=== PATIENT | female | born 1950 | race Caucasian/White ===

== ENCOUNTER → 2018-11-25 12:57 | Outpatient (CLI) | payer MEDICARE, SELFPAY ==
--- NOTE | 2018-11-25 13:00 | DI.MRI.S_ITS ---
PROCEDURE: MR LUMBAR SPINE WO CON INDICATIONS: RADICULOPATHY LUMBAR REGION TECHNIQUE: Noncontrast sagittal T1 spin echo and T2 fast echo, sagittal STIR, axial T1 and T2 fast spin echo through the lumbar spine. In cases with scoliosis, additional coronal T2 fast spin echo may be performed. COMPARISON: [facility], , L-SPINE WITHOUT CONTRAST, 09/01/2017, 16:17. FINDINGS: Image quality: Diagnostic, with note made of motion artifact. Alignment and Curvature: S-shaped scoliotic curvature is seen. Minimal retrolisthesis is seen at T12-L1, L1-L2, L2-L3, and L4-L5. Bone Marrow: Marrow is of normal overall signal. No acute vertebral body compression fractures. Spinal Cord: Conus medullaris terminates at the L1 level. Visualized cord demonstrates normal signal and size. Paraspinous Soft Tissues: No paravertebral masses. The superior pole of the right kidney, there is a simple appearing 12 mm cyst seen. This patient has transitional lumbar anatomy. For the purposes of this examination, the level with the last well-developed disc space is considered to be L5-S1. By this numbering scheme, the L5 level is transitional and relatively highly sacralized. This is best seen on coronal images. This numbering scheme is chosen to remain consistent with prior MRI report. T11-T12: Moderate to severe loss of disc height and disc signal are seen. Mild to moderate disc bulge is seen. There is mild right-sided and no significant left-sided neural foraminal narrowing seen. Minimal central canal narrowing is seen. T12-L1: Moderate to severe loss of disc height and disc signal are seen. There is a degree of vertebral body fusion seen at this level. Moderate disc bulge is seen, which is eccentric to the right. There is mild to moderate bilateral neural foraminal narrowing seen. Moderate central canal narrowing is seen. When comparison is made with the prior examination, these findings are similar. L1-L2: Moderate to severe loss of disc height and disc signal are seen. Endplate irregularity is seen, with small Schmorl's nodes. Moderate disc bulge is seen, which is eccentric to the right side. Moderate bilateral neural foraminal narrowing is seen. Moderate central canal narrowing is seen. When comparison is made with the prior examination, these findings are similar. L2-L3: Moderate to severe loss of disc height and disc signal are seen. Endplate irregularity can be seen, with small Schmorl's nodes noted. Moderate disc bulge is seen, which is eccentric to the left. Moderate bilateral neural foraminal narrowing is seen, left worse than right. Moderate facet joint hypertrophy is seen. Moderate central canal narrowing is seen. When comparison is made with the prior examination, these findings are similar. L3-L4: The disc height is well-preserved. Loss of disc signal is seen at this level. Moderate generalized disc bulge is seen. There is a superimposed central/right disc extrusion, with inferior migration of disc material. This can be seen on series 7 image 23 and on series 4 image 8. Moderate to prominent facet hypertrophy is seen. There is moderate right-sided and moderate to severe left-sided neural foraminal narrowing seen. There is a degree of compression seen upon the exiting left L3 nerve root. Moderate central canal narrowing is seen. The disc extrusion is worse compared to the prior MRI. L4-L5: Moderate to severe loss of disc height and disc signal can be seen. Schmorl's nodes are seen. Moderate disc bulge is seen, which is eccentric to the right. Mild to moderate facet hypertrophy is seen. There is mild to moderate right-sided and moderate left-sided neural foraminal narrowing seen. Minimal central canal narrowing is seen. When comparison is made with the prior examination, these findings are similar. L5-S1: Mild to moderate loss of disc height and disc signal can be seen. Minimal to mild disc bulge is seen. Agtr-ea-ibbijehp facet hypertrophy is seen. No significant neural foraminal or central canal narrowing can be seen. Stable from the prior study. IMPRESSION: Interval worsening of a disc extrusion at L3-L4. Otherwise, the degenerative changes are similar to 2018. S-shaped scoliosis. Transitional lumbar anatomy noted, with a relatively highly sacralized L5 level. Dictated by: Sushant Peña M.D. on 11/27/2018 at 7:38 Approved by: Sushant Peña M.D. on 11/27/2018 at 7:49
== END ==
PROVIDERS: Visit Provider Orthopaedic Surgery
DX: M51.16 Intervertebral disc disorders with radiculopathy, lumbar region (principal); M41.9 Scoliosis, unspecified
CPT/HCPCS: 72148

== ENCOUNTER → 2019-04-20 11:28 | Outpatient (CLI) | payer MEDICARE, SELFPAY ==
[2019-04-20 12:11] LABS: Add Manual Diff / Slide Review NO; Basophils Absolute Auto 0 /uL (0-100); Basophils Percent Auto 0.5 % (0-2); Eosinophils Absolute Auto 100 /uL (0-450); Hematocrit 42.8 % (36-46); Hemoglobin 14.6 g/dL (12.0-16.0); Lymphocytes Absolute Auto 1600 /uL (1100-4500); Lymphocytes Percent Auto 24.6 % (25-40); Mean Corpuscular HGB Conc 34.1 % (30-36); Mean Corpuscular Hemoglobin 30.3 PG (26-34); Mean Corpuscular Volume 88.7 fL (80-100); Monocytes Absolute Auto 400 /uL (0-900); Monocytes Percent Auto 5.5 % (3-14); Neutrophils Absolute Auto 4300 /uL (1500-7000); Neutrophils Percent Auto 67.4 % (50-75); Platelet Count 192 X10^3/uL (150-400); Red Blood Cell Count 4.83 X10^6/uL (4.0-5.2); White Blood Cell Count 6.4 X10^3/uL (4.5-11.0)
[2019-04-20 12:39] LABS: Blood Urea Nitrogen 18 mg/dL (7-17); Calcium 9.4 mg/dL (8.4-10.2); Carbon Dioxide 26 mmol/L (22-32); Chloride 103 mmol/L (98-107); Estimated Glomerular Filt Rate > 60.0 mL/min (>60); Glucose 114 mg/dL (80-110); HEMOLYSIS < 15 (0-50); Potassium 4.3 mmol/L (3.4-5.1); Sodium 140 mmol/L (137-145)
== END ==
PROVIDERS: PCP Internal Medicine; Visit Provider Physician Assistant Surgical
DX: Z01.818 Encounter for other preprocedural examination (principal); Z01.812 Encounter for preprocedural laboratory examination; M43.16 Spondylolisthesis, lumbar region; M47.27 Other spondylosis with radiculopathy, lumbosacral region; M48.061 Spinal stenosis, lumbar region without neurogenic claudication
CPT/HCPCS: 36415; 80048; 85025; 93005

== ENCOUNTER 2019-04-26 05:33 | Inpatient (IN) | payer MEDICARE, SELFPAY ==
[2019-04-18 09:53] VITALS: BMI 32.1
[2019-04-22 08:20] VITALS: BP 128/68; PULSE 92; RESP 16; TEMP 36.8; O2SAT 93
[2019-04-26] VITALS (20 sets, daily range): BP systolic 103–145; BP diastolic 46–86; PULSE 60–102; RESP 10–21; TEMP 35.8–38.2; O2SAT 90–99; BMI 32.5
--- NOTE | 2019-04-26 | DI.RAD.S_ITS ---
PROCEDURE: XR LUMBAR SPINE 2-3V INDICATIONS: L3-4, L4-5 TLIF W/ INSTRUMENTATION TECHNIQUE: 2 views of the lumbar spine were acquired. COMPARISON: [facility], , MR LUMBAR SPINE WO CON, 11/25/2018, 13:25. FINDINGS: 2 intraoperative fluoroscopy images demonstrate discectomy and posterior spinal fusion at L3-L4 and L4-L5. Pedicular screws and fusion rods are in anatomic position. IMPRESSION: Discectomy and posterior fusion at L3-L4 and L4-L5. Dictated by: Stanislaw Pina M.D. on 04/26/2019 at 10:53 Approved by: Stanislaw Pina M.D. on 04/26/2019 at 10:56
[2019-04-26] MEDS: LACTATED RINGERS 1,000 ML 42 ML IV ×3 (06:55→11:56)
--- NOTE | 2019-04-26 07:39 | PM.PREOP ---
Pre-operative Note Interval Note History & Physical reviewed/Exam performed by Physician: Yes Changes to H&P: No
[2019-04-26] MEDS: CEFAZOLIN 2 GM/100 ML FROZ.PIGGY IV ×3 (07:56→23:58)
--- NOTE | 2019-04-26 08:41 | SUR.OPER ---
Prone on spine table, head in foam head support, padded chest and pelvic supports, gel pad at knees, lower legs supported by pillows; nipples, genitalia and toes free of pressure, arms secured on foam padded arm boards at <90 degrees abduction. Tape over blanket at thigh secured to table.
[2019-04-26] MEDS: BUPIVACAINE 0.25% W/ EPI 30 ML VIAL INJ (08:47)
[2019-04-26] MEDS: BUPIVACAINE LIPOSOME 266 MG/20 ML VIAL INJ (08:47)
[2019-04-26] MEDS: ACETAMINOPHEN IV 1,000 MG/100 ML VIAL 400 MG IV (11:15)
--- NOTE | 2019-04-26 11:46 | PM.OP.1 ---
Operative Date/Time/Diagnoses Date of procedure: 04/26/19 Time of procedure: 07:46 Pre-op diagnosis: 1. L3-4, L4-5 spinal stenosis 2. L3-4, L4-5 spondylosis with radiculopathy Post-op diagnosis: same Procedure & Clinicians Procedure: 1 L3-4,L4-5 Postero-lateral and posterior interbody fusion 2. L3-4,L4-5 interbody cage placement. 3. L3-4,L4-5 decompressive laminectomy with bilateral facetecomies 4. L3-4,L4-5 Posterior segmental instrumentation 5. [place] of bone marrow from iliac crest 6. Utilization of microsurgical technique and operating microscope Same procedure as scheduled: Yes Indications: Patient has been having chronic back pain and worsening lumbar radiculopathy. Patient failed multiple conservative management with worsening pain weakness and numbness in her lower extremity. Patient has been having difficulty performing activity of daily living. After discussing risks benefits of treatment options, patient elected proceed with surgery. Surgeon: Alexsandra Sanders Bulkhead Carpenter: Hayde Mondragon Click Yes if Unassisted: No Anesthesia Type: General Operative Notes Closure Type: primary Specimen(s): none sent Prosthetic devices, grafts, tissues, transplants, or devices: Globus revolve screws, Rise cages Applied: catheter Estimated Blood Loss (mL): 100 Blood products transfused: none Procedure in detail: Patient was seen in the preoperative area. Risks and benefits of the surgery was discussed with the patient. Informed consent was obtained from the patient and placed in the chart. Surgical site was marked. Patient was taken to the operative room. General anesthesia was administered. Prophylactic antibiotic was given to the patient less than 30 min before the incision was made. Patient was placed into a prone position on the Felix table. Patient's back was then prepped and draped in the sterile fashion. Time-out was performed at this time. Using AP and lateral C-arm imaging the interval between L3-4, L4-5 was identified and marked on patient's back. A 2 inch incision 2 in from midline was made on the right side first. The fascia was incised in line with skin incision. Globus MARS retractors was placed inside the incision and docked onto the L3 and L4 lamina. Using microsurgical technique and operating microscope, a L3 and L4 laminectomy and L3-4, L4-5 facetectomy was performed using a Kerrison rongeur. Patient was found have severe central and neural foramen stenosis bilateral which was fully decompressed after the decompression was completed at both levels. The disc space at L3-4, L4-5 was identified. And a total diskectomy was performed at L3-4, L4-5 level. The endplates were decorticated using a rasp and shaver. The total diskectomy and decortication was performed at L3-4, L4-5 level in order to to accomplish a L3-4, L4-5 fusion. The local bone from the laminectomy and facetectomy was saved for local bone grafting. After the total diskectomy and decortication was completed, Bio4 bone graft material was combined with local bone that was harvested earlier. At this time, a separate skin is incision was made over the iliac crest. A Jamshidi needle was inserted into the iliac crest through a separate skin incision. 5 cc of bone marrow aspiration was obtained through the separate skin incision using a Jamshidi needle from the iliac crest. The bone marrow aspiration was combined with local bone and the Bio4 bone grafting material. The bone grafting material was placed into the L3-4, L4-5 interbody space along with two cages, one expandable cage at each level. The cages were expanded to their maximum height using the torque limiting screwdriver. At this time a mirror image incision was made on the left side. The fascia was incised in line with the skin incision. Globus MARS retractor was inserted and docked onto the L3-4, L4-5 posterolateral gutter. Using the power drill, posterior-lateral decortication was performed at L3-4, L4-5 level until bleeding cortical bone was identified. The remaining bone grafting material was placed into the L3-4, L4-5 posterior lateral gutter he order to accomplish posterolateral fusion at the L3-4, L4-5 levels. Using the double C-arm technique, pedicle screws were placed into the L3, L4, L5 pedicles bilaterally. This was done by placing the Jamshidi needle into the pedicles, then placing the guidewires over the Jamshidi needle, and finally placing the cannulated screws over the guidewires bilaterally. After the pedicle screws were placed, 2 titanium rods was locked into the heads of the pedicle screws using locking caps and torque limiting screwdriver. Total 6 pedicles screws were placed. After all the hardware was placed, and confirmed with AP and lateral C-arm imaging, the wound was then irrigated with sterile normal saline and packed with Ray-Angelica gauze for 3 min to accomplish hemostasis. After the gauze was removed the deep fascia was closed with #1 Vicryl suture. The subcutaneous layer was closed with 2-0 Vicryl. The skin was closed with skin anderson. Patient tolerated the procedure well. There were no complications. Complications: none Post-operative Condition: stable Disposition: PACU Plan for aftercare: Admit to inpatient hospital
[2019-04-26] MEDS: ONDANSETRON 4 MG/2 ML INJ IV ×2 (12:00→14:31)
[2019-04-26] MEDS: METOCLOPRAMIDE 10 MG/2 ML INJ IV ×2 (12:02→18:10)
--- NOTE | 2019-04-26 12:11 | SUR.PHASEI ---
Pt arrived, in pain Dr Esquivel here, she medicated pt with Dilaudid, then pt became diaphoretic and nauseated, medicated with zofran and reglan cool wash cloth and queaze ease to chest.
--- NOTE | 2019-04-26 12:13 | SUR.PHASEI ---
Report To Ismael Garcia
--- NOTE | 2019-04-26 12:15 | SUR.PHASEI ---
ASSUMED CARE OF PT, RECEIVED REPORT FROM TESS DONOVAN
[2019-04-26] MEDS: fentaNYL 100 MCG/2 ML INJ 50 MCG IV ×2 (12:20→12:30)
[2019-04-26] MEDS: hydrOXYzine 50 MG/ML INJ 25 MG IM (12:55)
--- NOTE | 2019-04-26 13:50 | PC.NURSE ---
Pt was brought to the floor at approx. 1340 in her bed from PACU. Pt was visable nauseous with transport. She was reported to have been administered zofran and reglan in the PACU recently. Pt was settled into her room which was darkened and made quiet for her comfort. Pt has been able to rest with reduced n/v. Foot SCD's in place, IV fluid running. Call light is within reach.
[2019-04-26] MEDS: SODIUM CHLORIDE 0.9% 1,000 ML 100 ML IV ×2 (14:30→23:59)
--- NOTE | 2019-04-26 14:37 | PC.NURSE ---
1340Pt arrived from PACU via bed. Pt is awake, nauseated, Had emesis. Pt is on O22L pnc, ,sats 98-100%. Pt wants to rest at this time. 1410 Pt had emesis of green, bile, fluid. Pt cleaned up, 1430 Med w/zofran. IVF NS at 100hr now infusing. Family at bedside. Dressing to back is cdi. SCDs on ble. Pt able to move about in the bed. Inst on log role. RT in to inst on IS use.
[2019-04-26] MEDS: HYDROMORPHONE 0.5 MG INJ IV (16:11)
[2019-04-26] MEDS: HYDROCODONE/ACET 5/325 TABLET 2 TAB PO (19:23)
[2019-04-26] MEDS: DOCUSATE 100 MG CAPSULE PO (21:21)
[2019-04-26] MEDS: SENNOSIDES 8.6 MG TABLET 17.2 MG PO (21:21)
[2019-04-27] VITALS (9 sets, daily range): BP systolic 124–143; BP diastolic 61–74; PULSE 85–92; RESP 16–18; TEMP 36.6–38.4; O2SAT 90–97
[2019-04-27] MEDS: HYDROCODONE/ACET 5/325 TABLET 2 TAB PO ×6 (00:02→21:15)
--- NOTE | 2019-04-27 00:08 | PC.NURSE ---
Shift note: Received pt from evening shift. Axox3, able to make needs known. Assessment notable for temp: 100.7, pt was covered in multiple blankets and was moist to hairline. Pt requested pain medication for 6/10 pain, medicated per OCT with 2tab [place] which had 650mg of tylenol which will address both pain and fever. Pt has what appears to be redness to left abdomen in skin fold that appears to have been scratched at, resumed using folded pillow case between fold and advised pt to avoid scratching. Pt has a dressing to back that is CDI and all other systems are stable, pt is on RA at 97%. Pt is a low fall risk at this time and will most likely not need to get out of bed on auto care center manager, bed alarm is on and functioning for safety d/t pt being post op day 0 with huan shcreiber.
[2019-04-27 06:49] LABS: Hematocrit 36.5 % (36-46); Hemoglobin 12.1 g/dL (12.0-16.0)
[2019-04-27] MEDS: DOCUSATE 100 MG CAPSULE PO ×2 (09:13→21:14)
[2019-04-27] MEDS: hydrOXYzine pamoate 25 MG CAPSULE PO (09:13)
--- NOTE | 2019-04-27 09:27 | PM.PNPO.1 ---
Subjective Subjective Date Patient Seen: 04/27/19 Time Patient Seen: 09:27 Interval history: Hospital day 2, postop day 1 following L3-4, L4-5 laminectomy, TLIF, cage, posterior screw fixation by Dr. Sanders. She has remained stable postoperatively. Did note some increased pain during the night. Taking [place] 5/325 mg 2 tablets q.4h. Her chart notes allergy to hydrocodone this is not correct will be changed. She states she has been able take Vicodin in the past without problem. She does have Hairston catheter. She has not been out of bed yet or had PT. Exam Vital Signs (past 8 hours): - 04/27/19 04:18 04/27/19 08:00 Temperature 97.9 F 98.0 F Pulse Rate 85 87 Respiratory Rate 18 16 Blood Pressure 124/74 135/68 Pulse Oximetry 97 95 Fraction of Inspired Oxygen 36 Oxygen Delivery Method Room Air Oxygen Flow Rate 2 Narrative Exam Narrative: Alert, oriented no acute distress lying in bed. Legs. No calf pain or swelling. Pulses symmetrical. Good sensation to touch to lower legs. Good strength on foot dorsiflexion plantar flexion. Objective Labs Result Diagrams: 04/27/19 06:38 Labs: Laboratory Results - last 24 hr 04/27/19 06:38 Hgb 12.1 Hct 36.5 Assessment & Plan Post-op Postoperative Procedures: Procedures Operation Date: 04/26/19 07:45 Actual Procedures Side Surgeon p L3-4, L4-5 TLIF with posterior instrumentaion Alexsandra Sanders MD Plan: Patient will work with PT today. DC Hairston catheter when she is more active. Anticipate another 1-2 day stay before discharge. Patient lives alone with her cat. She does not have stairs. She would prefer not to go to SNF. Quality VTE Deep Vein Thrombosis/Pulmonary Embolism Present on Admission: No
--- NOTE | 2019-04-27 09:30 | PT.IIE ---
Current Diagnoses Spondylolisthesis, lumbar region (04/26/19) Other spondylosis with radiculopathy, lumbosacral region (04/26/19) Spinal stenosis, lumbar region without neurogenic claudication (04/26/19) Surgery Performed Operation Date: 04/26/19 07:45 Actual Procedures p L3-4, L4-5 TLIF with posterior instrumentaion - Alexsandra Sanders MD Surgical History (Last Updated 04/18/19 @ 09:59 by Syeda Copeland RN) History of arthroplasty of left shoulder (Acute ~2016) History of arthroplasty of right knee (Acute) History of total left hip arthroplasty (Acute) Hx of bilateral cataract extraction (Acute) Hx of thyroidectomy (Acute) Hx of tonsillectomy (Acute) Medical History (Last Updated 04/18/19 @ 09:59 by Syeda Copeland RN) Arthritis (Acute) Depression (Acute) Former smoker (Acute) H/O: hysterectomy (Acute) HTN (hypertension) (Acute) IBS (irritable bowel syndrome) (Acute) Pelvic fracture (Acute) Spinal stenosis (Acute) Physical Therapy Inpatient Evaluation/Re-Eval M1 PT/OT-IP Prior Functional Status Start: 04/27/19 12:37 Freq: NEEDED Status: Active Protocol: Document 04/27/19 09:30 AB (Rec: 04/27/19 12:54 AB [email or web address]) Medical Review Prior Functional Status Medical History Reviewed Yes Communication able to make needs known Mobility and Gait pt stated that she is independent with all mobilities and ambulation without AD Social History Household Members none Living Arrangements Apartment/Condo Number of Floors (Floors) One Floor Number of Stairs To Enter/Railing? no step to enter Home Environment Standard Height Toilet,Tub/ Shower Home Equipment Four Wheel Walker,Grab Bars In Shower Employment Status Retired Additional Social History Comment pt stated that friend/family will be checking and can assist her but cannot stay with her to assist. M2 PT-IP Current Condition Start: 04/27/19 12:37 Freq: NEEDED Status: Active Protocol: Document 04/27/19 09:30 AB (Rec: 04/27/19 12:54 AB [email or web address]) Physical Therapy Current Condition Current Condition Evaluation Date 04/27/19 Treatment Diagnosis L3-4, L4-5 fusion/lami; difficulty in walking Onset Date 04/26/19 Precautions Lumbar Precautions Log Roll,No Twisting,Limit Bending,Lifting Restriction of 10 lbs,Gait Belt above Incisional Area M3 PT-IP Subjective Start: 04/27/19 12:37 Freq: NEEDED Status: Active Protocol: Document 04/27/19 09:30 AB (Rec: 04/27/19 12:54 AB [email or web address]) Subjective Physical Therapy Visit Type Type Initial Evaluation Visit Start Time 09:30 Visit Stop Time 10:02 Total Visit Minutes 32 Number of LEAD C DEVELOPER Visits 0 Physical Therapy Visit Comments Patient Comments pt agreeable to do PT Therapy Pain Assessment Pain When Pain Assessed At Rest Pain Present Pain Present Pain Reported Location back Intensity 5 Scale Used Numeric (1 - 10) Pain Management Techniques Apply Cold,Timing of Activity with Medications M4 PT-IP Mobility and Gait Start: 04/27/19 12:37 Freq: NEEDED Status: Active Protocol: Document 04/27/19 09:30 AB (Rec: 04/27/19 12:54 AB [email or web address]) PT-Bed Mobility Assessment Rolling Type of Rolling Log Rolling Level of Assist Minimal Assistance Supine to Sit Supine to Sit Minimal Assistance,1 Person Assistance PT-Transfer Assessment Sit to and From Stand Sit to and from Stand Moderate Assistance,1 Person Assistance,Use of Upper Extremities Equipment Transfer Assistive Device Gait Belt,Front Wheeled Walker Orthotic/Prosthetic Devices or Brace: No Transfers Transfer Destination Chair Transfer Technique pt ambulated using FWW Comments Mobility Comments pt completed supine to sit min A and cues. pt was able to sit on EOB CGA. completed sit to stand mod A and cues. pt ambulated towards the chair using FWW min to mod A ~ 12 ft . positioned pt on chair. call light and table placed within reach. pt c/o increase pain. Gait Assessment Gait Gait Assistance Required: Minimum Assistance,Moderate Assistance Distance (Feet) 12 Able to Maintain Weight Bearing Status Yes During Gait Assistive Devices Assistive Device Gait Belt,Front Wheeled Walker Orthotic/Prosthetic Devices or Brace: No Gait Deviations General Gait Pattern Antalgic,Decreased Stride Length,Decreased Feet Clearance Factors Limiting Gait Function Factors Limiting Gait Function Decreased Activity Tolerance, Decreased Strength,Limited Range of Motion,Pain,Poor Balance,Poor Safety Awareness Comments Gait Comments pt presents with antalgic step to gait and requires increase time to complete tasks. PT-Balance Assessment Sitting Balance and Reactions Static Sitting Balance Ability Good Dynamic Sitting Balance Ability Good Standing Balance and Reactions Static Standing Balance Ability Fair Dynamic Standing Balance Ability Fair Device Used FWW M5 PT-IP Objective Assessments Start: 04/27/19 12:37 Freq: NEEDED Status: Active Protocol: Document 04/27/19 09:30 AB (Rec: 04/27/19 12:54 AB [email or web address]) Orientation Orientation/Cognition Level of Alertness Alert Orientation Name,Age,Birthday,Month,Date, Year,Day of Week,Place, Situation Safety Awareness Decreased Safety Awareness Gross Range of Motion Lower Extremity ROM Assessment Within Functional Limits Strength Lower Extremity Strength Assessment Bilaterally Impaired Hip 4-/5 Knee 4-/5 Coordination Assessment Gross Coordination Gross Coordination WNL Sensation Assessment Sensation Gross Sensation WNL Muscle Tone Muscle Tone WNL Yes M6 PT-IP Treatment Start: 04/27/19 12:37 Freq: NEEDED Status: Active Protocol: Document 04/27/19 09:30 AB (Rec: 04/27/19 12:54 AB [email or web address]) Physical Therapy Treatment Education Education Provided Precautions,Weight Bearing Status,Post-Op Packet,Safety M7 PT-IP Assessment and Plan Start: 04/27/19 12:37 Freq: NEEDED Status: Active Protocol: Document 04/27/19 09:30 AB (Rec: 04/27/19 12:54 AB [email or web address]) PT Summary Assessment and Plan Potential Rehabilitation Potential Good Status of Condition at Evaluation Evolving Summary Impairments Pain,ROM,Strength,Balance, Coordination,Sensation,Tone, Cognition,Bed Mobility, Transfers,Gait,Activity Tolerance Assessment Summary pt requiring min to mod A with mobility and will not have a consistent person to assist her at home. pt has to be more functional than current mobility to go home. will continue to monitor progress. Goals Bed Mobility Goal Independent Transfer Goal Independent,Front Wheeled Walker Gait Goal Independent,Front Wheel Walker Gait Distance 150 Days to Meet Goals 5 Frequency of Treatment Frequency Of Treatment Twice a Day Treatment Plan Physical Therapy Treatment Plan Bed Mobility Training,Transfer Training,Gait Training, Therapeutic Exercise,Balance Retraining,Post Op Education, Discharge Planning,Hot or Cold Pack,Neuromuscular Re-ed, Coordination Retraining,Manual Therapy Other Recommendations and Next Treatment bed mobility, transfers, Focus ambulation Recommendations To Nursing Amount of Assist Needed 1 Person Assist Discharge Recommendations PT Discharge Recommendations Home with 24/7 Assist,Home Health,SNF Rehab Other Discharge Recommendations depending on progress: SNF vs home with 24/7/HHPT Equipment Needed for Home Before FWW Discharge
--- NOTE | 2019-04-27 10:45 | PC.NURSE ---
Addendum entered by Morena Wilkins R.N. 04/27/19 12:24: pt c/o chest tightness and thinks it is related to stress. She says this happens, I asked if there is anything she does to alleviate stress and she said she just needs to chill out. VVS and able to take a couple inhalations with IS without pain, just reporting tightness like when you get a cold. Original Note: AM Shift pt AO and receptive to care. Reporting 9/10 pain during assessment. Administered 2 tabs [place] and pain decreased to 3/10. Some pain still irritates pt to left flank and she is thinking it is more diverticulitis related (prior diagnosis). I handed her the menu and suggested ordering meals conducive to a diverticulitis diet. pt agrees. PT assisted pt to chair. Hairston draining to gravity. Saline locked fluids this AM as VS are stable. No edema noted. SCD's were on and pumping at the start of shift, but removed for activity. Tolerating fluids and meals, no nausea reported.
--- NOTE | 2019-04-27 12:33 | PC.NURSE ---
Removed medication from allergy list. KOURTNEY Tinsley asked to remove hydromorphone from allergy list due to medication currently being administered. No adverse reactions being reported by the patient at this time (or after previous administrations).
--- NOTE | 2019-04-27 14:25 | PT.IPTN ---
Current Diagnoses Spondylolisthesis, lumbar region (04/26/19) Other spondylosis with radiculopathy, lumbosacral region (04/26/19) Spinal stenosis, lumbar region without neurogenic claudication (04/26/19) Surgery Performed Operation Date: 04/26/19 07:45 Actual Procedures p L3-4, L4-5 TLIF with posterior instrumentaion - Alexsandra Sanders MD Physical Therapy Treatment Note M2 PT-IP Current Condition Start: 04/27/19 12:37 Freq: NEEDED Status: Active Protocol: Document 04/27/19 09:30 AB (Rec: 04/27/19 12:54 AB [id number]) Physical Therapy Current Condition Current Condition Evaluation Date 04/27/19 Treatment Diagnosis L3-4, L4-5 fusion/lami; difficulty in walking Onset Date 04/26/19 Precautions Lumbar Precautions Log Roll,No Twisting,Limit Bending,Lifting Restriction of 10 lbs,Gait Belt above Incisional Area M3 PT-IP Subjective Start: 04/27/19 12:37 Freq: NEEDED Status: Active Protocol: Document 04/27/19 14:25 AB (Rec: 04/27/19 16:32 AB [id number]) Subjective Physical Therapy Visit Type Type Treatment Note Visit Start Time 14:25 Visit Stop Time 14:45 Total Visit Minutes 20 Number of FRICTION WELDING MACHINE OPERATOR Visits 0 Physical Therapy Visit Comments Patient Comments pt agreeable to do PT Therapy Pain Assessment Pain When Pain Assessed At Rest Pain Present Pain Present Pain Reported Location back Intensity 11 Scale Used Numeric (1 - 10) Pain Management Techniques Re-positioning,Timing of Activity with Medications M4 PT-IP Mobility and Gait Start: 04/27/19 12:37 Freq: NEEDED Status: Active Protocol: Document 04/27/19 14:25 AB (Rec: 04/27/19 16:32 AB [id number]) PT-Bed Mobility Assessment Sit to Supine Sit to Supine Moderate Assistance PT-Transfer Assessment Sit to and From Stand Sit to and from Stand Moderate Assistance,1 Person Assistance,Use of Upper Extremities Equipment Transfer Assistive Device Gait Belt,Front Wheeled Walker Orthotic/Prosthetic Devices or Brace: No Transfers Transfer Destination Bed Transfer Technique pt ambulated using FWW Transfer Ability Level of Assist Moderate Assistance,1 Person Assistance,Use of Upper Extremities Comments Mobility Comments completed sit <>stand x3 reps and max cues requiring mod A and cues for techniques and safety. Gait Assessment Gait Gait Assistance Required: Moderate Assistance Distance (Feet) 12 Able to Maintain Weight Bearing Status Yes During Gait Assistive Devices Assistive Device Gait Belt,Front Wheeled Walker Orthotic/Prosthetic Devices or Brace: No Gait Deviations General Gait Pattern Antalgic,Decreased Stride Length,Decreased Feet Clearance Factors Limiting Gait Function Factors Limiting Gait Function Decreased Activity Tolerance, Decreased Strength,Limited Range of Motion,Pain,Poor Balance,Poor Safety Awareness Comments Gait Comments pt presents with unsteady antalgic gait with slow stewart. c/o increase pain M5 PT-IP Objective Assessments Start: 04/27/19 12:37 Freq: NEEDED Status: Active Protocol: Document 04/27/19 09:30 AB (Rec: 04/27/19 12:54 AB [id number]) Orientation Orientation/Cognition Level of Alertness Alert Orientation Name,Age,Birthday,Month,Date, Year,Day of Week,Place, Situation Safety Awareness Decreased Safety Awareness Gross Range of Motion Lower Extremity ROM Assessment Within Functional Limits Strength Lower Extremity Strength Assessment Bilaterally Impaired Hip 4-/5 Knee 4-/5 Coordination Assessment Gross Coordination Gross Coordination WNL Sensation Assessment Sensation Gross Sensation WNL Muscle Tone Muscle Tone WNL Yes M6 PT-IP Treatment Start: 04/27/19 12:37 Freq: NEEDED Status: Active Protocol: Document 04/27/19 14:25 AB (Rec: 04/27/19 16:32 AB [id number]) Physical Therapy Treatment Education Education Provided Precautions,Safety M7 PT-IP Assessment and Plan Start: 04/27/19 12:37 Freq: NEEDED Status: Active Protocol: Document 04/27/19 14:25 AB (Rec: 04/27/19 16:32 AB [id number]) PT Summary Assessment and Plan Potential Rehabilitation Potential Fair Summary Impairments Pain,ROM,Strength,Balance, Coordination,Sensation,Bed Mobility,Transfers,Gait, Activity Tolerance Progress Towards Goals Slow Progress due to Pain Assessment Summary pt requiring mod A with mobility and unable to tolerate much activity with c/ o 11/10 pain. pt will not have a consistent person to assist her and will just be relying on friends that might check on her. pt at this time will require SNF rehab to improve mobility prior to d/c home. Goals Bed Mobility Goal Independent Transfer Goal Independent,Front Wheeled Walker Gait Goal Independent,Front Wheel Walker Gait Distance 150 Days to Meet Goals 5 Frequency of Treatment Frequency Of Treatment Twice a Day Treatment Plan Physical Therapy Treatment Plan Bed Mobility Training,Transfer Training,Gait Training, Therapeutic Exercise,Balance Retraining,Post Op Education, Discharge Planning,Hot or Cold Pack,Neuromuscular Re-ed, Coordination Retraining,Manual Therapy Other Recommendations and Next Treatment bed mobility, transfers, Focus ambulation Recommendations To Nursing Amount of Assist Needed 1 Person Assist Discharge Recommendations PT Discharge Recommendations SNF Rehab Equipment Needed for Home Before FWW Discharge
--- NOTE | 2019-04-27 14:38 | OT.IP.EVAL ---
Current Diagnoses Spondylolisthesis, lumbar region (04/26/19) Other spondylosis with radiculopathy, lumbosacral region (04/26/19) Spinal stenosis, lumbar region without neurogenic claudication (04/26/19) Surgery Performed Operation Date: 04/26/19 07:45 Actual Procedures p L3-4, L4-5 TLIF with posterior instrumentaion - Alexsandra Sanders MD Past Medical History (Last Updated 04/18/19 @ 09:59 by Syeda Copeland RN) Arthritis (Acute) Depression (Acute) Former smoker (Acute) H/O: hysterectomy (Acute) HTN (hypertension) (Acute) IBS (irritable bowel syndrome) (Acute) Pelvic fracture (Acute) Spinal stenosis (Acute) Surgical History (Last Updated 04/18/19 @ 09:59 by Syeda Copeland RN) History of arthroplasty of left shoulder (Acute ~2016) History of arthroplasty of right knee (Acute) History of total left hip arthroplasty (Acute) Hx of bilateral cataract extraction (Acute) Hx of thyroidectomy (Acute) Hx of tonsillectomy (Acute) Occupational Therapy Inpatient Evaluation/Re-Eval M1 PT/OT-IP Prior Functional Status Start: 04/27/19 12:37 Freq: NEEDED Status: Active Protocol: Document 04/27/19 14:21 [facility] (Rec: 04/27/19 14:38 [facility] [id number]) Medical Review Prior Functional Status Medical History Reviewed Yes Communication able to make needs known Mobility and Gait pt stated that she is independent with all mobilities and ambulation without AD Activities of Daily Living and IADL's Pt states she was completely independent with all ADl and IADl needs. Social History Household Members none Living Arrangements Apartment/Condo Number of Floors (Floors) One Floor Number of Stairs To Enter/Railing? no step to enter Home Environment Standard Height Toilet,Tub/ Shower Home Equipment Four Wheel Walker,Grab Bars In Shower Employment Status Retired Additional Social History Comment pt stated that friend/family will be checking and can assist her but cannot stay with her to assist. M2 OT-IP Current Condition Start: 04/27/19 11:02 Freq: Status: Active Protocol: Document 04/27/19 14:21 [facility] (Rec: 04/27/19 14:38 [facility] [id number]) Occupational Therapy Current Condition Current Condition Evaluation Date 04/27/19 Treatment Diagnosis S/P L3-4, L4-5 laminectomy, TLIF cage posterior fixation Diagnosis Onset Date 04/26/19 Post Operative Precautions Lumbar Precautions Log Roll,No Twisting,Limit Bending,Lifting Restriction of 10 lbs,Gait Belt above Incisional Area Weight Bearing Status Weight Bearing Status Weight Bear as Tolerated M3 OT- IP Subjective and Pain Start: 04/27/19 11:02 Freq: Status: Active Protocol: Document 04/27/19 14:21 [facility] (Rec: 04/27/19 14:38 [facility] [id number]) OT- Subjective Occupational Therapy Visit Type Type Initial Evaluation Visit Start Time 09:35 Visit Stop Time 10:06 Total Visit Minutes 31 Occupational Therapy Visit Comments Patient Comments Pt agreeable to get up. Patient/Caregiver Goals Pt wanting to go home. OT Pain Assessment Pain When Pain Assessed During Mobility Pain Present Pain Present Pain Reported Location back Intensity 9 M4 OT- IP ADL's Start: 04/27/19 11:02 Freq: Status: Active Protocol: Document 04/27/19 14:21 [facility] (Rec: 04/27/19 14:38 [facility] [id number]) OT ADL-Grooming Comments OT Grooming Comments not completed OT ADL-Dressing General Eval Lower Body Dressing Ability Maximum Assistance Areas Needing Assistance Socks Comments OT Dressing Comments Pt educated for LB dressing equipment as currently needing MAX A . OT ADL-Toileting Comments OT Toileting Comments Pt will benefit from either BSC or RTS. OT ADL-Bathing Comments OT Bathing Comments Pt may need tub bench versus shower chair. M5 OT- IP IADL's Start: 04/27/19 11:02 Freq: Status: Active Protocol: Document 04/27/19 14:21 [facility] (Rec: 04/27/19 14:38 [facility] [id number]) OT-Instrumental Activities of Daily Living Home Safety Awareness Home Safety Comments Pt states manages her IADL needs without assist. M6 OT- IP Functional Cognition Start: 04/27/19 11:02 Freq: Status: Active Protocol: Document 04/27/19 14:21 [facility] (Rec: 04/27/19 14:38 [facility] [id number]) Cognitive Factors Limiting Selfcare Function Cognitive Ability Level of Alertness Alert Patient Orientation Name,Place,Situation Attention Span Ability Capable of Focused Attention, Capable of Sustained Attention Ability to Follow Commands Able to Follow One Step Commands Memory Description Short Term Impaired Safety Awareness Decreased Ability to Apply Precautions,Underestimates Need for Assistance Cognitive Comments Cognitive Assessment Comments Pt not remembering back precautions and will benefit from continued practice and education during ADl needs. OT- Vision and Hearing OT- Hearing Assessment OT- Hearing Assessment WFL OT- Vision Assessment Visual Acuity Glasses For Reading M7 OT- IP Mobility and Balance Start: 04/27/19 11:02 Freq: Status: Active Protocol: Document 04/27/19 14:21 [facility] (Rec: 04/27/19 14:38 [facility] [id number]) OT- Bed Mobility Assessment Supine to Sit Supine to Sit Assist Minimal Assistance OT-Transfer Assessment Sit to and From Stand Sit to and from Stand Moderate Assistance Transfers Transfer Ability Moderate Assistance Technique Transfer Destination Bed,Chair Devices Transfer Assistive Devices Gait Belt,Front Wheeled Walker Comments Mobility Comments Pt needing assist to help get up from sidelying and would benefit from bedrail at home. Pt needing MODA to stand due to weakness and difficulty to straighten legs out. OT- Balance Assessment Sitting Balance and Reactions Static Sitting Balance Ability Good Dynamic Sitting Balance Ability Fair Standing Balance and Reactions Static Standing Balance Ability Fair M8 OT- IP Objective Assessments Start: 04/27/19 11:02 Freq: Status: Active Protocol: Document 04/27/19 14:21 [facility] (Rec: 04/27/19 14:38 [facility] [id number]) OT Strength Upper Extremity Strength Assessment Within Functional Limits OT-Muscle Tone Assessment Muscle Tone WNL Yes M9 OT- IP Assessment and Plan Start: 04/27/19 11:02 Freq: Status: Active Protocol: Document 04/27/19 14:21 [facility] (Rec: 04/27/19 14:38 [facility] [id number]) OT Summary Assessment and Plan Potential Rehabilitation Potential Good Analytic Complexity at Evaluation Low Summary OT Impairments Pain,Balance,Functional Cognition,Functional Mobility, Grooming,Dressing,Toileting, Bathing,Toilet Transfers, Shower Transfers Progress Towards Goals Slow Progress due to Pain,Slow Progress due to Activity Tolerance Assessment Summary Pt low complexity and main barrier is now needing MODA for mobility needs and assistance for ADl's. Pt lives alone and only has friends to come by to assist. Pt would benefit from skilled rehab prior to discharge home otherwise go home if someone able to stay with her. Goals Grooming Goal Independent Dressing Goal Independent Toileting Goal Independent Bathing Goal Standby Assistance Toilet Transfer Goal Independent Shower Transfer Goal Standby Assistance Patient/Caregiver Education Goal Demonstrate Post-Op Precautions,Caregiver Independent Assisting Patient OT-Other Goals Grooming goal in standing. Days to Meet Goals 7 Frequency of Treatment Frequency Of Treatment Once a Day Treatment Plan OT Treatment Plan ADL Training,Functional Cognition Training,Functional Mobility,Patient/Family Education,Discharge Planning Other Treatment Recommendations and Next Toileting and dressing with Treatment Focus incorporation of back precautions. Discharge Recommendations OT Discharge Recommendations SNF Rehab Other Discharge Recommendations Pending medical progress and if someone can stay home with her initially, home with assist. Home Equipment Needs Tub bench, bed rail, BSC/RTS, turnaround engineer, long handled shoe horn ,FWW
--- NOTE | 2019-04-27 14:40 | OT.IP.EVAL ---
Current Diagnoses Spondylolisthesis, lumbar region (04/26/19) Other spondylosis with radiculopathy, lumbosacral region (04/26/19) Spinal stenosis, lumbar region without neurogenic claudication (04/26/19) Surgery Performed Operation Date: 04/26/19 07:45 Actual Procedures p L3-4, L4-5 TLIF with posterior instrumentaion - Alexsandra Sanders MD Past Medical History (Last Updated 04/18/19 @ 09:59 by Syeda Copeland RN) Arthritis (Acute) Depression (Acute) Former smoker (Acute) H/O: hysterectomy (Acute) HTN (hypertension) (Acute) IBS (irritable bowel syndrome) (Acute) Pelvic fracture (Acute) Spinal stenosis (Acute) Surgical History (Last Updated 04/18/19 @ 09:59 by Syeda Copeland RN) History of arthroplasty of left shoulder (Acute ~2016) History of arthroplasty of right knee (Acute) History of total left hip arthroplasty (Acute) Hx of bilateral cataract extraction (Acute) Hx of thyroidectomy (Acute) Hx of tonsillectomy (Acute) Occupational Therapy Inpatient Evaluation/Re-Eval M1 PT/OT-IP Prior Functional Status Start: 04/27/19 12:37 Freq: NEEDED Status: Active Protocol: Document 04/27/19 14:21 [facility] (Rec: 04/27/19 14:38 [facility] [id number]) Medical Review Prior Functional Status Medical History Reviewed Yes Communication able to make needs known Mobility and Gait pt stated that she is independent with all mobilities and ambulation without AD Activities of Daily Living and IADL's Pt states she was completely independent with all ADl and IADl needs. Social History Household Members none Living Arrangements Apartment/Condo Number of Floors (Floors) One Floor Number of Stairs To Enter/Railing? no step to enter Home Environment Standard Height Toilet,Tub/ Shower Home Equipment Four Wheel Walker,Grab Bars In Shower Employment Status Retired Additional Social History Comment pt stated that friend/family will be checking and can assist her but cannot stay with her to assist. M2 OT-IP Current Condition Start: 04/27/19 11:02 Freq: Status: Active Protocol: Document 04/27/19 14:21 [facility] (Rec: 04/27/19 14:38 [facility] [id number]) Occupational Therapy Current Condition Current Condition Evaluation Date 04/27/19 Treatment Diagnosis S/P L3-4, L4-5 laminectomy, TLIF cage posterior fixation Diagnosis Onset Date 04/26/19 Post Operative Precautions Lumbar Precautions Log Roll,No Twisting,Limit Bending,Lifting Restriction of 10 lbs,Gait Belt above Incisional Area Weight Bearing Status Weight Bearing Status Weight Bear as Tolerated M3 OT- IP Subjective and Pain Start: 04/27/19 11:02 Freq: Status: Active Protocol: Document 04/27/19 14:21 [facility] (Rec: 04/27/19 14:38 [facility] [id number]) OT- Subjective Occupational Therapy Visit Type Type Initial Evaluation Visit Start Time 09:35 Visit Stop Time 10:06 Total Visit Minutes 31 Occupational Therapy Visit Comments Patient Comments Pt agreeable to get up. Patient/Caregiver Goals Pt wanting to go home. OT Pain Assessment Pain When Pain Assessed During Mobility Pain Present Pain Present Pain Reported Location back Intensity 9 M4 OT- IP ADL's Start: 04/27/19 11:02 Freq: Status: Active Protocol: Document 04/27/19 14:21 [facility] (Rec: 04/27/19 14:38 [facility] [id number]) OT ADL-Grooming Comments OT Grooming Comments not completed OT ADL-Dressing General Eval Lower Body Dressing Ability Maximum Assistance Areas Needing Assistance Socks Comments OT Dressing Comments Pt educated for LB dressing equipment as currently needing MAX A . OT ADL-Toileting Comments OT Toileting Comments Pt will benefit from either BSC or RTS. OT ADL-Bathing Comments OT Bathing Comments Pt may need tub bench versus shower chair. M5 OT- IP IADL's Start: 04/27/19 11:02 Freq: Status: Active Protocol: Document 04/27/19 14:21 [facility] (Rec: 04/27/19 14:38 [facility] [id number]) OT-Instrumental Activities of Daily Living Home Safety Awareness Home Safety Comments Pt states manages her IADL needs without assist. M6 OT- IP Functional Cognition Start: 04/27/19 11:02 Freq: Status: Active Protocol: Document 04/27/19 14:21 [facility] (Rec: 04/27/19 14:38 [facility] [id number]) Cognitive Factors Limiting Selfcare Function Cognitive Ability Level of Alertness Alert Patient Orientation Name,Place,Situation Attention Span Ability Capable of Focused Attention, Capable of Sustained Attention Ability to Follow Commands Able to Follow One Step Commands Memory Description Short Term Impaired Safety Awareness Decreased Ability to Apply Precautions,Underestimates Need for Assistance Cognitive Comments Cognitive Assessment Comments Pt not remembering back precations and will benefit from continued practice and education during ADl needs. OT- Vision and Hearing OT- Hearing Assessment OT- Hearing Assessment WFL OT- Vision Assessment Visual Acuity Glasses For Reading M7 OT- IP Mobility and Balance Start: 04/27/19 11:02 Freq: Status: Active Protocol: Document 04/27/19 14:21 [facility] (Rec: 04/27/19 14:38 [facility] [id number]) OT- Bed Mobility Assessment Supine to Sit Supine to Sit Assist Minimal Assistance OT-Transfer Assessment Sit to and From Stand Sit to and from Stand Moderate Assistance Transfers Transfer Ability Moderate Assistance Technique Transfer Destination Bed,Chair Devices Transfer Assistive Devices Gait Belt,Front Wheeled Walker Comments Mobility Comments Pt needing assist to help get up from sidelying and would benefit from bedrail at home. Pt needing MODA to stand due to weakness and difficulty to straighten legs out. OT- Balance Assessment Sitting Balance and Reactions Static Sitting Balance Ability Good Dynamic Sitting Balance Ability Fair Standing Balance and Reactions Static Standing Balance Ability Fair M8 OT- IP Objective Assessments Start: 04/27/19 11:02 Freq: Status: Active Protocol: Document 04/27/19 14:21 [facility] (Rec: 04/27/19 14:38 [facility] [id number]) OT Strength Upper Extremity Strength Assessment Within Functional Limits OT-Muscle Tone Assessment Muscle Tone WNL Yes M9 OT- IP Assessment and Plan Start: 04/27/19 11:02 Freq: Status: Active Protocol: Document 04/27/19 14:21 [facility] (Rec: 04/27/19 14:38 [facility] [id number]) OT Summary Assessment and Plan Potential Rehabilitation Potential Good Analytic Complexity at Evaluation Low Summary OT Impairments Pain,Balance,Functional Cognition,Functional Mobility, Grooming,Dressing,Toileting, Bathing,Toilet Transfers, Shower Transfers Progress Towards Goals Slow Progress due to Pain,Slow Progress due to Activity Tolerance Assessment Summary Pt low complexity and main barrier is now needing MODA for mobility needs and assistance for ADl's. Pt lives alone and only has friends to come by to assist. Pt would benefit from skilled rehab prior to discharge home otherwise go home if someone able to stay with her. Goals Grooming Goal Independent Dressing Goal Independent Toileting Goal Independent Bathing Goal Standby Assistance Toilet Transfer Goal Independent Shower Transfer Goal Standby Assistance Patient/Caregiver Education Goal Demonstrate Post-Op Precautions,Caregiver Independent Assisting Patient OT-Other Goals Grooming goal in standing. Days to Meet Goals 7 Frequency of Treatment Frequency Of Treatment Once a Day Treatment Plan OT Treatment Plan ADL Training,Functional Cognition Training,Functional Mobility,Patient/Family Education,Discharge Planning Other Treatment Recommendations and Next Toileting and dressing with Treatment Focus incorporation of back precautions. Discharge Recommendations OT Discharge Recommendations SNF Rehab Other Discharge Recommendations Pending medicaly progress and if someone can stay home with her initially, home with assist 07/03. Home Equipment Needs Tub bench, bed rail, BSC/RTS, nut grinder, long handled shoe horn ,FWW
[2019-04-27] MEDS: SENNOSIDES 8.6 MG TABLET 17.2 MG PO (21:14)
[2019-04-27] MEDS: SODIUM CHLORIDE 0.9% FLUSH 10 ML IV (22:03)
[2019-04-28] VITALS (8 sets, daily range): BP systolic 124–154; BP diastolic 66–81; PULSE 93–107; RESP 16–18; TEMP 36.8–38.7; O2SAT 92–96
[2019-04-28] MEDS: hydrOXYzine pamoate 25 MG CAPSULE PO ×2 (00:41→08:06)
[2019-04-28] MEDS: HYDROMORPHONE 0.5 MG INJ IV ×2 (00:41→06:49)
[2019-04-28] MEDS: HYDROCODONE/ACET 5/325 TABLET 2 TAB PO (04:27)
--- NOTE | 2019-04-28 06:18 | PC.NURSE ---
Hairston catheter removed at 0615.
[2019-04-28] MEDS: DOCUSATE 100 MG CAPSULE PO ×2 (08:06→21:19)
[2019-04-28] MEDS: SODIUM CHLORIDE 0.9% FLUSH 10 ML IV ×2 (08:06→22:12)
--- NOTE | 2019-04-28 08:31 | PM.PNPO.1 ---
Subjective Subjective Date Patient Seen: 04/28/19 Time Patient Seen: 08:31 Interval history: POD #2 s/p L3-[address] Sanders. Her pain has not been well controlled. She has been very slow to mobilize with PT. Hairston was removed this morning. She was febrile yesterday, but has remained afebrile this morning. She is using her incentive sprirometer. She notes a lot of anxiety and requesting medication for this. Exam Vital Signs (past 8 hours): - 04/28/19 04:21 04/28/19 05:40 04/28/19 07:59 Temperature 101.7 F H 98.9 F 98.5 F Pulse Rate 107 H 93 H Respiratory Rate 18 16 Blood Pressure 154/77 H 140/75 Pulse Oximetry 93 94 Fraction of Inspired Oxygen 36 Oxygen Delivery Method Room Air Oxygen Flow Rate 0 Narrative Exam Narrative: Patient lying in bed in no acute distress. She is alert and oriented x3. Calves are soft, compressible, nontender bilaterally. Sensation intact to light touch throughout bilateral extremities. Pulses are symmetrical. She is able to actively dorsiflex plantar flex. Objective Labs Result Diagrams: 04/27/19 06:38 Assessment & Plan Post-op Assessment and plan (1) S/P lumbar fusion: Postoperative Procedures: Procedures Operation Date: 04/26/19 07:45 Actual Procedures Side Surgeon p L3-4, L4-5 TLIF with posterior instrumentaion Alexsandra Sanders MD patient will continue to mobilize with physical therapy. No excessive bending, lifting, or twisting. Patient will start Dilaudid for pain control. Will also do a 24 hour burst of Decadron. 10 mg now, and 4 mg every 6 hours for 24 hours. Ativan for anxiety. Once patient's pain is well under controlled, mobilizing more, and voiding without difficulty she may be able to discharge home likely in next 1-2 days. Quality VTE Deep Vein Thrombosis/Pulmonary Embolism Present on Admission: No
[2019-04-28] MEDS: HYDROMORPHONE 2 MG TABLET PO ×3 (08:58→21:19)
[2019-04-28] MEDS: DEXAMETHASONE 10 MG/ML VIAL IV (09:02)
--- NOTE | 2019-04-28 10:43 | PC.NURSE ---
Addendum entered by Christin Bolaños R.N. 04/28/19 13:06: MS/PAIN - after haydee lunch, PT in for mobilization, states back pain and headache, given 2mg po dilaudid and 325mg po tylenol. Original Note: AM NOTE - pt is awake, states this am that she has a tightness accross her chest I get it when I am anxious, denies sob or chest pain, given 25mg po vistaril this am and sensation resolved, discussed pain medication with pt and Jess OCONNELL, back discomfort 10/ when I move, after breakfast given 2mg po dilaudid and later up with OT with adl's in room, states is a little woozy after medication, barrier dsg cdi, voided after schreiber out, w/fww able to tsf to chair, discussed constipation and narcotics, declines MOM, did order dish prunes.
--- NOTE | 2019-04-28 11:18 | OT.IP.TRT ---
Current Diagnoses Spondylolisthesis, lumbar region (04/26/19) Other spondylosis with radiculopathy, lumbosacral region (04/26/19) Spinal stenosis, lumbar region without neurogenic claudication (04/26/19) Arthrodesis status (04/26/19) Surgery Performed Operation Date: 04/26/19 07:45 Actual Procedures p L3-4, L4-5 TLIF with posterior instrumentaion - Alexsandra Sanders MD Occupational Therapy Treatment Note M2 OT-IP Current Condition Start: 04/27/19 11:02 Freq: Status: Active Protocol: Document 04/27/19 14:21 [facility] (Rec: 04/27/19 14:38 [facility] [id number]) Occupational Therapy Current Condition Current Condition Evaluation Date 04/27/19 Treatment Diagnosis S/P L3-4, L4-5 laminectomy, TLIF cage posterior fixation Diagnosis Onset Date 04/26/19 Post Operative Precautions Lumbar Precautions Log Roll,No Twisting,Limit Bending,Lifting Restriction of 10 lbs,Gait Belt above Incisional Area Weight Bearing Status Weight Bearing Status Weight Bear as Tolerated M3 OT- IP Subjective and Pain Start: 04/27/19 11:02 Freq: Status: Active Protocol: Document 04/28/19 10:57 [facility] (Rec: 04/28/19 11:18 [facility] [id number]) OT- Subjective Occupational Therapy Visit Type Type Treatment Note Visit Start Time 10:05 Visit Stop Time 10:46 Total Visit Minutes 41 Occupational Therapy Visit Comments Patient Comments Pt wanting to try to shower. Patient/Caregiver Goals Pt now realizing would be best for her to go to skilled rehab prior to going home. OT Pain Assessment Pain When Pain Assessed At Rest Pain Present Pain Present Pain Reported Location back Intensity 7 Scale Used Numeric (1 - 10) M4 OT- IP ADL's Start: 04/27/19 11:02 Freq: Status: Active Protocol: Document 04/28/19 10:57 [facility] (Rec: 04/28/19 11:18 [facility] [id number]) OT ADL-Grooming General Evaluation Grooming Ability Standby Assistance Comments OT Grooming Comments Set-up while sitting up. OT ADL-Dressing General Eval Lower Body Dressing Ability Maximum Assistance Areas Needing Assistance Socks Comments OT Dressing Comments Pt MAX A for LB dressing of socks and able to educate pt on use of sock aid and still needing ZACHARY and will benefit from continued training and education incorporation of back preacautions for dressing needs. OT ADL-Toileting General Evaluation Toileting Ability Moderate Assistance Areas Needing Assistance Perform Perineal Hygiene Devices Toileting Assistive Devices Commode Comments OT Toileting Comments Pt needing MODA to stand with FWW and able to wipe the front , however unable to reach behind and needing assist from the nurse to wipe. Educated pt on toilet aid , however at this time would require assist as pt would be a fall risk if trying to stand by herself to wipe at this time. OT ADL-Bathing Bathing Type Bathing Type Sponge Bath General Evaluation Bathing Ability Moderate Assistance Areas Needing Assistance Wash/Dry Perineal Area,Wash/ Dry Lower Extremities Comments OT Bathing Comments Pt has a tub/ shower combo and per pt did remember to ask her brother to try to day care supervisor equipment suggested, however pt states, He did not get a chance to. At this time pt unsteady on her feet and therefore decided for pt to sponge bath while sitting on the BSC versus try to walk into the shower. M5 OT- IP IADL's Start: 04/27/19 11:02 Freq: Status: Active Protocol: Document 04/27/19 14:21 [facility] (Rec: 04/27/19 14:38 [facility] [id number]) OT-Instrumental Activities of Daily Living Home Safety Awareness Home Safety Comments Pt states manages her IADL needs without assist. M6 OT- IP Functional Cognition Start: 04/27/19 11:02 Freq: Status: Active Protocol: Document 04/28/19 10:57 [facility] (Rec: 04/28/19 11:18 [facility] [id number]) Cognitive Factors Limiting Selfcare Function Cognitive Ability Level of Alertness Alert Patient Orientation Name,Day of Week,Place, Situation Attention Span Ability Capable of Focused Attention, Capable of Sustained Attention Ability to Follow Commands Able to Follow One Step Commands Safety Awareness Decreased Recall of Precautions,Decreased Ability to Apply Precautions, Underestimates Need for Assistance Problem Solving Ability Unable to Identify Errors, Needs Assist to Identify Solutions Cognitive Comments Cognitive Assessment Comments Pt still having difficulty to recall back precautions. Pt needing step by step instructions for safety of bed mobility, how to come up to stand and from sitting down, and for overall safety awareness. M7 OT- IP Mobility and Balance Start: 04/27/19 11:02 Freq: Status: Active Protocol: Document 04/28/19 10:57 [facility] (Rec: 04/28/19 11:18 [facility] [email or web address]) OT- Bed Mobility Assessment Rolling Type of Rolling Roll to Right Level of Assistance Contact Guard Assistance, Moderate Assistance,Bedrails Supine to Sit Supine to Sit Assist Moderate Assistance,1 Person Assistance,Bedrails Scooting Scooting to Edge of Bed Contact Guard Assistance OT-Transfer Assessment Sit to and From Stand Sit to and from Stand Moderate Assistance Transfers Transfer Ability Moderate Assistance Technique Transfer Destination Bed,Bedside Commode,Chair Devices Transfer Assistive Devices Gait Belt,Front Wheeled Walker Comments Mobility Comments Pt not able to scoot herself over in the bed in order to position herself to be able to do log rolling. Even with use of the bed rail up she was not able to get her body to move to the left and needing MAX A from therapist to help move her shoulders and hips. After assist from the therapist to move to the left side of the bed, pt able to roll to the right with bedrail CGA. Pt having difficulty to straighten her legs while coming to a stand and needing MODA to get up. Pt would require MAX A from lower surfaces at this time. OT- Balance Assessment Sitting Balance and Reactions Static Sitting Balance Ability Normal Dynamic Sitting Balance Ability Good Standing Balance and Reactions Static Standing Balance Ability Fair M8 OT- IP Objective Assessments Start: 04/27/19 11:02 Freq: Status: Active Protocol: Document 04/27/19 14:21 [facility] (Rec: 04/27/19 14:38 [facility] [id number]) OT Strength Upper Extremity Strength Assessment Within Functional Limits OT-Muscle Tone Assessment Muscle Tone WNL Yes M9 OT- IP Assessment and Plan Start: 04/27/19 11:02 Freq: Status: Active Protocol: Document 04/28/19 10:57 [facility] (Rec: 04/28/19 11:18 [facility] [id number]) OT Summary Assessment and Plan Potential Rehabilitation Potential Good Analytic Complexity at Evaluation Low Summary OT Impairments Pain,Balance,Functional Cognition,Functional Mobility, Grooming,Dressing,Toileting, Bathing,Toilet Transfers, Shower Transfers Progress Towards Goals Slow Progress due to Pain,Slow Progress due to Activity Tolerance Goals Grooming Goal Independent Dressing Goal Independent Toileting Goal Independent Bathing Goal Standby Assistance Toilet Transfer Goal Independent Shower Transfer Goal Standby Assistance Patient/Caregiver Education Goal Demonstrate Post-Op Precautions,Caregiver Independent Assisting Patient OT-Other Goals Grooming goal in standing. Days to Meet Goals 6 Frequency of Treatment Frequency Of Treatment Once a Day Treatment Plan OT Treatment Plan ADL Training,Functional Cognition Training,Functional Mobility,Patient/Family Education,Discharge Planning Other Treatment Recommendations and Next shower Treatment Focus Discharge Recommendations OT Discharge Recommendations SNF Rehab Home Equipment Needs Tub bench, bed rail, BSC/RTS, apprentice electrician, long handled shoe horn ,FWW, toilet aid
[2019-04-28] MEDS: ACETAMINOPHEN 325 MG TABLET PO (12:59)
--- NOTE | 2019-04-28 13:14 | PT.IPTN ---
Current Diagnoses Spondylolisthesis, lumbar region (04/26/19) Other spondylosis with radiculopathy, lumbosacral region (04/26/19) Spinal stenosis, lumbar region without neurogenic claudication (04/26/19) Arthrodesis status (04/26/19) Surgery Performed Operation Date: 04/26/19 07:45 Actual Procedures p L3-4, L4-5 TLIF with posterior instrumentaion - Alexsandra Sanders MD Physical Therapy Treatment Note M2 PT-IP Current Condition Start: 04/27/19 12:37 Freq: NEEDED Status: Active Protocol: Document 04/27/19 09:30 AB (Rec: 04/27/19 12:54 AB [email or web address]) Physical Therapy Current Condition Current Condition Evaluation Date 04/27/19 Treatment Diagnosis L3-4, L4-5 fusion/lami; difficulty in walking Onset Date 04/26/19 Precautions Lumbar Precautions Log Roll,No Twisting,Limit Bending,Lifting Restriction of 10 lbs,Gait Belt above Incisional Area M3 PT-IP Subjective Start: 04/27/19 12:37 Freq: NEEDED Status: Active Protocol: Document 04/28/19 13:14 DLM (Rec: 04/28/19 13:26 DL [id number]) Subjective Physical Therapy Visit Type Type Treatment Note Visit Start Time 12:50 Visit Stop Time 13:14 Total Visit Minutes 24 Notes pt eating earlier and unavailable for PT Number of BAG TESTER Visits 0 Physical Therapy Visit Comments Patient Comments She just wants to get better Patient Goals Be able to go home Therapy Pain Assessment Pain When Pain Assessed After Treatment Pain Present Pain Present Pain Reported Location back Intensity 7 Scale Used Numeric (1 - 10) Description Aching,Cramping Pain Behaviors Holding Area,Wincing Pain Management Techniques Re-positioning,Timing of Activity with Medications M4 PT-IP Mobility and Gait Start: 04/27/19 12:37 Freq: NEEDED Status: Active Protocol: Document 04/28/19 13:14 DLM (Rec: 04/28/19 13:26 DL [id number]) PT-Bed Mobility Assessment Rolling Type of Rolling Log Rolling Level of Assist Minimal Assistance Sit to Supine Sit to Supine Standby Assistance,Bedrails Scooting Scooting to Edge of Bed Standby Assistance PT-Transfer Assessment Sit to and From Stand Sit to and from Stand Contact Guard Assistance, Minimal Assistance,Use of Upper Extremities Equipment Transfer Assistive Device Gait Belt,Front Wheeled Walker Transfers Transfer Destination Bed,Toilet Transfer Technique Stand Step Pivot Transfer Ability Level of Assist Contact Guard Assistance, Minimal Assistance,Use of Upper Extremities Comments Mobility Comments she needs verbal cues to go slowly, tries to hurry when in pain, pt has been sitting up in recliner this AM and went back to bed to rest Gait Assessment Gait Gait Assistance Required: Contact Guard Assist Distance (Feet) 15 Assistive Devices Assistive Device Gait Belt,Front Wheeled Walker Gait Deviations General Gait Pattern Antalgic,Flexed Trunk Factors Limiting Gait Function Factors Limiting Gait Function Decreased Activity Tolerance, Pain Comments Gait Comments 3 gait trials this visit, pt developed cramping in right buttock and hamstring area when up PT-Balance Assessment Sitting Balance and Reactions Static Sitting Balance Ability Good Dynamic Sitting Balance Ability Good Standing Balance and Reactions Static Standing Balance Ability Good Dynamic Standing Balance Ability Fair Device Used FWW M5 PT-IP Objective Assessments Start: 04/27/19 12:37 Freq: NEEDED Status: Active Protocol: Document 04/27/19 09:30 AB (Rec: 04/27/19 12:54 AB [email or web address]) Orientation Orientation/Cognition Level of Alertness Alert Orientation Name,Age,Birthday,Month,Date, Year,Day of Week,Place, Situation Safety Awareness Decreased Safety Awareness Gross Range of Motion Lower Extremity ROM Assessment Within Functional Limits Strength Lower Extremity Strength Assessment Bilaterally Impaired Hip 4-/5 Knee 4-/5 Coordination Assessment Gross Coordination Gross Coordination WNL Sensation Assessment Sensation Gross Sensation WNL Muscle Tone Muscle Tone WNL Yes M6 PT-IP Treatment Start: 04/27/19 12:37 Freq: NEEDED Status: Active Protocol: Document 04/28/19 13:14 DL (Rec: 04/28/19 13:26 [facility] [id number]) Physical Therapy Treatment Education Education Provided Precautions,Safety M7 PT-IP Assessment and Plan Start: 04/27/19 12:37 Freq: NEEDED Status: Active Protocol: Document 04/28/19 13:14 DLM (Rec: 04/28/19 13:26 [facility] [id number]) PT Summary Assessment and Plan Summary Impairments Pain,ROM,Strength,Balance, Coordination,Sensation,Bed Mobility,Transfers,Gait, Activity Tolerance Progress Towards Goals Progressing Toward Goals,Slow Progress due to Activity Tolerance Assessment Summary Veronica continues to c/o pain that limits her gait tolerance . She only tolerates short distances of gait with fWW and developes cramping in right LE posteriorly. Her need for assistance with bed mobility and transfers continues to slowly improve. She is not safe to discharge home alone at this time. Goals Bed Mobility Goal Independent Transfer Goal Independent,Front Wheeled Walker Gait Goal Independent,Front Wheel Walker Gait Distance 150 Days to Meet Goals 5 Frequency of Treatment Frequency Of Treatment Twice a Day Treatment Plan Physical Therapy Treatment Plan Bed Mobility Training,Transfer Training,Gait Training, Therapeutic Exercise,Balance Retraining,Post Op Education, Discharge Planning,Hot or Cold Pack,Neuromuscular Re-ed, Coordination Retraining,Manual Therapy Recommendations To Nursing Amount of Assist Needed 1 Person Assist Discharge Recommendations PT Discharge Recommendations SNF Rehab Equipment Needed for Home Before FWW Discharge
[2019-04-28] MEDS: dexAMETHasone 4 MG TABLET PO ×3 (14:24→23:19)
--- NOTE | 2019-04-28 15:14 | CM.IDA ---
Initial DCP Assessment Note: Pt is a 69 yo resident of [place]. Pt POD#2 from spinal surgery w/ Dr Sanders. PCP: Amparo Browne Payer: Medicare/[employer] Met w/pt, explained SW role. Pt is indp at baseline, [place] in an apt [place]. Pt was hopeful she could return home but is agreeable to [facility] before return home since the therapy team is recommending. Pt has family and friends that can check on her but are not able to stay with her. Placed call to Gary at [facility], had to LM w/referral detail. Pt likely ready for DC Tuesday. EVIE Ortiz
--- NOTE | 2019-04-28 15:56 | PT.IPTN ---
Current Diagnoses Spondylolisthesis, lumbar region (04/26/19) Other spondylosis with radiculopathy, lumbosacral region (04/26/19) Spinal stenosis, lumbar region without neurogenic claudication (04/26/19) Arthrodesis status (04/26/19) Surgery Performed Operation Date: 04/26/19 07:45 Actual Procedures p L3-4, L4-5 TLIF with posterior instrumentaion - Alexsandra Sanders MD Physical Therapy Treatment Note M2 PT-IP Current Condition Start: 04/27/19 12:37 Freq: NEEDED Status: Active Protocol: Document 04/27/19 09:30 AB (Rec: 04/27/19 12:54 AB [id number]) Physical Therapy Current Condition Current Condition Evaluation Date 04/27/19 Treatment Diagnosis L3-4, L4-5 fusion/lami; difficulty in walking Onset Date 04/26/19 Precautions Lumbar Precautions Log Roll,No Twisting,Limit Bending,Lifting Restriction of 10 lbs,Gait Belt above Incisional Area M3 PT-IP Subjective Start: 04/27/19 12:37 Freq: NEEDED Status: Active Protocol: Document 04/28/19 15:52 GGD (Rec: 04/28/19 15:56 [facility] [email or web address]) Subjective Physical Therapy Visit Type Type Treatment Note Visit Start Time 15:37 Visit Stop Time 15:50 Total Visit Minutes 13 Physical Therapy Visit Comments Patient Comments Pt would like to go back to bed. Therapy Pain Assessment Pain When Pain Assessed At Rest Pain Present Pain Present Pain Reported M4 PT-IP Mobility and Gait Start: 04/27/19 12:37 Freq: NEEDED Status: Active Protocol: Document 04/28/19 15:52 GGD (Rec: 04/28/19 15:56 [facility] [email or web address]) PT-Bed Mobility Assessment Sit to Supine Sit to Supine Standby Assistance,Bedrails Scooting Scooting to Edge of Bed Standby Assistance PT-Transfer Assessment Sit to and From Stand Sit to and from Stand Contact Guard Assistance, Minimal Assistance,Use of Upper Extremities Equipment Transfer Assistive Device Gait Belt,Front Wheeled Walker Transfers Transfer Destination Bed Transfer Ability Level of Assist Contact Guard Assistance, Minimal Assistance,Use of Upper Extremities Gait Assessment Gait Gait Assistance Required: Contact Guard Assist Distance (Feet) 80 Assistive Devices Assistive Device Gait Belt,Front Wheeled Walker Gait Deviations General Gait Pattern Antalgic,Flexed Trunk Factors Limiting Gait Function Factors Limiting Gait Function Decreased Activity Tolerance, Decreased Strength,Pain Comments Gait Comments Pt needed cues to stay within FWW. M5 PT-IP Objective Assessments Start: 04/27/19 12:37 Freq: NEEDED Status: Active Protocol: Document 04/27/19 09:30 AB (Rec: 04/27/19 12:54 [facility] [id number]) Orientation Orientation/Cognition Level of Alertness Alert Orientation Name,Age,Birthday,Month,Date, Year,Day of Week,Place, Situation Safety Awareness Decreased Safety Awareness Gross Range of Motion Lower Extremity ROM Assessment Within Functional Limits Strength Lower Extremity Strength Assessment Bilaterally Impaired Hip 4-/5 Knee 4-/5 Coordination Assessment Gross Coordination Gross Coordination WNL Sensation Assessment Sensation Gross Sensation WNL Muscle Tone Muscle Tone WNL Yes M6 PT-IP Treatment Start: 04/27/19 12:37 Freq: NEEDED Status: Active Protocol: Document 04/28/19 15:52 GGD (Rec: 04/28/19 15:56 [facility] [email or web address]) Physical Therapy Treatment Education Education Provided Precautions,Safety M7 PT-IP Assessment and Plan Start: 04/27/19 12:37 Freq: NEEDED Status: Active Protocol: Document 04/28/19 15:52 [facility] (Rec: 04/28/19 15:56 [facility] [email or web address]) PT Summary Assessment and Plan Summary Assessment Summary Pt was able to progress gait distance. She had mild unsteadiness, but no LOB. She needed cues for safety with FWW. Frequency of Treatment Frequency Of Treatment Twice a Day Treatment Plan Physical Therapy Treatment Plan Bed Mobility Training,Transfer Training,Gait Training, Therapeutic Exercise,Balance Retraining,Post Op Education, Discharge Planning,Hot or Cold Pack,Neuromuscular Re-ed, Coordination Retraining,Manual Therapy Recommendations To Nursing Amount of Assist Needed 1 Person Assist Discharge Recommendations PT Discharge Recommendations SNF Rehab
--- NOTE | 2019-04-28 17:19 | PC.NURSE ---
1500: Received report, care assumed. Pt. allowed to sleep. 1630: A&Ox3. C/o pain 2/10, at ease. Does not wish to get OOB or reposition until after dinner.
[2019-04-28] MEDS: BISACODYL 10 MG SUPP PR (17:52)
[2019-04-28] MEDS: SENNOSIDES 8.6 MG TABLET 17.2 MG PO (21:19)
[2019-04-29] MEDS: HYDROMORPHONE 2 MG TABLET PO ×4 (01:57→17:41)
[2019-04-29 05:01] VITALS: BP 149/64; PULSE 78; RESP 18; TEMP 36.5; O2SAT 97
[2019-04-29] MEDS: dexAMETHasone 4 MG TABLET PO (05:40)
[2019-04-29] MEDS: SODIUM CHLORIDE 0.9% FLUSH 10 ML IV (08:18)
[2019-04-29 08:20] VITALS: BP 128/68; PULSE 92; RESP 16; TEMP 36.8; O2SAT 93
[2019-04-29] MEDS: DOCUSATE 100 MG CAPSULE PO (08:21)
[2019-04-29] MEDS: ACETAMINOPHEN 325 MG TABLET PO (08:21)
--- NOTE | 2019-04-29 08:52 | PC.NURSE ---
Addendum entered by Christin Bolaños R.N. 04/29/19 14:11: [facility]TE[facility] - pt showered, has parallel stapled incisions, well approximated, no drainage, replaced with coversite. Addendum entered by Christin Bolaños R.N. 04/29/19 13:45: DC - up with phys therapy and ambul [facility] loop, per Patience in PT, family and friend have a plan for pt care when dc home and tonight the friend will stay overnight and lucien with pt, per Patience eval pt is safe for home, discussed timing, and her brother will return at 1730 to transport home, the script for dilaudid po was given to family to drop off at [facility] pharmacy, discussed vistaril and prefer pt contact office on Tuesday if needed, SL lock dc'd so pt may shower. Addendum entered by Christin Bolaños R.N. 04/29/19 13:28: MS/PAIN - Patience phys therapy in this afternoon when pt friend arrived to re-eval dc home and safety, given 2mg po dilaudid after lunch for pain 3-4 on scale 0/10. Original Note: AM NOTE - pt is up to chair before breakfast, states some headache discomfort, back discomfort, 4 on scale 0/10, reports she is moving much better over last day and this am, discussed medications and given dilaudid 2mg and 325mg tylenol po with breakfast for moblization later am.
--- NOTE | 2019-04-29 09:11 | PM.DS.1 ---
History of Present Illness History of Present Illness Date Patient Seen: 04/29/19 Time Patient Seen: 09:13 Chief complaint: [id number] TLIF Narrative: Patient presented for TLIFby Dr. Sanders. Now postop day 3 and ready for discharge. Discharge Providers Provider Date of admission: 04/26/19 05:33 Discharge Date: 04/29/19 Primary care physician: Amparo Browne MD Consults: 04/26/19 13:49 Consult to Occupational Therapy Evaluate & Treat Comment: Physician Instructions: Evaluate and treat Consult to Physical Therapy Evaluate & Treat Comment: Physician Instructions: Evaluate and Treat 04/26/19 14:11 Consult to Respiratory Therapy Evaluate & Treat Comment: Physician Instructions: Evaluate and treat Discharge provider: Francisco Welch MD Summary Hospital Course Discharge Diagnosis: Lumbar degenerative disc disease/stenosis Hospital Course: Patient underwent a TLIF by Dr. Sanders on the date of admission. She progressed as expected postoperatively. Status at Discharge Cognitive/behavioral status at discharge: oriented Functional status at discharge: independent ambulation Overall status at discharge: patient is progressing back to baseline Time Spent with Patient Time spent: Less than 30 minutes Exam Vital Signs (past 8 hours): - 04/29/19 05:01 Temperature 97.7 F Pulse Rate 78 Respiratory Rate 18 Blood Pressure 149/64 H Pulse Oximetry 97 Fraction of Inspired Oxygen 36 Oxygen Delivery Method Room Air Oxygen Flow Rate 0 Narrative Exam Narrative: Dressing is clean and dry. Normal strength and sensation throughout the lower extremity. Objective Labs Result Diagrams: 04/27/19 06:38 Discharge Plan Discharge Plan Patient Disposition: Home Discharge comment: Discharged to home. Will progress within activity limitations per spinal fusion. Clinic follow-up in approximately 2 weeks. Discharge Med Rec/Prescriptions Prescriptions: New hydromorphone [Dilaudid] 2 mg tablet 2 mg PO Q4-6H PRN (Reason: pain) Qty: 60 RF: 0 hydroxyzine pamoate [Vistaril] 25 mg capsule 25 mg PO TID PRN (Reason: pain) Qty: 30 RF: 1 Continued acetaminophen 650 mg Tablet Extended Release 650 mg PO BID RF: 0 Follow up/Referrals: Francisco Welch MD [Physician] - Amparo Browne MD [Primary Care Provider] - Provider Discharge Instructions Diet: Diet as Tolerated Activity: No bending or lifting. Skin/Wound/Dressing Care Report to your healthcare provider any signs of infection, such as:: chills, fever, increased pain, unusual drainage and unusual redness Dressing: May change dressing and leave off. Shower ok, no baths. Visit Report/Discharge Packet Instructions: DI for Transforaminal Lumbar Interbody Fusion Stand Alone Forms: Surgery Discharge Discharge Data Primary Care Provider: Amparo Browne VTE Deep Vein Thrombosis/Pulmonary Embolism Present on Admission: No
--- NOTE | 2019-04-29 10:25 | PT.IPTN ---
Current Diagnoses Spondylolisthesis, lumbar region (04/26/19) Other spondylosis with radiculopathy, lumbosacral region (04/26/19) Spinal stenosis, lumbar region without neurogenic claudication (04/26/19) Arthrodesis status (04/26/19) Surgery Performed Operation Date: 04/26/19 07:45 Actual Procedures p L3-4, L4-5 TLIF with posterior instrumentaion - Alexsandra Sanders MD Physical Therapy Treatment Note M2 PT-IP Current Condition Start: 04/27/19 12:37 Freq: NEEDED Status: Active Protocol: Document 04/27/19 09:30 AB (Rec: 04/27/19 12:54 AB [email or web address]) Physical Therapy Current Condition Current Condition Evaluation Date 04/27/19 Treatment Diagnosis L3-4, L4-5 fusion/lami; difficulty in walking Onset Date 04/26/19 Precautions Lumbar Precautions Log Roll,No Twisting,Limit Bending,Lifting Restriction of 10 lbs,Gait Belt above Incisional Area M3 PT-IP Subjective Start: 04/27/19 12:37 Freq: NEEDED Status: Active Protocol: Document 04/29/19 10:04 CLB (Rec: 04/29/19 11:34 CLB [id number]) Subjective Physical Therapy Visit Type Type Treatment Note Visit Start Time 10:04 Visit Stop Time 10:25 Total Visit Minutes 21 Number of ROOM WORKER Visits 2 Physical Therapy Visit Comments Patient Comments Pt willing to ambulate with therapy. Therapy Pain Assessment Pain When Pain Assessed During Mobility Pain Present Pain Present Pain Reported Location back Intensity 1 Scale Used Numeric (1 - 10) M4 PT-IP Mobility and Gait Start: 04/27/19 12:37 Freq: NEEDED Status: Active Protocol: Document 04/29/19 10:04 CLB (Rec: 04/29/19 11:34 CLB [id number]) PT-Bed Mobility Assessment Rolling Type of Rolling Log Rolling,Roll to Left Level of Assist Contact Guard Assistance Supine to Sit Supine to Sit Contact Guard Assistance, Bedrails Sit to Supine Sit to Supine Standby Assistance,Bedrails Scooting Scooting to Edge of Bed Standby Assistance PT-Transfer Assessment Sit to and From Stand Sit to and from Stand Contact Guard Assistance,1 Person Assistance,Use of Upper Extremities Equipment Transfer Assistive Device Gait Belt,Front Wheeled Walker Transfers Transfer Destination Bed Transfer Technique Stand Step Pivot Transfer Ability Level of Assist Contact Guard Assistance,1 Person Assistance,Use of Upper Extremities Comments Mobility Comments Pt requires cues for sequencing log roll in and out of bed and scooting. Pt requires cues for hand placement during sit<>stand for safety. Pt needs cues for pacing as pt hurries from one task to another. Gait Assessment Gait Gait Assistance Required: Contact Guard Assist Distance (Feet) 200 Assistive Devices Assistive Device Gait Belt,Front Wheeled Walker Gait Deviations General Gait Pattern Antalgic,Flexed Trunk Factors Limiting Gait Function Factors Limiting Gait Function Decreased Activity Tolerance, Decreased Strength,Pain Comments Gait Comments Pt requires CGA for ambulation as pt has mild unsteadiness but had no LOB. M5 PT-IP Objective Assessments Start: 04/27/19 12:37 Freq: NEEDED Status: Active Protocol: Document 04/27/19 09:30 AB (Rec: 04/27/19 12:54 AB [id number]) Orientation Orientation/Cognition Level of Alertness Alert Orientation Name,Age,Birthday,Month,Date, Year,Day of Week,Place, Situation Safety Awareness Decreased Safety Awareness Gross Range of Motion Lower Extremity ROM Assessment Within Functional Limits Strength Lower Extremity Strength Assessment Bilaterally Impaired Hip 4-/5 Knee 4-/5 Coordination Assessment Gross Coordination Gross Coordination WNL Sensation Assessment Sensation Gross Sensation WNL Muscle Tone Muscle Tone WNL Yes M6 PT-IP Treatment Start: 04/27/19 12:37 Freq: NEEDED Status: Active Protocol: Document 04/29/19 10:04 CLB (Rec: 04/29/19 11:34 CLB [id number]) Physical Therapy Treatment Exercises Exercises Ankle Pumps Education Education Provided Precautions,Safety Other Treatments Other Treatment Performed pt educated on the importance of AP during periods of inactivity. M7 PT-IP Assessment and Plan Start: 04/27/19 12:37 Freq: NEEDED Status: Active Protocol: Document 04/29/19 10:04 CLB (Rec: 04/29/19 11:34 CLB [id number]) PT Summary Assessment and Plan Summary Impairments Pain,ROM,Strength,Balance, Coordination,Sensation,Bed Mobility,Transfers,Gait, Activity Tolerance Assessment Summary Pt increased gait distance with mild unsteadiness but no LOB. Pt requires cues for pacing bed mobility as pt moves quickly to prevent pain but breaks back precautions of twisting w/o CGA during log roll. Pt would benefit from SNF rehab to increase functional mobility for safe d/ c. Goals Bed Mobility Goal Independent Transfer Goal Independent,Front Wheeled Walker Gait Goal Independent,Front Wheel Walker Gait Distance 150 Days to Meet Goals 5 Frequency of Treatment Frequency Of Treatment Twice a Day Treatment Plan Physical Therapy Treatment Plan Bed Mobility Training,Transfer Training,Gait Training, Therapeutic Exercise,Balance Retraining,Post Op Education, Discharge Planning,Hot or Cold Pack,Neuromuscular Re-ed, Coordination Retraining,Manual Therapy Recommendations To Nursing Amount of Assist Needed 1 Person Assist Discharge Recommendations PT Discharge Recommendations SNF Rehab Equipment Needed for Home Before FWW Discharge
[2019-04-29 11:35] VITALS: BP 134/73; PULSE 84; RESP 16; TEMP 36.6; O2SAT 96
--- NOTE | 2019-04-29 11:41 | CM.DPC ---
Addendum entered by Iman Aguilar, EVIE 04/29/19 14:20: Met w/pt today, reviewed DC home order by Dr Welch. Explained that [facility] had confirmed for this MARKETING COMMUNICATIONS LEADER that pt had a bed if she needed it and pt explained she will be going home w/[facility] as a last resort. Pt called her neighbor Sandy and this MARKETING COMMUNICATIONS LEADER asked if Sandy would stay w/pt overnight and if she would come for cg training w/PT? Sandy coming over to the hospital and agrees to staying w/pt upon DC. Pt will secure a walker Mag[facility] at [facility]. She can leave w/a waker today if there is an order submitted. MARKETING COMMUNICATIONS LEADER and SHAYLEE Morin will work on this. RN and DEPARTMENT EDITOR updated on updated home plan. PT continues to recommend SNF d/t pt's lack of support and DME resources. JW Original Note: Spoke to Dr. Ceballos about having a SNF bed available if that would be preferable but MD wants to keep with d/c home plan.
--- NOTE | 2019-04-29 13:38 | PT.IPTN ---
Current Diagnoses Spondylolisthesis, lumbar region (04/26/19) Other spondylosis with radiculopathy, lumbosacral region (04/26/19) Spinal stenosis, lumbar region without neurogenic claudication (04/26/19) Arthrodesis status (04/26/19) Surgery Performed Operation Date: 04/26/19 07:45 Actual Procedures p L3-4, L4-5 TLIF with posterior instrumentaion - Alexsandra Sanders MD Physical Therapy Treatment Note M2 PT-IP Current Condition Start: 04/27/19 12:37 Freq: NEEDED Status: Active Protocol: Document 04/27/19 09:30 AB (Rec: 04/27/19 12:54 AB [id number]) Physical Therapy Current Condition Current Condition Evaluation Date 04/27/19 Treatment Diagnosis L3-4, L4-5 fusion/lami; difficulty in walking Onset Date 04/26/19 Precautions Lumbar Precautions Log Roll,No Twisting,Limit Bending,Lifting Restriction of 10 lbs,Gait Belt above Incisional Area M3 PT-IP Subjective Start: 04/27/19 12:37 Freq: NEEDED Status: Active Protocol: Document 04/29/19 13:10 CLB (Rec: 04/29/19 14:13 CLB [id number]) Subjective Physical Therapy Visit Type Type Treatment Note Visit Start Time 13:10 Visit Stop Time 13:38 Total Visit Minutes 28 Notes Pt's neighbor Sandy will stay with pt until Tuesday when pt' s brother and clyszc-tv-fac will assist pt for the remainder of the week. Pt has follow up doctor appt scheduled. Pt's brother has purchased her a FWW, bed rail, shower bench and toilet riser . Number of METAL WEATHER STRIPPER Visits 3 Physical Therapy Visit Comments Patient Comments Pt willing to ambulate with therapy. Pt neighbor and family present for CG training . Patient Goals Go home. Therapy Pain Assessment Pain When Pain Assessed During Mobility Pain Present Pain Present Pain Reported Location back Intensity 1 Scale Used Numeric (1 - 10) M4 PT-IP Mobility and Gait Start: 04/27/19 12:37 Freq: NEEDED Status: Active Protocol: Document 04/29/19 13:10 CLB (Rec: 04/29/19 14:13 CLB [id number]) PT-Bed Mobility Assessment Rolling Type of Rolling Log Rolling,Roll to Left Level of Assist Standby Assistance Scooting Scooting to Edge of Bed Standby Assistance PT-Transfer Assessment Sit to and From Stand Sit to and from Stand Standby Assistance,1 Person Assistance,Use of Upper Extremities Equipment Transfer Assistive Device Gait Belt,Front Wheeled Walker Transfers Transfer Destination Chair,Toilet Transfer Technique Stand Step Pivot Transfer Ability Level of Assist Standby Assistance,1 Person Assistance,Use of Upper Extremities Comments Mobility Comments Pt progressing with bed mobility but continues to need cues to slow down while getting OOB. Gait Assessment Gait Gait Assistance Required: Standby Assistance,1 Person Assist Distance (Feet) 200 Assistive Devices Assistive Device Gait Belt,Front Wheeled Walker Gait Deviations General Gait Pattern Antalgic,Flexed Trunk Factors Limiting Gait Function Factors Limiting Gait Function Decreased Activity Tolerance, Decreased Strength,Pain Comments Gait Comments Pt able to ambulate ~200ft in earl SBA w/FWW. Pt with good safety awareness. M5 PT-IP Objective Assessments Start: 04/27/19 12:37 Freq: NEEDED Status: Active Protocol: Document 04/27/19 09:30 AB (Rec: 04/27/19 12:54 AB [id number]) Orientation Orientation/Cognition Level of Alertness Alert Orientation Name,Age,Birthday,Month,Date, Year,Day of Week,Place, Situation Safety Awareness Decreased Safety Awareness Gross Range of Motion Lower Extremity ROM Assessment Within Functional Limits Strength Lower Extremity Strength Assessment Bilaterally Impaired Hip 4-/5 Knee 4-/5 Coordination Assessment Gross Coordination Gross Coordination WNL Sensation Assessment Sensation Gross Sensation WNL Muscle Tone Muscle Tone WNL Yes M6 PT-IP Treatment Start: 04/27/19 12:37 Freq: NEEDED Status: Active Protocol: Document 04/29/19 13:10 CLB (Rec: 04/29/19 14:13 CLB [id number]) Physical Therapy Treatment Exercises Exercises Ankle Pumps Education Education Provided Precautions,Safety Other Treatments Other Treatment Performed pt educated on the importance of AP during periods of inactivity. M7 PT-IP Assessment and Plan Start: 04/27/19 12:37 Freq: NEEDED Status: Active Protocol: Document 04/29/19 13:10 CLB (Rec: 04/29/19 14:13 CLB [id number]) PT Summary Assessment and Plan Summary Impairments Pain,ROM,Strength,Balance, Coordination,Sensation,Bed Mobility,Transfers,Gait, Activity Tolerance Assessment Summary Pt insisting on going home with assist of neighbor and family. Pt's brother purchases DME pt will need at home. Pt progressed bed mobility and able to perform all pericare w /o breaking no BLT per back precautions. Pt is able to d/c home with 24/7 assist of neighbor Sandy and pts brother and sister -in -law. Goals Bed Mobility Goal Independent Transfer Goal Independent,Front Wheeled Walker Gait Goal Independent,Front Wheel Walker Gait Distance 150 Days to Meet Goals 5 Frequency of Treatment Frequency Of Treatment Twice a Day Treatment Plan Physical Therapy Treatment Plan Bed Mobility Training,Transfer Training,Gait Training, Therapeutic Exercise,Balance Retraining,Post Op Education, Discharge Planning,Hot or Cold Pack,Neuromuscular Re-ed, Coordination Retraining,Manual Therapy Recommendations To Nursing Amount of Assist Needed 1 Person Assist Discharge Recommendations PT Discharge Recommendations Home with 24/7 Assist,SNF Rehab
[2019-04-29 15:15] VITALS: BP 136/66; PULSE 81; RESP 16; TEMP 36.9; O2SAT 96
--- NOTE | 2019-04-29 18:05 | PC.NURSE ---
Report received 1500, care assumed. Pt finished dinner, pain meds administered, family at bedside for discharge. IV removed, discharge instructions given. Pt discharged via wheelchair at 1800, home with family via private vehicle.
== END 2019-04-29 18:00 | disposition home or self-care (01) | DRG 455 ==
PROVIDERS: Admitting Provider Orthopaedic Surgery Orthopaedic Surgery of the Spine; PCP Internal Medicine; Visit Provider Orthopaedic Surgery Orthopaedic Surgery of the Spine
PROC: 0SG10AJ Fusion of 2 or more Lumbar Vertebral Joints with Interbody Fusion Device, Posterior Approach, Anterior Column, Open Approach (ICD-10-PCS; principal; 2019-04-26 07:45)
DX: M48.062 Spinal stenosis, lumbar region with neurogenic claudication (principal); G57.01 Lesion of sciatic nerve, right lower limb; M47.26 Other spondylosis with radiculopathy, lumbar region; E07.9 Disorder of thyroid, unspecified; F32.9 Major depressive disorder, single episode, unspecified
CPT/HCPCS: 36415; 72100; 76000; 85014; 85018; 94760; 94762; 97116; 97162; 97165; 97530; 97535; C1776; C9290; J0131; J0330; J0690; J1100; J1170; J2250; J2405; J2704; J2765; J3010; J3410

== ENCOUNTER → 2020-09-08 13:14 | Outpatient (CLI) | payer MEDICARE, SELFPAY ==
[2019-04-26 16:00] VITALS: BMI 32.5
--- NOTE | 2020-09-08 | DI.CT.S_ITS ---
PROCEDURE: CT LUMBAR SPINE WO CON INDICATIONS: Spinal stenosis, lumbar region without neurogenic TECHNIQUE: Noncontrast 3 mm thick sections acquired from the T12 level to the sacrum. Sagittal and coronal reformats were constructed. For radiation dose reduction, the following was used: automated exposure control. COMPARISON: [facility], CR, XR LUMBAR SPINE 2 OR 3 VIEWS, 09/06/2019, 14:05. [facility], CR, XR LUMBAR SPINE 2 OR 3 VIEWS, 07/05/2019, 14:25. [facility], CR, XR LUMBAR SPINE 2 OR 3 VIEWS, 06/07/2019, 13:14. [facility], MR, L-SPINE WITHOUT CONTRAST, 09/01/2017, 16:17. FINDINGS: Image quality: Excellent. Bones: There is mild L2-L3 retrolisthesis. There is trace L1-L2 retrolisthesis. Postsurgical changes compatible with L3-L5 TLIF. Orthopedic hardware is intact. No lucency is identified at the bone hardware interface. No acute vertebral body compression fractures. No suspicious lytic or blastic bony lesions. No pars defects. Scattered atherosclerotic calcifications involving the visualized abdominal and pelvic vasculature. Partially visualized distal left ureteral stone (series 2, image 92). No hydronephrosis. T12-L1: Near complete loss of disc substance. There is partial T12 and L1 vertebral body osseous fusion. Mild bilateral facet hypertrophy. Mild narrowing of the central canal. Mild bilateral neural foraminal narrowing. No neural compression. L1-L2: Loss of disc height. Vacuum disc phenomenon. Moderate, diffuse disc bulge. Mild bilateral facet hypertrophy. Moderate narrowing of the central canal. Mild right and moderate left neural foraminal narrowing. No neural compression L2-L3: Loss of disc height. Vacuum disc phenomenon. Mild to moderate diffuse disc bulge. [id number]-[id number] bilateral facet hypertrophy. Moderate to severe narrowing of the central canal. Moderate right and severe left neural foraminal narrowing with compression of the exiting left L2 nerve root. L3-L4: Status post fusion. Moderate left facet hypertrophy. Mild narrowing of the central canal. Mild bilateral neural foraminal narrowing. No neural compression. L4-L5: Status post fusion. Mild left facet hypertrophy. No central stenosis. Mild left neural foraminal narrowing. No neural compression. L5-S1: Mild loss of disc height. Vacuum disc phenomenon. Mild bilateral facet hypertrophy. No central stenosis. Mild left neural foraminal narrowing. No neural compression. Soft tissues: No retroperitoneal masses or hematomas. Visualized aorta is normal in caliber. IMPRESSION: 1. Status post L3-L5 TLIF. 2. Multilevel degenerative disc disease. 3. Multilevel facet arthropathy. 4. Moderate to severe L2-L3 central canal narrowing. Please correlate with clinical data. 5. Severe left L2-L3 neural foraminal narrowing with compression of the exiting left L2 nerve root. Please correlate with clinical data. 6. Partially visualized distal left ureteral stone without associated hydronephrosis. Dictated by: Antonieta Price MD, PhD on 09/08/2020 at 16:06 Approved by: Antonieta Price MD, PhD on 09/08/2020 at 16:24
== END ==
PROVIDERS: PCP Internal Medicine; Referring Provider Orthopaedic Surgery Orthopaedic Surgery of the Spine; Visit Provider Orthopaedic Surgery Orthopaedic Surgery of the Spine
DX: M48.061 Spinal stenosis, lumbar region without neurogenic claudication (principal); M51.36 Other intervertebral disc degeneration, lumbar region; M47.816 Spondylosis without myelopathy or radiculopathy, lumbar region; N20.1 Calculus of ureter; Z98.1 Arthrodesis status
CPT/HCPCS: 72131

== ENCOUNTER → 2020-11-18 11:30 | Outpatient (CLI) | payer MEDICARE, SELFPAY ==
[2019-04-26 16:00] VITALS: BMI 32.5
[2020-11-18 12:44] LABS: Add Manual Diff / Slide Review NO; Basophils Absolute Auto 100 /uL (0-100); Basophils Percent Auto 0.5 % (0-2); Eosinophils Absolute Auto 100 /uL (0-450); Eosinophils Percent Auto 0.8 % (2-4); Hematocrit 45.6 % (36-46); Hemoglobin 15.3 g/dL (12.0-16.0); Lymphocytes Absolute Auto 1800 /uL (1100-4500); Lymphocytes Percent Auto 19.1 % (25-40); Mean Corpuscular HGB Conc 33.4 % (30-36); Mean Corpuscular Volume 89.9 fL (80-100); Monocytes Absolute Auto 600 /uL (0-900); Monocytes Percent Auto 6.7 % (3-14); Neutrophils Absolute Auto 7000 /uL (1500-7000); Neutrophils Percent Auto 72.9 % (50-75); Platelet Count 202 X10^3/uL (150-400); Red Blood Cell Count 5.08 X10^6/uL (4.0-5.2); Red Cell Distribution Width 13.5 % (11.6-14.8); White Blood Cell Count 9.6 X10^3/uL (4.5-11.0)
[2020-11-18 13:33] LABS: Blood Urea Nitrogen 15 mg/dL (7-17); Calcium 9.7 mg/dL (8.4-10.2); Carbon Dioxide 27 mmol/L (22-32); Chloride 104 mmol/L (98-107); Estimated Glomerular Filt Rate > 60.0 mL/min (>60); Glucose 106 mg/dL (80-110); HEMOLYSIS < 15 (0-50); Potassium 4.3 mmol/L (3.4-5.1); Sodium 138 mmol/L (137-145)
== END ==
PROVIDERS: PCP Internal Medicine; Referring Provider Orthopaedic Surgery Orthopaedic Surgery of the Spine; Visit Provider Orthopaedic Surgery Orthopaedic Surgery of the Spine
DX: Z01.818 Encounter for other preprocedural examination (principal); Z01.812 Encounter for preprocedural laboratory examination
CPT/HCPCS: 36415; 80048; 85025; 93005

== ENCOUNTER → 2020-12-15 09:59 | Outpatient (CLI) | payer MEDICARE, SELFPAY ==
[2019-04-26 16:00] VITALS: BMI 32.5
[2020-12-15 15:00] LABS: COVID19 -Nasal RAPID Negative (Negative)
== END ==
PROVIDERS: PCP Internal Medicine; Visit Provider Student in an Organized Health Care Education/Training Program
DX: Z01.812 Encounter for preprocedural laboratory examination (principal); Z20.822 Contact with and (suspected) exposure to COVID-19
CPT/HCPCS: 87635

== ENCOUNTER 2020-12-17 07:31 | Inpatient (IN) | payer MEDICARE, SELFPAY ==
[2019-04-26 16:00] VITALS: BMI 32.5
[2020-12-10 07:58] VITALS: BMI 32.3
[2020-12-17] VITALS (19 sets, daily range): BP systolic 102–157; BP diastolic 51–101; PULSE 75–97; RESP 7–16; TEMP 35.6–37.1; O2SAT 94–100; BMI 32.3
[2020-12-17] MEDS: LACTATED RINGERS 1,000 ML 42 ML IV ×3 (08:24→12:44)
--- NOTE | 2020-12-17 08:38 | PM.PREOP ---
Pre-operative Note COVID-19 COVID-19 status: Negative Result date/Date tested (Pos, Neg/Pending): 12/15/20 Interval Note History & Physical reviewed/Exam performed by Physician: Yes Changes to H&P: No
[2020-12-17] MEDS: CEFAZOLIN 2 GM/100 ML FROZ.PIGGY IV ×3 (09:00→21:22)
[2020-12-17] MEDS: BUPIVACAINE 0.5% W/ EPI (PF) 30 ML VIAL INJ (09:49)
[2020-12-17] MEDS: BUPIVACAINE LIPOSOME 266 MG/20 ML VIAL INJ (09:51)
[2020-12-17] MEDS: ACETAMINOPHEN IV 1,000 MG/100 ML VIAL 400 MG IV (10:50)
--- NOTE | 2020-12-17 14:03 | DI.RAD.S_ITS ---
PROCEDURE: XR LUMBAR SPINE 2-3V INDICATIONS: L1-2, L2-3 TLIF TECHNIQUE: 2 intraoperative fluoroscopic views of the lumbar spine were acquired. COMPARISON: [facility], , XR LUMBAR SPINE 2-3V, 04/26/2019, 8:28. FINDINGS: Intraoperative fluoroscopic images of lumbar spine shows posterior fusion hardware from L1 through L5 levels. Intervertebral spacers are noted at L1-2 through L4-5 levels. IMPRESSION: Fluoro guidance was provided intraoperatively for posterior fusion of lumbar spine. Dictated by: Mervin Tapia M.D. on 12/17/2020 at 14:57 Approved by: Mervin Tapia M.D. on 12/17/2020 at 15:02
--- NOTE | 2020-12-17 14:28 | PM.OP.1 ---
Operative Date/Time/Diagnoses Date of procedure: 12/17/20 Time of procedure: 09:09 Pre-op diagnosis: 1. Lumbar scoliosis 2. L1-2, L2-3 spinal stenosis with radiculopathy 3. Hx of L3-5 PSF with instrumentation Procedure & Clinicians Procedure: 1. L1-2, L2-3 posterolateral and posterior interbody fusion 2. L1-2, L2-3 posterior interbody cage placement 3. L3-4, L4-5 posterior segmental instrumentation removal 4. L3-4, L4-5 revision laminectomy with exploration of fusion 5. L3-4 posterolateral fusion 6. L1-2, L2-3, L3-4, L4-5 posterior segmental instrumentation with pedicle screw placement 7. [place] of bone marrow from iliac crest through a separate incision 8. Utilization of microsurgical technique and operating microscope Same procedure as scheduled: Yes Indications: Patient has been having chronic back pain and worsening lumbar radiculopathy. Patient has been doing well since previous surgery until about 6 months ago. Patient has been having worsening upper lumbar spine pain as well as right-sided radicular pain. Patient failed multiple conservative management with worsening pain weakness and numbness in her lower extremity. Patient has been having difficulty performing activity of daily living. After discussing risks benefits of treatment options, patient elected proceed with surgery. Surgeon: Alexsandra Sanders Submersible Pilot: Mauro Webster Click Yes if Unassisted: No Anesthesia Type: General Operative Notes Closure Type: primary Specimen(s): none sent Prosthetic devices, grafts, tissues, transplants, or devices: Globus revolve screws, Rise cages Applied: catheter Estimated Blood Loss (mL): 250 Blood products transfused: none Procedure in detail: Patient was seen in the preoperative area. Risks and benefits of the surgery was discussed with the patient. Informed consent was obtained from the patient and placed in the chart. Surgical site was marked. Patient was taken to the operative room. General anesthesia was administered. Prophylactic antibiotic was given to the patient less than 30 min before the incision was made. Patient was placed into a prone position on the Felix table. Patient's back was then prepped and draped in the sterile fashion. Time-out was performed at this time. Using patient's previous scar incision was made over the L1-L5 interval on the right side. Fascia was incised in line with skin incision. Patient's previously placed hardware over the L3-5 level was identified by dissecting down to the level the hardware using a Bovie and a Martins. The locking caps which was removed using globus screwdriver. The locking ken was then removed from the tulips of the pedicle screws using a Michelle. The pedicle screws were then removed using the screwdriver. The screws were found to have good purchase. The Globus and MARS retractors was then placed into the wound and docked onto the L1 and L2 lamina using C-arm guidance. Using microsurgical technique and operating microscope a laminectomy facetectomy was performed by removing the L1 and L2 lamina and the L1-2 and L2-3 facet. The disc space at L1-2 and L2-3 level was identified next. Patient was found have severe central and neural foramen stenosis at both levels. The stenosis was fully decompressed after the laminectomy and facetectomy was completed. And a total diskectomy was performed at L1-2 and L2-3 level. The endplates were decorticated using a rasp and shaver. The total diskectomy and decortication was performed at L1-2 and L2-3 level in order to to accomplish a L1-2 and L2-3 interbody fusion. The local bone from the laminectomy and facetectomy was saved for local bone grafting. After the total diskectomy and decortication was completed, Globus viacell bone graft material was combined with local bone that was harvested earlier. At this time, a separate skin is incision was made over the iliac crest. A Jamshidi needle was inserted into the iliac crest through a separate skin incision. 5 cc of bone marrow aspiration was obtained through the separate skin incision using a Jamshidi needle from the iliac crest. The bone marrow aspiration was combined with local bone and the via cell bone grafting material. The bone grafting material was placed into the L1-2 L2-3 interbody space along with a expandable cage. The cage was expanded to its maximum height using the torque limiting screwdriver. At this time a mirror image incision was made on the left side. The fascia was incised in line with the skin incision. Patient's previously placed hardware on the left side was then removed in the same fashion as it was on the right side. The hardware was also found to have good purchase. The fusion mass on the left side was exposed by performing a left-sided hemilaminectomy at L3-4 L4-5 level. The hemilaminectomy was performed using the Prosperon rongeur to undercut the lamina as well removing additional epidural scar tissue for purpose of decompressing the epidural space. The fusion mass was explored and was found have visible motion indicating pseudoarthrosis at L3-4 level. The fusion at L4-5 level was found to be solid. Globus MARS retractor was inserted and docked onto the L1-2 L2-3 L3-4 posterolateral gutter. Using the power drill, posterior-lateral decortication was performed at L1-2 L2-3 L3-4 level until bleeding cortical bone was identified. The remaining bone grafting material was placed into the L1-2 L2-3 L3-4 posterior lateral gutter he order to accomplish posterolateral fusion at the L1-2 L2-3 L3-4 level. Using the double C-arm technique, pedicle screws were placed into the L1,L2 L3, L4 and L5 pedicles bilaterally. This was done by placing the Jamshidi needle into the pedicles, then placing the guidewires over the Jamshidi needle, and finally placing the cannulated screws over the guidewires bilaterally. After the pedicle screws were placed, 2 titanium rods was locked into the heads of the pedicle screws using locking caps and torque limiting screwdriver. After all the hardware was placed, and confirmed with AP and lateral C-arm imaging, the wound was then irrigated with sterile normal saline and packed with Ray-Angelica gauze for 3 min to accomplish hemostasis. After the gauze was removed the deep fascia was closed with #1 Vicryl suture. The subcutaneous layer was closed with 2-0 Vicryl. The skin was closed with skin anderson. Patient tolerated the procedure well. There were no complications. Complications: none Post-operative Condition: stable Disposition: PACU Plan for aftercare: Admit to inpatient hospital
[2020-12-17] MEDS: HYDROMORPHONE 2 MG INJ IV ×2 (15:22→15:41)
[2020-12-17] MEDS: ONDANSETRON 4 MG/2 ML INJ IV ×2 (15:25→17:23)
[2020-12-17] MEDS: fentaNYL 100 MCG/2 ML INJ IV ×2 (15:27→15:33)
[2020-12-17] MEDS: SODIUM CHLORIDE 0.9% 1,000 ML 100 ML IV (17:25)
[2020-12-17] MEDS: HYDROMORPHONE 0.5 MG INJ IV (19:13)
[2020-12-17] MEDS: OXYCODONE IR 5 MG TABLET 10 MG PO ×2 (19:13→22:04)
[2020-12-17] MEDS: LORazepam 2 MG/ML INJ 0.5 MG IV (19:44)
--- NOTE | 2020-12-17 20:00 | PC.NURSE ---
Admit/Evening Shift Note- Patient arrived to room via bed from pacu at 1620. Patient drowsy, arouses easily. Patient complains of nausea and 10/10 pain. IV zofran provided. No pain medication given at this time, JUNIOR ACCOUNTING CLERK states patient was medicated prior to coming to the unit and was asleep again after zofran given. Admit questions done later in the shift to allow patient to sleep. Attempted to orented patient to bed and bed controls and call [place] when awake. Patient using call [place] without issue. Safety measures in place. Patient agrees to call for assistance. Bed alarm activated. Call [place] and phone within reach. will continue to [facility].
[2020-12-17] MEDS: SENNOSIDES 8.6 MG TABLET 17.2 MG PO (22:04)
[2020-12-17] MEDS: DOCUSATE 100 MG CAPSULE PO (22:04)
[2020-12-18] VITALS (8 sets, daily range): BP systolic 123–167; BP diastolic 57–95; PULSE 84–110; RESP 14–20; TEMP 36.6–37.7; O2SAT 94–97
[2020-12-18] MEDS: LORazepam 2 MG/ML INJ 0.5 MG IV (00:10)
[2020-12-18] MEDS: ACETAMINOPHEN 325 MG TABLET 650 MG PO ×2 (00:12→17:11)
[2020-12-18] MEDS: SODIUM CHLORIDE 0.9% 1,000 ML 100 ML IV (03:31)
[2020-12-18] MEDS: HYDROMORPHONE 0.5 MG INJ IV (03:45)
[2020-12-18 05:56] LABS: Hematocrit 35.8 % (36-46)
[2020-12-18] MEDS: CEFAZOLIN 2 GM/100 ML FROZ.PIGGY IV (06:00)
[2020-12-18] MEDS: OXYCODONE IR 5 MG TABLET 10 MG PO ×5 (06:06→21:14)
--- NOTE | 2020-12-18 07:56 | PM.PNPO.1 ---
Subjective Subjective Date Patient Seen: 12/18/20 Time Patient Seen: 07:57 Interval history: Patient states she is doing well overall. She reports good sensation throughout the bilateral lower extremities to light touch. At this time she denies fever, chills, shortness of breath, or chest pain. She does report periods of nausea that she states is ?on and off. She reports a moderate amount of pain and aches in her lower back. She states she is apprehensive to work with physical therapy but is looking forward to progressing from her current state. Exam Vital Signs (past 8 hours): - 12/18/20 00:05 12/18/20 00:12 12/18/20 03:45 Temperature 99.4 F 99.4 F 99.8 F H Pulse Rate 90 84 Respiratory Rate 14 16 Blood Pressure 150/93 H 167/77 H Pulse Oximetry 97 95 Oxygen Delivery Method Nasal Cannula Oxygen Flow Rate 0 Narrative Exam Narrative: 70-year-old female postop day 1 status post L2 1-2, L2-3 posterolateral and posterior interbody fusion. Patient is resting comfortably in bed, is in no acute distress, is alert and oriented x3. Skin is warm and dry, and the skin surrounding the incision sites is free of erythema, warmth, induration, or discharge. Good sensation appreciated throughout the bilateral lower extremities light touch. Hip flexion performed bilaterally without difficulty or discomfort. Ankle inversion, eversion, plantar flexion, dorsiflexion performed bilaterally without difficulty or discomfort. Palpable pulses appreciated, capillary refill less than 2 seconds. Calves are soft and nontender, negative Homans sign. No other signs of DVT appreciated. Resp Effort & Inspection: normal respiratory effort and able to speak in complete sentences Skin General: no rashes or lesions noted Objective Labs Result Diagrams: 12/18/20 05:12 Labs: Laboratory Results - last 24 hr 12/18/20 05:12 Hgb 12.0 Hct 35.8 L PFSH Medical History Arthritis Depression Former smoker HTN (hypertension) IBS (irritable bowel syndrome) Pelvic fracture Spinal stenosis Surgical History H/O: hysterectomy History of arthroplasty of left shoulder (~2015) History of arthroplasty of right knee History of lumbar fusion (04/26/19) History of total left hip arthroplasty Hx of bilateral cataract extraction Hx of thyroidectomy Hx of tonsillectomy Social History household members: none Smoking Status: Never smoker alcohol intake: current Assessment & Plan Post-op Postoperative Procedures: Procedures Operation Date: 12/17/20 08:45 Actual Procedures Side Surgeon p L1-2, L2-3 TLIF, L3-5 HWR, L1-5 PSF with instrumentation Alexsandra Sanders MD Postoperative day: 1 Postoperative status: doing well Postoperative plan: ambulate Postoperative plan narrative: Patient to continue working on ambulation and stair ascending with physical therapy. Patient needs to be free of episodes of nausea prior to discharge. Patient will continue current pain control regimen as it is adequately managing the patient's pain level. Time Spent With Patient Time with patient: 15-24 minutes Quality VTE Deep Vein Thrombosis/Pulmonary Embolism Present on Admission: No
[2020-12-18] MEDS: DOCUSATE 100 MG CAPSULE PO ×2 (09:22→21:14)
--- NOTE | 2020-12-18 10:18 | PT.IIE ---
Current Diagnoses Spondylolisthesis, lumbar region (12/17/20) Spinal stenosis, lumbar region without neurogenic claudication (12/17/20) Arthrodesis status (12/17/20) Surgery Performed Operation Date: 12/17/20 08:45 Actual Procedures p L1-2, L2-3 TLIF, L3-5 HWR, L1-5 PSF with instrumentation - Alexsandra Sanders MD Surgical History (Last Reviewed 12/18/20 @ 07:59 by Mauro Webster PA-C) H/O: hysterectomy History of arthroplasty of left shoulder (~2015) History of arthroplasty of right knee History of lumbar fusion (04/26/19) History of total left hip arthroplasty Hx of bilateral cataract extraction Hx of thyroidectomy Hx of tonsillectomy Medical History (Last Reviewed 12/18/20 @ 07:59 by Mauro Webster PA-C) Arthritis Depression Former smoker HTN (hypertension) IBS (irritable bowel syndrome) Pelvic fracture Spinal stenosis Physical Therapy Inpatient Evaluation/Re-Eval M1 PT/OT-IP Prior Functional Status Start: 12/18/20 08:41 Freq: NEEDED Status: Active Protocol: Document 12/18/20 10:18 AW (Rec: 12/18/20 11:28 AW [id number]) Medical Review Prior Functional Status Medical History Reviewed Yes: Pt had lumbar fusion/lami Apr 2019 Communication WNL. Pt is an effective verbal communicator. Mobility and Gait Pt is independent without mobility but has a limit of one block without needing a rest break and admits to slow pace. Activities of Daily Living and IADL's Independent. 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 Social History Household Members none Living Arrangements Apartment/Condo Number of Floors (Floors) One Floor Number of Stairs To Enter/Railing? 3 stairs in courtyard leading to pt's level entrance. If unable to do stairs, pt can go the long way around the building to access her unit. Home Environment Standard Height Toilet,Tub/ Shower Home Equipment Four Wheel Walker,Bed Rails, Grab Bars In Shower Additional Social History Comment Pt has a neighbor, Kori, who will be able to assist her at discharge. Her brother lives in [place] and will acquire a RTS for her and a shower chair if needed. M2 PT-IP Current Condition Start: 12/18/20 08:41 Freq: NEEDED Status: Active Protocol: Document 12/18/20 10:18 AW (Rec: 12/18/20 11:28 AW [id number]) Physical Therapy Current Condition Current Condition Evaluation Date 12/18/20 Treatment Diagnosis L1-3 TLIF; L1-5 PSF; impaired mobility and gait Onset Date 12/17/20 Precautions Lumbar Precautions Log Roll,No Twisting,Limit Bending,Lifting Restriction of 10 lbs,Gait Belt above Incisional Area Weight Bearing Status Weight Bearing Status Weight Bear as Tolerated M3 PT-IP Subjective Start: 12/18/20 08:41 Freq: NEEDED Status: Active Protocol: Document 12/18/20 10:18 AW (Rec: 12/18/20 11:28 AW [id number]) Subjective Physical Therapy Visit Type Type Initial Evaluation Visit Start Time 09:50 Visit Stop Time 10:18 Total Visit Minutes 28 Notes Coordinated with RN for pain meds ~30 min prior to PT arrival. Physical Therapy Visit Comments Patient Comments Pt is willing to participate with PT Therapy Pain Assessment Pain When Pain Assessed At Rest Pain Present Pain Present Pain Reported Location back Intensity 2 Scale Used 2/10; increased with mobility Pain Management Techniques Apply Cold,Timing of Activity with Medications M4 PT-IP Mobility and Gait Start: 12/18/20 08:41 Freq: NEEDED Status: Active Protocol: Document 12/18/20 10:18 AW (Rec: 12/18/20 11:28 AW [id number]) PT-Bed Mobility Assessment Rolling Type of Rolling Log Rolling,Roll to Right Level of Assist Minimal Assistance,1 Person Assistance Supine to Sit Supine to Sit Minimal Assistance,1 Person Assistance,Bedrails Scooting Scooting to Edge of Bed Standby Assistance PT-Transfer Assessment Sit to and From Stand Sit to and from Stand Contact Guard Assistance,1 Person Assistance,Use of Upper Extremities Equipment Transfer Assistive Device Gait Belt,Front Wheeled Walker Orthotic/Prosthetic Devices or Brace: No Transfers Transfer Destination Chair Transfer Technique Stand Step Pivot Transfer Ability Level of Assist 1 Person Assistance,Use of Upper Extremities Comments Mobility Comments Pt was lying in the bed as PT arrived. BP 132/58 HR 87 SpO2 95% on room air. With cues and min assist, pt log rolled to her right side and completed SL to sit. She complained of nausea in sitting and had small amount of emesis. Symptoms cleared within two minutes and VS were stable. Pt was able to stand from the bed CGA and used FWW to ambulate to the sink and back to the chair CGA. She transferred to the chair CGA and declined further mobility. Pt was left in reclined position, call light and all needs in reach. Pt agreed to use the call light for all mobility needs. Gait Assessment Gait Gait Assistance Required: Contact Guard Assist Distance (Feet) 10 Able to Maintain Weight Bearing Status Yes During Gait Assistive Devices Assistive Device Gait Belt,Front Wheeled Walker Orthotic/Prosthetic Devices or Brace: No Gait Deviations General Gait Pattern Antalgic,Decreased Stride Length,Decreased Feet Clearance,Flexed Trunk Factors Limiting Gait Function Factors Limiting Gait Function Decreased Activity Tolerance, Decreased Strength,Pain Comments Gait Comments See mobility comments for details. Stair Climbing Assessment Comments Stair Climbing Comments Not assessed. PT-Balance Assessment Sitting Balance and Reactions Static Sitting Balance Ability Good Dynamic Sitting Balance Ability Good Standing Balance and Reactions Static Standing Balance Ability Good Dynamic Standing Balance Ability Good Device Used FWW M5 PT-IP Objective Assessments Start: 12/18/20 08:41 Freq: NEEDED Status: Active Protocol: Document 12/18/20 10:18 AW (Rec: 12/18/20 11:36 AW [id number]) Orientation Orientation/Cognition Level of Alertness Alert Orientation Name,Day of Week,Place, Situation Language Function Ability No Deficits Noted Safety Awareness Understands Safety Issues Memory Description No Deficits Noted Gross Range of Motion Lower Extremity ROM Assessment Within Functional Limits Strength Lower Extremity Strength Assessment Within Functional Limits Hip 4+/5 Knee 4+/5 Sensation Assessment Sensation Gross Sensation WNL Muscle Tone Muscle Tone WNL Yes M6 PT-IP Treatment Start: 12/18/20 08:41 Freq: NEEDED Status: Active Protocol: Document 12/18/20 10:18 AW (Rec: 12/18/20 11:36 AW [id number]) Physical Therapy Treatment Education Education Provided Precautions,Weight Bearing Status,Post-Op Packet,Safety Other Treatments Other Treatment Performed Provided education about role of PT, plan of care, weightbearing status, post op precautions, and safe use of FWW. M7 PT-IP Assessment and Plan Start: 12/18/20 08:41 Freq: NEEDED Status: Active Protocol: Document 12/18/20 10:18 AW (Rec: 12/18/20 11:36 AW [id number]) PT Summary Assessment and Plan Potential Rehabilitation Potential Good Status of Condition at Evaluation Evolving Summary Impairments Pain,Strength,Balance,Bed Mobility,Transfers,Gait, Activity Tolerance Assessment Summary Jessica is a 70 yo woman seen for PT evaluation on POD1 following L1-3 TLIF L1-5 PSF. She is independent in all regards at baseline. She lives alone but will have a neighbor to assist her at discharge and her brother is able to acquire DME as needed. On evaluation, pt required CGA to min assist with all mobility but was unable to tolerate much activity. Pt will need to improve her mobility for safe discharge home. Goals Bed Mobility Goal Independent Transfer Goal Independent,Front Wheeled Walker Gait Goal Independent,Front Wheel Walker Gait Distance 100 Other Goals - up/down 3 stairs with R rail ascending SBA Days to Meet Goals 5 Frequency of Treatment Frequency Of Treatment Twice a Day Treatment Plan Physical Therapy Treatment Plan Bed Mobility Training,Transfer Training,Gait Training, Therapeutic Exercise,Balance Retraining,Post Op Education, Discharge Planning,Hot or Cold Pack,Neuromuscular Re-ed Other Recommendations and Next Treatment transfers; gait training with Focus FWW Precautions Lumbar Precautions Log Roll,No Twisting,Limit Bending,Lifting Restriction of 10 lbs,Gait Belt above Incisional Area Recommendations To Nursing Amount of Assist Needed 1 Person Assist Discharge Recommendations PT Discharge Recommendations Home with Assistance, Outpatient PT Equipment Needed for Home Before RTS, shower chair Discharge Transportation Needs at Discharge Private Vehicle
--- NOTE | 2020-12-18 10:26 | PC.NURSE ---
Patient A/O x 4, reports pain 5/10, PRN medication administered before pt works with PT this AM. Dsg intact, shadow drainage noted milton left lateral aspect, patient denies numbness or tingling in extremities, pulses equal bilaterally. Patient remains at 93% on room air, patient denies SOB or increased WOB, will continue to monitor, continuous pulse ox on. Voiding via schreiber, clear, dark urine. Patient reports last BM 5/, BT active x 4, passing gas. Patient drinking fluids. SCD's on bilat feet. Call light in reach. Patient up to chair at this time.
--- NOTE | 2020-12-18 11:05 | OT.IP.EVAL ---
Current Diagnoses Spondylolisthesis, lumbar region (12/17/20) Spinal stenosis, lumbar region without neurogenic claudication (12/17/20) Arthrodesis status (12/17/20) Surgery Performed Operation Date: 12/17/20 08:45 Actual Procedures p L1-2, L2-3 TLIF, L3-5 HWR, L1-5 PSF with instrumentation - Alexsandra Sanders MD Past Medical History (Last Reviewed 12/18/20 @ 07:59 by Mauro Webster PA-C) Arthritis Depression Former smoker HTN (hypertension) IBS (irritable bowel syndrome) Pelvic fracture Spinal stenosis Surgical History (Last Reviewed 12/18/20 @ 07:59 by Mauro Webster PA-C) H/O: hysterectomy History of arthroplasty of left shoulder (~2015) History of arthroplasty of right knee History of lumbar fusion (04/26/19) History of total left hip arthroplasty Hx of bilateral cataract extraction Hx of thyroidectomy Hx of tonsillectomy Occupational Therapy Inpatient Evaluation/Re-Eval M1 PT/OT-IP Prior Functional Status Start: 12/18/20 08:41 Freq: NEEDED Status: Active Protocol: Document 12/18/20 10:40 [facility] (Rec: 12/18/20 12:35 [facility] [id number]) Medical Review Prior Functional Status Medical History Reviewed Yes: Pt had lumbar fusion/lami Apr 2019 Communication WNL. Pt is an effective verbal communicator. Mobility and Gait Pt is independent without mobility but has a limit of one block without needing a rest break and admits to slow pace. Activities of Daily Living and IADL's Independent with all ADL and IADL needs. 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 Social History Household Members none Living Arrangements Apartment/Condo Number of Floors (Floors) One Floor Number of Stairs To Enter/Railing? 3 stairs in courtyard leading to pt's level entrance. If unable to do stairs, pt can go the long way around the building to access her unit. Otherwise pt has no steps to get into her apartment. Home Environment Standard Height Toilet,Tub/ Shower Home Equipment Four Wheel Walker,Bed Rails, Grab Bars In Shower Additional Social History Comment Pt has a neighbor, Kori, who will be able to stay and assist her at discharge, per pt. Her brother lives in [place] and will acquire a RTS/BSC for her and a shower chair if needed. M2 OT-IP Current Condition Start: 12/18/20 12:15 Freq: Status: Active Protocol: Document 12/18/20 10:40 [facility] (Rec: 12/18/20 12:35 [facility] [id number]) Occupational Therapy Current Condition Current Condition Evaluation Date 12/18/20 Treatment Diagnosis Lumbar Scoliosis s/p L1-2, L2- 3 TLIF, L3-5 HWR, L1-5 PSF Diagnosis Onset Date 12/17/20 M3 OT- IP Subjective and Pain Start: 12/18/20 12:15 Freq: Status: Active Protocol: Document 12/18/20 10:40 [facility] (Rec: 12/18/20 12:35 [facility] [id number]) OT- Subjective Occupational Therapy Visit Type Type Initial Evaluation Visit Start Time 10:40 Visit Stop Time 11:05 Total Visit Minutes 25 Occupational Therapy Visit Comments Patient Comments Pt in the recliner and agreed to work with OT eval. Patient/Caregiver Goals To go home. OT Pain Assessment Pain When Pain Assessed At Rest Pain Present Pain Present Pain Reported Location back Intensity 4 Scale Used Numeric (0 - 10) M4 OT- IP ADL's Start: 12/18/20 12:15 Freq: Status: Active Protocol: Document 12/18/20 10:40 [facility] (Rec: 12/18/20 12:35 [facility] [id number]) OT [id number] Comments OT Self-Feeding Comments NOt at meal time. OT ADL-Grooming Comments OT Grooming Comments Pt states did prior. OT ADL-Dressing General Eval Lower Body Dressing Ability Maximum Assistance OT ADL-Toileting Comments OT Toileting Comments Pt not having to toilet at this time. OT ADL-Bathing Comments OT Bathing Comments Pt not wanting to shower yet. M5 OT- IP IADL's Start: 12/18/20 12:15 Freq: Status: Active Protocol: Document 12/18/20 10:40 [facility] (Rec: 12/18/20 12:35 [facility] [id number]) OT-Instrumental Activities of Daily Living Home Safety Awareness Home Safety Comments Pt a little groggy as not recalling her back precaution and at this time would benefit from someone to be home to assist her with all of her needs. M6 OT- IP Functional Cognition Start: 12/18/20 12:15 Freq: Status: Active Protocol: Document 12/18/20 10:40 [facility] (Rec: 12/18/20 12:35 [facility] [id number]) Cognitive Factors Limiting Selfcare Function Cognitive Ability Level of Alertness Alert Patient Orientation Name,Place,Situation Attention Span Ability Capable of Focused Attention, Capable of Sustained Attention Ability to Follow Commands Able to Follow One Step Commands Safety Awareness Decreased Recall of Precautions,Decreased Ability to Apply Precautions, Underestimates Need for Assistance Cognitive Comments Cognitive Assessment Comments Pt a little nauseous and not feeling well. At this time having trouble to recall any of her back precautions. Continue to educate pt on back precautions for ADl and mobility needs. OT- Vision and Hearing OT- Vision Assessment Visual Acuity WFL M7 OT- IP Mobility and Balance Start: 12/18/20 12:15 Freq: Status: Active Protocol: Document 12/18/20 10:40 [facility] (Rec: 12/18/20 12:35 [facility] [id number]) OT-Transfer Assessment Sit to and From Stand Sit to and from Stand Contact Guard Assistance Comments Mobility Comments CGA to stand from high recliner and assist to help scoot back into the chair to reposition. Pt given ice pack for her back. OT- Balance Assessment Sitting Balance and Reactions Static Sitting Balance Ability Normal Standing Balance and Reactions Static Standing Balance Ability Fair M8 OT- IP Objective Assessments Start: 12/18/20 12:15 Freq: Status: Active Protocol: Document 12/18/20 10:40 [facility] (Rec: 12/18/20 12:35 [facility] [id number]) OT Gross Range of Motion Upper Extremity Range of Motion Assessment Within Functional Limits OT-Muscle Tone Assessment Muscle Tone WNL Yes M9 OT- IP Assessment and Plan Start: 12/18/20 12:15 Freq: Status: Active Protocol: Document 12/18/20 10:40 [facility] (Rec: 12/18/20 12:35 [facility] [id number]) OT Summary Assessment and Plan Potential Rehabilitation Potential Good Analytic Complexity at Evaluation Low Summary OT Impairments Balance,Functional Cognition, Functional Mobility,Grooming, Dressing,Toileting,Bathing, Toilet Transfers,Shower Transfers,Activity Tolerance Progress Towards Goals Slow Progress due to Pain,Slow Progress due to Medical Issues,Slow Progress due to Activity Tolerance Assessment Summary Pt low complexity and main barrier is decreased acitivy tolerance, feeling nauseous , not able to recall her back precautions , and needing assist for all ADl and mobility needs at this time. Pending progress and caregiver training, pt looking to go home when medically stable. Goals Grooming Goal Independent Dressing Goal Independent Toileting Goal Independent Bathing Goal Independent Toilet Transfer Goal Independent Shower Transfer Goal Independent Patient/Caregiver Education Goal Demonstrate Post-Op Precautions,Caregiver Independent Assisting Patient Days to Meet Goals 7 Frequency of Treatment Frequency Of Treatment Once a Day Treatment Plan OT Treatment Plan ADL Training,Functional Cognition Training,Functional Mobility,Patient/Family Education,Discharge Planning Other Treatment Recommendations and Next Stand at sink for ADl needs, Treatment Focus practice LB dressing needs Discharge Recommendations OT Discharge Recommendations Home with Assistance Home Equipment Needs BSC versus RTS, shower chair LB dressing equipment as needed Transportation Needs at Discharge Private Vehicle
--- NOTE | 2020-12-18 13:30 | PT.IPTN ---
Current Diagnoses Spondylolisthesis, lumbar region (12/17/20) Spinal stenosis, lumbar region without neurogenic claudication (12/17/20) Arthrodesis status (12/17/20) Surgery Performed Operation Date: 12/17/20 08:45 Actual Procedures p L1-2, L2-3 TLIF, L3-5 HWR, L1-5 PSF with instrumentation - Alexsandra Sanders MD Physical Therapy Treatment Note M2 PT-IP Current Condition Start: 12/18/20 08:41 Freq: NEEDED Status: Active Protocol: Document 12/18/20 10:18 AW (Rec: 12/18/20 11:28 AW [id number]) Physical Therapy Current Condition Current Condition Evaluation Date 12/18/20 Treatment Diagnosis L1-3 TLIF; L1-5 PSF; impaired mobility and gait Onset Date 12/17/20 Precautions Lumbar Precautions Log Roll,No Twisting,Limit Bending,Lifting Restriction of 10 lbs,Gait Belt above Incisional Area Weight Bearing Status Weight Bearing Status Weight Bear as Tolerated M3 PT-IP Subjective Start: 12/18/20 08:41 Freq: NEEDED Status: Active Protocol: Document 12/18/20 13:29 AW (Rec: 12/18/20 13:51 AW [id number]) Subjective Physical Therapy Visit Type Type Treatment Note Visit Start Time 13:00 Visit Stop Time 13:26 Total Visit Minutes 26 Notes Coordinated with RN for pain meds ~30 min prior to PT arrival. Physical Therapy Visit Comments Patient Comments Pt is willing to participate with PT Patient Goals Wants to return home. Therapy Pain Assessment Pain When Pain Assessed During Mobility Pain Present Pain Present Pain Reported Location back Intensity 4 Scale Used Numeric (0 - 10) Pain Management Techniques Apply Cold,Timing of Activity with Medications M4 PT-IP Mobility and Gait Start: 12/18/20 08:41 Freq: NEEDED Status: Active Protocol: Document 12/18/20 13:29 AW (Rec: 12/18/20 13:51 AW [id number]) PT-Bed Mobility Assessment Rolling Type of Rolling Log Rolling,Roll to Right Sit to Supine Sit to Supine Minimal Assistance,1 Person Assistance PT-Transfer Assessment Sit to and From Stand Sit to and from Stand Standby Assistance,1 Person Assistance,Use of Upper Extremities Equipment Transfer Assistive Device Gait Belt,Front Wheeled Walker Orthotic/Prosthetic Devices or Brace: No Transfers Transfer Destination Bed Transfer Technique Stand Step Pivot Transfer Ability Level of Assist Standby Assistance,Use of Upper Extremities Comments Mobility Comments Pt was sitting up in the chair as PT arrived. She stood SBA and used the FWW to ambulate around the bed. She complained of nausea and sat EOB. BP 129 /72 HR 97. Pt did not vomit and symptoms cleared within two minutes. She was able to stand SBA and used the FWW to ambulate 120 feet in the halls SBA. On return to the room, she required min A x 1 for return to supine log rolling. She was positioned with call light and all needs in reach, bed alarm on for safety. Gait Assessment Gait Gait Assistance Required: Standby Assistance Distance (Feet) 120 Able to Maintain Weight Bearing Status Yes During Gait Assistive Devices Assistive Device Gait Belt,Front Wheeled Walker Orthotic/Prosthetic Devices or Brace: No Gait Deviations General Gait Pattern Antalgic,Decreased Stride Length,Decreased Feet Clearance,Flexed Trunk Factors Limiting Gait Function Factors Limiting Gait Function Decreased Activity Tolerance, Decreased Strength,Pain Comments Gait Comments Pt ambulated with halting gait first 50 feet but was able to roll the walker more smoothly in response to cues and ended up walking with step through gait. Stair Climbing Assessment Comments Stair Climbing Comments Not assessed. Pt stated too tired, too much pain for stairs at this time. PT-Balance Assessment Sitting Balance and Reactions Static Sitting Balance Ability Normal Dynamic Sitting Balance Ability Good Standing Balance and Reactions Static Standing Balance Ability Fair Dynamic Standing Balance Ability Good Device Used FWW M5 PT-IP Objective Assessments Start: 12/18/20 08:41 Freq: NEEDED Status: Active Protocol: Document 12/18/20 10:18 AW (Rec: 12/18/20 11:36 AW [id number]) Orientation Orientation/Cognition Level of Alertness Alert Orientation Name,Day of Week,Place, Situation Language Function Ability No Deficits Noted Safety Awareness Understands Safety Issues Memory Description No Deficits Noted Gross Range of Motion Lower Extremity ROM Assessment Within Functional Limits Strength Lower Extremity Strength Assessment Within Functional Limits Hip 4+/5 Knee 4+/5 Sensation Assessment Sensation Gross Sensation WNL Muscle Tone Muscle Tone WNL Yes M6 PT-IP Treatment Start: 12/18/20 08:41 Freq: NEEDED Status: Active Protocol: Document 12/18/20 13:29 AW (Rec: 12/18/20 13:51 AW [id number]) Physical Therapy Treatment Education Education Provided Precautions,Safety Other Treatments Other Treatment Performed Pt required reminders about back precautions, was unable to recall. Current q3 hour pain meds may be contributing to nausea and forgetfulness. M7 PT-IP Assessment and Plan Start: 12/18/20 08:41 Freq: NEEDED Status: Active Protocol: Document 12/18/20 13:29 AW (Rec: 12/18/20 13:51 AW [id number]) PT Summary Assessment and Plan Potential Rehabilitation Potential Good Status of Condition at Evaluation Evolving Summary Impairments Pain,Strength,Balance,Bed Mobility,Transfers,Gait, Activity Tolerance Progress Towards Goals Progressing Toward Goals,Slow Progress due to Activity Tolerance Assessment Summary Jessica was able to progress her mobility this session, walking 120 feet with FWW SBA. She still requires min assist for bed mobility. Pain medication may be contributing to nausea. Pt requires reminders about precautions. For instance, she attempted to get in to bed twisting her back and needed cues for log roll. Pt needs to improve safe mobility and awareness of precautions. She also needs to complete stair training prior to discharge. Goals Bed Mobility Goal Independent Transfer Goal Independent,Front Wheeled Walker Gait Goal Independent,Front Wheel Walker Gait Distance 100 Other Goals - up/down 3 stairs with R rail ascending SBA Days to Meet Goals 5 Frequency of Treatment Frequency Of Treatment Twice a Day Treatment Plan Physical Therapy Treatment Plan Bed Mobility Training,Transfer Training,Gait Training, Therapeutic Exercise,Balance Retraining,Post Op Education, Discharge Planning,Hot or Cold Pack,Neuromuscular Re-ed Other Recommendations and Next Treatment gait training; stairs Focus Precautions Lumbar Precautions Log Roll,No Twisting,Limit Bending,Lifting Restriction of 10 lbs,Gait Belt above Incisional Area Recommendations To Nursing Amount of Assist Needed 1 Person Assist Discharge Recommendations PT Discharge Recommendations Home with Assistance, Outpatient PT Equipment Needed for Home Before RTS, shower chair Discharge Transportation Needs at Discharge Private Vehicle
--- NOTE | 2020-12-18 14:23 | CM.IDA ---
Addendum entered by EVEI Ortiz 12/19/20 15:09: Met w/patient and OT Stephany today, patient plans to return home w/friend Kori to assist her. Kori lives across the way from patient at housing/apts across the [place], [facility]. Patient somewhat foggy and forgetful today, she is not sure about need for home health. DC expected Tuesday, r/o need for HH upon DC Original Note: Initial DCP Assessment Note Pt is a 70 yo female, resident of [place], now POD#1 from spinal surgery w/ Dr Sanders PCP: Amparo Browne Payer: YUNIOR/GAYLE Reviewed chart, pt discussed in multidisciplinary rounds this morning. Patient is indp at baseline however activity tolerance is low d/t pain. Patient drives. Patient plans to have her dtr Kori assist her upon DC home Therapy has cleared pt for return home w/family to assist and pt has planned for home No needs expected from DC planning team although will remain available in case this changes before DC. EVIE Ortiz
[2020-12-18] MEDS: hydrOXYzine pamoate 25 MG CAPSULE PO (19:08)
[2020-12-18] MEDS: SENNOSIDES 8.6 MG TABLET 17.2 MG PO (21:14)
[2020-12-19] VITALS (10 sets, daily range): BP systolic 111–162; BP diastolic 50–86; PULSE 79–110; RESP 14–20; TEMP 36.8–38.2; O2SAT 90–100
[2020-12-19] MEDS: ACETAMINOPHEN 325 MG TABLET 650 MG PO ×2 (00:45→13:46)
[2020-12-19] MEDS: OXYCODONE IR 5 MG TABLET 10 MG PO ×5 (00:45→20:29)
--- NOTE | 2020-12-19 05:29 | PC.NURSE ---
Patient states she is a full code. Status was not addressed with admission.
--- NOTE | 2020-12-19 07:47 | P.PN_ITS ---
Subjective Subjective Date Patient Seen: 12/19/20 Time Patient Seen: 07:47 Interval history: Patient states she is doing well and feels her pain level is gradually improving. At this time the patient denies fever, chills, nausea, chest pain, shortness of breath, or urinary retention. Patient states that working with physical therapy is helping to improve her her pain level. She is looking for to continuing progressing with physical therapy. Exam Vital Signs (past 8 hours): - 12/19/20 00:40 12/19/20 00:45 12/19/20 04:00 Temperature 100.1 F H 100.7 F H 99.2 F Pulse Rate 110 H 106 H Respiratory Rate 16 14 Blood Pressure 147/64 H 133/72 Pulse Oximetry 92 93 Oxygen Delivery Method Room Air Oxygen Flow Rate 0 Narrative Exam Narrative: 70-year-old female postop day 2 status post L1-2, L2 -3 posterolateral and posterior interbody fusion, L3-4, L4-5 posterior segmental instrumentation removal, L3-4-L4-5 revision laminectomy. Patient is resting comfortably in bed, is in no acute distress, is alert and oriented x3. Skin is warm and dry, and the skin surrounding the incision site is free of erythema, warmth, induration, or discharge. Good sensation appreciated throughout the bilateral lower extremities to light touch. Hip flexion performed bilaterally without difficulty or discomfort. Calves are soft and nontender, negative Homans sign. Ankle inversion, eversion, plantar flexion, dorsiflexion performed bilaterally without difficulty or discharge. Palpable pulses appreciated along the bilateral lower extremities, capillary refill less than 2 seconds. No other signs of DVT appreciated. Const General: cooperative, healthy appearing and comfortable Resp Effort & Inspection: normal respiratory effort and able to speak in complete sentences Skin General: no rashes or lesions noted Objective Labs Result Diagrams: 12/18/20 05:12 [facility] Medical History Arthritis Depression Former smoker HTN (hypertension) IBS (irritable bowel syndrome) Pelvic fracture Spinal stenosis Surgical History H/O: hysterectomy History of arthroplasty of left shoulder (~2015) History of arthroplasty of right knee History of lumbar fusion (04/26/19) History of total left hip arthroplasty Hx of bilateral cataract extraction Hx of thyroidectomy Hx of tonsillectomy Social History household members: none Smoking Status: Never smoker alcohol intake: current Assessment & Plan Post-op Postoperative Procedures: Procedures Operation Date: 12/17/20 08:45 Actual Procedures Side Surgeon p L1-2, L2-3 TLIF, L3-5 HWR, L1-5 PSF with instrumentation Alexsandra Sanders MD Postoperative day: 2 Postoperative status: doing well Postoperative plan: ambulate Postoperative plan narrative: Patient is to continue working on ambulation and stair [place] with physical therapy. Patient is to continue current pain control regimen as it is adequately managing the patient's pain level at this time. Patient is to remain weight-bearing as tolerated with the assistance of a front wheeled walker. Discharge likely later today or tomorrow morning. Time Spent With Patient Time with patient: 15-24 minutes Quality VTE Deep Vein Thrombosis/Pulmonary Embolism Present on Admission: No
[2020-12-19] MEDS: DOCUSATE 100 MG CAPSULE PO ×2 (10:45→20:29)
[2020-12-19] MEDS: SODIUM CHLORIDE 0.9% FLUSH 10 ML IV ×2 (10:45→20:30)
--- NOTE | 2020-12-19 11:34 | OT.IP.TRT ---
Current Diagnoses Spondylolisthesis, lumbar region (12/17/20) Spinal stenosis, lumbar region without neurogenic claudication (12/17/20) Arthrodesis status (12/17/20) Surgery Performed Operation Date: 12/17/20 08:45 Actual Procedures p L1-2, L2-3 TLIF, L3-5 HWR, L1-5 PSF with instrumentation - Alexsandra Sanders MD Occupational Therapy Treatment Note M2 OT-IP Current Condition Start: 12/18/20 12:15 Freq: Status: Active Protocol: Document 12/18/20 10:40 [facility] (Rec: 12/18/20 12:35 [facility] [id number]) Occupational Therapy Current Condition Current Condition Evaluation Date 12/18/20 Treatment Diagnosis Lumbar Scoliosis s/p L1-2, L2- 3 TLIF, L3-5 HWR, L1-5 PSF Diagnosis Onset Date 12/17/20 M3 OT- IP Subjective and Pain Start: 12/18/20 12:15 Freq: Status: Active Protocol: Document 12/19/20 12:51 [facility] (Rec: 12/19/20 13:07 [facility] [id number]) OT- Subjective Occupational Therapy Visit Type Type Treatment Note Visit Start Time 10:45 Visit Stop Time 11:34 Total Visit Minutes 49 Occupational Therapy Visit Comments Patient Comments Pt wanting to shower. Patient/Caregiver Goals TO go home. OT Pain Assessment Pain When Pain Assessed At Rest Pain Present Pain Present Pain Reported Location back Intensity 6 Scale Used Numeric (0 - 10) M4 OT- IP ADL's Start: 12/18/20 12:15 Freq: Status: Active Protocol: Document 12/19/20 12:51 [facility] (Rec: 12/19/20 13:07 [facility] [id number]) OT [id number] Comments OT Self-Feeding Comments NOt at meal time. OT ADL-Grooming Comments OT Grooming Comments Not performed. OT ADL-Dressing General Eval Lower Body Dressing Ability Maximum Assistance Areas Needing Assistance Socks Comments OT Dressing Comments Dependent for socks. Pt states has patient account specialist at home and does not wear socks at home. OT ADL-Toileting Comments OT Toileting Comments Pt still has schreiber in place. Spoke to her regarding use of toilet paper aid or that her friend will have to assist with her hygiene needs. OT ADL-Bathing Bathing Type Bathing Type Shower General Evaluation Bathing Ability Moderate Assistance Areas Needing Assistance Wash/Dry Back,Wash/Dry Perineal Area,Wash/Dry Lower Extremities Devices Bathing Equipment Hand Held Shower Sprayer, Shower Chair with Arms Comments OT Bathing Comments Pt needing assist with her back , pericare needs, and legs. Pt states her friend will be able to assist her for showering needs. M5 OT- IP IADL's Start: 12/18/20 12:15 Freq: Status: Active Protocol: Document 12/18/20 10:40 [facility] (Rec: 12/18/20 12:35 [facility] [id number]) OT-Instrumental Activities of Daily Living Home Safety Awareness Home Safety Comments Pt a little groggy as not recalling her back precaution and at this time would benefit from someone to be home to assist her with all of her needs. M6 OT- IP Functional Cognition Start: 12/18/20 12:15 Freq: Status: Active Protocol: Document 12/19/20 12:51 [facility] (Rec: 12/19/20 13:07 [facility] [id number]) Cognitive Factors Limiting Selfcare Function Cognitive Ability Level of Alertness Alert,Confusional State Patient Orientation Name,Place,Situation Attention Span Ability Capable of Focused Attention, Capable of Sustained Attention Ability to Follow Commands Able to Follow One Step Commands Safety Awareness Underestimates Need for Assistance Cognitive Comments Cognitive Assessment Comments Pt not remember that she has a catheter in. Pt needing cues to push up from the bed or surface sitting or versus pt trying to grab the FWW or grab bar to stand. M7 OT- IP Mobility and Balance Start: 12/18/20 12:15 Freq: Status: Active Protocol: Document 12/19/20 12:51 [facility] (Rec: 12/19/20 13:07 [facility] [id number]) OT- Bed Mobility Assessment Rolling Level of Assistance Minimal Assistance,1 Person Assistance,Bedrails Supine to Sit Supine to Sit Assist Minimal Assistance,1 Person Assistance OT-Transfer Assessment Sit to and From Stand Sit to and from Stand Contact Guard Assistance Transfers Transfer Ability Contact Guard Assistance, Minimal Assistance,1 Person Assistance Technique Transfer Destination Bed,Chair,Shower Stall Transfer Technique Stand Step Pivot Devices Transfer Assistive Devices Gait Belt,Front Wheeled Walker Comments Mobility Comments ZACHARY from sidelying to upright , Pt states her brother to get her a bed rail for home use. CGA with FWW, ZACHARY to help step over the threshold of the shower. Pt will need more assist to help step over tub at home versus get a tub bench . OT- Balance Assessment Sitting Balance and Reactions Static Sitting Balance Ability Normal Dynamic Sitting Balance Ability Good Standing Balance and Reactions Static Standing Balance Ability Fair M8 OT- IP Objective Assessments Start: 12/18/20 12:15 Freq: Status: Active Protocol: Document 12/18/20 10:40 [facility] (Rec: 12/18/20 12:35 [facility] [id number]) OT Gross Range of Motion Upper Extremity Range of Motion Assessment Within Functional Limits OT-Muscle Tone Assessment Muscle Tone WNL Yes M9 OT- IP Assessment and Plan Start: 12/18/20 12:15 Freq: Status: Active Protocol: Document 12/19/20 12:51 [facility] (Rec: 12/19/20 13:07 [facility] [id number]) OT Summary Assessment and Plan Potential Rehabilitation Potential Good Analytic Complexity at Evaluation Low Summary OT Impairments Balance,Functional Cognition, Functional Mobility,Grooming, Dressing,Toileting,Bathing, Toilet Transfers,Shower Transfers,Activity Tolerance Progress Towards Goals Progressing Toward Goals Assessment Summary Pt a not feeling well and per nursing running a temperature and BP a it high. Pt has called her friend to come in fro caregiver training tomorrow at 10AM. Pt to go home when medically stable. Pt would also benefit from home health. Goals Grooming Goal Independent Dressing Goal Independent Toileting Goal Independent Bathing Goal Independent Toilet Transfer Goal Independent Shower Transfer Goal Independent Patient/Caregiver Education Goal Demonstrate Post-Op Precautions,Caregiver Independent Assisting Patient Days to Meet Goals 6 Frequency of Treatment Frequency Of Treatment Once a Day Treatment Plan OT Treatment Plan ADL Training,Functional Cognition Training,Functional Mobility,Patient/Family Education,Discharge Planning Other Treatment Recommendations and Next Caregiver training at 10AM 12/20 Treatment Focus Discharge Recommendations OT Discharge Recommendations Home with Assistance Home Equipment Needs BSC versus RTS, tub bench LB dressing equipment as needed, toilet paper aid Transportation Needs at Discharge Private Vehicle
--- NOTE | 2020-12-19 11:37 | PT-IP ANOTE ---
Pt has just finished working with OT had shower and is sitting in chair. Pt c/o headache, fever of 100.7 per INDUSTRIAL STAFF NURSE and BP 167/76. Will check back with pt in afternoon.
--- NOTE | 2020-12-19 12:01 | PC.NURSE ---
Addendum entered by Jackie Murphy R.N. 12/19/20 13:21: Patient has complained of chest pain. KOURTNEY Clapper up and gave orders for 1 view chest xray, continuous pulse ox, ekg, continuous pulse ox, and a UA. Dressing is also going to be changed and tylenol given to patient as she has been running a fever. Original Note: Patients back dressing to be changed as she just got out the shower, she has a schreiber catheter that is putting out yellow urine, this will be taken out after patient eats her lunch. Given oxycodone 10mg for complaints of headache and back pain 03/24. She has a fever of 100, will see about giving patient some tylenol. Up with physical therapy and is a one person assist.
--- NOTE | 2020-12-19 12:57 | DI.RAD.S_ITS ---
PROCEDURE: XR CHEST 1V INDICATIONS: chest pain TECHNIQUE: One view of the chest was acquired. COMPARISON: [facility], , CHEST 1 VIEW, 10/17/2008, 0:54. FINDINGS: Surgical changes and devices: Left shoulder arthroplasty Scattered subsegmental atelectasis and/or scarring. No focal consolidation. No pleural effusions or pneumothorax. Mediastinum: Mediastinal contours appear normal. Heart size is normal. Bones and chest wall: No suspicious bony lesions. Overlying soft tissues appear unremarkable. IMPRESSION: Scattered subsegmental scarring and/or atelectasis. No acute consolidation. No acute disease. Dictated by: Paramjit Winchester M.D. on 12/19/2020 at 13:33 Approved by: Paramjit Winchester M.D. on 12/19/2020 at 13:34
--- NOTE | 2020-12-19 13:09 | PT.IPTN ---
Current Diagnoses Spondylolisthesis, lumbar region (12/17/20) Spinal stenosis, lumbar region without neurogenic claudication (12/17/20) Arthrodesis status (12/17/20) Surgery Performed Operation Date: 12/17/20 08:45 Actual Procedures p L1-2, L2-3 TLIF, L3-5 HWR, L1-5 PSF with instrumentation - Alexsandra Sanders MD Physical Therapy Treatment Note M2 PT-IP Current Condition Start: 12/18/20 08:41 Freq: NEEDED Status: Active Protocol: Document 12/18/20 10:18 AW (Rec: 12/18/20 11:28 AW [id number]) Physical Therapy Current Condition Current Condition Evaluation Date 12/18/20 Treatment Diagnosis L1-3 TLIF; L1-5 PSF; impaired mobility and gait Onset Date 12/17/20 Precautions Lumbar Precautions Log Roll,No Twisting,Limit Bending,Lifting Restriction of 10 lbs,Gait Belt above Incisional Area Weight Bearing Status Weight Bearing Status Weight Bear as Tolerated M3 PT-IP Subjective Start: 12/18/20 08:41 Freq: NEEDED Status: Active Protocol: Document 12/19/20 12:48 CLB (Rec: 12/19/20 13:23 CLB [id number]) Subjective Physical Therapy Visit Type Type Treatment Note Visit Start Time 12:48 Visit Stop Time 13:09 Total Visit Minutes 21 Number of WELDER TACK Visits 1 Physical Therapy Visit Comments Patient Comments Pt willing to ambulate with PT Therapy Pain Assessment Pain When Pain Assessed During Mobility Pain Present Pain Present Pain Reported Location back Intensity 4 Pain Management Techniques Modification of Treatment, Timing of Activity with Medications M4 PT-IP Mobility and Gait Start: 12/18/20 08:41 Freq: NEEDED Status: Active Protocol: Document 12/19/20 12:48 CLB (Rec: 12/19/20 13:23 CLB [id number]) PT-Bed Mobility Assessment Sit to Supine Sit to Supine Minimal Assistance,1 Person Assistance PT-Transfer Assessment Sit to and From Stand Sit to and from Stand Standby Assistance,1 Person Assistance,Use of Upper Extremities Equipment Transfer Assistive Device Gait Belt,Front Wheeled Walker Transfers Transfer Destination Bed Transfer Ability Level of Assist Standby Assistance,Use of Upper Extremities Comments Mobility Comments Pt BP in sitting 147/74, HR 105. Pt c/o pain in chest that is constant and did not increase during mobility. Pt ambulated ~100ft w/FWW/CGA then returned to room requiring Min A of LE's onto bed during reverse LR. Pt left in bed with RT for EKG. Gait Assessment Gait Gait Assistance Required: Standby Assistance Distance (Feet) 100 Able to Maintain Weight Bearing Status Yes During Gait Assistive Devices Assistive Device Gait Belt,Front Wheeled Walker Orthotic/Prosthetic Devices or Brace: No Gait Deviations General Gait Pattern Antalgic,Decreased Stride Length,Decreased Feet Clearance,Flexed Trunk Factors Limiting Gait Function Factors Limiting Gait Function Decreased Activity Tolerance, Decreased Strength,Pain Comments Gait Comments Pt able to push walker smoothly with small step thru gait. Stair Climbing Assessment Comments Stair Climbing Comments not assessed PT-Balance Assessment Sitting Balance and Reactions Static Sitting Balance Ability Normal Dynamic Sitting Balance Ability Good Standing Balance and Reactions Static Standing Balance Ability Fair Dynamic Standing Balance Ability Good Device Used FWW M5 PT-IP Objective Assessments Start: 12/18/20 08:41 Freq: NEEDED Status: Active Protocol: Document 12/18/20 10:18 AW (Rec: 12/18/20 11:36 AW [id number]) Orientation Orientation/Cognition Level of Alertness Alert Orientation Name,Day of Week,Place, Situation Language Function Ability No Deficits Noted Safety Awareness Understands Safety Issues Memory Description No Deficits Noted Gross Range of Motion Lower Extremity ROM Assessment Within Functional Limits Strength Lower Extremity Strength Assessment Within Functional Limits Hip 4+/5 Knee 4+/5 Sensation Assessment Sensation Gross Sensation WNL Muscle Tone Muscle Tone WNL Yes M6 PT-IP Treatment Start: 12/18/20 08:41 Freq: NEEDED Status: Active Protocol: Document 12/18/20 13:29 AW (Rec: 12/18/20 13:51 AW [id number]) Physical Therapy Treatment Education Education Provided Precautions,Safety Other Treatments Other Treatment Performed Pt required reminders about back precautions, was unable to recall. Current q3 hour pain meds may be contributing to nausea and forgetfulness. M7 PT-IP Assessment and Plan Start: 12/18/20 08:41 Freq: NEEDED Status: Active Protocol: Document 12/19/20 12:48 CLB (Rec: 12/19/20 13:23 CLB [id number]) PT Summary Assessment and Plan Potential Rehabilitation Potential Good Status of Condition at Evaluation Evolving Summary Impairments Pain,Strength,Balance,Bed Mobility,Transfers,Gait, Activity Tolerance Progress Towards Goals Progressing Toward Goals,Slow Progress due to Activity Tolerance Assessment Summary Pt unable to recall back precautions. Pt able to stand SBA and ambulated ~100ft w/o increase in pain in chest. Pt requiring Min A for bed mobility. Pt CG training with her friend is scheduled tomorrow 12/20 @10:00, pt's friend will stay with her at d /c if needed. Goals Bed Mobility Goal Independent Transfer Goal Independent,Front Wheeled Walker Gait Goal Independent,Front Wheel Walker Gait Distance 100 Other Goals - up/down 3 stairs with R rail ascending SBA Days to Meet Goals 5 Frequency of Treatment Frequency Of Treatment Twice a Day Treatment Plan Physical Therapy Treatment Plan Bed Mobility Training,Transfer Training,Gait Training, Therapeutic Exercise,Balance Retraining,Post Op Education, Discharge Planning,Hot or Cold Pack,Neuromuscular Re-ed Other Recommendations and Next Treatment CG training, gait training; Focus stairs Precautions Lumbar Precautions Log Roll,No Twisting,Limit Bending,Lifting Restriction of 10 lbs,Gait Belt above Incisional Area Recommendations To Nursing Amount of Assist Needed 1 Person Assist Discharge Recommendations PT Discharge Recommendations Home with Assistance, Outpatient PT Equipment Needed for Home Before RTS, shower chair Discharge Transportation Needs at Discharge Private Vehicle
[2020-12-19] MEDS: SENNOSIDES 8.6 MG TABLET 17.2 MG PO (20:29)
[2020-12-19] MEDS: hydrOXYzine pamoate 25 MG CAPSULE PO (22:43)
[2020-12-20] MEDS: ACETAMINOPHEN 325 MG TABLET 650 MG PO ×2 (00:15→09:25)
[2020-12-20] MEDS: OXYCODONE IR 5 MG TABLET 10 MG PO ×3 (00:15→12:18)
[2020-12-20 00:25] VITALS: BP 136/61; PULSE 109; RESP 18; TEMP 38.8; O2SAT 97
[2020-12-20 03:53] VITALS: BP 124/65; PULSE 92; RESP 18; TEMP 37.6; O2SAT 95
[2020-12-20 07:40] VITALS: BP 120/60; PULSE 84; RESP 18; TEMP 37.1; O2SAT 94
[2020-12-20 08:37] VITALS: PULSE 90; RESP 16; O2SAT 95
--- NOTE | 2020-12-20 08:42 | PM.PNPO.1 ---
Subjective Subjective Date Patient Seen: 12/20/20 Time Patient Seen: 08:46 Interval history: Patient states she is doing well and feels that her condition is progressing. She notes that her pain has been improving significantly with each day. She notes that work with physical therapy has been going well and she is looking forward to continuing to progress with physical therapy. At this time the patient denies fever, chills, nausea, chest pain, shortness of breath, or urinary retention. Exam Vital Signs (past 8 hours): - 12/20/20 03:53 12/20/20 07:40 12/20/20 08:37 Temperature 99.6 F 98.7 F Pulse Rate 92 H 84 90 Respiratory Rate 18 18 16 Blood Pressure 124/65 120/60 Pulse Oximetry 95 94 95 Oxygen Delivery Method Room Air Oxygen Flow Rate 0 Narrative Exam Narrative: 70-year-old female postop day 3 status post L1-2, L2-3 posterolateral and posterior interbody fusion, L1-2, L2-3 posterior interbody cage placement, L3-4, L4-5 posterior segmental instrumentation removal, L3-4-L4-5 revision laminectomy with exploration of fusion, L1 through 5 posterior segmental instrumentation with pedicle screw placement. Patient is resting comfortably in bed, is in no acute distress, is alert and oriented x3. Skin is warm and dry, and the skin surrounding the incision site is free of erythema, warmth, induration, or discharge. Good sensation appreciated throughout the bilateral lower extremities to light touch. Hip flexion performed bilaterally without difficulty or discomfort. Ankle plantar flexion, dorsiflexion, eversion, inversion performed bilaterally without difficulty or discomfort. Palpable pulses appreciated, capillary refill less than 2 seconds. Calves are soft and tender, negative Homans sign. Bandage over the incision site is free of strike through and is clean and dry. Const General: cooperative, healthy appearing and comfortable Resp Effort & Inspection: normal respiratory effort and able to speak in complete sentences Skin General: no rashes or lesions noted Objective Labs Result Diagrams: 12/18/20 05:12 [facility] Medical History Arthritis Depression Former smoker HTN (hypertension) IBS (irritable bowel syndrome) Pelvic fracture Spinal stenosis Surgical History H/O: hysterectomy History of arthroplasty of left shoulder (~2015) History of arthroplasty of right knee History of lumbar fusion (04/26/19) History of total left hip arthroplasty Hx of bilateral cataract extraction Hx of thyroidectomy Hx of tonsillectomy Social History household members: none Smoking Status: Never smoker alcohol intake: current Assessment & Plan Post-op Postoperative Procedures: Procedures Operation Date: 12/17/20 08:45 Actual Procedures Side Surgeon p L1-2, L2-3 TLIF, L3-5 HWR, L1-5 PSF with instrumentation Alexsandra Sanders MD Postoperative day: 3 Postoperative status: doing well Postoperative plan: ambulate Postoperative plan narrative: Patient is to continue working on ambulation with physical therapy. X-ray ordered yesterday due to increased temperature and complaints of chest pain showed no acute consolidation. Urinalysis was obtained and cultures are pending. Patient's temperature is currently 98.6?F, and as long as her condition remains stable the patient is likely headed for discharge home today. Time Spent With Patient Time with patient: 15-24 minutes Quality VTE Deep Vein Thrombosis/Pulmonary Embolism Present on Admission: No
[2020-12-20] MEDS: DOCUSATE 100 MG CAPSULE PO (09:26)
[2020-12-20] MEDS: SODIUM CHLORIDE 0.9% FLUSH 10 ML IV (09:26)
--- NOTE | 2020-12-20 09:45 | PM.DS.1 ---
History of Present Illness History of Present Illness Date Patient Seen: 12/20/20 Chief complaint: Translaminar Interbody Fusion/Laminotomy Narrative: Refer to previous HPI. Discharge Providers Provider Date of admission: 12/17/20 07:31 Discharge Date: 12/20/20 Primary care physician: Amparo Browne MD Consults: 12/17/20 16:59 Consult to Occupational Therapy Evaluate & Treat Comment: Physician Instructions: Evaluate and treat Consult to Physical Therapy Evaluate & Treat Comment: Physician Instructions: Evaluate and Treat Discharge provider: Mauro Webster PA-C Summary Hospital Course Discharge Diagnosis: Lumbar scoliosis L1-3 spinal stenosis with radiculopathy Status post L1-3 posterolateral and posterior interbody fusion, L1-3 posterior interbody cage placement, L3-5 posterior segmental instrumentation removal, L3-5 revision laminectomy with exploration of fusion, L1-5 posterior segmental instrumentation with pedicle screw placement Hospital Course: Patient was admitted to the hospital following the above-listed procedure for the above-listed diagnosis. Following the procedure the patient has been convalescing appropriately in her pain has been controlled with her current pain management regimen. Patient has successfully worked on ambulation with physical therapy. Throughout the course of her stay in the hospital the patient has denied fever, chills, nausea, shortness of breath, or urinary retention. Patient had reported episodes of chest pain that appeared musculoskeletal in origin, likely due to positioning during surgery. Chest x-ray performed due to episodes of chest pain and fever showed no acute consolidation, urine culture is pending. At this time the patient is afebrile with a temperature recorded at 98.6. Patient is comfortable with discharge and is looking forward to continuing to progress outside of the hospital. Status at Discharge Cognitive/behavioral status at discharge: oriented Functional status at discharge: uses cane/walker Overall status at discharge: patient is progressing back to baseline Exam Vital Signs (past 8 hours): - 12/20/20 03:53 12/20/20 07:40 12/20/20 08:37 Temperature 99.6 F 98.7 F Pulse Rate 92 H 84 90 Respiratory Rate 18 18 16 Blood Pressure 124/65 120/60 Pulse Oximetry 95 94 95 Oxygen Delivery Method Nasal Cannula Oxygen Flow Rate 0 Narrative Exam Narrative: 70-year-old female postop day 3. Patient is resting comfortably in bed, is in no acute distress, is alert and oriented x3. Skin is warm and dry, and the skin surrounding the incision site is free of erythema, warmth, induration, or discharge. Bandage over the incision site is free of strike through, it is clean and dry. Good sensation appreciated throughout the bilateral lower extremities to light touch. Calves are soft and nontender, negative Homans sign. Ankle dorsiflexion, plantar flexion, eversion, inversion performed bilaterally without difficulty or discomfort. Palpable pulses appreciated, capillary refill less than 2 seconds. No other signs of DVT. Const General: cooperative, healthy appearing and comfortable Resp Effort & Inspection: normal respiratory effort and able to speak in complete sentences Skin General: no rashes or lesions noted Objective Labs Result Diagrams: 12/18/20 05:12 [facility] Medical History Arthritis Depression Former smoker HTN (hypertension) IBS (irritable bowel syndrome) Pelvic fracture Spinal stenosis Surgical History H/O: hysterectomy History of arthroplasty of left shoulder (~2015) History of arthroplasty of right knee History of lumbar fusion (04/26/19) History of total left hip arthroplasty Hx of bilateral cataract extraction Hx of thyroidectomy Hx of tonsillectomy Social History household members: none Smoking Status: Never smoker alcohol intake: current Discharge Assessment & Plan Assessment and Plan Assessment: Patient is doing well. Plan of Treatment: Patient is to continue working on ambulation with the assistance of a front wheeled walker. Current pain management regimen is to be continued as it is adequately controlling patient's pain level. Patient is to leave the dressing over the incision site intact, only to be changed as needed if it is to become damaged or dirty. Patient is scheduled for 1st postoperative visit 2 weeks following discharge from the hospital. The patient is to contact the clinic with any concerns or questions. Any signs of increased redness, swelling, tenderness, or discharge from the incision site is to be reported to the clinic. Discharge Plan Discharge Plan Patient Disposition: Home Provider Discharge Comment: Patient cleared for discharge pending PT approval and no further episodes of fever. Discharge orders & Medications Prescriptions: New acetaminophen 325 mg Tablet 650 mg PO Q6HR PRN (Reason: Pain, Mild (1-3)) Qty: 90 RF: 0 oxycodone 5 mg Tablet 10 mg PO Q3HR PRN (Reason: Pain, Severe (7-10)) Qty: 42 RF: 0 Continued acetaminophen 650 mg Tablet Extended Release 650 mg PO BID RF: 0 Follow up/Referrals: Amparo Browne MD [Primary Care Provider] - Diet/Activity/Treatments Diet: Diet as Tolerated Activity: Weight-bearing as tolerated with the assistance of a front wheeled walker. Avoid twisting, bending, or lifting in excess of 10 lb. Skin/Wound/Dressing Care Report to your healthcare provider any signs of infection, such as:: chills, fever, night sweats, increased pain, unusual drainage and unusual redness Dressing: Dressing over the incision site is to remain intact and to be changed as needed if it becomes damaged or dirty. Other wound treatment: Avoid soaking or placing topical ointments over the incision sites Visit Report/Discharge Packet Instructions: DI for Heart Failure, DI for Prescription Opioid Use, DI for Transforaminal Lumbar Interbody Fusion Stand Alone Forms: Surgery Discharge Discharge Data Primary Care Provider: Amparo Browne Quality VTE Deep Vein Thrombosis/Pulmonary Embolism Present on Admission: No
--- NOTE | 2020-12-20 10:22 | PT.IPTN ---
Current Diagnoses Spondylolisthesis, lumbar region (12/17/20) Spinal stenosis, lumbar region without neurogenic claudication (12/17/20) Arthrodesis status (12/17/20) Surgery Performed Operation Date: 12/17/20 08:45 Actual Procedures p L1-2, L2-3 TLIF, L3-5 HWR, L1-5 PSF with instrumentation - Alexsandra Sanders MD Physical Therapy Treatment Note M2 PT-IP Current Condition Start: 12/18/20 08:41 Freq: NEEDED Status: Active Protocol: Document 12/18/20 10:18 AW (Rec: 12/18/20 11:28 AW [id number]) Physical Therapy Current Condition Current Condition Evaluation Date 12/18/20 Treatment Diagnosis L1-3 TLIF; L1-5 PSF; impaired mobility and gait Onset Date 12/17/20 Precautions Lumbar Precautions Log Roll,No Twisting,Limit Bending,Lifting Restriction of 10 lbs,Gait Belt above Incisional Area Weight Bearing Status Weight Bearing Status Weight Bear as Tolerated M3 PT-IP Subjective Start: 12/18/20 08:41 Freq: NEEDED Status: Active Protocol: Document 12/20/20 10:57 CLB (Rec: 12/20/20 12:26 CLB [id number]) Subjective Physical Therapy Visit Type Type Treatment Note Visit Start Time 10:57 Visit Stop Time 10:22 Total Visit Minutes 25 Notes CG training with friend Agata. Number of WINDOWS MOBILE DEVELOPER Visits 2 Physical Therapy Visit Comments Patient Comments Pt and friend ready to participate with CG training. Patient Goals Wants to return home. Therapy Pain Assessment Pain When Pain Assessed During Mobility Pain Present Pain Present Pain Reported Location back Intensity 5 Pain Management Techniques Modification of Treatment, Timing of Activity with Medications M4 PT-IP Mobility and Gait Start: 12/18/20 08:41 Freq: NEEDED Status: Active Protocol: Document 12/20/20 10:57 CLB (Rec: 12/20/20 12:26 CLB [id number]) PT-Transfer Assessment Sit to and From Stand Sit to and from Stand Standby Assistance,1 Person Assistance,Use of Upper Extremities Equipment Transfer Assistive Device Gait Belt,Front Wheeled Walker Transfers Transfer Destination Chair Transfer Technique Stand Step Pivot Transfer Ability Level of Assist Standby Assistance,Use of Upper Extremities Comments Mobility Comments Pt with no pain while sitting in chair upon arrival. Demonstrated use of GB for CG Agata and CG able to eliud/doff GB. Pt stood SBA and ambulated in earl ~125ft w/FWW /SBA with cues to stay inside walker and for posture. Pt's friend Agata able to follow through with verbal cues during ambulation. Pt returned to room sitting in chair SBA. Pt refused bed mobility as she had just worked with OT. WINDOWS MOBILE DEVELOPER demonstrated proper LR giving pt and pt's CG education for LR in and out of bed. Gait Assessment Gait Gait Assistance Required: Standby Assistance Distance (Feet) 125 Able to Maintain Weight Bearing Status Yes During Gait Assistive Devices Assistive Device Gait Belt,Front Wheeled Walker Orthotic/Prosthetic Devices or Brace: No Gait Deviations General Gait Pattern Antalgic,Decreased Stride Length,Decreased Feet Clearance,Flexed Trunk Factors Limiting Gait Function Factors Limiting Gait Function Decreased Activity Tolerance, Decreased Strength,Pain Comments Gait Comments see mobility comments Stair Climbing Assessment Comments Stair Climbing Comments Pt states she can use ramp and won't need to climb stairs. PT-Balance Assessment Sitting Balance and Reactions Static Sitting Balance Ability Normal Dynamic Sitting Balance Ability Good Standing Balance and Reactions Static Standing Balance Ability Fair Dynamic Standing Balance Ability Good Device Used FWW Comments Other Balance Tests/Deviations/Treatment Reviewed back precautions and : went over back surgery pamphlet. M5 PT-IP Objective Assessments Start: 12/18/20 08:41 Freq: NEEDED Status: Active Protocol: Document 12/18/20 10:18 AW (Rec: 12/18/20 11:36 AW [id number]) Orientation Orientation/Cognition Level of Alertness Alert Orientation Name,Day of Week,Place, Situation Language Function Ability No Deficits Noted Safety Awareness Understands Safety Issues Memory Description No Deficits Noted Gross Range of Motion Lower Extremity ROM Assessment Within Functional Limits Strength Lower Extremity Strength Assessment Within Functional Limits Hip 4+/5 Knee 4+/5 Sensation Assessment Sensation Gross Sensation WNL Muscle Tone Muscle Tone WNL Yes M6 PT-IP Treatment Start: 12/18/20 08:41 Freq: NEEDED Status: Active Protocol: Document 12/18/20 13:29 AW (Rec: 12/18/20 13:51 AW [id number]) Physical Therapy Treatment Education Education Provided Precautions,Safety Other Treatments Other Treatment Performed Pt required reminders about back precautions, was unable to recall. Current q3 hour pain meds may be contributing to nausea and forgetfulness. M7 PT-IP Assessment and Plan Start: 12/18/20 08:41 Freq: NEEDED Status: Active Protocol: Document 12/20/20 10:57 CLB (Rec: 12/20/20 12:26 CLB [id number]) PT Summary Assessment and Plan Potential Rehabilitation Potential Good Status of Condition at Evaluation Evolving Summary Impairments Pain,Strength,Balance,Bed Mobility,Transfers,Gait, Activity Tolerance Progress Towards Goals Progressing Toward Goals Assessment Summary Reviewed back precautions and went over back surgery pamphlet. Pt is SBA from chair and is able to ambulate w/FWW /SBA ~125ft with cues to stay inside walker and posture. Pt' s friend seems able to give appropriate cues during mobility. Pt plans to d/c home with friends assistance. Goals Bed Mobility Goal Independent Transfer Goal Independent,Front Wheeled Walker Gait Goal Independent,Front Wheel Walker Gait Distance 100 Other Goals - up/down 3 stairs with R rail ascending SBA Days to Meet Goals 5 Frequency of Treatment Frequency Of Treatment Twice a Day Treatment Plan Physical Therapy Treatment Plan Bed Mobility Training,Transfer Training,Gait Training, Therapeutic Exercise,Balance Retraining,Post Op Education, Discharge Planning,Hot or Cold Pack,Neuromuscular Re-ed Precautions Lumbar Precautions Log Roll,No Twisting,Limit Bending,Lifting Restriction of 10 lbs,Gait Belt above Incisional Area Recommendations To Nursing Amount of Assist Needed 1 Person Assist Discharge Recommendations PT Discharge Recommendations Home with Assistance, Outpatient PT Equipment Needed for Home Before RTS, shower chair Discharge Transportation Needs at Discharge Private Vehicle
--- NOTE | 2020-12-20 10:23 | CM.DPC ---
DCP Discharge Home Per Ortho, pt medically stable to d/c home after PT/OT CG training today and no identified barriers to discharge. Per PT/OT, completing CG training bedside today around 1000 for OT and 1100 for PT to confirm no further recommendations for d/c needed with friend Kori who will be providing assist at d/c. Plan: SW to follow after CG training with pt's friend this morning to confirm pt safe for d/c home with friend assist today. EVIE Kiser
--- NOTE | 2020-12-20 10:24 | OT.IP.EVAL ---
Current Diagnoses Spondylolisthesis, lumbar region (12/17/20) Spinal stenosis, lumbar region without neurogenic claudication (12/17/20) Arthrodesis status (12/17/20) Surgery Performed Operation Date: 12/17/20 08:45 Actual Procedures p L1-2, L2-3 TLIF, L3-5 HWR, L1-5 PSF with instrumentation - Alexsandra Sanders MD Past Medical History (Last Reviewed 12/20/20 @ 09:53 by Mauro Webster PA-C) Arthritis Depression Former smoker HTN (hypertension) IBS (irritable bowel syndrome) Pelvic fracture Spinal stenosis Surgical History (Last Reviewed 12/20/20 @ 09:53 by Mauro Webster PA-C) H/O: hysterectomy History of arthroplasty of left shoulder (~2015) History of arthroplasty of right knee History of lumbar fusion (04/26/19) History of total left hip arthroplasty Hx of bilateral cataract extraction Hx of thyroidectomy Hx of tonsillectomy Occupational Therapy Inpatient Evaluation/Re-Eval M1 PT/OT-IP Prior Functional Status Start: 12/18/20 08:41 Freq: NEEDED Status: Active Protocol: Document 12/18/20 10:40 [facility] (Rec: 12/18/20 12:35 [facility] [id number]) Medical Review Prior Functional Status Medical History Reviewed Yes: Pt had lumbar fusion/lami Apr 2019 Communication WNL. Pt is an effective verbal communicator. Mobility and Gait Pt is independent without mobility but has a limit of one block without needing a rest break and admits to slow pace. Activities of Daily Living and IADL's Independent with all ADL and IADL needs. 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 Social History Household Members none Living Arrangements Apartment/Condo Number of Floors (Floors) One Floor Number of Stairs To Enter/Railing? 3 stairs in courtyard leading to pt's level entrance. If unable to do stairs, pt can go the long way around the building to access her unit. Otherwise pt has no steps to get into her apartment. Home Environment Standard Height Toilet,Tub/ Shower Home Equipment Four Wheel Walker,Bed Rails, Grab Bars In Shower Additional Social History Comment Pt has a neighbor, Kori, who will be able to stay and assist her at discharge, per pt. Her brother lives in [place] and will acquire a RTS for her and a shower chair if needed. M2 OT-IP Current Condition Start: 12/18/20 12:15 Freq: Status: Active Protocol: Document 12/18/20 10:40 [facility] (Rec: 12/18/20 12:35 [facility] [id number]) Occupational Therapy Current Condition Current Condition Evaluation Date 12/18/20 Treatment Diagnosis Lumbar Scoliosis s/p L1-2, L2- 3 TLIF, L3-5 HWR, L1-5 PSF Diagnosis Onset Date 12/17/20 M3 OT- IP Subjective and Pain Start: 12/18/20 12:15 Freq: Status: Active Protocol: Document 12/20/20 12:05 [facility] (Rec: 12/20/20 12:14 [facility] [id number]) OT- Subjective Occupational Therapy Visit Type Type Progress Note Visit Start Time 09:53 Visit Stop Time 10:24 Total Visit Minutes 33 Notes Caregiver training with Kori OT Pain Assessment Pain When Pain Assessed During Mobility Pain Present Pain Present Pain Reported Location back Scale Used did not rate but states worse with movement Management Techniques Distraction,Modification of Treatment,Re-positioning, Timing of Activity with Medications M4 OT- IP ADL's Start: 12/18/20 12:15 Freq: Status: Active Protocol: Document 12/20/20 12:05 [facility] (Rec: 12/20/20 12:14 [facility] [id number]) OT [id number] Comments OT Self-Feeding Comments Not meal time OT ADL-Grooming Comments OT Grooming Comments Pt declined OT ADL-Oral Care Comments Oral Care Comments pt declined OT ADL-Dressing Comments OT Dressing Comments Discussed need for use of forge helper, pt states understanding for following back precautions and declined practicing. OT ADL-Toileting General Evaluation Toileting Ability Independent Comments OT Toileting Comments seated on toielt OT ADL-Bathing Comments OT Bathing Comments not performed M5 OT- IP IADL's Start: 12/18/20 12:15 Freq: Status: Active Protocol: Document 12/18/20 10:40 [facility] (Rec: 12/18/20 12:35 [facility] [id number]) OT-Instrumental Activities of Daily Living Home Safety Awareness Home Safety Comments Pt a little groggy as not recalling her back precaution and at this time would benefit from someone to be home to assist her with all of her needs. M6 OT- IP Functional Cognition Start: 12/18/20 12:15 Freq: Status: Active Protocol: Document 12/19/20 12:51 [facility] (Rec: 12/19/20 13:07 [facility] [id number]) Cognitive Factors Limiting Selfcare Function Cognitive Ability Level of Alertness Alert,Confusional State Patient Orientation Name,Place,Situation Attention Span Ability Capable of Focused Attention, Capable of Sustained Attention Ability to Follow Commands Able to Follow One Step Commands Safety Awareness Underestimates Need for Assistance Cognitive Comments Cognitive Assessment Comments Pt not remember that she has a catheter in. Pt needing cues to push up from the bed or surface sitting or versus pt trying to grab the FWW or grab bar to stand. M7 OT- IP Mobility and Balance Start: 12/18/20 12:15 Freq: Status: Active Protocol: Document 12/20/20 12:05 [facility] (Rec: 12/20/20 12:14 [facility] [id number]) OT- Bed Mobility Assessment Rolling Type of Rolling Roll to Right Level of Assistance Standby Assistance Supine to Sit Supine to Sit Assist Standby Assistance Sit to Supine Sit to Supine Assist Standby Assistance Scooting Scooting to Edge of Bed Standby Assistance OT-Transfer Assessment Sit to and From Stand Sit to and from Stand Standby Assistance Transfers Transfer Ability Standby Assistance Technique Transfer Destination Bed,Chair,Toilet Transfer Technique Stand Step Pivot Devices Transfer Assistive Devices Gait Belt,Front Wheeled Walker Comments Mobility Comments mobility around the room and bathroom OT- Balance Assessment Sitting Balance and Reactions Static Sitting Balance Ability Good Dynamic Sitting Balance Ability Good M8 OT- IP Objective Assessments Start: 12/18/20 12:15 Freq: Status: Active Protocol: Document 12/18/20 10:40 [facility] (Rec: 12/18/20 12:35 [facility] [id number]) OT Gross Range of Motion Upper Extremity Range of Motion Assessment Within Functional Limits OT-Muscle Tone Assessment Muscle Tone WNL Yes M9 OT- IP Assessment and Plan Start: 12/18/20 12:15 Freq: Status: Active Protocol: Document 12/20/20 12:05 [facility] (Rec: 12/20/20 12:14 [facility] [id number]) OT Summary Assessment and Plan Potential Rehabilitation Potential Good Analytic Complexity at Evaluation Low Summary OT Impairments Balance,Functional Cognition, Functional Mobility,Grooming, Dressing,Toileting,Bathing, Toilet Transfers,Shower Transfers,Activity Tolerance Progress Towards Goals Progressing Toward Goals Assessment Summary Pt is doing well on this date. Effective caregiver training performed. Pt is ready for discharge home when cleared by MD. Goals Grooming Goal Independent Dressing Goal Independent Toileting Goal Independent Bathing Goal Independent Toilet Transfer Goal Independent Shower Transfer Goal Independent Patient/Caregiver Education Goal Demonstrate Post-Op Precautions,Caregiver Independent Assisting Patient Days to Meet Goals 6 Frequency of Treatment Frequency Of Treatment Once a Day Treatment Plan OT Treatment Plan ADL Training,Functional Cognition Training,Functional Mobility,Patient/Family Education,Discharge Planning Discharge Recommendations OT Discharge Recommendations Home with Assistance Home Equipment Needs BSC versus RTS, tub bench LB dressing equipment as needed Transportation Needs at Discharge Private Vehicle
[2020-12-20 12:38] VITALS: BP 113/60; PULSE 94; TEMP 37.7
[2020-12-20 12:39] VITALS: TEMP 37.7
--- NOTE | 2020-12-20 13:03 | PC.NURSE ---
Patient cleared by PT and OT for discharge and feels ready to go home. Lunchtime temp noted at 99.9 temporal and 100.0 oral. Patient continues to deny any symptoms or complaints. Denies trouble urinating, denies shortness of breath. Pain well controlled with use of pain medications prescribed for surgical post op pain. Dressing to back is clean dry and intact. Mauro Webster notified of patient's lunchtime temperature and agrees she is still OK to discharge home.
--- NOTE | 2020-12-20 13:40 | PC.NURSE ---
Discharge instructions reviewed with patient and her friend. IV removed intact by nursing professor. Dressing to back remains intact. Patient has follow up appointment scheduled. Patient encouraged to continue to monitor her temperature at home and report any fevers or other symptoms to the surgeon's office. Prescriptions given to patient to fill at pharmacy of choice. Patient states understanding and has no further questions or concerns. Escorted out via wheelchair by STITCH MARKER with all her belongings to discharge to home with a friend.
== END 2020-12-20 13:46 | disposition home or self-care (01) | DRG 454 ==
LOC: AC 08:46 → ICU 12:57 → AC 13:00
PROVIDERS: Admitting Provider Orthopaedic Surgery Orthopaedic Surgery of the Spine; PCP Internal Medicine; Referring Provider Orthopaedic Surgery Orthopaedic Surgery of the Spine; Visit Provider Orthopaedic Surgery Orthopaedic Surgery of the Spine
PROC: 0SG10AJ Fusion of 2 or more Lumbar Vertebral Joints with Interbody Fusion Device, Posterior Approach, Anterior Column, Open Approach (ICD-10-PCS; principal; 2020-12-17 08:45)
DX: M41.26 Other idiopathic scoliosis, lumbar region (principal); M96.0 Pseudarthrosis after fusion or arthrodesis; M48.062 Spinal stenosis, lumbar region with neurogenic claudication; M43.16 Spondylolisthesis, lumbar region; R07.9 Chest pain, unspecified; R50.9 Fever, unspecified; Z20.822 Contact with and (suspected) exposure to COVID-19; Z87.891 Personal history of nicotine dependence
CPT/HCPCS: 71045; 72100; 76000; 85014; 85018; 87086; 87635; 93005; 94762; 97116; 97162; 97165; 97530; 97535; C1776; C9803; C9290; J0131; J0690; J1100; J1170; J2060; J2250; J2405; J2704; J3010

== ENCOUNTER 2021-02-10 13:25 | Emergency (ER) | payer MEDICARE, SELFPAY ==
[2020-12-17 18:00] VITALS: BMI 32.3
[2021-02-10 13:27] VITALS: BP 158/89; PULSE 111; RESP 22; TEMP 37; O2SAT 96; BMI 31.9
--- NOTE | 2021-02-10 13:31 | DI.RAD.S_ITS ---
PROCEDURE: XR CHEST 1V INDICATIONS: chest pain TECHNIQUE: One view of the chest was acquired. COMPARISON: [facility], CR, XR CHEST 1V, 12/19/2020, 13:11. FINDINGS: Surgical changes and devices: Patient is status post left shoulder arthroplasty. Lungs and pleura: Lungs are clear. No pleural effusions or pneumothorax. Mediastinum: Mediastinal contours appear normal. Heart size is normal. Bones and chest wall: No suspicious bony lesions. Overlying soft tissues appear unremarkable. IMPRESSION: No acute cardiopulmonary pathology. Dictated by: Mervin Tapia M.D. on 02/10/2021 at 14:49 Approved by: Mervin Tapia M.D. on 02/10/2021 at 14:51
[2021-02-10] MEDS: ASPIRIN 81 MG CHEW TAB 324 MG PO (13:34)
[2021-02-10 13:40] LABS: Add Manual Diff / Slide Review NO; Basophils Absolute Auto 0 /uL (0-100); Basophils Percent Auto 0.4 % (0-2); Eosinophils Absolute Auto 0 /uL (0-450); Eosinophils Percent Auto 0.2 % (2-4); Hematocrit 42.4 % (36-46); Hemoglobin 13.8 g/dL (12.0-16.0); Lymphocytes Absolute Auto 2100 /uL (1100-4500); Mean Corpuscular HGB Conc 32.5 % (30-36); Mean Corpuscular Hemoglobin 28.6 PG (26-34); Mean Corpuscular Volume 88.1 fL (80-100); Monocytes Absolute Auto 700 /uL (0-900); Monocytes Percent Auto 6.1 % (3-14); Neutrophils Absolute Auto 8600 /uL (1500-7000); Neutrophils Percent Auto 75.3 % (50-75); Platelet Count 256 X10^3/uL (150-400); Red Blood Cell Count 4.81 X10^6/uL (4.0-5.2); Red Cell Distribution Width 14.1 % (11.6-14.8); White Blood Cell Count 11.4 X10^3/uL (4.5-11.0)
[2021-02-10 13:52] LABS: Alanine Aminotransferase 25 IU/L (<35); Albumin 4.6 g/dL (3.5-5.0); Albumin Globulin Ratio 1.5 (1.0-2.8); Alkaline Phosphatase 92 U/L (38-126); Aspartate Aminotransferase 25 IU/L (14-36); BUN Creatinine Ratio 25.8 (6-22); Bilirubin Total 0.5 mg/dL (0.2-1.3); Blood Urea Nitrogen 16 mg/dL (7-17); Calcium 9.9 mg/dL (8.4-10.2); Carbon Dioxide 22 mmol/L (22-32); Chloride 106 mmol/L (98-107); Creatine Kinase 70 U/L (30-135); Estimated Glomerular Filt Rate > 60.0 mL/min (>60); Globulin 3.1 g/dL (1.7-4.1); Glucose 124 mg/dL (80-110); HEMOLYSIS < 15 (0-50); Lipase 38 U/L (23-300); Magnesium 1.9 mg/dL (1.6-2.3); Potassium 3.5 mmol/L (3.4-5.1); Sodium 140 mmol/L (137-145); Total Protein 7.7 g/dL (6.3-8.2)
[2021-02-10 14:04] LABS: Troponin I < 0.012 ng/mL (0.01-0.034)
[2021-02-10 15:59] LABS: Troponin I < 0.012 ng/mL (0.01-0.034)
[2021-02-10 16:15] VITALS: BP 142/75; PULSE 81; RESP 15; TEMP 36.8; O2SAT 97
--- NOTE | 2021-02-10 17:00 | ED_ITS ---
HPI - Chest Pain General Chief Complaint: Chest Pain Stated Complaint: tightness in chest Time Seen by Provider: 02/10/21 16:55 Source: patient Mode of arrival: Ambulatory Limitations: no limitations History of Present Illness HPI narrative: Patient is a 70-year-old female with history of chest tightness that started yesterday. She has no radiation or shortness of breath. It is in the center of her chest and feels like burning. Does come and go. It happened again today at around 12:30 had had tightness. She attributes to taking a ginkgo. She says she has never taken it before and then she took this and s tarted having chest discomfort. It has now completely resolved. She has no known history of coronary artery disease. She has not had any shortness of breath or palpitations. Related Data Home Medications Medication Instructions Recorded Confirmed acetaminophen 650 mg 650 mg PO BID 04/18/19 12/17/20 tablet,extended release Previous Rx's Medication Instructions Recorded acetaminophen 325 mg tablet 650 mg PO Q6HR PRN #90 tab 12/20/20 oxycodone 5 mg tablet 10 mg PO Q3HR PRN #42 tab 12/20/20 Allergies Allergy/AdvReac Type Severity Reaction Status Date / Time hydrocodone AdvReac Mild Jittery, Verified 02/10/21 13:27 nervous, shakey Review of Systems Review of Systems Narrative: GENERAL: Denies chills, fatigue, malaise, fever, sweats, travel HEENT: Denies sinus pain, ear pain, sore throat, difficulty swallowing, neck pain RESPIRATORY: Denies dyspnea, cough, wheezing, hemoptysis, sputum. CARDIOVASCULAR: See HPI GASTROINTESTINAL: Denies nausea, vomiting, abdominal pain, diarrhea, constipation, melena. : Denies dysuria, frequency, incontinence, hematuria, urinary retention, flank pain. MUSCULOSKELETAL: Denies weakness, joint pain, or bony pain SKIN: No rash, no erythema, no pruritus NEUROLOGIC: Denies weakness, dizziness, headache, numbness, change in speech, confusion PSYCHIATRIC: No concerning psychosocial issues. 12 point review of systems is negative except for those stated above and HPI Patient History Medical History Arthritis Depression Former smoker HTN (hypertension) IBS (irritable bowel syndrome) Pelvic fracture Spinal stenosis Surgical History H/O: hysterectomy History of arthroplasty of left shoulder (~2016) History of arthroplasty of right knee History of lumbar fusion (04/26/19) History of total left hip arthroplasty Hx of bilateral cataract extraction Hx of thyroidectomy Hx of tonsillectomy Social History household members: none Smoking Status: Never smoker alcohol intake: current Smoking Status: Never smoker alcohol intake frequency: holidays/special occasions only Substance Use Type: does not use Exam Initial Vital Signs Initial Vital Signs: Vital Signs Temperature 98.6 F 02/10/21 13:27 Pulse Rate 111 H 02/10/21 13:27 Respiratory Rate 22 02/10/21 13:27 Blood Pressure 158/89 H 02/10/21 13:27 Pulse Oximetry 96 02/10/21 13:27 GENERAL: Alert well-appearing 70-year-old female and in no acute distress. HEENT: Head atraumatic,EOMI, pupils reactive, face symmetric, moist mucous membranes CARDIOVASCULAR: Regular rate and rhythm without murmurs, rubs or gallops. RESPIRATORY: Breath sounds equal bilaterally, no wheezes rales or rhonchi. ABDOMEN: Soft, nontender. Normoactive bowel sounds all 4 quadrants. No guarding or rebound. EXTREMITIES: Normal range of motion, no clubbing or edema. Neurovascularly intact NEUROLOGICAL: Alert and oriented x4.Normal gait and speech. Cranial nerves II through XII grossly intact. SKIN: Warm, dry, no laceration, no petechiae, no rashes or lesions. Scores HEART Score Heart Score history: Slightly Suspicious Heart Score EKG: Normal Heart Score Age: > or = 65 years old Heart Score risk factors: No known risk factors Heart Score troponin: < or = to normal limit Heart Score Total: 2 Course Orders Ordered: Discontinued Medications Aspirin (Aspirin 81 Mg Chew Tab) 324 mg PO NOW ONE Stop: 02/10/21 13:31 Last Admin: 02/10/21 13:34 Dose: 324 mg Documented by: TRISTIN Vital Signs Vital signs: Vital Signs - 8 hr 02/10/21 13:27 02/10/21 16:15 Temperature 98.6 F 98.2 F Pulse Rate 111 H 81 Respiratory Rate 22 15 Blood Pressure 158/89 H 142/75 H Pulse Oximetry 96 97 MDM - Chest Pain Lab Data Result diagrams: 02/10/21 13:30 02/10/21 13:30 Labs: Lab Results 02/10/21 02/10/21 02/10/21 Range/Units 13:30 13:30 15:31 WBC 11.4 H (4.5-11.0) X10^3/uL RBC 4.81 (4.0-5.2) X10^6/uL Hgb 13.8 (12.0-16.0) g/dL Hct 42.4 (36-46) % MCV 88.1 (80-100) fL MCH 28.6 (26-34) PG MCHC 32.5 (30-36) % RDW 14.1 (11.6-14.8) % Plt Count 256 (150-400) X10^3/uL Neut % (Auto) 75.3 H (50-75) % Lymph % (Auto) 18.0 L (25-40) % [place] % (Auto) 6.1 (3-14) % Eos % (Auto) 0.2 L (2-4) % Baso % (Auto) 0.4 (0-2) % Neut # (Auto) 8600 H (9135-3462) /uL Lymph # (Auto) 2100 (5357-5279) /uL [place] # (Auto) 700 (0-900) /uL Eos # (Auto) 0 (0-450) /uL Baso # (Auto) 0 (0-100) /uL Sodium 140 (137-145) mmol/L Potassium 3.5 (3.4-5.1) mmol/L Chloride 106 (98-107) mmol/L Carbon Dioxide 22 (22-32) mmol/L BUN 16 (7-17) mg/dL Creatinine 0.62 (0.52-1.04) mg/dL Estimated GFR > 60.0 (>60) mL/min BUN/Creatinine Ratio 25.8 H (6-22) Glucose 124 H (80-110) mg/dL Calcium 9.9 (8.4-10.2) mg/dL Magnesium 1.9 (1.6-2.3) mg/dL Total Bilirubin 0.5 (0.2-1.3) mg/dL AST 25 (14-36) IU/L ALT 25 (<35) IU/L Alkaline Phosphatase 92 (38-126) U/L Total Creatine Kinase 70 (30-135) U/L CK-MB (CK-2) TNP CK-MB (CK-2) Rel Index TNP Troponin I < 0.012 < 0.012 (0.01-0.034) ng/mL Total Protein 7.7 (6.3-8.2) g/dL Albumin 4.6 (3.5-5.0) g/dL Globulin 3.1 (1.7-4.1) g/dL Albumin/Globulin Ratio 1.5 (1.0-2.8) Lipase 38 (23-300) U/L Urine Dip Bedside Urine Glucose Negative Bedside Urine Bilirubin - Negative Bedside Urine Ketone - Negative Urine Specific [place] 1.020 Bedside Urine Occult Blood - Negative Bedside Urine pH 6.5 Bedside Urine Protein - Negative Bedside Urine Urobilinogen - Negative Bedside Urine Nitrite - Negative Bedside Urine Leukocytes - Negative Esterase Imaging Data Chest x-ray: Radiologist's Impression: PROCEDURE: XR CHEST 1V INDICATIONS: chest pain TECHNIQUE: One view of the chest was acquired. COMPARISON: [facility], , XR CHEST 1V, 12/19/2020, 13:11. FINDINGS: Surgical changes and devices: Patient is status post left shoulder arthroplasty. Lungs and pleura: Lungs are clear. No pleural effusions or pneumothorax. Mediastinum: Mediastinal contours appear normal. Heart size is normal. Bones and chest wall: No suspicious bony lesions. Overlying soft tissues appear unremarkable. IMPRESSION: No acute cardiopulmonary pathology. Dictated by: Mervin Tapia M.D. on 02/10/2021 at 14:49 Approved by: Mervin Tapia M.D. on 02/10/2021 at 14:51 ECG Data Interpretation: Normal sinus rhythm rate 103 p.r. interval 120 QRS [address] changes no T-wave inversions similar to previous EKG MDM Narrative Medical decision making narrative: Patient has had no chest pain in the emergency department. Discomfort started after taking this medication. She is low risk heart score. She has 2 negative troponins and overall feeling much better. I recommend she follow-up with her primary care provider Discharge Plan Departure Patient Disposition: Home Clinical Impression: Atypical chest pain Instructions: DI for Atypical Chest Pain Activity Restrictions/Additional Instructions: *You have been diagnosed with atypical chest chest *What to do: At this time please follow-up with your primary care provider you may require further cardiac testing however at this time no further testing is needed in the emergency department *Continue to take medications as directed *Follow up with your primary care provider in 2-3 days *Return to ER if you should have increasing chest pain, shortness of breaths or any new, worsening or concerning symptoms Prescriptions: No Action acetaminophen 650 mg Tablet Extended Release 650 mg PO BID RF: 0 acetaminophen 325 mg Tablet 650 mg PO Q6HR PRN (Reason: Pain, Mild (1-3)) Qty: 90 RF: 0 oxycodone 5 mg Tablet 10 mg PO Q3HR PRN (Reason: Pain, Severe (7-10)) Qty: 42 RF: 0 Referrals: Amparo Browne MD [Primary Care Provider] -
[2021-02-10 17:10] VITALS: BP 162/81; PULSE 92; RESP 18
== END 2021-02-10 17:26 | disposition home or self-care (01) ==
PROVIDERS: Emergency Provider Emergency Medicine; PCP Internal Medicine
DX: R07.89 Other chest pain (principal)
CPT/HCPCS: 36415; 71045; 80053; 81003; 82550; 83690; 83735; 84484; 85025; 93005; 99284

== ENCOUNTER → 2021-02-17 14:34 | Outpatient (ROUT) | payer MEDICARE, SELFPAY ==
[2020-12-17 18:00] VITALS: BMI 32.3
[2021-02-17 14:42] LABS: Add Manual Diff / Slide Review NO; Basophils Absolute Auto 0 /uL (0-100); Basophils Percent Auto 0.4 % (0-2); Eosinophils Absolute Auto 100 /uL (0-450); Eosinophils Percent Auto 0.6 % (2-4); Hematocrit 44.4 % (36-46); Hemoglobin 14.7 g/dL (12.0-16.0); Lymphocytes Absolute Auto 1500 /uL (1100-4500); Lymphocytes Percent Auto 17.1 % (25-40); Mean Corpuscular HGB Conc 33.2 % (30-36); Mean Corpuscular Volume 87.4 fL (80-100); Monocytes Absolute Auto 500 /uL (0-900); Monocytes Percent Auto 5.1 % (3-14); Neutrophils Absolute Auto 6900 /uL (1500-7000); Neutrophils Percent Auto 76.8 % (50-75); Platelet Count 205 X10^3/uL (150-400); Red Blood Cell Count 5.08 X10^6/uL (4.0-5.2); Red Cell Distribution Width 13.9 % (11.6-14.8)
[2021-02-17 14:54] LABS: Alanine Aminotransferase 16 IU/L (<35); Albumin 4.6 g/dL (3.5-5.0); Albumin Globulin Ratio 1.8 (1.0-2.8); Alkaline Phosphatase 94 U/L (38-126); Aspartate Aminotransferase 19 IU/L (14-36); Bilirubin Total 0.4 mg/dL (0.2-1.3); Blood Urea Nitrogen 22 mg/dL (7-17); Calcium 9.9 mg/dL (8.4-10.2); Carbon Dioxide 25 mmol/L (22-32); Chloride 104 mmol/L (98-107); Estimated Glomerular Filt Rate > 60.0 mL/min (>60); Globulin 2.6 g/dL (1.7-4.1); Glucose 141 mg/dL (80-110); HEMOLYSIS < 15 (0-50); Lipase 43 U/L (23-300); Potassium 4.4 mmol/L (3.4-5.1); Sodium 141 mmol/L (137-145); Total Protein 7.2 g/dL (6.3-8.2)
== END ==
PROVIDERS: PCP Internal Medicine; Visit Provider Internal Medicine
DX: R10.31 Right lower quadrant pain (principal)
CPT/HCPCS: 80053; 83690; 85025

== ENCOUNTER → 2021-02-17 14:50 | Outpatient (CLI) | payer MEDICARE, SELFPAY ==
[2020-12-17 18:00] VITALS: BMI 32.3
--- NOTE | 2021-02-17 14:52 | DI.CT.S_ITS ---
PROCEDURE: CT ABDOMEN PELVIS W CON INDICATIONS: Right lower quadrant pain TECHNIQUE: After the administration of oral and IV contrast, axial sections were acquired from the lung bases to the pubic symphysis. Coronal and sagittal reformats were performed. For radiation dose reduction, the following was used: automated exposure control, adjustment of mA and/or kV according to patient size. COMPARISON: [facility], CT, CT LUMBAR SPINE WO CON, 09/08/2020, 13:19. [facility], MR, MR LUMBAR SPINE WO CON, 11/25/2018, 13:25. FINDINGS: Image quality: Excellent. Lung bases: Unremarkable. Heart: No significant findings. ABDOMEN: Liver: Ill-defined hypodensity in the right lobe of the liver measuring 1.7 cm, (2/20). Gallbladder: Unremarkable. Biliary ducts: Unremarkable. Pancreas: Unremarkable. Spleen: Tiny hypodensities in the spleen. Likely hemangiomas. Adrenal Glands: Unremarkable. Kidneys and Ureters: Small simple renal cysts and cortical hypodensities which are too small to further characterize. No hydronephrosis. Stomach and Bowel: The appendix is dilated and fluid-filled. Appendix measures approximately 1.3 cm in diameter, (4/30). There is fecalization in the terminal ileum. Prominent stool in the colon. No small bowel obstruction. Peritoneum: No abnormal intraperitoneal fluid. No free air. Ventral Wall: Small fat containing periumbilical hernia Abdominal Nodes: No retroperitoneal or mesenteric adenopathy by size criteria. Vessels: Aorta and inferior vena cava are normal in size. PELVIS: Pelvic Organs: Unremarkable. Bladder: Unremarkable. Pelvic Nodes: No enlarged lymph nodes. Miscellaneous: No inguinal hernias are seen. Bones: L1-L5 pedicle screw fixation. Laminectomies. Left hip total arthroplasty. Bone island in the right iliac wing. Scoliosis. IMPRESSION: 1. Dilated appendix. Findings concerning for appendicitis. 2. No pneumoperitoneum. No fluid collection. 3. Small hypodensity in the right lobe of the liver which is indeterminate. This could be further characterized with multiphase liver CT or MRI with IV contrast on a nonemergent basis. Dictated by: Zelalem Hearn M.D. on 02/17/2021 at 16:51 Approved by: Zelalem Hearn M.D. on 02/17/2021 at 17:11
== END ==
PROVIDERS: PCP Internal Medicine; Referring Provider Internal Medicine; Visit Provider Internal Medicine
DX: R10.31 Right lower quadrant pain (principal)
CPT/HCPCS: 74177

== ENCOUNTER 2021-02-17 18:42 | Observation (INO) | payer MEDICARE, SELFPAY ==
[2020-12-17 18:00] VITALS: BMI 32.3
[2021-02-17] VITALS (8 sets, daily range): BP systolic 139–152; BP diastolic 66–83; PULSE 84–97; RESP 20; TEMP 36.6–37.2; O2SAT 96–98
--- NOTE | 2021-02-17 21:47 | ED.GENADULT ---
HPI - General Adult General Chief complaint: Abdominal Pain Stated complaint: possible appendecitis. Sent by DR Curry Seen by Provider: 02/17/21 21:24 Source: patient Mode of arrival: Ambulatory History of Present Illness HPI narrative: Patient is a 70-year-old female who yesterday started having right-sided abdominal discomfort. Today when she woke up the symptoms continued so she contacted her primary doctor who ordered labs and a CT scan as an outpatient. This was performed and she was contacted and was told that the appendix on the CT scan was enlarged was concern for appendicitis and she was instructed to come to the emergency department for evaluation her last meal was at 0600 hours in the evening. She stated that the abdominal discomfort did not change with urination or bowel movements. Has not had any vomiting. No fevers. Related Data Home Medications Medication Instructions Recorded Confirmed acetaminophen 650 mg 650 mg PO BID 04/18/19 12/17/20 tablet,extended release Previous Rx's Medication Instructions Recorded acetaminophen 325 mg tablet 650 mg PO Q6HR PRN #90 tab 12/20/20 oxycodone 5 mg tablet 10 mg PO Q3HR PRN #42 tab 12/20/20 Allergies Allergy/AdvReac Type Severity Reaction Status Date / Time hydrocodone AdvReac Mild Jittery, Verified 02/10/21 13:27 nervous, shakey Review of Systems Constitutional Constitutional: Denies fever(s) Cardiovascular Cardiovascular: Reports system reviewed and no additional complaints, except as documented Respiratory Respiratory: Reports system reviewed and no additional complaints, except as documented Gastrointestinal Gastrointestinal: Reports abdominal pain and Denies change in bowel habits Genitourinary Comments: No change in urinary habits Musculoskeletal Musculoskeletal: Denies back pain Integumentary/Breasts Skin/Breast: Denies rash Neurologic Neurologic: Reports system reviewed and no additional complaints, except as documented Psychiatric Psychiatric: Reports system reviewed and no additional complaints, except as documented Hematologic/Lymphatic On Anticoagulants: No Allergic/Immunologic Allergic/Immunologic: Reports system reviewed and no additional complaints, except as documented Patient History Medical History Arthritis Depression Former smoker HTN (hypertension) IBS (irritable bowel syndrome) Pelvic fracture Spinal stenosis Surgical History H/O: hysterectomy History of arthroplasty of left shoulder (~2015) History of arthroplasty of right knee History of lumbar fusion (04/26/19) History of total left hip arthroplasty Hx of bilateral cataract extraction Hx of thyroidectomy Hx of tonsillectomy Social History household members: none Smoking Status: Never smoker alcohol intake: current Smoking Status: Never smoker alcohol intake frequency: holidays/special occasions only Substance Use Type: does not use Exam Initial Vital Signs Initial Vital Signs: Vital Signs Temperature 99.0 F 02/17/21 19:07 Pulse Rate 93 H 02/17/21 19:07 Respiratory Rate 20 02/17/21 19:07 Blood Pressure 152/81 H 02/17/21 19:07 Pulse Oximetry 97 02/17/21 19:07 HENMT Head: normal to inspection and normocephalic Resp Auscultation: clear to auscultation bilaterally Cardio Rate: regular rate Rhythm: regular rhythm GI Palpation: soft, No guarding and tender (Right-sided abdomen) Back/Spine/Pelvis Back: No CVA tenderness Skin General: no rashes or lesions noted Neuro General: patient alert, patient awake and patient oriented x3 Extrem General: normal to inspection Psych Appearance: grossly normal Course Orders Ordered: ED Orders 02/17/21 20:13 EKG-12 Lead Stat 02/17/21 21:30 COVID19 - ADMIT (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) Stat 02/17/21 21:52 Consult to General Surgery Urgent Sodium Chloride (Normal Saline 0.9%) 1,000 mls @ 125 mls/hr IV CONT MANISHA Last Admin: 02/17/21 23:02 Dose: 125 mls/hr Documented by: JOHANN Morphine Sulfate (Morphine 2 Mg/Ml Inj) 2 mg IV Q4HR PRN PRN Reason: pain Last Admin: 02/18/21 01:49 Dose: 2 mg Documented by: [email or web address] Admin: 02/17/21 23:03 Dose: 2 mg Documented by: JOHANN Ondansetron HCl (Ondansetron 4 Mg/2 Ml Inj) 4 mg IV Q4HR PRN PRN Reason: Nausea And Vomiting Discontinued Medications Piperacillin Sod/Tazobactam (Sod 4.5 gm/ Sodium Chloride) 100 mls @ 200 mls/hr IV NOW ONE Stop: 02/17/21 21:51 Last Infusion: 02/18/21 01:28 Dose: 0 mls/hr Documented by: Admin: 02/17/21 23:19 Dose: 200 mls/hr Documented by: JOHANN Vital Signs Vital signs: Vital Signs - 8 hr 02/17/21 21:28 02/17/21 21:30 Pulse Rate 97 H 97 H Blood Pressure 150/79 H 148/83 H Pulse Oximetry 98 97 Medical Decision Making Lab Data Lab results reviewed: Yes I reviewed the patient's lab results. Labs: Lab Results 02/17/21 Range/Units 21:30 SARS-CoV-2 (PCR) Negative (Negative) MDM Narrative Medical decision making narrative: Patient is afebrile. Review of the labs from earlier today do show leukocytosis. Review of the CT scan does show a dilated appendix without signs of perforation or abscess. According to the port this is concerning for appendicitis and that does fit her clinical presentation today. I did discuss the case with Dr. Mckeon on-call for General surgery who will admit for further evaluation and treatment. Patient was given antibiotics here in the emergency department. I did discuss with her the findings of the CT scan and the need for admission and potential surgery. She expressed understanding of this. Due to our hospital being full the patient will be boarded in the emergency department and General surgery will see the patient in the morning. Discharge Plan Departure Patient Disposition: Admitted as Observation Clinical Impression: Acute appendicitis Admit Date/Time: 02/17/21 21:52 Admit Provider: Calin Mckeon
[2021-02-17 22:35] LABS: COVID19 - ADMIT (NP swab/PCR) Negative (Negative)
[2021-02-17] MEDS: SODIUM CHLORIDE 0.9% 1,000 ML 125 ML IV (23:02)
[2021-02-17] MEDS: MORPHINE 2 MG/ML INJ IV (23:03)
[2021-02-17] MEDS: PIPERACILLIN/TAZO 4.5 GM in SODIUM CHLORIDE 0.9% 100 ML 200 ML IV (23:19)
[2021-02-18] VITALS (43 sets, daily range): BP systolic 119–154; BP diastolic 7–81; PULSE 57–98; RESP 10–16; TEMP 35.9–36.6; O2SAT 91–99; BMI 30.4
--- NOTE | 2021-02-18 | PATH_ITS ---
[facility] Accession Number: [id number] . 01 Material submitted: . appendix - APPENDIX . 02 Diagnosis: Appendix, Appendectomy: Low-grade mucinous neoplasm. Please see Case Summary. . Case Summary: Low-grade appendiceal mucinous neoplasm. . Procedure: Appendectomy. . Tumor Tumor Site: Diffusely involving appendix. Histologic Type: Low-grade appendiceal mucinous neoplasm. Histologic Grade: Low-grade. Tumor Size: Greatest dimension in centimeters: Approximately 6.0 cm in length by 1.7 cm in diameter. Tumor Deposits: Not identified. Tumor Extent: No definite invasion of appendiceal wall identified. Minute focus of epithelium / mucin with associated multinucleated giant cells within the lamina propria (A3), suggestive of focal rupture. Lymphovascular Invasion: Not identified. Perineural Invasion: Not identified. . Margins Margins status for non-invasive tumor and mucin: Low-grade appendiceal mucinous neoplasm present at stapled margin (A5). . Regional Lymph Nodes: Not applicable (No regional lymph nodes submitted or found). . Distant Metastasis Distant sites involved: Cannot be determined. . Pathologic Stage Classification (pTNM, AJCC 8th Edition): pTis (LAMN) pN not assigned (no nodes submitted or found). . Additional Findings: Fibrous obliteration of the appendiceal tip. [facility] 02/23/2021 1509 Local . 02 Comment: As part of ongoing aircraft quality control inspector, this case is also reviewed by Dr. Castro, who concurs with the given interpretation. . Results discussed with [facility], on 02-20-21 at approximately 1:54 p.m. Voicemail left 02-23-21 at approximately 3:08 p.m. . 02 Electronically signed: . Mady Cortes MD, Pathologist NPI- [id number] . 01 Gross description: . Received in formalin and labeled with appendix consists of a 7.0 cm in length by 1.7 cm in greatest diameter intact appendix, stapled at one end. The serosa is white-kelly to purple-kelly and focally congested. The staple line is inked blue and shaved. Sectioning reveals white-kelly unremarkable mucosa, a lumen that dilates to 1.5 cm in greatest dimension, and soto that average 0.1 cm in thickness. The lumen is filled with dull yellow gelatinous contents. Dog Daycare Provider sections are submitted. . Summary of Sections: A1 = Dog Daycare Provider appendix, 2 pieces. A2 = Resection margin and bisected tip, 3 pieces. A3 = Additional admissions representative appendix, 3 pieces. ([id number]) . Per pathologist's request, additional sections are submitted to include any available tissue attached to the original staple line. The appendiceal lumen remains dilated at the original staple line to a maximum of 0.9 cm. Dissection reveals two pink-kelly to yellow-kelly, focally hemorrhagic tissue fragments attached to the original staple line. These fragments range from 2.1 to 2.3 cm in greatest dimension and are entirely inked green. The fragments are submitted entirely. . Summary of sections: A5-A6 = Additional tissue attached to original staple line, one piece. ([id number]) . Per pathologist's request, additional sections are submitted to include remaining appendiceal tissue and mesoappendix. . Summary of Sections: A7-A10 = Remaining appendix, serially sectioned, three pieces. A11-A14 = Mesoappendix, serially sectioned, one piece. A15-A16 = Mesoappendix, serially sectioned, two pieces. ([id number]) /MRV 02/20/2021 1656 Local . 02 Pathologist provided ICD-10: D37.3 . 02 CPT . [id number] Performed at: 01 [facility] [address] [place] [address], [place], [place] [id number] MD Francisco Avery MD Phone: [phone] Performed at: 02 [facility] [place] [address] [place], [place] [id number] MD Iman Figueroa MD Phone: [phone]
[2021-02-18] MEDS: MORPHINE 2 MG/ML INJ IV ×4 (01:49→11:02)
[2021-02-18] MEDS: ONDANSETRON 4 MG/2 ML INJ IV ×4 (08:47→15:20)
[2021-02-18] MEDS: PIPERACILLIN/TAZO 4.5 GM in SODIUM CHLORIDE 0.9% 100 ML 25 ML IV (08:49)
[2021-02-18] MEDS: SODIUM CHLORIDE 0.9% 1,000 ML 100 ML IV (11:07)
[2021-02-18 11:31] LABS: Bacteria Urine None Seen
--- NOTE | 2021-02-18 11:31 | PM.HP.1 ---
History of Present Illness History of Present Illness Date Patient Seen: 02/18/21 Time Patient Seen: 11:31 Date of Onset of Symptoms: 02/17/21 Chief complaint: possible appendecitis. Sent by DR Rivera: Right lower quadrant pain starting last night. No previous episodes. Pain sharp to dull and worse with palpation. Better now after IV antibiotics. No diarrhea, fever or constipation. Patient History Medical History Arthritis Depression Former smoker HTN (hypertension) IBS (irritable bowel syndrome) Pelvic fracture Spinal stenosis Surgical History H/O: hysterectomy History of arthroplasty of left shoulder (~2015) History of arthroplasty of right knee History of lumbar fusion (04/26/19) History of total left hip arthroplasty Hx of bilateral cataract extraction Hx of thyroidectomy Hx of tonsillectomy Family & Social History Social History: household members none Tobacco & Substance use: Smoking Status Never smoker alcohol intake current alcohol intake frequency holiday/special occasion Substance Use Type does not use Meds Home Medications and Allergies Home Medications Medication Instructions Recorded Confirmed Type acetaminophen 650 mg 650 mg PO BID 04/18/19 12/17/20 History tablet,extended release acetaminophen 325 mg tablet 650 mg PO Q6HR PRN #90 tab 12/20/20 Rx oxycodone 5 mg tablet 10 mg PO Q3HR PRN #42 tab 12/20/20 Rx Allergies Allergy/AdvReac Type Severity Reaction Status Date / Time hydrocodone AdvReac Mild Jittery, Verified 02/10/21 13:27 nervous, shakey Review of Systems Review of Systems ROS: Yes All systems reviewed with the patient and are negative except as otherwise documented Exam Vital Signs (past 8 hours): - 02/18/21 04:00 02/18/21 04:30 02/18/21 05:00 Pulse Rate 65 64 64 Blood Pressure 123/62 136/60 138/63 Pulse Oximetry 95 94 96 02/18/21 05:19 02/18/21 05:30 02/18/21 06:00 Pulse Rate 73 71 66 Blood Pressure 141/81 H 138/68 143/66 H Pulse Oximetry 97 96 97 02/18/21 06:30 02/18/21 07:00 02/18/21 07:30 Pulse Rate 70 71 66 Blood Pressure 121/60 123/63 137/66 Pulse Oximetry 94 94 95 02/18/21 08:00 02/18/21 08:30 02/18/21 08:53 Pulse Rate 68 70 84 Blood Pressure 140/65 136/64 137/81 Pulse Oximetry 95 98 97 02/18/21 09:00 02/18/21 10:31 02/18/21 10:32 Pulse Rate 70 Blood Pressure 131/75 Pulse Oximetry 97 92 Oxygen Delivery Method Room Air Narrative Exam Narrative: nausea related to pain meds Const General: cooperative and comfortable HENMT Head: normal to inspection and normocephalic Ears: hearing grossly normal bilaterally Nose: external nose normal Eyes General: appearance normal, both eyes and all related structures Neck Neck: trachea midline Chest Chest: normal inspection of the chest Resp Effort & Inspection: normal respiratory effort and able to speak in complete sentences Cardio Rate: regular rate Rhythm: regular rhythm GI Inspection: normal to inspection Palpation: soft and tender (no tenderness at this time) Skin General: no rashes or lesions noted Wounds: no wounds Neuro General: patient alert and patient oriented x3 Cognition: normal cognition Extrem General: normal to inspection Psych Appearance: grossly normal Judgment: judgment good Objective Labs Labs: Laboratory Results - last 24 hr 02/17/21 21:30 SARS-CoV-2 (PCR) Negative Assessment & Plan Assessment & Plan narrative: CT scan reviewed personally and I agree with acute appendicitis. Discussion had regarding non operative treatment vs surgery and patient prefers surgery Laparoscopic appendectomy with over night stay COVID-19 COVID-19 status: Negative Time Spent With Patient Time with patient: 25 - 35 minutes
[2021-02-18 13:02] LABS: Culture Indicated Urine Cult Not Indicated; RBC Urine 1-5/HPF (0-5/HPF); Squamous Epithelial Cell Urine 1-5 /HPF (0-5/HPF); Uric Acid Crystals Urine Many; WBC Urine 0-1/HPF (0-5/HPF)
[2021-02-18] MEDS: LACTATED RINGERS 1,000 ML 42 ML IV ×2 (13:33→15:19)
--- NOTE | 2021-02-18 14:17 | SUR.OPER ---
Supine on padded OR bed, head on pillow, right arm secured on padded arm boards at <90 degrees abduction, left arm is tucked, legs uncrossed, safety belt at thigh, tape over blanket over lower legs.
[2021-02-18] MEDS: BUPIVACAINE 0.5% (PF) VIAL 30 ML INJ (14:26)
[2021-02-18] MEDS: EPINEPHrine 1 MG/ML 0.15 MG INJ (14:27)
--- NOTE | 2021-02-18 14:55 | PM.OP.1 ---
Operative Date/Time/Diagnoses Date of procedure: 02/18/21 Time of procedure: 14:55 Pre-op diagnosis: acute appendicitis Post-op diagnosis: same Procedure & Clinicians Procedure: laparoscopic appendectomy with primary repair of umbilical hernia Same procedure as scheduled: Yes Indications: acute appendicitis, reducible umbilical hernia Surgeon: Freida Mustafa Click Yes if Unassisted: Yes Anesthesia Type: General Operative Notes Findings: stage 1 inflammatory appendicitis Closure Type: primary Specimen(s): other (appy) Estimated Blood Loss (mL): 15 Blood products transfused: none Procedure in detail: Preop diagnosis: Acute appendicitis and a reducible umbilical hernia Postop diagnosis: Same Operative procedure: Laparoscopic appendectomy with primary repair of umbilical hernia Surgeon: Tosha Mustafa MD Anesthesiologists: Kirby Lynn MD Findings: Reducible umbilical hernia small approximately 4 mm, stage I inflammatory appendicitis Procedure: Patient is placed in a supine position. Draped in sterile fashion after 3 minutes dry time of the prep. Infraumbilical port site was placed using open technique and a 12 mm port. Insufflation began in all other ports were placed under direct vision including a 5 mm port in the suprapubic area and a 5 mm port in the left lower abdomen. Of note at the infraumbilical port site I used the hernia defect as a portion of my port placement and closed it primarily at the end. Insufflation I was able to identify the appendix. There was adhesions to the lateral abdominal wall which were taken down with electrocautery and good hemostasis. Base the appendix was intact and healthy. I used a KAROLINA stapling device to amputate the appendix and then placed it into an Endo-Catch bag which was pulled through the umbilical port site intact. I then surveyed the abdomen for hemostasis having to cauterize 2 areas of the staple line on the cecum. Without obvious complication. I then removed all ports and began closure. Closure consisted of interrupted 0 Vicryl for fascial closure of the umbilical port site. This included repair of the umbilical hernia itself. All skin was closed with a running 4-0 Vicryl with the exceptions of the 5 mm port sites which were simply Steri-Stripped closed. Sterile dressings were placed patient was awakened, extubated, taken to recovery room in stable condition. Needle, instrument, sponge counts were correct. Blood loss: 15 mL Specimen: Appendix Complications: none Post-operative Condition: stable Disposition: PACU
--- NOTE | 2021-02-18 15:11 | SUR.PHASEI ---
Pt arrived to PACU, patent airway, became nauseated when awoke, medicated with ondansetron.
[2021-02-18] MEDS: METOCLOPRAMIDE 10 MG/2 ML INJ IV (15:17)
--- NOTE | 2021-02-18 15:24 | SUR.PHASEI ---
Belly soft. + bowel tones, pt nauseated vomited two times , clear yellow green in [id number] mls total. Medicated with ondansetron again and reglan. Now taking ice chips slowly.
--- NOTE | 2021-02-18 15:56 | SUR.PHASEI ---
Report called, pt about to go upstairs, started vomiting again, Dr. Walsh made aware, new orders received.
[2021-02-18] MEDS: ePHEDrine 50 MG/ML VIAL 25 MG IM (16:17)
--- NOTE | 2021-02-18 16:20 | SUR.PHASEI ---
Pharmacist Gigi Dominguez entered order for Dr. Walsh. Med given.
--- NOTE | 2021-02-18 16:55 | SUR.PHASEI ---
No further nausea, pt transported up to room 221 and left with TESS Felipe in stable condition.
--- NOTE | 2021-02-18 17:02 | SUR.PHASEI ---
Pt left in room with RN, and left in stable condition, bed down, locked SCD's on and call light in reach.
[2021-02-18] MEDS: SODIUM CHLORIDE 0.9% 1,000 ML 125 ML IV (17:13)
[2021-02-19 00:50] VITALS: BP 104/56; PULSE 95; RESP 16; TEMP 36.2; O2SAT 96
[2021-02-19] MEDS: SODIUM CHLORIDE 0.9% 1,000 ML 125 ML IV (01:25)
[2021-02-19 04:37] VITALS: BP 125/56; PULSE 80; RESP 18; TEMP 36.6; O2SAT 98
[2021-02-19] MEDS: MORPHINE 2 MG/ML INJ IV (06:36)
[2021-02-19 07:25] VITALS: BP 127/54; PULSE 75; RESP 14; TEMP 36.2; O2SAT 97
--- NOTE | 2021-02-19 12:43 | PC.NURSE ---
Pt A&OX3. VSS, afebrile. Good po intake. She reports good pain control. Pt with x3 lap sites to abdomen, C/D/I. Able to ambulate with steady gait. MD at bedside clearing pt for discharge today. Pt verbalizes understanding of making follow up appointment, medications, wound care,activity and worsening symptoms. She acknowledges prescriptions and having all of her belongings at discharge.CHIEF INVESTMENT OFFICER escorted patient via wheel chair to private vehicle accompanied by her friend for discharge.
--- NOTE | 2021-02-19 12:47 | CM.IDA ---
Initial DCP Assessment Note Pt is a 70 yo female, resident of [place], now POD#[address] appy [address] Mustafa PCP: Amparo Browne Payer: MCR/GAYLE Reviewed chart, pt discussed in multidisciplinary rounds this morning. Patient has been discharged by surgery team, close outpatient f/u recommended. 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
== END 2021-02-19 12:15 | disposition home or self-care (01) ==
LOC: ED 21:51 → AC 22:34
PROVIDERS: Admitting Provider Surgery; Emergency Provider Emergency Medicine; PCP Internal Medicine; Referring Provider Emergency Medicine; Visit Provider Surgery
PROC: 0DTJ4ZZ Resection of Appendix, Percutaneous Endoscopic Approach (ICD-10-PCS; CPT 44970; principal; 2021-02-18 14:30)
DX: K35.80 Unspecified acute appendicitis (principal); I10 Essential (primary) hypertension; Z20.822 Contact with and (suspected) exposure to COVID-19
CPT/HCPCS: 44970; 74177; 80053; 81003; 81015; 83690; 85025; 87635; 93005; 96361; 96365; 96366; 96372; 96375; 96376; 99218; 99283; 99284; C9803; G0378; J0171; J0330; J1100; J1885; J2250; J2270; J2405; J2543; J2704; J2765; J3010

== ENCOUNTER → 2021-04-02 10:24 | Outpatient (CLI) | payer MEDICARE, SELFPAY ==
[2021-02-18 16:59] VITALS: BMI 30.4
[2021-04-02 11:47] LABS: Cholesterol 172 mg/dL (140-199); HDL Cholesterol 50 mg/dL (40-60); LDL Cholesterol Calculated 93 mg/dL (<100); Triglycerides 143 mg/dL (35-150)
== END ==
PROVIDERS: PCP Internal Medicine; Referring Provider Internal Medicine; Visit Provider Internal Medicine
DX: Z13.220 Encounter for screening for lipoid disorders (principal); Z11.59 Encounter for screening for other viral diseases
CPT/HCPCS: 36415; 80061; 87522

== ENCOUNTER 2021-05-03 16:01 | Emergency (ER) | payer MEDICARE, SELFPAY ==
[2021-02-18 16:59] VITALS: BMI 30.4
[2021-05-03 16:02] VITALS: BP 157/88; PULSE 90; RESP 16; TEMP 36.6; O2SAT 96
[2021-05-03 16:16] VITALS: PULSE 86; O2SAT 95
--- NOTE | 2021-05-03 16:25 | DI.CT.S_ITS ---
PROCEDURE: CT ABDOMEN PELVIS W CON INDICATIONS: RLQ ABD pain recent appendectomy TECHNIQUE: After the administration of IV contrast, axial sections were acquired from the lung bases to the pubic symphysis. Coronal and sagittal reformats were performed. For radiation dose reduction, the following was used: automated exposure control, adjustment of mA and/or kV according to patient size. COMPARISON: [facility], CT, CT ABDOMEN PELVIS W CON, 02/17/2021, 15:53. FINDINGS: Image quality: There is artifact associated with the metallic hardware. Lung bases: Unremarkable. Heart: No significant findings. ABDOMEN: Liver: An apparent liver hemangioma can be seen posteriorly, with apparent peripheral puddling of contrast, measuring 2 cm, as on series 2, image 11. Gallbladder: Unremarkable. Biliary ducts: Unremarkable. Pancreas: Unremarkable. Spleen: Unremarkable. Adrenal Glands: Unremarkable. Kidneys and Ureters: A simple cyst is seen at the superior pole of the right kidney, measuring water density and 17 mm. Presumed simple cysts are seen elsewhere. The kidneys demonstrate normal size and enhance symmetrically. There is no hydronephrosis. Stomach and Bowel: There is forming stool seen within the distal small bowel. A [id number] amount of stool is seen within the colon. No dilated loops of small bowel are seen. Appendectomy changes are seen. No regional abscess can be seen. Peritoneum: No abnormal intraperitoneal fluid. No free air. Ventral Wall: A mild periumbilical hernia is seen, containing fat. Abdominal Nodes: No retroperitoneal or mesenteric adenopathy by size criteria. Vessels: Aorta and inferior vena cava are normal in size. PELVIS: Pelvic Organs: Unremarkable. Bladder: Unremarkable. Pelvic Nodes: No enlarged lymph nodes. Miscellaneous: No inguinal hernias are seen. Bones: Lumbar fixation hardware is seen. S-shaped scoliotic curvature is seen. IMPRESSION: Post appendectomy changes, without abscess or other significant postoperative abnormality. Forming stool can be seen within the distal small bowel, which is attributed to stagnant small bowel contents. Please consider ileus. However, no dilated loops of small bowel are seen. Incidental note is made of: Apparent liver hemangioma Renal cysts Fat containing periumbilical hernia Lumbar fixation hardware Left hip arthroplasty hardware. Dictated by: Sushant Peña M.D. on 05/03/2021 at 16:19 Approved by: Sushant Peña M.D. on 05/03/2021 at 16:24
--- NOTE | 2021-05-03 16:25 | ED_ITS ---
HPI - General Adult General Chief complaint: Abdominal Pain Stated complaint: Pain on Right Side Time Seen by Provider: 05/03/21 16:04 Source: patient Mode of arrival: Ambulatory History of Present Illness HPI narrative: Patient is a 71-year-old female here for evaluation of 2-3 days of intermittent right lower quadrant abdominal discomfort. She states she is having some loose stools with this does not change any of her symptoms. She r ecently had her appendix removed. She denied any urinary symptoms. No fevers. No chest pain. She states that when she takes her Tylenol the symptoms improved as the Tylenol wears off her symptoms return. Related Data Home Medications Medication Instructions Recorded Confirmed acetaminophen 650 mg 650 mg PO BID 04/18/19 02/18/21 tablet,extended release Previous Rx's Medication Instructions Recorded docusate sodium 100 mg capsule 100 mg PO BID #30 cap 02/19/21 (Colace) ibuprofen 200 mg tablet 400 mg PO Q6H #60 tab 02/19/21 oxycodone 5 mg tablet 5 mg PO Q8H PRN #30 tab 02/19/21 Allergies Allergy/AdvReac Type Severity Reaction Status Date / Time hydrocodone AdvReac Mild Jittery, Verified 02/10/21 13:27 nervous, shakey Review of Systems Constitutional Constitutional: Denies fever(s) ENT Ears, Nose, Mouth, and Throat: Reports system reviewed and no additional complaints, except as documented Cardiovascular Cardiovascular: Reports as per HPI and Reports system reviewed and no additional complaints, except as documented Respiratory Respiratory: Reports as per HPI and Reports system reviewed and no additional complaints, except as documented Gastrointestinal Gastrointestinal: Reports as per HPI Genitourinary Genitourinary: Reports system reviewed and no additional complaints, except as documented Musculoskeletal Musculoskeletal: Reports system reviewed and no additional complaints, except as documented Integumentary/Breasts Skin/Breast: Reports system reviewed and no additional complaints, except as documented Neurologic Neurologic: Reports system reviewed and no additional complaints, except as documented Hematologic/Lymphatic On Anticoagulants: No Patient History Medical History Arthritis Depression Former smoker HTN (hypertension) IBS (irritable bowel syndrome) Pelvic fracture Spinal stenosis Surgical History H/O: hysterectomy History of arthroplasty of left shoulder (~2016) History of arthroplasty of right knee History of lumbar fusion (04/26/19) History of total left hip arthroplasty Hx of bilateral cataract extraction Hx of thyroidectomy Hx of tonsillectomy Social History household members: none Smoking Status: Never smoker alcohol intake: current Smoking Status: Never smoker alcohol intake frequency: other Substance Use Type: does not use Exam Initial Vital Signs Initial Vital Signs: Vital Signs Temperature 97.8 F 05/03/21 16:02 Pulse Rate 90 05/03/21 16:02 Respiratory Rate 16 05/03/21 16:02 Blood Pressure 157/88 H 05/03/21 16:02 Pulse Oximetry 96 05/03/21 16:02 Const General: cooperative, comfortable and well developed Limitations: mental status not altered HENMT Head: normal to inspection and normocephalic Eyes General: appearance normal, both eyes and all related structures Chest Chest: normal inspection of the chest Resp Effort & Inspection: normal respiratory effort Auscultation: clear to auscultation bilaterally Cardio Rate: regular rate Rhythm: regular rhythm GI Inspection: normal to inspection and non-distended Palpation: No firm and No tender Back/Spine/Pelvis Back: normal to inspection and No CVA tenderness Skin General: no rashes or lesions noted Lesions: no lesions Rashes: no rashes Neuro General: patient alert, patient awake, patient oriented x3 and moves all extremities Extrem General: capillary refill normal Psych Appearance: grossly normal and well kempt Course Orders Ordered: ED Orders 05/03/21 16:17 Complete Blood Count AUTO DIFF Stat Comprehensive Metabolic Panel Stat Lipase Stat 05/03/21 16:25 CT abdomen pelvis w con Stat 05/03/21 16:31 EKG-12 Lead Stat Vital Signs Vital signs: Vital Signs - 8 hr 05/03/21 16:02 05/03/21 16:16 05/03/21 16:30 Temperature 97.8 F Pulse Rate 90 86 75 Respiratory Rate 16 17 Blood Pressure 157/88 H 131/76 Pulse Oximetry 96 95 97 05/03/21 17:04 05/03/21 17:30 05/03/21 17:41 Temperature Pulse Rate 75 66 66 Respiratory Rate 18 17 18 Blood Pressure 131/76 130/71 130/71 Pulse Oximetry 97 97 98 Medical Decision Making Lab Data Lab results reviewed: Yes I reviewed the patient's lab results. Result diagrams: 05/03/21 16:17 05/03/21 16:17 Labs: Lab Results 05/03/21 05/03/21 Range/Units 16:17 16:17 WBC 7.4 (4.5-11.0) X10^3/uL RBC 5.37 H (4.0-5.2) X10^6/uL Hgb 15.1 (12.0-16.0) g/dL Hct 46.3 H (36-46) % MCV 86.3 (80-100) fL MCH 28.1 (26-34) PG MCHC 32.5 (30-36) % RDW 15.3 H (11.6-14.8) % Plt Count 220 (150-400) X10^3/uL Neut % (Auto) 62.5 (50-75) % Lymph % (Auto) 26.5 (25-40) % [place] % (Auto) 8.1 (3-14) % Eos % (Auto) 2.3 (2-4) % Baso % (Auto) 0.6 (0-2) % Neut # (Auto) 4600 (5196-2021) /uL Lymph # (Auto) 2000 (5090-9264) /uL [place] # (Auto) 600 (0-900) /uL Eos # (Auto) 200 (0-450) /uL Baso # (Auto) 0 (0-100) /uL Sodium 142 (137-145) mmol/L Potassium 4.4 (3.4-5.1) mmol/L Chloride 109 H (98-107) mmol/L Carbon Dioxide 27 (22-32) mmol/L BUN 17 (7-17) mg/dL Creatinine 0.58 (0.52-1.04) mg/dL Estimated GFR > 60.0 (>60) mL/min BUN/Creatinine Ratio 29.3 H (6-22) Glucose 94 (80-110) mg/dL Calcium 9.5 (8.4-10.2) mg/dL Total Bilirubin 0.3 (0.2-1.3) mg/dL AST 25 (14-36) IU/L ALT 31 (<35) IU/L Alkaline Phosphatase 82 (38-126) U/L Total Protein 7.4 (6.3-8.2) g/dL Albumin 4.5 (3.5-5.0) g/dL Globulin 2.9 (1.7-4.1) g/dL Albumin/Globulin Ratio 1.6 (1.0-2.8) Lipase 48 (23-300) U/L Imaging Data CT scan - abdomen/pelvis: Radiologist's Impression: [address] [address] [address] Scan Report Signed Patient: Veronica Calle MR#: [id number] : 1950 Acct:[id number] Age/Sex: 71 / F Date of Service: 05/03/21 Loc: ED Accession Number: [id number] ?? Procedure: CT abdomen pelvis w con Ordering Provider: Refugio Yost D.O. PROCEDURE:? CT ABDOMEN PELVIS W CON ? INDICATIONS:? RLQ ABD pain recent appendectomy ? TECHNIQUE:? After the administration of IV contrast, axial sections were acquired from the lung bases to the pubic symphysis.? Coronal and sagittal reformats were performed.? For radiation dose reduction, the following was used:? automated exposure control, adjustment of mA and/or kV according to patient size. ? COMPARISON:? [facility], CT, CT ABDOMEN PELVIS W CON, 02/17/2021, 15:53. ? FINDINGS:? Image quality:? There is artifact associated with the metallic hardware. ? ? Lung bases:? Unremarkable.? ? Heart:? No significant findings. ? ? ABDOMEN: Liver:? An apparent liver hemangioma can be seen posteriorly, with apparent peripheral puddling of contrast, measuring 2 cm, as on series 2, image 11. Gallbladder:? Unremarkable.? ? Biliary ducts:? Unremarkable.? ? Pancreas:? Unremarkable.? ? Spleen:? Unremarkable.? ? Adrenal Glands:? Unremarkable.? ? Kidneys and Ureters:? A simple cyst is seen at the superior pole of the right kidney, measuring water density and 17 mm.? Presumed simple cysts are seen elsewhere.? The kidneys demonstrate normal size and enhance symmetrically.? There is no hydronephrosis.? ? Stomach and Bowel:? There is forming stool seen within the distal small bowel.? A [id number] amount of stool is seen within the colon.? No dilated loops of small bowel are seen.? Appendectomy changes are seen.? No regional abscess can be seen. Peritoneum:? No abnormal intraperitoneal fluid.? No free air.? ? Ventral Wall: A mild periumbilical hernia is seen, containing fat. ? Abdominal Nodes:? No retroperitoneal or mesenteric adenopathy by size criteria.? Vessels:? Aorta and inferior vena cava are normal in size.? ? PELVIS: Pelvic Organs:? Unremarkable.? ? Bladder:? Unremarkable.? ? Pelvic Nodes: No enlarged lymph nodes.? Miscellaneous: No inguinal hernias are seen. ? ? ? Bones:? Lumbar fixation hardware is seen.? S-shaped scoliotic curvature is seen. ? ? IMPRESSION:? ? Post appendectomy changes, without abscess or other significant postoperative abnormality. ? Forming stool can be seen within the distal small bowel, which is attributed to stagnant small bowel contents.? Please consider ileus.? However, no dilated loops of small bowel are seen. ? Incidental note is made of: Apparent liver hemangioma Renal cysts Fat containing periumbilical hernia Lumbar fixation hardware Left hip arthroplasty hardware.? ? Dictated by: Sushant Peña M.D. on 05/03/2021 at 16:19 ? ? Approved by: Sushant Peña M.D. on 05/03/2021 at 16:24 ECG Data Attestation: I personally reviewed and interpreted this ECG as follows: Interpretation: Sinus rhythm Ventricular rate 84 Occasional PVC Normal axis Normal QRS Normal QTC No ST T wave changes MDM Narrative Medical decision making narrative: Labs are unremarkable, she does have a benign exam is actually asymptomatic the time of my exam. CT scan does not show any acute surgical issues. I did discuss the CT scan with her. No indication for surgical consultation. No indication for antibiotics. She was given return precautions and follow-up instructions. She expressed understanding and agreement. Discharge Plan Departure Patient Disposition: Home Clinical Impression: Abdominal pain Instructions: DI for Abdominal Pain-Adult Activity Restrictions/Additional Instructions: The CT scan of your abdomen today and also the labs are very reassuring. I recommend that you contact your primary doctor for a follow-up. Return to the emergency department for any new or worsening symptoms. Prescriptions: No Action acetaminophen 650 mg Tablet Extended Release 650 mg PO BID RF: 0 ibuprofen 200 mg tablet 400 mg PO Q6H Qty: 60 RF: 0 docusate sodium [Colace] 100 mg capsule 100 mg PO BID Qty: 30 RF: 0 oxycodone 5 mg tablet 5 mg PO Q8H PRN (Reason: pain) Qty: 30 RF: 0 Referrals: Amparo Browne MD [Primary Care Provider] -
[2021-05-03 16:30] VITALS: BP 131/76; PULSE 75; RESP 17; O2SAT 97
[2021-05-03 16:34] LABS: Add Manual Diff / Slide Review NO; Basophils Absolute Auto 0 /uL (0-100); Basophils Percent Auto 0.6 % (0-2); Eosinophils Absolute Auto 200 /uL (0-450); Eosinophils Percent Auto 2.3 % (2-4); Hematocrit 46.3 % (36-46); Hemoglobin 15.1 g/dL (12.0-16.0); Lymphocytes Absolute Auto 2000 /uL (1100-4500); Lymphocytes Percent Auto 26.5 % (25-40); Mean Corpuscular HGB Conc 32.5 % (30-36); Mean Corpuscular Hemoglobin 28.1 PG (26-34); Mean Corpuscular Volume 86.3 fL (80-100); Monocytes Absolute Auto 600 /uL (0-900); Monocytes Percent Auto 8.1 % (3-14); Neutrophils Absolute Auto 4600 /uL (1500-7000); Neutrophils Percent Auto 62.5 % (50-75); Platelet Count 220 X10^3/uL (150-400); Red Blood Cell Count 5.37 X10^6/uL (4.0-5.2); Red Cell Distribution Width 15.3 % (11.6-14.8); White Blood Cell Count 7.4 X10^3/uL (4.5-11.0)
[2021-05-03 16:41] LABS: Alanine Aminotransferase 31 IU/L (<35); Albumin 4.5 g/dL (3.5-5.0); Albumin Globulin Ratio 1.6 (1.0-2.8); Alkaline Phosphatase 82 U/L (38-126); Aspartate Aminotransferase 25 IU/L (14-36); BUN Creatinine Ratio 29.3 (6-22); Bilirubin Total 0.3 mg/dL (0.2-1.3); Blood Urea Nitrogen 17 mg/dL (7-17); Calcium 9.5 mg/dL (8.4-10.2); Carbon Dioxide 27 mmol/L (22-32); Chloride 109 mmol/L (98-107); Estimated Glomerular Filt Rate > 60.0 mL/min (>60); Globulin 2.9 g/dL (1.7-4.1); Glucose 94 mg/dL (80-110); HEMOLYSIS < 15 (0-50); Lipase 48 U/L (23-300); Potassium 4.4 mmol/L (3.4-5.1); Sodium 142 mmol/L (137-145); Total Protein 7.4 g/dL (6.3-8.2)
[2021-05-03 17:04] VITALS: BP 131/76; PULSE 75; RESP 18; O2SAT 97
[2021-05-03 17:30] VITALS: BP 130/71; PULSE 66; RESP 17; O2SAT 97
[2021-05-03 17:41] VITALS: BP 130/71; PULSE 66; RESP 18; O2SAT 98
== END 2021-05-03 18:02 | disposition home or self-care (01) ==
PROVIDERS: Emergency Provider Emergency Medicine; PCP Internal Medicine
DX: R10.31 Right lower quadrant pain (principal)
CPT/HCPCS: 36415; 74177; 80053; 83690; 85025; 93005; 93010; 99284; Q9967

== ENCOUNTER 2021-06-04 18:33 | Emergency (ER) | payer MEDICARE, SELFPAY ==
[2021-02-18 16:59] VITALS: BMI 30.4
[2021-06-04 18:43] VITALS: BP 175/82; PULSE 101; RESP 16; TEMP 36.7; O2SAT 98; BMI 29.7
[2021-06-04 19:08] LABS: COVID19 -Nasal RAPID Negative (Negative)
--- NOTE | 2021-06-04 19:29 | ED.GENADULT ---
HPI - General Adult General Chief complaint: Abdominal Pain Stated complaint: Rt Sided Abd Pain Time Seen by Provider: 06/04/21 19:29 Source: patient Mode of arrival: Ambulatory Limitations: no limitations History of Present Illness HPI narrative: 71-year-old woman with a history of appendectomy in February of this year was in her usual state of good health afterwards until this evening at 5:00 when she had severe right-sided lower abdominal pain again. She describes it as sharp and stabbing. It lasted about an hour and has not recurred. She describes no fever, cough, nausea, vomiting, diarrhea. She had a bowel movement just prior to discharge from the emergency room and notes that she continues to have no abdominal pain. Related Data Home Medications Medication Instructions Recorded Confirmed acetaminophen 650 mg 650 mg PO BID 04/18/19 02/18/21 tablet,extended release Previous Rx's Medication Instructions Recorded docusate sodium 100 mg capsule 100 mg PO BID #30 cap 02/19/21 (Colace) ibuprofen 200 mg tablet 400 mg PO Q6H #60 tab 02/19/21 oxycodone 5 mg tablet 5 mg PO Q8H PRN #30 tab 02/19/21 Allergies Allergy/AdvReac Type Severity Reaction Status Date / Time hydrocodone AdvReac Mild Jittery, Verified 02/10/21 13:27 nervousbro Review of Systems Review of Systems Narrative: Remainder of complete review of systems is otherwise unremarkable except for that included in the HPI. Patient History Medical History Arthritis Depression Former smoker HTN (hypertension) IBS (irritable bowel syndrome) Pelvic fracture Spinal stenosis Surgical History H/O: hysterectomy History of arthroplasty of left shoulder (~2015) History of arthroplasty of right knee History of lumbar fusion (04/26/19) History of total left hip arthroplasty Hx of bilateral cataract extraction Hx of thyroidectomy Hx of tonsillectomy Social History household members: none Smoking Status: Never smoker alcohol intake: current Smoking Status: Never smoker alcohol intake frequency: other Substance Use Type: does not use Exam Narrative Exam Narrative: General: Healthy appearing, in no acute distress. Able to give a complete and coherent history. Well-nourished well-developed HEENT: Moist mucous membranes, normal sclera with reactive pupils, Respiratory: Lungs are clear to auscultation, no wheezing no rales no rhonchi. Full and symmetrical air movement Cardiac: Regular rate and rhythm no murmurs no bruits Abdomen: Soft, nontender, good bowel tones, no flank pain Skin: Warm and dry, no rashes Neurologic: Grossly neurologically intact with no obvious asymmetries or abnormalities Extremities: No trauma, well perfused Psych: Cooperative, appropriate insight and affect Initial Vital Signs Initial Vital Signs: Vital Signs Temperature 98.1 F 06/04/21 18:43 Pulse Rate 101 H 06/04/21 18:43 Respiratory Rate 16 06/04/21 18:43 Blood Pressure 175/82 H 06/04/21 18:43 Pulse Oximetry 98 06/04/21 18:43 Course Orders Ordered: ED Orders 06/04/21 18:49 COVID19 -Nasal swab/Pre-Proc Stat 06/04/21 19:55 Complete Blood Count AUTO DIFF Stat Comprehensive Metabolic Panel Stat Vital Signs Vital signs: Vital Signs - 8 hr 06/04/21 18:43 06/04/21 21:10 Temperature 98.1 F 98.5 F Pulse Rate 101 H 70 Respiratory Rate 16 16 Blood Pressure 175/82 H 148/74 H Pulse Oximetry 98 99 Medical Decision Making Lab Data Result diagrams: 06/04/21 19:55 06/04/21 19:55 Labs: Lab Results 06/04/21 06/04/21 06/04/21 Range/Units 18:49 19:55 19:55 WBC 6.7 (4.5-11.0) X10^3/uL RBC 5.02 (4.0-5.2) X10^6/uL Hgb 14.5 (12.0-16.0) g/dL Hct 44.1 (36-46) % MCV 87.8 (80-100) fL MCH 29.0 (26-34) PG MCHC 33.0 (30-36) % RDW 16.0 H (11.6-14.8) % Plt Count 192 (150-400) X10^3/uL Neut % (Auto) 68.2 (50-75) % Lymph % (Auto) 22.8 L (25-40) % [place] % (Auto) 7.1 (3-14) % Eos % (Auto) 1.3 L (2-4) % Baso % (Auto) 0.6 (0-2) % Neut # (Auto) 4500 (1271-5219) /uL Lymph # (Auto) 1500 (8733-9462) /uL [place] # (Auto) 500 (0-900) /uL Eos # (Auto) 100 (0-450) /uL Baso # (Auto) 0 (0-100) /uL Sodium 142 (137-145) mmol/L Potassium 4.4 (3.4-5.1) mmol/L Chloride 104 (98-107) mmol/L Carbon Dioxide 28 (22-32) mmol/L BUN 19 H (7-17) mg/dL Creatinine 0.65 (0.52-1.04) mg/dL Estimated GFR > 60.0 (>60) mL/min BUN/Creatinine Ratio 29.2 H (6-22) Glucose 118 H (80-110) mg/dL Calcium 9.6 (8.4-10.2) mg/dL Total Bilirubin 0.5 (0.2-1.3) mg/dL AST 20 (14-36) IU/L ALT 21 (<35) IU/L Alkaline Phosphatase 67 (38-126) U/L Total Protein 7.3 (6.3-8.2) g/dL Albumin 4.4 (3.5-5.0) g/dL Globulin 2.9 (1.7-4.1) g/dL Albumin/Globulin Ratio 1.5 (1.0-2.8) SARS-CoV-2 (PCR) Negative (Negative) Urine Dip Bedside Urine Glucose Negative Bedside Urine Bilirubin - Negative Bedside Urine Ketone - Negative Urine Specific [place] 1.030 Bedside Urine Occult Blood - Negative Bedside Urine pH 6.0 Bedside Urine Protein - Negative Bedside Urine Urobilinogen - Negative Bedside Urine Nitrite - Negative Bedside Urine Leukocytes - Negative Esterase Point of care testing: Urine Dip Bedside Urine Glucose Negative Bedside Urine Bilirubin - Negative Bedside Urine Ketone - Negative Urine Specific [place] 1.030 Bedside Urine Occult Blood - Negative Bedside Urine pH 6.0 Bedside Urine Protein - Negative Bedside Urine Urobilinogen - Negative Bedside Urine Nitrite - Negative Bedside Urine Leukocytes - Negative Esterase MDM Narrative Medical decision making narrative: 71-year-old woman with an hour of severe right lower quadrant pain that has resolved. Workup is unremarkable. She was particularly anxious given that the last time this happened she ended up with acute appendicitis. At this point she does not have any evidence for an acute surgical abdomen diverticulitis, pyelonephritis or nephrolithiasis. Reassurance is given. Questions are answered she is safe for home discharge Discharge Plan Departure Patient Disposition: Home Clinical Impression: Abdominal pain Qualifiers: Abdominal location: lower abdomen, unspecified Qualified Code(s): R10.30 - Lower abdominal pain, unspecified Instructions: DI for Abdominal Pain-Adult Activity Restrictions/Additional Instructions: Thank you for coming in today It is a little concerning when you have abdominal pain after your issues this summer. Fortunately the pain has completely resolved and your blood work was very reassuring. There is no evidence of infection, diverticulitis, kidney infection or bladder infection and your electrolytes and kidney function all look reassuring as well. If you have worsening issues, new symptoms or other concerns please feel free to return to the ER. Prescriptions: No Action acetaminophen 650 mg Tablet Extended Release 650 mg PO BID RF: 0 ibuprofen 200 mg tablet 400 mg PO Q6H Qty: 60 RF: 0 docusate sodium [Colace] 100 mg capsule 100 mg PO BID Qty: 30 RF: 0 oxycodone 5 mg tablet 5 mg PO Q8H PRN (Reason: pain) Qty: 30 RF: 0 Referrals: Amparo Browne MD [Primary Care Provider] -
[2021-06-04 20:02] LABS: Add Manual Diff / Slide Review NO; Basophils Absolute Auto 0 /uL (0-100); Basophils Percent Auto 0.6 % (0-2); Eosinophils Absolute Auto 100 /uL (0-450); Eosinophils Percent Auto 1.3 % (2-4); Hematocrit 44.1 % (36-46); Hemoglobin 14.5 g/dL (12.0-16.0); Lymphocytes Absolute Auto 1500 /uL (1100-4500); Lymphocytes Percent Auto 22.8 % (25-40); Mean Corpuscular Volume 87.8 fL (80-100); Monocytes Absolute Auto 500 /uL (0-900); Monocytes Percent Auto 7.1 % (3-14); Neutrophils Absolute Auto 4500 /uL (1500-7000); Neutrophils Percent Auto 68.2 % (50-75); Platelet Count 192 X10^3/uL (150-400); Red Blood Cell Count 5.02 X10^6/uL (4.0-5.2); White Blood Cell Count 6.7 X10^3/uL (4.5-11.0)
[2021-06-04 20:27] LABS: Alanine Aminotransferase 21 IU/L (<35); Albumin 4.4 g/dL (3.5-5.0); Albumin Globulin Ratio 1.5 (1.0-2.8); Alkaline Phosphatase 67 U/L (38-126); Aspartate Aminotransferase 20 IU/L (14-36); BUN Creatinine Ratio 29.2 (6-22); Bilirubin Total 0.5 mg/dL (0.2-1.3); Blood Urea Nitrogen 19 mg/dL (7-17); Calcium 9.6 mg/dL (8.4-10.2); Carbon Dioxide 28 mmol/L (22-32); Chloride 104 mmol/L (98-107); Estimated Glomerular Filt Rate > 60.0 mL/min (>60); Globulin 2.9 g/dL (1.7-4.1); Glucose 118 mg/dL (80-110); HEMOLYSIS < 15 (0-50); Potassium 4.4 mmol/L (3.4-5.1); Sodium 142 mmol/L (137-145); Total Protein 7.3 g/dL (6.3-8.2)
[2021-06-04 21:10] VITALS: BP 148/74; PULSE 70; RESP 16; TEMP 36.9; O2SAT 99
== END 2021-06-04 21:16 | disposition home or self-care (01) ==
PROVIDERS: Emergency Provider Emergency Medicine; PCP Internal Medicine
DX: R10.31 Right lower quadrant pain (principal); Z20.822 Contact with and (suspected) exposure to COVID-19
CPT/HCPCS: 36415; 80053; 81003; 85025; 87635; 99283; C9803

== ENCOUNTER 2021-09-21 09:51 | Emergency (ER) | payer MEDICARE, SELFPAY ==
[2021-02-18 16:59] VITALS: BMI 30.4
[2021-09-21 10:02] VITALS: BP 168/90; PULSE 105; RESP 20; TEMP 36.2; O2SAT 97; BMI 29.3
--- NOTE | 2021-09-21 10:41 | ED_ITS ---
HPI - Abdominal Pain General Chief Complaint: Abdominal Pain Stated Complaint: Lower right abd pain Time Seen by Provider: 09/21/21 10:39 Source: patient Mode of arrival: Ambulatory Limitations: no limitations History of Present Illness HPI narrative: This is a 71-year-old female comes in with complaint of right lower quadrant pain for the past 4 days. Patient states it started on Tuesday and has been constant since it started and increasing in severity. States it is right lower quadrant it does not radiate to her back or elsewhere. She has not had any fevers or chills but states she takes Tylenol daily for pain. Patient has not had any nausea or vomiting. She had a green stool today but states it was f ormed. No black or bloody stools. No diarrhea. She denies any dysuria urgency frequency or difficulty with urination. No vaginal bleeding or discharge. Patient states that she has had a prior total hysterectomy, appendectomy, thyroidectomy as well as orthopedic surgeries for knees her shoulders and back surgery x2. She states hydrocodone makes her anti. Her only daily medication is Tylenol every 8 hours for pain management. No tobacco, alcohol or illicit. Her primary care is Amparo Browne. Related Data Home Medications Medication Instructions Recorded Confirmed acetaminophen 650 mg 650 mg PO BID 04/18/19 09/21/21 tablet,extended release Previous Rx's Medication Instructions Recorded amoxicillin 875 mg-potassium 1 tab PO BID #20 tab 09/21/21 clavulanate 125 mg tablet (Augmentin) tramadol 50 mg tablet (Ultram) 50 mg PO Q6H PRN #7 tab 09/21/21 Allergies Allergy/AdvReac Type Severity Reaction Status Date / Time hydrocodone AdvReac Mild Jittery, Verified 09/21/21 10:07 bro neal Review of Systems Review of Systems ROS Unobtainable: All systems reviewed & are unremarkable except as noted in HPI and below Patient History Medical History Arthritis Depression Former smoker HTN (hypertension) IBS (irritable bowel syndrome) Pelvic fracture Spinal stenosis Surgical History H/O: hysterectomy History of arthroplasty of left shoulder (~2015) History of arthroplasty of right knee History of lumbar fusion (04/26/19) History of total left hip arthroplasty Hx of bilateral cataract extraction Hx of thyroidectomy Hx of tonsillectomy Social History household members: none Smoking Status: Never smoker alcohol intake: current Smoking Status: Never smoker alcohol intake frequency: other Substance Use Type: does not use Exam Narrative Exam Narrative: GENERAL: Alert and oriented x three, elderly female in mild distress. HEENT: Head normocephalic, atraumatic, EOMI, pupils reactive, face symmetric, moist mucous membranes NECK: Supple, full range of motion CARDIOVASCULAR: Regular rate and rhythm without murmurs, rubs or gallops. RESPIRATORY: Breath sounds equal bilaterally, no wheezes rales or rhonchi. ABDOMEN: Soft, positive for right lower quadrant tenderness. No distention. Bowel sounds all 4 quadrants. No guarding or rebound, rigidity, no mass : No CVA tenderness EXTREMITIES: Normal range of motion, no clubbing or edema. Neurovascularly intact NEUROLOGICAL: Cranial nerves II through XII grossly intact. Moving all extremities SKIN: Warm, dry, no petechiae, no rashes or lesions. Initial Vital Signs Initial Vital Signs: Vital Signs Temperature 97.1 F L 09/21/21 10:02 Pulse Rate 105 H 09/21/21 10:02 Respiratory Rate 20 09/21/21 10:02 Blood Pressure 168/90 H 09/21/21 10:02 Pulse Oximetry 97 09/21/21 10:02 Course Orders Ordered: ED Orders 09/21/21 10:34 EKG-12 Lead Stat 09/21/21 10:55 Complete Blood Count AUTO DIFF Stat Comprehensive Metabolic Panel Stat Lipase Stat 09/21/21 11:25 Urine Microscopic Stat 09/21/21 11:38 CT abdomen pelvis w con Stat Discontinued Medications Sodium Chloride (Normal Saline 0.9%) 1,000 mls @ 150 mls/hr IV CONT MANISHA Last Infusion: 09/21/21 13:03 Dose: 0 mls/hr Documented by: Admin: 09/21/21 11:04 Dose: 150 mls/hr Documented by: TRISTIN Ketorolac Tromethamine (Ketorolac 30 Mg/Ml Vial) 15 mg IV NOW ONE Stop: 09/21/21 10:55 Last Admin: 09/21/21 11:04 Dose: 15 mg Documented by: TRISTIN Reevaluation(s) Reevaluation #1: Patient feels much better after pain medications. Reviewed her findings today she does have changes consistent with colitis and a possible hemangioma on her liver. Reviewed all of these she does have a little elevation in her white count so we discussed starting oral antibiotics, short course of pain medication and return precautions. We also discussed that patient would benefit from colonoscopy after her symptoms have resolved. Vital Signs Vital signs: Vital Signs - 8 hr 09/21/21 12:16 09/21/21 12:30 Temperature 98.2 F Pulse Rate 74 73 Blood Pressure 143/70 H 146/73 H Pulse Oximetry 97 98 MDM - Abdominal Pain Lab Data Result diagrams: 09/21/21 10:55 09/21/21 10:55 Labs: Lab Results 09/21/21 09/21/21 09/21/21 Range/Units 10:55 10:55 11:25 WBC 9.1 (4.5-11.0) X10^3/uL RBC 5.03 (4.0-5.2) X10^6/uL Hgb 15.3 (12.0-16.0) g/dL Hct 45.2 (36-46) % MCV 89.9 (80-100) fL MCH 30.5 (26-34) PG MCHC 33.9 (30-36) % RDW 13.5 (11.6-14.8) % Plt Count 215 (150-400) X10^3/uL Neut % (Auto) 77.6 H (50-75) % Lymph % (Auto) 15.7 L (25-40) % [place] % (Auto) 5.8 (3-14) % Eos % (Auto) 0.5 L (2-4) % Baso % (Auto) 0.4 (0-2) % Neut # (Auto) 7000 (0687-4493) /uL Lymph # (Auto) 1400 (5519-4337) /uL [place] # (Auto) 500 (0-900) /uL Eos # (Auto) 0 (0-450) /uL Baso # (Auto) 0 (0-100) /uL Sodium 141 (137-145) mmol/L Potassium 3.8 (3.4-5.1) mmol/L Chloride 105 (98-107) mmol/L Carbon Dioxide 27 (22-32) mmol/L BUN 11 (7-17) mg/dL Creatinine 0.68 (0.52-1.04) mg/dL Estimated GFR > 60.0 (>60) mL/min BUN/Creatinine Ratio 16.2 (6-22) Glucose 135 H (80-110) mg/dL Calcium 9.8 (8.4-10.2) mg/dL Total Bilirubin 0.6 (0.2-1.3) mg/dL AST 25 (14-36) IU/L ALT 18 (<35) IU/L Alkaline Phosphatase 70 (38-126) U/L Total Protein 7.6 (6.3-8.2) g/dL Albumin 4.6 (3.5-5.0) g/dL Globulin 3.0 (1.7-4.1) g/dL Albumin/Globulin Ratio 1.5 (1.0-2.8) Lipase 27 (23-300) U/L Urine RBC 0-1/hpf (0-5/HPF) Urine WBC 0-1/hpf (0-5/HPF) Ur Squamous Epith Cells 0-1 /hpf (0-5/HPF) Urine Bacteria None seen (None) Ur Culture Indicated? Cult not indicated Point of care testing: Urine Dip Bedside Urine Glucose Negative Bedside Urine Bilirubin - Negative Bedside Urine Ketone - Negative Urine Specific [place] 1.020 Bedside Urine Occult Blood - Negative Bedside Urine pH 6.0 Bedside Urine Protein +/- 15 Bedside Urine Urobilinogen - Negative Bedside Urine Nitrite - Negative Bedside Urine Leukocytes - Negative Esterase Imaging Data Extremity x-ray #1: Radiologist's Impression: Launch?[place] [address] CT Scan Report Signed Patient: Veronica Calle MR#: [id number] : 1950 Acct:[id number] Age/Sex: 71 / F Date of Service: 09/21/21 Loc: ED Accession Number: [id number] ?? Procedure: CT abdomen pelvis w con Ordering Provider: Beckie Ernandez D.O. PROCEDURE:? CT ABDOMEN PELVIS W CON ? INDICATIONS:? RLQ pain x 5 days, reported prior appy ? TECHNIQUE:? After the administration of oral and IV contrast, axial sections were acquired from the lung bases to the pubic symphysis.? Coronal and sagittal reformats were performed.? For radiation dose reduction, the following was used:? automated exposure control, adjustment of mA and/or kV according to patient size. ? COMPARISON:? [facility], CT, CT ABDOMEN PELVIS W CON, 02/17/2021, 15:53.? [facility], CR, XR CHEST 1V, 02/10/2021, 13:45.? [facility], CT, CT ABDOMEN PELVIS W CON, 05/03/2021, 16:56. ? FINDINGS:? Image quality:? Excellent.? ? Lung bases:? Unremarkable.? ? Heart:? No significant findings. ? ? ABDOMEN: Liver:? Normal in size.? A 1.0 x 1.9 cm low-density nodule in segment 7 demonstrates subtle peripheral enhancement, most likely a hepatic hemangioma.? It is unchanged in size when compared to the last exam.? ? Gallbladder:? Unremarkable.? ? Biliary ducts:? Unremarkable.? ? Pancreas:? Unremarkable.? ? Spleen:? Unremarkable.? ? Adrenal Glands:? Unremarkable.? ? Kidneys and Ureters:? There is a 1.5 cm exophytic low-density nodule in the superior pole of the right kidney, most likely a cyst.? A 1 cm exophytic low-density nodule in the inferior pole of the left kidney is also likely a cyst.? No renal stone or hydronephrosis.? ? ? Stomach and Bowel:? Appendix is surgically removed.? No inflammatory changes in the right lower quadrant.? Mild focal thickening of the transverse colon is seen.? Stomach, small bowel loops, and colon are normal in caliber.? There is a moderate amount of stool in colon. Peritoneum:? No abnormal intraperitoneal fluid.? No free air.? ? Ventral Wall: ? Small fat containing umbilical hernia.? Abdominal Nodes:? No retroperitoneal or mesenteric adenopathy by size criteria.? Vessels:? Aorta and inferior vena cava are normal in size.? ? PELVIS: Pelvic Organs:? Unremarkable.? ? Bladder:? Unremarkable.? ? Pelvic Nodes: No enlarged lymph nodes.? Miscellaneous: No inguinal hernias are seen. ? ? ? Bones:? Scoliosis.? ? Degenerative and postsurgical changes in lumbar spine.? There is a left hip arthroplasty. ? ? IMPRESSION:? ? 1. Appendectomy.? No inflammatory changes in the right lower quadrant. 2. Mild thickening of transverse colon.? Differential diagnoses include mild colitis versus artifact from nondistention. 3.? A 1.0 x 1.8 cm low-density nodule in the posterior right hepatic lobe demonstrating subtle peripheral enhancement, most likely a hepatic hemangioma. 4. Bilateral cortical cyst in kidneys. 5. A small fat containing umbilical hernia. 6. Scoliosis with degenerative and postsurgical changes in lumbar spine.? ? ? Dictated by: Stanislaw Pina M.D. on 09/21/2021 at 11:58 ? ? Approved by: Stanislaw Pina M.D. on 09/21/2021 at 12:12?? ECG Data Attestation: I personally reviewed and interpreted this ECG as follows: Prior ECG tracings: available for review Interpretation: Sinus rhythm rate of 98 OH 128 QRS 82 and QTC of 469. No acute ST elevation depression appreciated. Prior from 05/03/21 appears similar. MDM Narrative Medical decision making narrative: Pleasant 71-year-old female with 4 days of right lower quadrant pain that has been persistent. Patient has reported prior appendectomy with total hysterectomy. She has had a green stool but otherwise normal bowel movements. No nausea or vomiting. CT abdomen pelvis appears appropriate to rule out colitis versus other intra-abdominal causes. Labs and point of care urine for evaluation for infectious and other causes. Patient colitis on CT also appears to have a hemangioma likely in her liver. Patient's labs have a little bit of leftward shift suggesting infectious cause. Urine does not show any changes. After discussion plan to start Augmentin. Short course of pain medication and re-evaluate. We discussed patient would benefit from colonoscopy in the future after her symptoms have improved. Discharge Plan Departure Patient Disposition: Home Clinical Impression: Colitis, Liver nodule Instructions: DI for Colitis Activity Restrictions/Additional Instructions: Your imaging today shows colitis or inflammation of your colon. There is also a small nodule likely hemangioma in your liver. Let your physician no but likely this does not require any additional follow-up. Talk with her physician about scheduling a colonoscopy after your symptoms have resolved. Take antibiotics until completely gone. You may take pain medication 1 tablet every 6 hours as needed. This medication can make you sleepy do not drive, perform hazardous activities or make any major decisions while taking it. This medication will make you constipated please take a stool softener once to twice daily until stools are soft and regular. Prescription sent to [facility] in [place]. Please return for fevers, new or worsening abdominal, back or flank pain, persistent vomiting, black or bloody stools or other new or concerning symptoms. Prescriptions: New amoxicillin-pot clavulanate [Augmentin] 875-125 mg tablet 1 tab PO BID Qty: 20 0RF tramadol [Ultram] 50 mg tablet 50 mg PO Q6H PRN (Reason: pain) Qty: 7 0RF No Action acetaminophen 650 mg Tablet Extended Release 650 mg PO BID 0RF Referrals: Amparo Browne MD [Primary Care Provider] -
[2021-09-21] MEDS: KETOROLAC 30 MG/ML VIAL 15 MG IV (11:04)
[2021-09-21] MEDS: SODIUM CHLORIDE 0.9% 1,000 ML 150 ML IV (11:04)
[2021-09-21 11:07] LABS: Add Manual Diff / Slide Review NO; Basophils Absolute Auto 0 /uL (0-100); Basophils Percent Auto 0.4 % (0-2); Eosinophils Absolute Auto 0 /uL (0-450); Eosinophils Percent Auto 0.5 % (2-4); Hematocrit 45.2 % (36-46); Hemoglobin 15.3 g/dL (12.0-16.0); Lymphocytes Absolute Auto 1400 /uL (1100-4500); Lymphocytes Percent Auto 15.7 % (25-40); Mean Corpuscular HGB Conc 33.9 % (30-36); Mean Corpuscular Hemoglobin 30.5 PG (26-34); Mean Corpuscular Volume 89.9 fL (80-100); Monocytes Absolute Auto 500 /uL (0-900); Monocytes Percent Auto 5.8 % (3-14); Neutrophils Absolute Auto 7000 /uL (1500-7000); Neutrophils Percent Auto 77.6 % (50-75); Platelet Count 215 X10^3/uL (150-400); Red Blood Cell Count 5.03 X10^6/uL (4.0-5.2); Red Cell Distribution Width 13.5 % (11.6-14.8); White Blood Cell Count 9.1 X10^3/uL (4.5-11.0)
[2021-09-21 11:19] LABS: Alanine Aminotransferase 18 IU/L (<35); Albumin 4.6 g/dL (3.5-5.0); Alkaline Phosphatase 70 U/L (38-126); Aspartate Aminotransferase 25 IU/L (14-36); BUN Creatinine Ratio 16.2 (6-22); Bilirubin Total 0.6 mg/dL (0.2-1.3); Blood Urea Nitrogen 11 mg/dL (7-17); Calcium 9.8 mg/dL (8.4-10.2); Carbon Dioxide 27 mmol/L (22-32); Chloride 105 mmol/L (98-107); Estimated Glomerular Filt Rate > 60.0 mL/min (>60); Glucose 135 mg/dL (80-110); Sodium 141 mmol/L (137-145); Total Protein 7.6 g/dL (6.3-8.2)
[2021-09-21 11:20] LABS: Albumin Globulin Ratio 1.5 (1.0-2.8); HEMOLYSIS 44 (0-50); Lipase 27 U/L (23-300)
[2021-09-21 11:22] LABS: Potassium 3.8 mmol/L (3.4-5.1)
--- NOTE | 2021-09-21 11:38 | DI.CT.S_ITS ---
PROCEDURE: CT ABDOMEN PELVIS W CON INDICATIONS: RLQ pain x 5 days, reported prior appy TECHNIQUE: After the administration of oral and IV contrast, axial sections were acquired from the lung bases to the pubic symphysis. Coronal and sagittal reformats were performed. For radiation dose reduction, the following was used: automated exposure control, adjustment of mA and/or kV according to patient size. COMPARISON: [facility], CT, CT ABDOMEN PELVIS W CON, 02/17/2021, 15:53. [facility], CR, XR CHEST 1V, 02/10/2021, 13:45. [facility], CT, CT ABDOMEN PELVIS W CON, 05/03/2021, 16:56. FINDINGS: Image quality: Excellent. Lung bases: Unremarkable. Heart: No significant findings. ABDOMEN: Liver: Normal in size. A 1.0 x 1.9 cm low-density nodule in segment 7 demonstrates subtle peripheral enhancement, most likely a hepatic hemangioma. It is unchanged in size when compared to the last exam. Gallbladder: Unremarkable. Biliary ducts: Unremarkable. Pancreas: Unremarkable. Spleen: Unremarkable. Adrenal Glands: Unremarkable. Kidneys and Ureters: There is a 1.5 cm exophytic low-density nodule in the superior pole of the right kidney, most likely a cyst. A 1 cm exophytic low-density nodule in the inferior pole of the left kidney is also likely a cyst. No renal stone or hydronephrosis. Stomach and Bowel: Appendix is surgically removed. No inflammatory changes in the right lower quadrant. Mild focal thickening of the transverse colon is seen. Stomach, small bowel loops, and colon are normal in caliber. There is a moderate amount of stool in colon. Peritoneum: No abnormal intraperitoneal fluid. No free air. Ventral Wall: Small fat containing umbilical hernia. Abdominal Nodes: No retroperitoneal or mesenteric adenopathy by size criteria. Vessels: Aorta and inferior vena cava are normal in size. PELVIS: Pelvic Organs: Unremarkable. Bladder: Unremarkable. Pelvic Nodes: No enlarged lymph nodes. Miscellaneous: No inguinal hernias are seen. Bones: Scoliosis. Degenerative and postsurgical changes in lumbar spine. There is a left hip arthroplasty. IMPRESSION: 1. Appendectomy. No inflammatory changes in the right lower quadrant. 2. Mild thickening of transverse colon. Differential diagnoses include mild colitis versus artifact from nondistention. 3. A 1.0 x 1.8 cm low-density nodule in the posterior right hepatic lobe demonstrating subtle peripheral enhancement, most likely a hepatic hemangioma. 4. Bilateral cortical cyst in kidneys. 5. A small fat containing umbilical hernia. 6. Scoliosis with degenerative and postsurgical changes in lumbar spine. Dictated by: Stanislaw Pina M.D. on 09/21/2021 at 11:58 Approved by: Stanislaw Pina M.D. on 09/21/2021 at 12:12
[2021-09-21 12:16] VITALS: BP 143/70; PULSE 74; O2SAT 97
[2021-09-21 12:18] LABS: Bacteria Urine None Seen; Culture Indicated Urine Cult Not Indicated; RBC Urine 0-1/HPF (0-5/HPF); Squamous Epithelial Cell Urine 0-1 /HPF (0-5/HPF); WBC Urine 0-1/HPF (0-5/HPF)
[2021-09-21 12:30] VITALS: BP 146/73; PULSE 73; TEMP 36.8; O2SAT 98
== END 2021-09-21 13:17 | disposition home or self-care (01) ==
PROVIDERS: Emergency Provider Emergency Medicine; PCP Internal Medicine
DX: K52.9 Noninfective gastroenteritis and colitis, unspecified (principal); K76.9 Liver disease, unspecified; I10 Essential (primary) hypertension
CPT/HCPCS: 36415; 74177; 80053; 81003; 81015; 83690; 85025; 93005; 93010; 96361; 96374; 99284; J1885

== ENCOUNTER 2021-09-28 09:09 | Emergency (ER) | payer MEDICARE, SELFPAY ==
[2021-02-18 16:59] VITALS: BMI 30.4
[2021-09-28 10:00] VITALS: BP 160/77; PULSE 98; RESP 14; TEMP 36.4; O2SAT 99
[2021-09-28 10:18] LABS: Add Manual Diff / Slide Review NO; Basophils Absolute Auto 0 /uL (0-100); Basophils Percent Auto 0.4 % (0-2); Eosinophils Absolute Auto 0 /uL (0-450); Eosinophils Percent Auto 0.2 % (2-4); Hematocrit 45.5 % (36-46); Hemoglobin 15.7 g/dL (12.0-16.0); Lymphocytes Absolute Auto 1300 /uL (1100-4500); Lymphocytes Percent Auto 12.3 % (25-40); Mean Corpuscular HGB Conc 34.5 % (30-36); Mean Corpuscular Hemoglobin 30.6 PG (26-34); Mean Corpuscular Volume 88.9 fL (80-100); Monocytes Absolute Auto 900 /uL (0-900); Monocytes Percent Auto 8.2 % (3-14); Neutrophils Absolute Auto 8600 /uL (1500-7000); Neutrophils Percent Auto 78.9 % (50-75); Platelet Count 188 X10^3/uL (150-400); Red Blood Cell Count 5.12 X10^6/uL (4.0-5.2); Red Cell Distribution Width 13.3 % (11.6-14.8); White Blood Cell Count 10.8 X10^3/uL (4.5-11.0)
[2021-09-28 10:29] LABS: Alanine Aminotransferase 40 IU/L (<35); Albumin 4.6 g/dL (3.5-5.0); Albumin Globulin Ratio 1.4 (1.0-2.8); Alkaline Phosphatase 78 U/L (38-126); Aspartate Aminotransferase 39 IU/L (14-36); BUN Creatinine Ratio 22.4 (6-22); Bilirubin Total 0.8 mg/dL (0.2-1.3); Blood Urea Nitrogen 13 mg/dL (7-17); Calcium 9.8 mg/dL (8.4-10.2); Carbon Dioxide 28 mmol/L (22-32); Chloride 104 mmol/L (98-107); Estimated Glomerular Filt Rate > 60.0 mL/min (>60); Globulin 3.3 g/dL (1.7-4.1); Glucose 124 mg/dL (80-110); HEMOLYSIS 19 (0-50); Lipase 21 U/L (23-300); Potassium 3.7 mmol/L (3.4-5.1); Sodium 139 mmol/L (137-145); Total Protein 7.9 g/dL (6.3-8.2)
[2021-09-28 13:34] VITALS: BP 136/93; PULSE 105; O2SAT 95
[2021-09-28 14:00] VITALS: PULSE 91; O2SAT 95
[2021-09-28 14:01] VITALS: BP 160/75; PULSE 91; O2SAT 96
--- NOTE | 2021-09-28 14:31 | ED.ABDPAIN ---
HPI - Abdominal Pain General Chief Complaint: Abdominal Pain Stated Complaint: Collitis Time Seen by Provider: 09/28/21 13:47 History of Present Illness HPI narrative: Patient is a 71-year-old female history of IBS presenting with ongoing abdominal pain. She was seen and evaluated here September 21 diagnosed with colitis by CT and blood work she was started on Augmentin. He says he only needed a few days on the Augmentin for she has had a started having diarrhea at which point she stopped the Augmentin. She has not had any fever chill or chills. Her diarrhea has slowed. She has no nausea or vomiting. She does have continued IBS pain. No significant right lower quadrant pain. She has an appointment with GI on October 06, she is looking for direction on what to do now. She continues to be uncomfortable. Related Data Home Medications Medication Instructions Recorded Confirmed acetaminophen 650 mg 650 mg PO BID 04/18/19 09/21/21 tablet,extended release Previous Rx's Medication Instructions Recorded amoxicillin 875 mg-potassium 1 tab PO BID #20 tab 09/21/21 clavulanate 125 mg tablet (Augmentin) tramadol 50 mg tablet (Ultram) 50 mg PO Q6H PRN #7 tab 09/21/21 ciprofloxacin HCl 500 mg tablet 500 mg PO BID #14 tab 09/28/21 (Cipro) metronidazole 500 mg tablet 500 mg PO Q8H 7 Days #21 tab 09/28/21 Allergies Allergy/AdvReac Type Severity Reaction Status Date / Time hydrocodone AdvReac Mild Jittery, Verified 09/28/21 10:04 nervous, jose jkey Review of Systems Review of Systems Narrative: GENERAL: Denies chills, fatigue, malaise, fever, sweats, travel HEENT: Denies sinus pain, ear pain, sore throat, difficulty swallowing, neck pain RESPIRATORY: Denies dyspnea, cough, wheezing, hemoptysis, sputum. CARDIOVASCULAR: Denies chest pain, palpitations, orthopnea, edema GASTROINTESTINAL: See HPI : Denies dysuria, frequency, incontinence, hematuria, urinary retention, flank pain. MUSCULOSKELETAL: Denies weakness, joint pain, or bony pain SKIN: No rash, no erythema, no pruritus NEUROLOGIC: Denies weakness, dizziness, headache, numbness, change in speech, confusion PSYCHIATRIC: No concerning psychosocial issues. 12 point review of systems is negative except for those stated above and HPI Patient History Medical History Arthritis Depression Former smoker HTN (hypertension) IBS (irritable bowel syndrome) Pelvic fracture Spinal stenosis Surgical History H/O: hysterectomy History of arthroplasty of left shoulder (~2015) History of arthroplasty of right knee History of lumbar fusion (04/26/19) History of total left hip arthroplasty Hx of bilateral cataract extraction Hx of thyroidectomy Hx of tonsillectomy Social History household members: none Smoking Status: Never smoker alcohol intake: current Smoking Status: Never smoker alcohol intake frequency: other Substance Use Type: does not use Exam Initial Vital Signs Initial Vital Signs: Vital Signs Temperature 97.5 F L 09/28/21 10:00 Pulse Rate 98 H 09/28/21 10:00 Respiratory Rate 14 09/28/21 10:00 Blood Pressure 160/77 H 09/28/21 10:00 Pulse Oximetry 99 09/28/21 10:00 GENERAL: Alert 71-year-old female, overall appears well and in no acute distress. HEENT: Head atraumatic,EOMI, pupils reactive, face symmetric, moist] mucous membranes CARDIOVASCULAR: Regular rate and rhythm without murmurs, rubs or gallops. RESPIRATORY: Breath sounds equal bilaterally, no wheezes rales or rhonchi. ABDOMEN: Soft, minimal lower quadrant tenderness negative sign no distention : No CVA tenderness EXTREMITIES: Normal range of motion, no clubbing or edema. Neurovascularly intact NEUROLOGICAL: Alert and oriented x4.Normal gait and speech. SKIN: Warm, dry, no laceration, no petechiae, no rashes or lesions. Course Orders Ordered: ED Orders 09/28/21 14:30 Urine Microscopic Stat Vital Signs Vital signs: Vital Signs - 8 hr 09/28/21 13:34 09/28/21 14:00 09/28/21 14:01 Pulse Rate 105 H 91 H 91 H Blood Pressure 136/93 H 160/75 H Pulse Oximetry 95 95 96 MDM - Abdominal Pain Lab Data Result diagrams: 09/28/21 10:11 09/28/21 10:11 Labs: Lab Results 09/28/21 09/28/21 09/28/21 Range/Units 10:11 10:11 14:30 WBC 10.8 (4.5-11.0) X10^3/uL RBC 5.12 (4.0-5.2) X10^6/uL Hgb 15.7 (12.0-16.0) g/dL Hct 45.5 (36-46) % MCV 88.9 (80-100) fL MCH 30.6 (26-34) PG MCHC 34.5 (30-36) % RDW 13.3 (11.6-14.8) % Plt Count 188 (150-400) X10^3/uL Neut % (Auto) 78.9 H (50-75) % Lymph % (Auto) 12.3 L (25-40) % [place] % (Auto) 8.2 (3-14) % Eos % (Auto) 0.2 L (2-4) % Baso % (Auto) 0.4 (0-2) % Neut # (Auto) 8600 H (2675-2347) /uL Lymph # (Auto) 1300 (3022-9575) /uL [place] # (Auto) 900 (0-900) /uL Eos # (Auto) 0 (0-450) /uL Baso # (Auto) 0 (0-100) /uL Sodium 139 (137-145) mmol/L Potassium 3.7 (3.4-5.1) mmol/L Chloride 104 (98-107) mmol/L Carbon Dioxide 28 (22-32) mmol/L BUN 13 (7-17) mg/dL Creatinine 0.58 (0.52-1.04) mg/dL Estimated GFR > 60.0 (>60) mL/min BUN/Creatinine Ratio 22.4 H (6-22) Glucose 124 H (80-110) mg/dL Calcium 9.8 (8.4-10.2) mg/dL Total Bilirubin 0.8 (0.2-1.3) mg/dL AST 39 H (14-36) IU/L ALT 40 H (<35) IU/L Alkaline Phosphatase 78 (38-126) U/L Total Protein 7.9 (6.3-8.2) g/dL Albumin 4.6 (3.5-5.0) g/dL Globulin 3.3 (1.7-4.1) g/dL Albumin/Globulin Ratio 1.4 (1.0-2.8) Lipase 21 L (23-300) U/L Urine RBC 0-1/hpf (0-5/HPF) Urine WBC 0-1/hpf (0-5/HPF) Ur Squamous Epith Cells 0-1 /hpf (0-5/HPF) Urine Bacteria Few (2-10) H (None) Ur Culture Indicated? Cult not indicated Point of care testing: Urine Dip Bedside Urine Glucose Negative Bedside Urine Bilirubin - Negative Bedside Urine Ketone - Negative Urine Specific [place] 1.020 Bedside Urine Occult Blood +/- Bedside Urine pH 6.0 Bedside Urine Protein +/- 15 Bedside Urine Urobilinogen - Negative Bedside Urine Nitrite - Negative Bedside Urine Leukocytes - Negative Esterase ECG Data Interpretation: Sinus rhythm rate 84 MS interval 134 QRS [address] changes similar to prior MDM Narrative Medical decision making narrative: At this time patient overall appears well. She has minimal lower abdominal pain blood work overall appears the same except for mild elevation of liver enzymes. She has normal bilirubin she has prior cholecystectomy in no right upper quadrant pain. At this time unlikely to be related to gallbladder. She at this time she would rather switch up her antibiotics to see if it helps for abdominal discomfort. I do not see need to we image her at this time her abdominal exam is relatively benign with reassuring blood work. She has an appointment with GI to be next week. Discharge Plan Departure Patient Disposition: Home Clinical Impression: Irritable bowel syndrome, Colitis Instructions: DI for Colitis Activity Restrictions/Additional Instructions: *You have been diagnosed with colitis and IBS *What to do: At this time no change her antibiotics to see if it helps. Please take the full course. Follow-up with GI as scheduled *Continue to take medications as directed--> SENT TO [facility] Cipro 500 mg twice a day for 7 days Flagyl 500 mg 3 times a day for 7 days *Follow up with your primary care provider in 2-3 days or call [phone] Follow-up with Dr. Lozada *Return to ER if you should have increasing abdominal pain diarrhea bloody stools vomiting fever or any new, worsening or concerning symptoms Prescriptions: New metronidazole 500 mg tablet 500 mg PO Q8H 7 Days Qty: 21 0RF ciprofloxacin HCl [Cipro] 500 mg tablet 500 mg PO BID Qty: 14 0RF No Action acetaminophen 650 mg Tablet Extended Release 650 mg PO BID 0RF amoxicillin-pot clavulanate [Augmentin] 875-125 mg tablet 1 tab PO BID Qty: 20 0RF tramadol [Ultram] 50 mg tablet 50 mg PO Q6H PRN (Reason: pain) Qty: 7 0RF Referrals: Amparo Browne MD [Primary Care Provider] -
[2021-09-28 14:42] LABS: Bacteria Urine Few (2-10); Culture Indicated Urine Cult Not Indicated; RBC Urine 0-1/HPF (0-5/HPF); Squamous Epithelial Cell Urine 0-1 /HPF (0-5/HPF); WBC Urine 0-1/HPF (0-5/HPF)
== END 2021-09-28 15:06 | disposition home or self-care (01) ==
PROVIDERS: Emergency Provider Emergency Medicine; PCP Internal Medicine
DX: K52.9 Noninfective gastroenteritis and colitis, unspecified (principal); I10 Essential (primary) hypertension
CPT/HCPCS: 36415; 80053; 81003; 81015; 83690; 85025; 93005; 93010; 99283

== ENCOUNTER 2021-09-30 07:18 | Emergency (ER) | payer MEDICARE, SELFPAY ==
[2021-02-18 16:59] VITALS: BMI 30.4
[2021-09-30] VITALS (10 sets, daily range): BP systolic 122–184; BP diastolic 57–83; PULSE 76–110; RESP 18–20; TEMP 36.1; O2SAT 94–99
--- NOTE | 2021-09-30 07:38 | ED.HA ---
HPI - Headache General Chief Complaint: Headache Stated Complaint: head pain in back of head Time Seen by Provider: 09/30/21 07:24 Mode of arrival: Ambulatory History of Present Illness HPI Narrative: 71F nonsmoker with history of irritable bowel syndrome presents with a chief complaint of a gradually worsening occipital headache over the past few days. She denies any injury nor fever or chills. She denies neurologic symptoms such as numbness, tingling or weakness. She denies any dizziness or lightheadedness. She states her symptoms started after being initiated on antibiotics for colitis after being seen here a few days ago. She denies any obvious provocation or palliation. She states that she would routinely take Tylenol every morning for arthritic hip pain but has not taken that in the past few days for fear that it might interact with her antibiotics. She denies any blurred vision or trouble with speech. She states that it is a squeezing achy type pressure it is a 4 or 5/10, her pain is constant and has been gradually worsening. She denies any rapid or sudden onset Related Data Home Medications Medication Instructions Recorded Confirmed acetaminophen 650 mg 650 mg PO BID 04/18/19 09/21/21 tablet,extended release Previous Rx's Medication Instructions Recorded amoxicillin 875 mg-potassium 1 tab PO BID #20 tab 09/21/21 clavulanate 125 mg tablet (Augmentin) tramadol 50 mg tablet (Ultram) 50 mg PO Q6H PRN #7 tab 09/21/21 ciprofloxacin HCl 500 mg tablet 500 mg PO BID #14 tab 09/28/21 (Cipro) metronidazole 500 mg tablet 500 mg PO Q8H 7 Days #21 tab 09/28/21 cyclobenzaprine 10 mg tablet 10 mg PO TID PRN #14 tab 09/30/21 ketorolac 10 mg tablet 10 mg PO Q6H PRN #14 tab 09/30/21 lidocaine 5 % topical patch 1 patch TOP DAILY #15 each 09/30/21 (Lidoderm) Allergies Allergy/AdvReac Type Severity Reaction Status Date / Time hydrocodone AdvReac Mild Jittery, Verified 09/28/21 10:04 nervousbro Review of Systems Review of Systems Narrative: GENERAL: Denies chills, fatigue, malaise, fever, sweats. HEENT: Denies sinus pain, ear pain, sore throat, difficulty swallowing, dizziness. RESPIRATORY: Denies dyspnea, cough, wheezing, hemoptysis, sputum. CARDIOVASCULAR: Denies chest pain, palpitations, orthopnea, edema, GASTROINTESTINAL: Denies nausea, vomiting, abdominal pain, diarrhea, constipation, melena. : Denies dysuria, frequency, incontinence, hematuria, urinary retention. MUSCULOSKELETAL: denies weakness, joint pain, or bony pain SKIN: Denies rash, skin lesions, or other NEUROLOGIC: See HPI PSYCHIATRIC: No concerning psychosocial issues. 12 point review of systems is negative except for those stated above Patient History Medical History Arthritis Depression Former smoker HTN (hypertension) IBS (irritable bowel syndrome) Pelvic fracture Spinal stenosis Surgical History H/O: hysterectomy History of arthroplasty of left shoulder (~2015) History of arthroplasty of right knee History of lumbar fusion (04/26/19) History of total left hip arthroplasty Hx of bilateral cataract extraction Hx of thyroidectomy Hx of tonsillectomy Social History household members: none Smoking Status: Never smoker alcohol intake: current Smoking Status: Never smoker alcohol intake frequency: other Substance Use Type: does not use Exam Narrative Exam Narrative: GENERAL: [71 year old patient appears stated age. Well-developed patient, in mild distress. Obviously uncomfortable HEAD: Atraumatic. Normocephalic. No swelling, erythema or warmth EYES: Pupils equal round and reactive. Extraocular motions intact. No scleral icterus. No injection or drainage. ENT: Nose without bleeding, purulent drainage. Throat without erythema, tonsillar hypertrophy or exudate. Airway patent. NECK: Trachea midline. Minimal lateral paraspinal tenderness, no change with axial load CARDIOVASCULAR: Regular rate and rhythm without murmurs, gallops, or rubs. RESPIRATORY: Clear to auscultation. Breath sounds equal bilaterally. No wheezes, rales, or rhonchi. GASTROINTESTINAL: Abdomen soft, non-tender, nondistended. EXTREMITIES: No edema or joint tenderness. BACK: Nontender without deformity or crepitance. No flank tenderness. NEURO: AOx3. SKIN: No rash or erythema of visible areas Initial Vital Signs Initial Vital Signs: Vital Signs Temperature 97.0 F L 02/16/22 07:32 Pulse Rate 110 H 09/30/21 07:32 Respiratory Rate 18 09/30/21 07:32 Blood Pressure 184/83 H 09/30/21 07:32 Pulse Oximetry 95 09/30/21 07:32 Procedures Lumbar Puncture Time Out Performed: Yes Patient Position: upright Skin Prep: 0.5% Chlorhexidine/Alcohol Local Anesthetic: lidocaine 1% Amount of anesthesia used (mL): 6 Spinal Needle Gauge: 22G Interspace Used: L4-L5 Fluid Initially Obtained: clear Complications: none Course Course Course Narrative: Well into the visit her brother reminds her that she slept awkwardly on a recliner last night. Though there were certainly elements to her history and physical to suggest that this was musculoskeletal her lack of expected improvement with Toradol prompted a conversation about the possibility of meningitis. After extensive discussion she consented for a lumbar puncture which had very reassuring findings. Headache considerations include, but not limited to: Subarachnoid hemorrhage, but unlikely as patient denies sudden onset of pain, not worst of life, or neck pain Meningitis considered, but thought unlikely given lack of Brudzinski's, Kernig's sign, altered mental status or fever Giant cell arteritis considered, but thought unlikely given lack of unilateral findings, pain in latter-day, vision change HTN Emergency considered, but thought unlikely given normal vitals Other serious diagnoses considered unlikely given lack of red flag findings such as sudden onset, increasing frequency, immunocompromise, systemic signs (fever, chills, stiff neck, or rash), focal neurologic findings, trauma, blood thinners, etc. Orders Ordered: ED Orders 09/30/21 12:37 CSF culture Stat Cell Count w Diff CSF Stat Glucose CSF Stat Meningitis Panel (Film Array) Stat Total Protein CSF Stat Discontinued Medications Acetaminophen (Acetaminophen 325 Mg Tablet) 975 mg PO NOW ONE Stop: 09/30/21 07:37 Last Admin: 09/30/21 07:41 Dose: 975 mg Documented by: BTONER Diphenhydramine HCl (Diphenhydramine 50 Mg/Ml Vial) 25 mg IV NOW ONE Stop: 09/30/21 08:35 Last Admin: 09/30/21 09:40 Dose: 25 mg Documented by: BTONER Sodium Chloride (Normal Saline 0.9%) 1,000 mls @ 1,000 mls/hr IV BOLUS ONE Stop: 09/30/21 09:33 Last Infusion: 09/30/21 15:28 Dose: 0 mls/hr Documented by: Admin: 09/30/21 08:00 Dose: 1,000 mls/hr Documented by: ANDRE Ketorolac Tromethamine (Ketorolac 30 Mg/Ml Vial) 15 mg IV NOW ONE Stop: 09/30/21 08:35 Last Admin: 09/30/21 09:40 Dose: 15 mg Documented by: BASSAM Lidocaine (Lidocaine Patch 1 Each Adh..Patch) 1 each TOP NOW ONE Stop: 09/30/21 12:42 Metoclopramide HCl (Metoclopramide 10 Mg/2 Ml Inj) 10 mg IV NOW ONE Stop: 09/30/21 08:35 Last Admin: 09/30/21 09:40 Dose: 10 mg Documented by: BASSAM Reevaluation(s) Reevaluation #1: Minimal change if any after Tylenol Vital Signs Vital signs: Vital Signs - 8 hr 09/30/21 11:30 09/30/21 12:00 09/30/21 15:29 Pulse Rate 85 76 85 Blood Pressure Pulse Oximetry 95 97 09/30/21 15:30 Pulse Rate 83 Blood Pressure 128/67 Pulse Oximetry 99 MDM - Headache Lab Data Result diagrams: 09/30/21 09:10 09/30/21 09:10 Labs: Lab Results 09/30/21 09/30/21 09/30/21 Range/Units 09:10 09:10 12:37 WBC 11.1 H (4.5-11.0) X10^3/uL RBC 5.07 (4.0-5.2) X10^6/uL Hgb 15.3 (12.0-16.0) g/dL Hct 44.7 (36-46) % MCV 88.2 (80-100) fL MCH 30.1 (26-34) PG MCHC 34.1 (30-36) % RDW 13.2 (11.6-14.8) % Plt Count 196 (150-400) X10^3/uL Neut % (Auto) 78.3 H (50-75) % Lymph % (Auto) 11.1 L (25-40) % [place] % (Auto) 10.2 (3-14) % Eos % (Auto) 0.1 L (2-4) % Baso % (Auto) 0.3 (0-2) % Neut # (Auto) 8700 H (3811-5695) /uL Lymph # (Auto) 1200 (7923-5409) /uL [place] # (Auto) 1100 H (0-900) /uL Eos # (Auto) 0 (0-450) /uL Baso # (Auto) 0 (0-100) /uL Sodium 139 (137-145) mmol/L Potassium 3.9 (3.4-5.1) mmol/L Chloride 102 (98-107) mmol/L Carbon Dioxide 29 (22-32) mmol/L BUN 12 (7-17) mg/dL Creatinine 0.64 (0.52-1.04) mg/dL Estimated GFR > 60.0 (>60) mL/min BUN/Creatinine Ratio 18.8 (6-22) Glucose 121 H (80-110) mg/dL Calcium 9.8 (8.4-10.2) mg/dL Total Bilirubin 0.9 (0.2-1.3) mg/dL AST 23 (14-36) IU/L ALT 35 H (<35) IU/L Alkaline Phosphatase 81 (38-126) U/L Total Protein 7.8 (6.3-8.2) g/dL Albumin 4.5 (3.5-5.0) g/dL Globulin 3.3 (1.7-4.1) g/dL Albumin/Globulin Ratio 1.4 (1.0-2.8) CSF Tube Number 1 CSF Volume 2.0 ml CSF Appearance Clear (Clear) CSF Color Colorless (Colorless) CSF WBC 2.5 (0-5) MONO/uL CSF RBC 0 RBC /uL CSF Mononuclear WBCs TNP CSF Polynuclear WBCs TNP CSF Glucose 68 (40-70) mg/dL CSF Total Protein 57 (12-60) mg/dL CSF C.neoform/gat PCR (Not Detect) CSF CMV DNA (PCR) (Not Detect) CSF Enterovirus (PCR) (Not Detect) CSF E. coli (PCR) (Not Detect) CSF H. influenzae (PCR) (Not Detect) CSF HSV I (PCR) (Not Detect) CSF HSV II (PCR) (Not Detect) CSF HHV 6 (PCR) (Not Detect) CSF L.monocytogenes PCR (Not Detect) CSF N. meningitidis PCR (Not Detect) CSF Parechovirus (PCR) (Not Detect) CSF S. agalactiae (PCR) (Not Detect) CSF S. pneumoniae (PCR) (Not Detect) CSF VZV (PCR) (Not Detecte) 09/30/21 Range/Units 12:37 WBC (4.5-11.0) X10^3/uL RBC (4.0-5.2) X10^6/uL Hgb (12.0-16.0) g/dL Hct (36-46) % MCV (80-100) fL MCH (26-34) PG MCHC (30-36) % RDW (11.6-14.8) % Plt Count (150-400) X10^3/uL Neut % (Auto) (50-75) % Lymph % (Auto) (25-40) % [place] % (Auto) (3-14) % Eos % (Auto) (2-4) % Baso % (Auto) (0-2) % Neut # (Auto) (8979-1637) /uL Lymph # (Auto) (7781-1071) /uL [place] # (Auto) (0-900) /uL Eos # (Auto) (0-450) /uL Baso # (Auto) (0-100) /uL Sodium (137-145) mmol/L Potassium (3.4-5.1) mmol/L Chloride (98-107) mmol/L Carbon Dioxide (22-32) mmol/L BUN (7-17) mg/dL Creatinine (0.52-1.04) mg/dL Estimated GFR (>60) mL/min BUN/Creatinine Ratio (6-22) Glucose (80-110) mg/dL Calcium (8.4-10.2) mg/dL Total Bilirubin (0.2-1.3) mg/dL AST (14-36) IU/L ALT (<35) IU/L Alkaline Phosphatase (38-126) U/L Total Protein (6.3-8.2) g/dL Albumin (3.5-5.0) g/dL Globulin (1.7-4.1) g/dL Albumin/Globulin Ratio (1.0-2.8) CSF Tube Number CSF Volume CSF Appearance (Clear) CSF Color (Colorless) CSF WBC (0-5) MONO/uL CSF RBC RBC /uL CSF Mononuclear WBCs CSF Polynuclear WBCs CSF Glucose (40-70) mg/dL CSF Total Protein (12-60) mg/dL CSF C.neoform/gat PCR Not detected (Not Detect) CSF CMV DNA (PCR) Not detected (Not Detect) CSF Enterovirus (PCR) Not detected (Not Detect) CSF E. coli (PCR) Not detected (Not Detect) CSF H. influenzae (PCR) Not detected (Not Detect) CSF HSV I (PCR) Not detected (Not Detect) CSF HSV II (PCR) Not detected (Not Detect) CSF HHV 6 (PCR) Not detected (Not Detect) CSF L.monocytogenes PCR Not detected (Not Detect) CSF N. meningitidis PCR Not detected (Not Detect) CSF Parechovirus (PCR) Not detected (Not Detect) CSF S. agalactiae (PCR) Not detected (Not Detect) CSF S. pneumoniae (PCR) Not detected (Not Detect) CSF VZV (PCR) Not detected (Not Detecte) Discharge Plan Departure Patient Disposition: Home Clinical Impression: Headache, Tension headache, Cervical paraspinal muscle spasm Activity Restrictions/Additional Instructions: *You have been diagnosed with [atypical headache and paracervical muscle spasm *What to do: *Please continue to take your regular medications as directed. [x ] New medication prescriptions sent to your pharmacy: [[facility]] [ ] New medication written as a paper prescription [ ] No new medications given *Please follow up with your primary care provider in 2-3 days, call for an appointment. Let them know you were seen in the Emergency Department and that we ask that you be seen in follow up. We will electronically transmit a record of today's note if your PCP is in our system *If you do not have a primary care provider please contact the [facility] Resource line at [phone]. They will ask some questions about your medical history and help get you set up with a doctor in the community. *Return to Emergency Department if you should have any new, worsening or concerning symptoms, such as [fever greater than 101 F, shaking chills, worsening pain, persistent vomiting or other bothersome symptoms] Prescriptions: New cyclobenzaprine 10 mg tablet 10 mg PO TID PRN (Reason: muscle spasm) Qty: 14 0RF ketorolac 10 mg tablet 10 mg PO Q6H PRN (Reason: pain) Qty: 14 0RF lidocaine [Lidoderm] 5 % adhesive patch,medicated 1 patch TOP DAILY Qty: 15 0RF Rx Instructions: leave on most painful area for 12 hrs No Action acetaminophen 650 mg Tablet Extended Release 650 mg PO BID 0RF metronidazole 500 mg tablet 500 mg PO Q8H 7 Days Qty: 21 0RF ciprofloxacin HCl [Cipro] 500 mg tablet 500 mg PO BID Qty: 14 0RF amoxicillin-pot clavulanate [Augmentin] 875-125 mg tablet 1 tab PO BID Qty: 20 0RF tramadol [Ultram] 50 mg tablet 50 mg PO Q6H PRN (Reason: pain) Qty: 7 0RF Referrals: Amparo Browne MD [Primary Care Provider] -
[2021-09-30] MEDS: ACETAMINOPHEN 325 MG TABLET 975 MG PO (07:41)
--- NOTE | 2021-09-30 07:44 | PC.NURSE ---
pt states she takes tylenol extra strength everyday but didn't take it yesterday or today concern about mixing the new prescriptions.
[2021-09-30] MEDS: SODIUM CHLORIDE 0.9% 1,000 ML 1000 ML IV (08:00)
[2021-09-30 09:19] LABS: Add Manual Diff / Slide Review NO; Basophils Absolute Auto 0 /uL (0-100); Basophils Percent Auto 0.3 % (0-2); Eosinophils Absolute Auto 0 /uL (0-450); Eosinophils Percent Auto 0.1 % (2-4); Hematocrit 44.7 % (36-46); Hemoglobin 15.3 g/dL (12.0-16.0); Lymphocytes Absolute Auto 1200 /uL (1100-4500); Lymphocytes Percent Auto 11.1 % (25-40); Mean Corpuscular HGB Conc 34.1 % (30-36); Mean Corpuscular Hemoglobin 30.1 PG (26-34); Mean Corpuscular Volume 88.2 fL (80-100); Monocytes Absolute Auto 1100 /uL (0-900); Monocytes Percent Auto 10.2 % (3-14); Neutrophils Absolute Auto 8700 /uL (1500-7000); Neutrophils Percent Auto 78.3 % (50-75); Platelet Count 196 X10^3/uL (150-400); Red Blood Cell Count 5.07 X10^6/uL (4.0-5.2); Red Cell Distribution Width 13.2 % (11.6-14.8); White Blood Cell Count 11.1 X10^3/uL (4.5-11.0)
[2021-09-30 09:30] LABS: Alanine Aminotransferase 35 IU/L (<35); Albumin 4.5 g/dL (3.5-5.0); Albumin Globulin Ratio 1.4 (1.0-2.8); Alkaline Phosphatase 81 U/L (38-126); Aspartate Aminotransferase 23 IU/L (14-36); BUN Creatinine Ratio 18.8 (6-22); Bilirubin Total 0.9 mg/dL (0.2-1.3); Blood Urea Nitrogen 12 mg/dL (7-17); Calcium 9.8 mg/dL (8.4-10.2); Carbon Dioxide 29 mmol/L (22-32); Chloride 102 mmol/L (98-107); Estimated Glomerular Filt Rate > 60.0 mL/min (>60); Globulin 3.3 g/dL (1.7-4.1); Glucose 121 mg/dL (80-110); HEMOLYSIS < 15 (0-50); Potassium 3.9 mmol/L (3.4-5.1); Sodium 139 mmol/L (137-145); Total Protein 7.8 g/dL (6.3-8.2)
[2021-09-30] MEDS: KETOROLAC 30 MG/ML VIAL 15 MG IV (09:40)
[2021-09-30] MEDS: METOCLOPRAMIDE 10 MG/2 ML INJ IV (09:40)
[2021-09-30] MEDS: diphenhydrAMINE 50 MG/ML VIAL 25 MG IV (09:40)
[2021-09-30 13:02] LABS: Appearance CSF Clear (Clear); CSF Tube Number 1; CSF Tube Volume 2.0 mL; Color CSF Colorless (Colorless); Red Blood Cell CSF 0 RBC /uL; White Blood Cell CSF 2.5 MONO/uL (0-5)
[2021-09-30 13:10] LABS: Glucose CSF 68 mg/dL (40-70); Total Protein CSF 57 mg/dL (12-60)
[2021-09-30 14:50] LABS: Cryptococcus neoformans/gattii Not Detected (Not Detect); Enterovirus Not Detected (Not Detect); Escherichia coli K1 Not Detected (Not Detect); Haemophilus influenzae Not Detected (Not Detect); Herpes simplex virus 1 Not Detected (Not Detect); Herpes simplex virus 2 Not Detected (Not Detect); Human herpesvirus 6 Not Detected (Not Detect); Human parechovirus Not Detected (Not Detect); Listeria monocytogenes Not Detected (Not Detect); Neisseria meningitidis Not Detected (Not Detect); Streptococcus agalactiae Not Detected (Not Detect); Streptococcus pneumoniae Not Detected (Not Detect); Varicella Zoster Virus Not Detected (Not Detecte)
== END 2021-09-30 15:36 | disposition home or self-care (01) ==
PROVIDERS: Emergency Provider Emergency Medicine; PCP Internal Medicine
DX: G44.219 Episodic tension-type headache, not intractable (principal); M62.838 Other muscle spasm
CPT/HCPCS: 36415; 80053; 82945; 84157; 85025; 87070; 87205; 87798; 89051; 96361; 96374; 96375; 99284; J1200; J1885; J2765

== ENCOUNTER 2022-01-12 08:04 | Day surgery (SDC) | payer MEDICARE, SELFPAY ==
[2021-12-14 13:07] VITALS: BMI 30.4
[2022-01-05 08:06] VITALS: BMI 32.2
[2022-01-12] VITALS (18 sets, daily range): BP systolic 116–157; BP diastolic 53–89; PULSE 64–92; RESP 12–18; TEMP 36.1–37; O2SAT 90–98; BMI 32.2
--- NOTE | 2022-01-12 | PATH_ITS ---
[facility] Accession Number: [id number] . 01 Material submitted: . gallbladder - GALLBLADDER AND CONTENTS . 01 Diagnosis: Gallbladder, Cholecystectomy: Chronic cholecystitis with cholelithiasis and cholesterolosis. Negative for dysplasia and malignancy. MRV 01/15/2022 0951 Local . 01 Electronically signed: . Iman Figueroa MD, Pathologist NPI- [id number] . 01 Gross description: . Received in formalin and labeled with the patient's name and gallbladder an contents and consists of an intact gallbladder measuring 7.6 x 3.5 x 3.5 cm. The serosa is green, smooth and glistening while the hepatic surface is shaggy and unremarkable. The cystic duct is received closed with a clamp and is inked blue. No pericystic lymph node is identified. Opening the specimen reveals the lumen to be filled with dark green viscous bile and numerous yellow bosselated calculi measuring up to 0.6 cm in greatest dimension. The mucosa is dark green and velvety with numerous yellow areas consistent with cholesterol deposits. No polyps or lesions are identified. The soto average 0.1 cm thick. Director [employer] sections to include the cystic duct margin and full thickness sections are submitted in cassette A1. ([id number]) /[facility] 01/14/2022 1850 Local . 01 Pathologist provided ICD-10: K80.60 . 01 CPT . 376909 Specimen Comment: A courtesy copy of this report has been sent to [phone] Performed at: 01 [facility] [address] [place] [address] [address] [facility], [place], [place] [id number] MD Francisco Avery MD Phone: [phone]
[2022-01-12 08:52] LABS: COVID19 -Nasal RAPID Negative (Negative)
[2022-01-12] MEDS: LACTATED RINGERS 1,000 ML 42 ML IV ×2 (09:25→16:03)
--- NOTE | 2022-01-12 10:14 | PM.PREOP ---
Pre-operative Note COVID-19 COVID-19 status: Negative Interval Note History & Physical reviewed/Exam performed by Physician: Yes Changes to H&P: No ASA Class (for procedural sedation): II
--- NOTE | 2022-01-12 10:50 | SUR.PREOP ---
Notified patient of pending delay for surgery until about 12:30 due to the fact that patient had Ensure at 0800 this morning. Reminded patient that only 8 oz of water allowed with medications. V/U. Notified family member of delay. V/U.
[2022-01-12] MEDS: CEFAZOLIN 2 GM/20 ML SYRINGE IV (12:50)
--- NOTE | 2022-01-12 14:11 | SUR.OPER ---
Supine on padded OR bed, head on pillow, safety belt at thigh, left arm padded and tucked at side. Right arm secured on padded arm board <90 degrees abduction. Legs uncrossed. Padded footboard in place. Tape over blanket to secure lower legs. Directed and approved by surgeon
[2022-01-12] MEDS: LIDOCAINE 1% W/EPI 20 ML INJ (14:15)
[2022-01-12] MEDS: BUPIVACAINE 0.5% (PF) VIAL 30 ML INJ (14:15)
--- NOTE | 2022-01-12 14:28 | PM.OP.1 ---
Operative Date/Time/Diagnoses Date of procedure: 01/12/22 Time of procedure: 14:28 Pre-op diagnosis: Gallstones Procedure & Clinicians Procedure: Laparoscopic cholecystectomy Same procedure as scheduled: Yes Surgeon: Yang Mckeon Operative Notes Procedure in detail: The patient was given preoperative antibiotic. The patient was brought to the operating room, placed on the table in the supine position. General endotracheal anesthesia was induced. The abdomen was prepped and draped. A time-out was performed. We made a 1 cm infraumbilical incision. We dissected down to the base of the umbilical stalk using cautery. We grasped the umbilical stalk with a Michelle clamp to elevate the abdominal wall. There was a small umbilical hernia containing fat which was about a cm in diameter. Finger was inserted and pushed through the peritoneum tension the abdominal cavity. The Amaris port was placed and the abdomen was insufflated to 15 mmHg. A 5 mm 30 degree laparoscopic was inserted. There was no evidence of any injury from the entry. Next, we placed 5 mm ports in the subxiphoid position and right upper quadrant at the midclavicular line and anterior axillary line. Patient was then positioned in reverse Trendelenburg and the table was tilted to the left. The gallbladder was grasped at the dome and retracted cephalad. We then dissected the cystic structures with a combination of hook cautery and blunt dissection. We obtained a critical view. We placed hemoclips on the cystic duct and artery and divided the cystic duct and artery sharply between the clips. The gallbladder was then dissected off the liver and placed in a specimen retrieval bag. We irrigated the right upper quadrant and all the aspirate returned clear. We then removed the 5 mm ports under direct vision we removed the Amaris port. We then injected some local into the fascia and closed the fascia with 3 interrupted 0 Vicryl sutures. The skin incisions were closed with 4 Monocryl and Steri-Strips were applied. Band-Aids were applied over the Steri-Strips. EBL: 30 mL Specimen: Gallbladder Post-operative Condition: stable Disposition: PACU
[2022-01-12] MEDS: ONDANSETRON 4 MG/2 ML INJ IV (14:47)
[2022-01-12] MEDS: HYDROMORPHONE 2 MG INJ IV ×2 (14:47→15:00)
[2022-01-12] MEDS: ACETAMINOPHEN 325 MG TABLET 650 MG PO (14:58)
[2022-01-12] MEDS: OXYCODONE IR 5 MG TABLET PO (14:59)
[2022-01-12] MEDS: hydrOXYzine 50 MG/ML INJ 25 MG IM (15:21)
[2022-01-12] MEDS: METOCLOPRAMIDE 10 MG/2 ML INJ IV (15:23)
--- NOTE | 2022-01-12 17:04 | SUR.PHASEII ---
Pt changed in bathroom with minimal assistance after ambulating on own with slow but steady gait. +[facility] Pt denies pain, denies nausea, states she feel better. VSS.
== END 2022-01-12 17:19 | disposition home or self-care (01) ==
PROVIDERS: PCP Internal Medicine; Referring Provider Surgery; Visit Provider Surgery
PROC: 0FT44ZZ Resection of Gallbladder, Percutaneous Endoscopic Approach (ICD-10-PCS; CPT 47562; principal; 2022-01-12 10:15)
DX: K80.10 Calculus of gallbladder with chronic cholecystitis without obstruction (principal); I10 Essential (primary) hypertension; K58.9 Irritable bowel syndrome, unspecified; Z20.822 Contact with and (suspected) exposure to COVID-19
CPT/HCPCS: 47562; 87635; C9803; J0690; J1100; J1170; J2405; J2704; J2765; J3010; J3410

== ENCOUNTER 2022-04-16 08:50 | Emergency (ER) | payer MEDICARE, SELFPAY ==
[2021-12-14 13:07] VITALS: BMI 30.4
[2022-04-16 09:05] VITALS: BP 143/74; PULSE 85; RESP 16; TEMP 36.8; O2SAT 96; BMI 31.8
[2022-04-16 09:30] LABS: Add Manual Diff / Slide Review NO; Basophils Absolute Auto 0 /uL (0-100); Basophils Percent Auto 0.5 % (0-2); Eosinophils Absolute Auto 200 /uL (0-450); Eosinophils Percent Auto 1.7 % (2-4); Hematocrit 43.4 % (36-46); Hemoglobin 14.9 g/dL (12.0-16.0); Lymphocytes Absolute Auto 1500 /uL (1100-4500); Lymphocytes Percent Auto 16.6 % (25-40); Mean Corpuscular HGB Conc 34.3 % (30-36); Mean Corpuscular Hemoglobin 30.2 PG (26-34); Mean Corpuscular Volume 88.1 fL (80-100); Monocytes Absolute Auto 600 /uL (0-900); Monocytes Percent Auto 6.9 % (3-14); Neutrophils Absolute Auto 6700 /uL (1500-7000); Neutrophils Percent Auto 74.3 % (50-75); Platelet Count 184 X10^3/uL (150-400); Red Blood Cell Count 4.93 X10^6/uL (4.0-5.2); Red Cell Distribution Width 14.1 % (11.6-14.8)
[2022-04-16 09:31] LABS: INR 1.1 (0.9-1.3); Prothrombin Time 12.2 SECONDS (10.1-12.7)
[2022-04-16 09:33] LABS: PTT Partial Thromboplastin Tim 42 SECONDS (26-36)
--- NOTE | 2022-04-16 09:33 | DI.CT.S_ITS ---
PROCEDURE: CT ABDOMEN PELVIS W CON INDICATIONS: Right-sided abdominal pain, history of appy and cholecystect TECHNIQUE: After the administration of intravenous contrast, axial sections acquired from the lung bases to the pubic symphysis. Coronal and sagittal reformats were performed. For radiation dose reduction, the following was used: automated exposure control, adjustment of mA and/or kV according to patient size. COMPARISON: [facility], CT, CT ABDOMEN PELVIS W CON, 02/17/2021, 15:53. [facility], CT, CT ABDOMEN PELVIS W CON, 09/21/2021, 11:27. FINDINGS: Image quality: Excellent. Lung bases: Unremarkable. Heart: No significant findings. ABDOMEN: Liver: Overall homogeneous enhancement and normal size. A 1.5 x 2.2 cm hypodense lesion is present within the right hepatic lobe which is unchanged from the study dated February 17, 2021 and likely represents a small hepatic hemangioma, but is incompletely characterized. Gallbladder: Surgically absent. Biliary ducts: Unremarkable. Pancreas: Unremarkable. Spleen: Unremarkable. Adrenal Glands: Unremarkable. Kidneys and Ureters: Unremarkable. Low-density exophytic cysts are present bilaterally within the renal cortices. Stomach and Bowel: Stomach, small bowel loops, and colon are unremarkable. The appendix is surgically absent. Peritoneum: No abnormal intraperitoneal fluid. No free air. Ventral Wall: No hernias. Abdominal Nodes: No retroperitoneal or mesenteric adenopathy by size criteria. Vessels: Aorta and inferior vena cava are normal in size. PELVIS: Pelvic Organs: Unremarkable. Bladder: Unremarkable. Pelvic Nodes: No enlarged lymph nodes. Miscellaneous: No hernias are seen. Bones: Left hip arthroplasty is grossly intact. Posterior fixation hardware is grossly intact. No acute fracture or dislocation. A small bone island is present within the right pubic root. IMPRESSION: 1. No acute intra-abdominal findings. 2. Probable hepatic hemangioma which is incompletely characterized. If further characterization is warranted, nonemergent hepatic ultrasound or hepatic protocol CT or MRI could be used to further characterize findings. Dictated by: Ines Leigh M.D. on 04/16/2022 at 10:09 Approved by: Ines Leigh M.D. on 04/16/2022 at 10:13
--- NOTE | 2022-04-16 09:34 | ED.GENADULT ---
HPI - General Adult General Chief complaint: Abdominal Pain Stated complaint: Abd pain x 2 days Time Seen by Provider: 04/16/22 09:29 Source: patient Mode of arrival: Ambulatory History of Present Illness HPI narrative: Patient is a 72-year-old female. Arrives by private vehicle for 2 days of right-sided abdominal pain and also diarrhea. No nausea vomiting. She has had an appy and a cholecystectomy in the past. She denies any chest pain and shortness of breath. Denies any urinary symptoms. No vaginal bleeding. States that the abdominal pain does not seem to be made worse or better by the diarrhea. She did take Tylenol prior to arrival which has helped her symptoms somewhat. The symptoms started after she ate some chili a couple days ago. Has never had discomfort like this in the past. Related Data Home Medications Medication Instructions Recorded Confirmed acetaminophen 650 mg 650 mg PO BID 04/18/19 01/12/22 tablet,extended release Previous Rx's Medication Instructions Recorded sodium sul 1.479 gram-potas ch See Rx Instructions PO PER PKG DIR 03/18/22 0.188 gram-magnes sul 0.225 gram #24 tabs tablet (Sutab) Allergies Allergy/AdvReac Type Severity Reaction Status Date / Time hydrocodone AdvReac Mild Jittery, Verified 04/16/22 09:10 nervous, shakey Review of Systems Review of Systems ROS Unobtainable: All systems reviewed & are unremarkable except as noted in HPI and below Patient History Medical History Arthritis Depression Former smoker HTN (hypertension) IBS (irritable bowel syndrome) Pelvic fracture Spinal stenosis Surgical History H/O: hysterectomy History of arthroplasty of left shoulder (~2015) History of arthroplasty of right knee History of laparoscopic appendectomy (02/17/21) History of lumbar fusion (04/26/19) History of lumbar fusion (12/17/20) History of total left hip arthroplasty Hx of bilateral cataract extraction Hx of thyroidectomy Hx of tonsillectomy Social History household members: none Smoking Status: Never smoker alcohol intake: never Smoking Status: Never smoker alcohol intake frequency: other Substance Use Type: does not use Exam Initial Vital Signs Initial Vital Signs: Vital Signs Temperature 98.3 F 04/16/22 09:05 Pulse Rate 85 04/16/22 09:05 Respiratory Rate 16 04/16/22 09:05 Blood Pressure 143/74 H 04/16/22 09:05 Pulse Oximetry 96 04/16/22 09:05 Oxygen Delivery Method 04/16/22 09:05 Const General: cooperative and healthy appearing [facility] Head: normal to inspection and normocephalic Resp Effort & Inspection: normal respiratory effort Auscultation: clear to auscultation bilaterally Cardio Rate: regular rate Rhythm: regular rhythm GI Palpation: soft, No firm, No guarding and No tender Skin General: no rashes or lesions noted Neuro General: patient alert, patient awake and moves all extremities Extrem General: normal to inspection and capillary refill normal Psych Appearance: grossly normal and well kempt Course Orders Ordered: ED Orders 04/16/22 09:17 Complete Blood Count AUTO DIFF Stat Comprehensive Metabolic Panel Stat Lipase Stat Partial Thromboplastin Time Stat Prothrombin Time INR Stat 04/16/22 09:25 EKG-12 Lead Stat 04/16/22 09:33 CT abdomen pelvis w con Stat Vital Signs Vital signs: Vital Signs - 8 hr 04/16/22 09:05 Temperature 98.3 F Pulse Rate 85 Respiratory Rate 16 Blood Pressure 143/74 H Pulse Oximetry 96 Oxygen Delivery Method Room Air Medical Decision Making Lab Data Result diagrams: 04/16/22 09:17 04/16/22 09:17 Labs: Lab Results 04/16/22 04/16/22 04/16/22 Range/Units 09:17 09:17 09:17 WBC 9.0 (4.5-11.0) X10^3/uL RBC 4.93 (4.0-5.2) X10^6/uL Hgb 14.9 (12.0-16.0) g/dL Hct 43.4 (36-46) % MCV 88.1 (80-100) fL MCH 30.2 (26-34) PG MCHC 34.3 (30-36) % RDW 14.1 (11.6-14.8) % Plt Count 184 (150-400) X10^3/uL Neut % (Auto) 74.3 (50-75) % Lymph % (Auto) 16.6 L (25-40) % Da[place]hin % (Auto) 6.9 (3-14) % Eos % (Auto) 1.7 L (2-4) % Baso % (Auto) 0.5 (0-2) % Neut # (Auto) 6700 (3239-4616) /uL Lymph # (Auto) 1500 (1910-1789) /uL Da[place]hin # (Auto) 600 (0-900) /uL Eos # (Auto) 200 (0-450) /uL Baso # (Auto) 0 (0-100) /uL PT 12.2 (10.1-12.7) SECONDS INR 1.1 (0.9-1.3) APTT 42 H (26-36) SECONDS Sodium 140 (137-145) mmol/L Potassium 3.9 (3.4-5.1) mmol/L Chloride 108 H (98-107) mmol/L Carbon Dioxide 25 (22-32) mmol/L BUN 24 H (7-17) mg/dL Creatinine 0.63 (0.52-1.04) mg/dL Estimated GFR > 60 (>60) mL/min BUN/Creatinine Ratio 38.1 H (6-22) Glucose 95 (80-110) mg/dL Calcium 9.0 (8.4-10.2) mg/dL Total Bilirubin 0.6 (0.2-1.3) mg/dL AST 20 (14-36) IU/L ALT 17 (<35) IU/L Alkaline Phosphatase 74 (38-126) U/L Total Protein 7.3 (6.3-8.2) g/dL Albumin 4.2 (3.5-5.0) g/dL Globulin 3.1 (1.7-4.1) g/dL Albumin/Globulin Ratio 1.4 (1.0-2.8) Lipase 39 (23-300) U/L Imaging Data CT scan - abdomen/pelvis: Radiologist's Impression: [address] [address] [address] Scan Report Signed Patient: Veronica Calle MR#: [id number] : 1950 Acct:[id number] Age/Sex: 72 / F Date of Service: 04/16/22 Loc: ED Accession Number: [id number] ?? Procedure: CT abdomen pelvis w con Ordering Provider: Refugio Yost D.O. PROCEDURE:? CT ABDOMEN PELVIS W CON ? INDICATIONS:? Right-sided abdominal pain, history of appy and cholecystect ? TECHNIQUE:? After the administration of intravenous contrast, axial sections acquired from the lung bases to the pubic symphysis.? Coronal and sagittal reformats were performed.? For radiation dose reduction, the following was used:? automated exposure control, adjustment of mA and/or kV according to patient size.? ? COMPARISON:? [facility], CT, CT ABDOMEN PELVIS W CON, 02/17/2021, 15:53.? [facility], CT, CT ABDOMEN PELVIS W CON, 09/21/2021, 11:27. ? FINDINGS:? Image quality:? Excellent.? ? Lung bases:? Unremarkable. Heart:? No significant findings. ? ABDOMEN: Liver:? Overall homogeneous enhancement and normal size.? A 1.5 x 2.2 cm hypodense lesion is present within the right hepatic lobe which is unchanged from the study dated February 17, 2021 and likely represents a small hepatic hemangioma, but is incompletely characterized. Gallbladder:? Surgically absent.? ? Biliary ducts:? Unremarkable.? ? Pancreas:? Unremarkable.? ? Spleen:? Unremarkable.? ? Adrenal Glands:? Unremarkable.? ? Kidneys and Ureters:? Unremarkable. ? Low-density exophytic cysts are present bilaterally within the renal cortices.? ? Stomach and Bowel:? Stomach, small bowel loops, and colon are unremarkable.? The appendix is surgically absent. Peritoneum:? No abnormal intraperitoneal fluid.? No free air.? ? Ventral Wall: ? No hernias.? Abdominal Nodes:? No retroperitoneal or mesenteric adenopathy by size criteria.? Vessels:? Aorta and inferior vena cava are normal in size.? ? PELVIS: Pelvic Organs:? Unremarkable.? ? Bladder:? Unremarkable.? ? Pelvic Nodes: No enlarged lymph nodes.? Miscellaneous: No hernias are seen. ? ? ? Bones:? Left hip arthroplasty is grossly intact.? Posterior fixation hardware is grossly intact.? No acute fracture or dislocation.? A small bone island is present within the right pubic root. ? ? IMPRESSION:? ? 1. No acute intra-abdominal findings. ? 2. Probable hepatic hemangioma which is incompletely characterized.? If further characterization is warranted, nonemergent hepatic ultrasound or hepatic protocol CT or MRI could be used to further characterize findings.? ? ? Dictated by: Ines Leigh M.D. on 04/16/2022 at 10:09 ? ? Approved by: Ines Leigh M.D. on 04/16/2022 at 10:13? ECG Data Attestation: I personally reviewed and interpreted this ECG as follows: Interpretation: Sinus rhythm Ventricular rate 80 Normal axis Normal QRS Normal QTC Nonspecific ST T wave changes MDM Narrative Medical decision making narrative: Patient's labs are unremarkable. CT scan is unremarkable. She is no urinary symptoms. I suspect that her right-sided abdominal discomfort is related to the food that she ate and also the diarrhea. No indication for antibiotics. No indication for admission to the hospital. She was instructed to contact her primary doctor for follow-up. She expressed understanding and agreement. Discharge Plan Departure Patient Disposition: Home Clinical Impression: Abdominal pain, Diarrhea Instructions: DI for Abdominal Pain-Adult Activity Restrictions/Additional Instructions: You can continue to take all of your medications as directed. You can take one 325 mg Tylenol pill every 4 hours as needed for discomfort. Contact your primary doctor for a follow-up. Return to the emergency department for any new or worsening symptoms. Prescriptions: No Action Sutab 1.479-0.188- 0.225 gram tablet See Rx Instructions PO PER PKG DIR Qty: 24 0RF Rx Instructions: Take as directed by Physician acetaminophen 650 mg Tablet Extended Release 650 mg PO BID
[2022-04-16 09:35] LABS: Alanine Aminotransferase 17 IU/L (<35); Albumin 4.2 g/dL (3.5-5.0); Albumin Globulin Ratio 1.4 (1.0-2.8); Alkaline Phosphatase 74 U/L (38-126); Aspartate Aminotransferase 20 IU/L (14-36); BUN Creatinine Ratio 38.1 (6-22); Bilirubin Total 0.6 mg/dL (0.2-1.3); Blood Urea Nitrogen 24 mg/dL (7-17); Carbon Dioxide 25 mmol/L (22-32); Chloride 108 mmol/L (98-107); Estimated Glomerular Filt Rate > 60 mL/min (>60); Globulin 3.1 g/dL (1.7-4.1); Glucose 95 mg/dL (80-110); HEMOLYSIS < 15 (0-50); Lipase 39 U/L (23-300); Potassium 3.9 mmol/L (3.4-5.1); Sodium 140 mmol/L (137-145); Total Protein 7.3 g/dL (6.3-8.2)
[2022-04-16 10:41] VITALS: BP 152/69; PULSE 70; RESP 18; O2SAT 95
== END 2022-04-16 10:42 | disposition home or self-care (01) ==
PROVIDERS: Emergency Provider Emergency Medicine
DX: R10.9 Unspecified abdominal pain (principal); R19.7 Diarrhea, unspecified
CPT/HCPCS: 36415; 74177; 80053; 83690; 85025; 85610; 85730; 93005; 99284; Q9967

== ENCOUNTER → 2022-04-21 13:23 | Outpatient (CLI) | payer MEDICARE, SELFPAY ==
[2021-12-14 13:07] VITALS: BMI 30.4
--- NOTE | 2022-04-21 | DI.CT.S_ITS ---
PROCEDURE: CT KIDNEY URETER BLADDER (KUB) INDICATIONS: Right lower quadrant pain TECHNIQUE: Axial sections were acquired from the lung bases to the pubic symphysis. Coronal and sagittal reformats were performed. For radiation dose reduction, the following was used: automated exposure control, adjustment of mA and/or kV according to patient size. COMPARISON: [facility], CT, CT ABDOMEN PELVIS W CON, 04/16/2022, 9:59. [facility], CT, CT ABDOMEN PELVIS W CON, 09/21/2021, 11:27. FINDINGS: Image quality: Excellent. Lung bases: Unremarkable. Heart: No significant findings. URINARY: Right Kidney: No stones or hydronephrosis. Right Ureter: No hydroureter. Left Kidney: No stones or hydronephrosis. Left Ureter: No hydroureter. Bladder: There is mild bladder wall thickening. No stones. ABDOMEN: Liver: Unremarkable. Gallbladder: Not visualized. No likely surgically resected Biliary ducts: Unremarkable. Pancreas: Unremarkable. Spleen: Unremarkable. Adrenal Glands: Unremarkable. Stomach and Bowel: Stomach, small bowel loops, and colon are unremarkable. Peritoneum: No abnormal intraperitoneal fluid. No free air. Ventral Wall: No hernia. Abdominal Nodes: No enlarged retroperitoneal or mesenteric lymph nodes. Vessels: Aorta and inferior vena cava are normal in size. PELVIS: Pelvic Organs: Unremarkable. Pelvic Nodes: Unremarkable. Miscellaneous: No inguinal hernias are seen. Bones: Left hip arthroplasty. Extensive degenerative changes in lumbar spine. There are multiple small foci of sclerotic lesions involving T10, right iliac bone, right pubis and left ischium, most likely a bone islands. IMPRESSION: 1. No renal stone or hydronephrosis. 2. Bladder wall thickening suggesting cystitis. Recommend clinical correlation. 3. Multiple small foci of osseous sclerosis are seen, most likely bone islands. If the patient has personal history of cancer, a whole body bone scan would be helpful. Dictated by: Stanislaw Pina M.D. on 04/21/2022 at 17:58 Approved by: Stanislaw Pina M.D. on 04/22/2022 at 9:19
== END ==
PROVIDERS: PCP Internal Medicine; Referring Provider Internal Medicine; Visit Provider Internal Medicine
DX: R10.31 Right lower quadrant pain (principal)
CPT/HCPCS: 74176

== ENCOUNTER → 2022-04-28 14:32 | Outpatient (CLI) | payer MEDICARE, SELFPAY ==
[2021-12-14 13:07] VITALS: BMI 30.4
[2022-04-28 16:57] LABS: COVID19 -Nasal RAPID Negative (Negative)
== END ==
PROVIDERS: PCP Internal Medicine; Visit Provider Surgery
DX: Z01.812 Encounter for preprocedural laboratory examination (principal); Z20.822 Contact with and (suspected) exposure to COVID-19
CPT/HCPCS: 87635; C9803

== ENCOUNTER 2022-04-29 10:11 | Day surgery (SDC) | payer MEDICARE, SELFPAY ==
[2021-12-14 13:07] VITALS: BMI 30.4
[2022-04-29 10:32] VITALS: BP 135/85; PULSE 86; RESP 18; TEMP 36.2; O2SAT 95; BMI 31.6
[2022-04-29] MEDS: LACTATED RINGERS 1,000 ML 42 ML IV (10:40)
--- NOTE | 2022-04-29 11:32 | PM.OP.COLON ---
Operative Date/Time/Diagnoses Date of procedure: 04/29/22 Time of procedure: 11:55 Pre-op diagnosis: Colon cancer screening Post-op diagnosis: same Procedure & Clinicians Study performed: Colonoscopy Same procedure as scheduled: Yes Surgeon: Yang Mckeon Procedure Notes Procedure in detail: Surgeon: Yang Mckeon MD Procedure: The patient was brought to the endoscopy suite, placed in left lateral decubitus position. The patient was connected to monitoring devices. A time-out was performed. Sedation was administered. Once the patient was adequately sedated, a digital rectal exam was performed and solid stool was palpated in the rectal vault. The scope was then inserted and advanced. There was solid stool throughout the colon however the colonoscope was able to be advanced around the solid stool and reached the cecum. The appendiceal orifice was identified and photographed. The scope was then withdrawn and the colon was inspected as much as possible however the inadequate prep precluded thorough examination colon. There were no obvious mass lesions. The scope was removed. The patient was awakened and brought to recovery. Versed: 4 mg Fentanyl: 100 mcg EBL: 0 Findings: Inadequate prep Plan: The patient will be offered an opportunity repeat her prep and the colonoscopy in the future Scope withdrawal time: Not applicable Sedation minutes: 12 Post-procedure Disposition: PACU
--- NOTE | 2022-04-29 11:32 | PM.HP.1 ---
History of Present Illness History of Present Illness Date Patient Seen: 04/29/22 Time Patient Seen: 11:32 Chief complaint: SCREENING COLONOSCOPY Narrative: Veronica is here for a colonoscopy. She is not had 1 in quite a few years. She reports that she is had left lower abdominal pain for the past 2 days and she thinks she may have diverticulitis. Patient History Medical History Arthritis Depression Former smoker HTN (hypertension) IBS (irritable bowel syndrome) Pelvic fracture Spinal stenosis Surgical History H/O: hysterectomy History of arthroplasty of left shoulder (~2015) History of arthroplasty of right knee History of laparoscopic appendectomy (02/17/21) History of lumbar fusion (04/26/19) History of lumbar fusion (12/17/20) History of total left hip arthroplasty Hx of bilateral cataract extraction Hx of thyroidectomy Hx of tonsillectomy Family & Social History Social History: household members none Tobacco & Substance use: Smoking Status Never smoker alcohol intake never alcohol intake frequency other Substance Use Type does not use Meds Home Medications and Allergies Home Medications Medication Instructions Recorded Confirmed Type acetaminophen 650 mg 650 mg PO BID prn 04/18/19 04/29/22 History tablet,extended release sodium sul 1.479 gram-potas ch See Rx Instructions PO PER PKG DIR 03/18/22 Rx 0.188 gram-magnes sul 0.225 gram #24 tabs tablet (Sutab) Allergies Allergy/AdvReac Type Severity Reaction Status Date / Time hydrocodone AdvReac Mild Jittery, Verified 04/29/22 10:28 nervous, shakey Exam Vital Signs (past 8 hours): - 04/29/22 10:32 Temperature 97.2 F L Pulse Rate 86 Respiratory Rate 18 Blood Pressure 135/85 Pulse Oximetry 95 Oxygen Delivery Method Room Air Oxygen Flow Rate 0 Oxygen Delivery Method Room Air Oxygen Flow Rate 0 Narrative Exam Narrative: Abdomen is soft with mild tenderness to deep palpation in the left lower quadrant without peritoneal findings Assessment & Plan Assessment and plan (1) Colon cancer screening: Status: Acute Plan I reviewed the risks and benefits of colonoscopy with Veronica. I informed Veronica that if her sigmoid colon looks very inflamed I would most likely abort the procedure because there is a risk causing perforation if she has active diverticulitis. We will proceed cautiously. Time Spent With Patient Critical Care time: I spent a total of [] minutes of critical care time on this patient's care today; this time is exclusive of procedural time.
[2022-04-29] MEDS: fentaNYL 100 MCG/2 ML INJ IV (11:39)
[2022-04-29] MEDS: MIDAZOLAM 5 MG/5 ML VIAL 4 MG IV (11:39)
[2022-04-29 12:02] VITALS: BP 113/55; PULSE 69; RESP 18; O2SAT 96
[2022-04-29 12:07] VITALS: BP 116/65; PULSE 75; RESP 19; O2SAT 96
[2022-04-29 12:14] VITALS: BP 119/67; PULSE 72; RESP 18; TEMP 36.7; O2SAT 97
[2022-04-29 12:18] VITALS: BP 121/72; PULSE 71; RESP 12; O2SAT 98
--- NOTE | 2022-04-29 14:12 | SUR.PHASEII ---
LATE ENTRY: Patient tells recovery nurse that she was never given any instructions about a colon prep and never performed a colon prep prior to surgery, although patient told Pre-op nurse that her output was clear. Advised patient that she would have to reschedule and perform a complete colon prep in the future.
== END 2022-04-29 12:18 | disposition home or self-care (01) ==
PROVIDERS: PCP Internal Medicine; Referring Provider Surgery; Visit Provider Surgery
PROC: 0DJD8ZZ Inspection of Lower Intestinal Tract, Via Natural or Artificial Opening Endoscopic (ICD-10-PCS; CPT 45378; principal; 2022-04-29 12:30)
DX: Z12.11 Encounter for screening for malignant neoplasm of colon (principal)
CPT/HCPCS: G0121; 99152; J2250; J3010

== ENCOUNTER → 2022-05-25 11:03 | Outpatient (CLI) | payer MEDICARE, SELFPAY ==
[2021-12-14 13:07] VITALS: BMI 30.4
[2022-05-25 12:40] LABS: COVID19 -Nasal RAPID Negative (Negative)
== END ==
PROVIDERS: PCP Internal Medicine; Visit Provider Surgery
DX: Z20.822 Contact with and (suspected) exposure to COVID-19 (principal); Z01.812 Encounter for preprocedural laboratory examination
CPT/HCPCS: 87635; C9803

== ENCOUNTER 2022-05-27 12:20 | Day surgery (SDC) | payer MEDICARE, SELFPAY ==
[2021-12-14 13:07] VITALS: BMI 30.4
[2022-05-27] VITALS (7 sets, daily range): BP systolic 119–143; BP diastolic 70–81; PULSE 65–82; RESP 15–22; TEMP 36.3–36.4; O2SAT 95–996; BMI 30.9
--- NOTE | 2022-05-27 | PATH_ITS ---
[facility] Accession Number: [id number] . 01 Material submitted: . sigmoid colon - SIGMOID POLYP . 01 Diagnosis: Sigmoid Colon, Polyp, Biopsy: Hyperplastic Polyp. [facility] 05/31/2022 1215 Local . 01 Electronically signed: . Iman Figueroa MD, Pathologist NPI- [id number] . 01 Gross description: . SIGMOID POLYP: Received in formalin are 2 fragment(s) of kelly, soft tissue measuring 0.3 x 0.2 x 0.2 cm to 0.6 x 0.4 x 0.3 cm submitted entirely in 1 cassette(s) /[facility] 05/29/2022 0027 Local . 01 Pathologist provided ICD-10: K63.5 . 01 CPT . 643276 Specimen Comment: A courtesy copy of this report has been sent to [phone] Performed at: 01 [facility] [address] [place] [address] Suite [facility][note 3], [place], [place] [id number] MD Francisco Avery MD Phone: [phone]
[2022-05-27] MEDS: LACTATED RINGERS 1,000 ML 84 ML IV (12:45)
--- NOTE | 2022-05-27 14:10 | PM.HP.1 ---
History of Present Illness History of Present Illness Date Patient Seen: 05/27/22 Time Patient Seen: 14:10 Chief complaint: SCREENING COLONOSCOPY W/POSS BX Narrative: Veronica is here for her colonoscopy. See prior office visits for details Patient History Medical History Arthritis Depression Former smoker HTN (hypertension) IBS (irritable bowel syndrome) Pelvic fracture Spinal stenosis Surgical History H/O: hysterectomy History of arthroplasty of left shoulder (~2015) History of arthroplasty of right knee History of laparoscopic appendectomy (02/17/21) History of lumbar fusion (04/26/19) History of lumbar fusion (12/17/20) History of total left hip arthroplasty Hx of bilateral cataract extraction Hx of thyroidectomy Hx of tonsillectomy Family & Social History Social History: household members none Tobacco & Substance use: Smoking Status Never smoker alcohol intake never alcohol intake frequency other Substance Use Type does not use Meds Home Medications and Allergies Home Medications Medication Instructions Recorded Confirmed Type acetaminophen 650 mg 650 mg PO BID prn 04/18/19 05/27/22 History tablet,extended release sodium sul 1.479 gram-potas ch See Rx Instructions PO PER PKG DIR 03/18/22 Rx 0.188 gram-magnes sul 0.225 gram #24 tabs tablet (Sutab) Allergies Allergy/AdvReac Type Severity Reaction Status Date / Time hydrocodone AdvReac Mild Jittery, Verified 05/27/22 12:41 nervous, shakey Exam Vital Signs (past 8 hours): - 05/27/22 12:27 Temperature 97.5 F L Pulse Rate 82 Respiratory Rate 15 Blood Pressure 136/81 Pulse Oximetry 996 H Oxygen Delivery Method Room Air Oxygen Delivery Method Room Air Const General: No acute distress Assessment & Plan Assessment and plan (1) Colon cancer screening: Status: Acute Plan We reviewed the risks and benefits of colonoscopy for colon cancer screening and she would like to proceed. Time Spent With Patient Critical Care time: I spent a total of [] minutes of critical care time on this patient's care today; this time is exclusive of procedural time.
[2022-05-27] MEDS: fentaNYL 100 MCG/2 ML INJ 125 MCG IV (14:33)
[2022-05-27] MEDS: MIDAZOLAM 5 MG/5 ML VIAL IV (14:34)
--- NOTE | 2022-05-27 14:44 | PM.OP.COLON ---
Operative Date/Time/Diagnoses Date of procedure: 05/27/22 Time of procedure: 14:45 Pre-op diagnosis: Colon cancer screening Post-op diagnosis: same Procedure & Clinicians Study performed: Colonoscopy Same procedure as scheduled: Yes Surgeon: Yang Mckeon Procedure Notes Procedure in detail: Surgeon: Yang Mckeon MD Procedure: The patient was brought to the endoscopy suite, placed in left lateral decubitus position. The patient was connected to monitoring devices. A time-out was performed. Sedation was administered. Once the patient was adequately sedated, a digital rectal exam was performed and was normal. The scope was then inserted and advanced to the cecum where the appendiceal orifice was identified and photographed. The scope was then slowly withdrawn over greater than 6 minutes. The mucosa was thoroughly inspected. There was a small polyp in the sigmoid colon about 5 mm. This was removed with a cold snare. The scope was retroflexed in the rectum. No abnormalities were noted. The scope was straightened and removed. The patient was awakened and brought to recovery. Versed: 5 mg Fentanyl: 125 mcg EBL: 5 mL Findings: 5 mm sigmoid colon polyp Scope withdrawal time: 11 Sedation minutes: 23 Post-procedure Recommendations: Will call with biopsy results Disposition: PACU
--- NOTE | 2022-05-27 15:14 | SUR.PHASEII ---
Received report. Patient expressed desire to discharge but upon standing at the bedside patient became nauseated. Patient returned to the bedside. IV fluid rate increased. Quease provided. Call light within reach.
[2022-05-27] MEDS: ONDANSETRON 4 MG ODT SL (15:31)
--- NOTE | 2022-05-27 15:31 | SUR.PHASEII ---
Patient sat, then stood at the bed side and reported feeling well enough to discharge but then became nauseated after the IV was removed. Dr. Mckeon notified. KANNAN Lucio ordered and provided.
--- NOTE | 2022-05-27 15:55 | SUR.PHASEII ---
Patient attempted to get dressed and vomited 200mls clear, green fluid.
--- NOTE | 2022-05-27 16:42 | SUR.PHASEII ---
Patient able to dress independently. Discharged without further incident.
== END 2022-05-27 16:00 | disposition home or self-care (01) ==
PROVIDERS: PCP Internal Medicine; Referring Provider Surgery; Visit Provider Surgery
PROC: 0DJD8ZZ Inspection of Lower Intestinal Tract, Via Natural or Artificial Opening Endoscopic (ICD-10-PCS; CPT 45378; principal; 2022-05-27 13:30)
DX: Z12.11 Encounter for screening for malignant neoplasm of colon (principal); K63.5 Polyp of colon
CPT/HCPCS: 45385; 99152; J2250; J3010

== ENCOUNTER 2022-07-16 14:30 | Emergency (ER) | payer MEDICARE, SELFPAY ==
[2021-12-14 13:07] VITALS: BMI 30.4
[2022-07-16] VITALS (10 sets, daily range): BP systolic 137–154; BP diastolic 68–91; PULSE 69–99; RESP 20; TEMP 35.8; O2SAT 95–99; BMI 30.7
[2022-07-16 15:16] LABS: Add Manual Diff / Slide Review NO; Basophils Absolute Auto 0 /uL (0-100); Basophils Percent Auto 0.3 % (0-2); Eosinophils Absolute Auto 0 /uL (0-450); Eosinophils Percent Auto 0.5 % (2-4); Hematocrit 44.6 % (36-46); Lymphocytes Absolute Auto 1400 /uL (1100-4500); Lymphocytes Percent Auto 15.4 % (25-40); Mean Corpuscular HGB Conc 33.8 % (30-36); Mean Corpuscular Hemoglobin 29.8 PG (26-34); Mean Corpuscular Volume 88.3 fL (80-100); Monocytes Absolute Auto 500 /uL (0-900); Monocytes Percent Auto 5.8 % (3-14); Neutrophils Absolute Auto 7200 /uL (1500-7000); Platelet Count 207 X10^3/uL (150-400); Red Blood Cell Count 5.05 X10^6/uL (4.0-5.2); Red Cell Distribution Width 13.6 % (11.6-14.8); White Blood Cell Count 9.3 X10^3/uL (4.5-11.0)
[2022-07-16 15:27] LABS: Alanine Aminotransferase 19 IU/L (<35); Albumin 4.4 g/dL (3.5-5.0); Albumin Globulin Ratio 1.5 (1.0-2.8); Alkaline Phosphatase 79 U/L (38-126); Aspartate Aminotransferase 19 IU/L (14-36); BUN Creatinine Ratio 29.1 (6-22); Bilirubin Total 0.5 mg/dL (0.2-1.3); Blood Urea Nitrogen 16 mg/dL (7-17); Calcium 9.4 mg/dL (8.4-10.2); Carbon Dioxide 25 mmol/L (22-32); Chloride 105 mmol/L (98-107); Estimated Glomerular Filt Rate > 60 mL/min (>60); Globulin 2.9 g/dL (1.7-4.1); Glucose 97 mg/dL (80-110); HEMOLYSIS < 15 (0-50); Lipase 27 U/L (23-300); Potassium 3.9 mmol/L (3.4-5.1); Sodium 141 mmol/L (137-145); Total Protein 7.3 g/dL (6.3-8.2)
--- NOTE | 2022-07-16 19:01 | ED_ITS ---
HPI - Abdominal Pain General Chief Complaint: Abdominal Pain Stated Complaint: pain in right abdomen Time Seen by Provider: 07/16/22 18:48 Source: patient Mode of arrival: Ambulatory History of Present Illness HPI narrative: Patient is a 72-year-old female without past medical history presenting today with right lower quadrant pain ongoing for last 2 days. It started suddenly it does not move or radiate. No flank pain. No fever chills no change in bowel habits no nausea vomiting. She has a history of cholecystectomy appendectomy h ysterectomy. He does have a remote history of diverticulitis. She did have colonoscopy 05/27/2022 where there was a 5 mm sigmoid colon polyp which was removed otherwise unremarkable. She says she took [id number] align medication this morning to help a little bit with the pain but now is having some discomfort. Related Data Home Medications Medication Instructions Recorded Confirmed acetaminophen 650 mg 650 mg PO BID prn 04/18/19 05/27/22 tablet,extended release Previous Rx's Medication Instructions Recorded cephalexin 500 mg capsule 500 mg PO BID 7 days #14 caps 07/16/22 Allergies Allergy/AdvReac Type Severity Reaction Status Date / Time hydrocodone AdvReac Mild Jittery, Verified 05/27/22 12:41 nervous, jose jkey Review of Systems Review of Systems Narrative: GENERAL: Denies chills, fatigue, malaise, fever, sweats, travel HEENT: Denies sinus pain, ear pain, sore throat, difficulty swallowing, neck pain RESPIRATORY: Denies dyspnea, cough, wheezing, hemoptysis, sputum. CARDIOVASCULAR: Denies chest pain, palpitations, orthopnea, edema GASTROINTESTINAL: See HPI : Denies dysuria, frequency, incontinence, hematuria, urinary retention, flank pain. MUSCULOSKELETAL: Denies weakness, joint pain, or bony pain SKIN: No rash, no erythema, no pruritus NEUROLOGIC: Denies weakness, dizziness, headache, numbness, change in speech, confusion PSYCHIATRIC: No concerning psychosocial issues. 12 point review of systems is negative except for those stated above and HPI Patient History Medical History Arthritis Depression Former smoker HTN (hypertension) IBS (irritable bowel syndrome) Pelvic fracture Spinal stenosis Surgical History H/O: hysterectomy History of arthroplasty of left shoulder (~2016) History of arthroplasty of right knee History of laparoscopic appendectomy (02/17/21) History of lumbar fusion (04/26/19) History of lumbar fusion (12/17/20) History of total left hip arthroplasty Hx of bilateral cataract extraction Hx of thyroidectomy Hx of tonsillectomy Social History household members: none Smoking Status: Never smoker alcohol intake: never Smoking Status: Never smoker alcohol intake frequency: other Substance Use Type: does not use Exam Initial Vital Signs Initial Vital Signs: Vital Signs Temperature 96.4 F L 07/16/22 14:39 Pulse Rate 99 H 07/16/22 14:39 Respiratory Rate 20 07/16/22 14:39 Blood Pressure 154/87 H 07/16/22 14:39 Pulse Oximetry 97 07/16/22 14:39 Oxygen Delivery Method 07/16/22 14:39 GENERAL: Alert pleasant 72-year-old female no acute distress and in no acute distress. HEENT: Head atraumatic,EOMI, pupils reactive, face symmetric, moist mucous membranes CARDIOVASCULAR: Regular rate and rhythm without murmurs, rubs or gallops. RESPIRATORY: Breath sounds equal bilaterally, no wheezes rales or rhonchi. ABDOMEN: Soft, mild right lower quadrant tenderness no guarding no rebound : No CVA tenderness EXTREMITIES: Normal range of motion, no clubbing or edema. Neurovascularly intact NEUROLOGICAL: Alert and oriented x4.Normal gait and speech. SKIN: Warm, dry, no laceration, no petechiae, no rashes or lesions. Course Orders Ordered: ED Orders 07/16/22 19:04 CT abdomen pelvis w con Stat 07/16/22 19:25 EKG-12 Lead Stat Discontinued Medications Cefazolin Sodium (Cephalexin 250 Mg Prepack) 1 bottle MISC SEEINSTR ONE Stop: 07/16/22 22:10 Last Admin: 07/16/22 22:21 Dose: 2 cap Documented By: KARLO Ketorolac Tromethamine (Ketorolac 30 Mg/Ml Vial) 15 mg IV NOW ONE Stop: 07/16/22 19:05 Last Admin: 07/16/22 19:14 Dose: 15 mg Documented By: KARLO Ondansetron HCl (Ondansetron 4 Mg Odt) 4 mg PO NOW PRN PRN Reason: Nausea And Vomiting Ondansetron HCl (Ondansetron 4 Mg/2 Ml Inj) 4 mg IV NOW PRN PRN Reason: Nausea And Vomiting Vital Signs Vital signs: Vital Signs - 8 hr 07/16/22 19:30 07/16/22 19:30 07/16/22 20:00 Pulse Rate 69 Blood Pressure 138/77 146/70 H Pulse Oximetry 99 Oxygen Delivery Method Room Air 07/16/22 20:00 07/16/22 20:30 07/16/22 20:30 Pulse Rate 75 70 Blood Pressure 137/68 Pulse Oximetry 97 96 Oxygen Delivery Method 07/16/22 21:00 07/16/22 21:30 07/16/22 22:00 Pulse Rate 74 73 70 Blood Pressure Pulse Oximetry 97 96 96 Oxygen Delivery Method MDM - Abdominal Pain Lab Data Result diagrams: 07/16/22 15:08 07/16/22 15:08 Labs: Lab Results 07/16/22 07/16/22 07/16/22 Range/Units 15:08 15:08 15:17 WBC 9.3 (4.5-11.0) X10^3/uL RBC 5.05 (4.0-5.2) X10^6/uL Hgb 15.0 (12.0-16.0) g/dL Hct 44.6 (36-46) % MCV 88.3 (80-100) fL MCH 29.8 (26-34) PG MCHC 33.8 (30-36) % RDW 13.6 (11.6-14.8) % Plt Count 207 (150-400) X10^3/uL Neut % (Auto) 78.0 H (50-75) % Lymph % (Auto) 15.4 L (25-40) % [place] % (Auto) 5.8 (3-14) % Eos % (Auto) 0.5 L (2-4) % Baso % (Auto) 0.3 (0-2) % Neut # (Auto) 7200 H (0770-2757) /uL Lymph # (Auto) 1400 (0585-6929) /uL [place] # (Auto) 500 (0-900) /uL Eos # (Auto) 0 (0-450) /uL Baso # (Auto) 0 (0-100) /uL Sodium 141 (137-145) mmol/L Potassium 3.9 (3.4-5.1) mmol/L Chloride 105 (98-107) mmol/L Carbon Dioxide 25 (22-32) mmol/L BUN 16 (7-17) mg/dL Creatinine 0.55 (0.52-1.04) mg/dL Estimated GFR > 60 (>60) mL/min BUN/Creatinine Ratio 29.1 H (6-22) Glucose 97 (80-110) mg/dL Calcium 9.4 (8.4-10.2) mg/dL Total Bilirubin 0.5 (0.2-1.3) mg/dL AST 19 (14-36) IU/L ALT 19 (<35) IU/L Alkaline Phosphatase 79 (38-126) U/L Total Protein 7.3 (6.3-8.2) g/dL Albumin 4.4 (3.5-5.0) g/dL Globulin 2.9 (1.7-4.1) g/dL Albumin/Globulin Ratio 1.5 (1.0-2.8) Lipase 27 (23-300) U/L Urine RBC 0-1/hpf (0-5/HPF) Urine WBC 5-10/hpf H (0-5/HPF) Ur Squamous Epith Cells 1-5 /hpf (0-5/HPF) Urine Bacteria Moderate (10-30) H (None) Ur Culture Indicated? Specimen cultured Point of care testing: Urine Dip Bedside Urine Glucose Negative Bedside Urine Bilirubin - Negative Bedside Urine Ketone - Negative Urine Specific [place] 1.030 Bedside Urine Occult Blood - Negative Bedside Urine pH 6.0 Bedside Urine Protein - Negative Bedside Urine Urobilinogen - Negative Bedside Urine Nitrite - Negative Bedside Urine Leukocytes + [address] scan - abdomen/pelvis: Radiologist's Impression: CT Scan Report Signed Patient: Veronica Calle MR#: [id number] : 1950 Acct:[id number] Age/Sex: 72 / F Date of Service: 07/16/22 Loc: ED Accession Number: [id number] ?? Procedure: CT abdomen pelvis w con Ordering Provider: Emily Park D.O. PROCEDURE:? CT ABDOMEN PELVIS W CON ? INDICATIONS:? rlq pain ? TECHNIQUE:? After the administration of oral and IV contrast, axial sections were acquired from the lung bases to the pubic symphysis.? Coronal and sagittal reformats were performed.? For radiation dose reduction, the following was used:? automated exposure control, adjustment of mA and/or kV according to patient size. ? COMPARISON:? [facility], CT, CT ABDOMEN PELVIS W CON, 02/17/2021, 15:53.? [facility], CT, CT ABDOMEN PELVIS W CON, 05/03/2021, 16:56.? [facility], CT, CT ABDOMEN PELVIS W CON, 04/16/2022, 9:59. ? FINDINGS:? Image quality:? There is metallic streak artifact from patient's left hip prosthesis and surgical hardware in the lumbar spine limiting evaluation. ? Lung bases:? There is mild scarring in the lung bases.? ? Heart:? Heart is normal in size. ? ? ABDOMEN: Liver:? There is an oval hypodense lesion with indistinct margins in the right hepatic lobe measuring up to 1.8 x 1.0 cm on series 2, image 19 which appears similar in size compared to the prior studies given differences in the phase of enhancement.? The findings are nonspecific but suggestive of a hemangioma.? Gallbladder:? Surgically absent. Biliary ducts:? No biliary ductal dilatation.? ? Pancreas:? Unremarkable.? ? Spleen:? Normal in size.? ? Adrenal Glands:? No adrenal nodules.? ? Kidneys and Ureters:? No hydronephrosis.? There is an exophytic cyst redemonstrated in the right kidney.? ? Stomach and Bowel:? Stomach, small bowel loops, and colon are normal in caliber and wall thickness.? The appendix is not discretely visualized but there are surgical sutures along the cecum likely related to prior appendectomy.? Peritoneum:? No abnormal intraperitoneal fluid.? No free air.? ? Ventral Wall: ? No hernia.? Abdominal Nodes:? No retroperitoneal or mesenteric adenopathy by size criteria.? Vessels:? Aorta and inferior vena cava are normal in size.? ? PELVIS: Pelvic Organs:? Unremarkable.? ? Bladder:? The urinary bladder is nondistended? ? Pelvic Nodes: No enlarged lymph nodes.? Miscellaneous: No inguinal hernias are seen. ? ? ? Bones:? Visualized osseous structures demonstrate no suspicious focal lesions. ? IMPRESSION:? ? 1.? No definite acute intra-abdominal abnormality to correlate with patient's right lower quadrant pain.? ? 2. Appendix is not discretely visualized and likely surgically absent. ? 3. No evidence of obstructive uropathy. ? ? Dictated by: Francisco Mancini M.D. on 07/16/2022 at 21:57 ? ? ECG Data Interpretation: Sinus rhythm rate 68 IL interval 136 QRS 82 QTC 446 T-wave inversion noted in lead 3 similar to previous EKG April [address] changes MDM Narrative Medical decision making narrative: Patient presenting today with right lower quadrant pain. It has been there for 2 days blood work is unremarkable CT does not show any abnormality. His head of bilateral oophorectomy along with hysterectomy at his appendectomy and cholecystectomy. At this time I have no cause of her right lower quadrant pain. Her urine does have leukocytes and bacteria she is possibly having some symptoms of a UTI will start her on Keflex. At this time she is not septic. No evidence of kidney stone. She was given Toradol here help. Discharge Plan Departure Patient Disposition: Home Clinical Impression: Acute UTI Instructions: DI for Urinary Tract Infection (UTI) Activity Restrictions/Additional Instructions: *You have been diagnosed with bladder infection *What to do: At this time workup today shows that you probably have a bladder infection. *Continue to take medications as directed Keflex 500 mg twice a day for 5 days --> SENT TO [facility] *Follow up with your primary care provider in 2-3 days or call [phone] *Return to ER if you should have increasing abdominal pain nausea vomiting fever or any new, worsening or concerning symptoms Prescriptions: New cephalexin 500 mg capsule 500 mg PO BID 7 Days Qty: 14 0RF No Action acetaminophen 650 mg Tablet Extended Release 650 mg PO BID Referrals: Amparo Browne MD [Primary Care Provider] - Visit Report Forms: Patient Portal/API
--- NOTE | 2022-07-16 19:04 | DI.CT.S_ITS ---
PROCEDURE: CT ABDOMEN PELVIS W CON INDICATIONS: rlq pain TECHNIQUE: After the administration of oral and IV contrast, axial sections were acquired from the lung bases to the pubic symphysis. Coronal and sagittal reformats were performed. For radiation dose reduction, the following was used: automated exposure control, adjustment of mA and/or kV according to patient size. COMPARISON: [facility], CT, CT ABDOMEN PELVIS W CON, 02/17/2021, 15:53. [facility], CT, CT ABDOMEN PELVIS W CON, 05/03/2021, 16:56. [facility], CT, CT ABDOMEN PELVIS W CON, 04/16/2022, 9:59. FINDINGS: Image quality: There is metallic streak artifact from patient's left hip prosthesis and surgical hardware in the lumbar spine limiting evaluation. Lung bases: There is mild scarring in the lung bases. Heart: Heart is normal in size. ABDOMEN: Liver: There is an oval hypodense lesion with indistinct margins in the right hepatic lobe measuring up to 1.8 x 1.0 cm on series 2, image 19 which appears similar in size compared to the prior studies given differences in the phase of enhancement. The findings are nonspecific but suggestive of a hemangioma. Gallbladder: Surgically absent. Biliary ducts: No biliary ductal dilatation. Pancreas: Unremarkable. Spleen: Normal in size. Adrenal Glands: No adrenal nodules. Kidneys and Ureters: No hydronephrosis. There is an exophytic cyst redemonstrated in the right kidney. Stomach and Bowel: Stomach, small bowel loops, and colon are normal in caliber and wall thickness. The appendix is not discretely visualized but there are surgical sutures along the cecum likely related to prior appendectomy. Peritoneum: No abnormal intraperitoneal fluid. No free air. Ventral Wall: No hernia. Abdominal Nodes: No retroperitoneal or mesenteric adenopathy by size criteria. Vessels: Aorta and inferior vena cava are normal in size. PELVIS: Pelvic Organs: Unremarkable. Bladder: The urinary bladder is nondistended Pelvic Nodes: No enlarged lymph nodes. Miscellaneous: No inguinal hernias are seen. Bones: Visualized osseous structures demonstrate no suspicious focal lesions. IMPRESSION: 1. No definite acute intra-abdominal abnormality to correlate with patient's right lower quadrant pain. 2. Appendix is not discretely visualized and likely surgically absent. 3. No evidence of obstructive uropathy. Dictated by: Francisco Mancini M.D. on 07/16/2022 at 21:57 Approved by: Francisco Mancini M.D. on 07/16/2022 at 22:04
[2022-07-16] MEDS: KETOROLAC 30 MG/ML VIAL 15 MG IV (19:14)
[2022-07-16 21:38] LABS: Bacteria Urine Moderate (10-30); Culture Indicated Urine Specimen Cultured; RBC Urine 0-1/HPF (0-5/HPF); Squamous Epithelial Cell Urine 1-5 /HPF (0-5/HPF); WBC Urine 5-10/HPF (0-5/HPF)
[2022-07-16] MEDS: cephALEXin 250 MG PREPACK 1 BOTTLE MISC (22:21)
== END 2022-07-16 22:27 | disposition home or self-care (01) ==
PROVIDERS: Emergency Medicine; Emergency Provider Emergency Medicine; PCP Internal Medicine
DX: N39.0 Urinary tract infection, site not specified (principal); R10.31 Right lower quadrant pain
CPT/HCPCS: 36415; 74177; 80053; 81003; 81015; 83690; 85025; 87086; 93005; 96374; 99284; J1885; Q9967

== ENCOUNTER 2022-08-09 11:57 | Emergency (ER) | payer MEDICARE, SELFPAY ==
[2021-12-14 13:07] VITALS: BMI 30.4
[2022-08-09 12:17] VITALS: BP 132/69; PULSE 85; RESP 14; TEMP 36.2; O2SAT 97; BMI 29.7
[2022-08-09 12:47] LABS: Add Manual Diff / Slide Review NO; Basophils Absolute Auto 0 /uL (0-100); Basophils Percent Auto 0.3 % (0-2); Eosinophils Absolute Auto 100 /uL (0-450); Eosinophils Percent Auto 0.8 % (2-4); Hematocrit 44.3 % (36-46); Hemoglobin 14.7 g/dL (12.0-16.0); Lymphocytes Absolute Auto 1500 /uL (1100-4500); Lymphocytes Percent Auto 20.5 % (25-40); Mean Corpuscular HGB Conc 33.3 % (30-36); Mean Corpuscular Hemoglobin 29.6 PG (26-34); Monocytes Absolute Auto 500 /uL (0-900); Monocytes Percent Auto 7.5 % (3-14); Neutrophils Absolute Auto 5100 /uL (1500-7000); Neutrophils Percent Auto 70.9 % (50-75); Platelet Count 161 X10^3/uL (150-400); Red Blood Cell Count 4.98 X10^6/uL (4.0-5.2); Red Cell Distribution Width 13.9 % (11.6-14.8); White Blood Cell Count 7.3 X10^3/uL (4.5-11.0)
[2022-08-09 12:57] LABS: Alanine Aminotransferase 36 IU/L (<35); Albumin 4.1 g/dL (3.5-5.0); Albumin Globulin Ratio 1.3 (1.0-2.8); Alkaline Phosphatase 66 U/L (38-126); Aspartate Aminotransferase 33 IU/L (14-36); BUN Creatinine Ratio 31.4 (6-22); Bilirubin Total 0.8 mg/dL (0.2-1.3); Blood Urea Nitrogen 16 mg/dL (7-17); Calcium 9.1 mg/dL (8.4-10.2); Carbon Dioxide 22 mmol/L (22-32); Chloride 103 mmol/L (98-107); Estimated Glomerular Filt Rate > 60 mL/min (>60); Globulin 3.1 g/dL (1.7-4.1); Glucose 95 mg/dL (80-110); HEMOLYSIS 32 (0-50); Lipase 30 U/L (23-300); Potassium 3.8 mmol/L (3.4-5.1); Sodium 138 mmol/L (137-145); Total Protein 7.2 g/dL (6.3-8.2)
[2022-08-09 13:18] LABS: Influenza A - CEPHEID Flu A NEGATIVE (NEGATIVE); Influenza B - CEPHEID Flu B NEGATIVE (NEGATIVE); Respiratory Syncytial Virus Negative (Negative)
[2022-08-09 13:19] LABS: COVID-19 CEPHEID 4-PLEX PCR Negative (Negative)
[2022-08-09 16:00] VITALS: BP 133/70; PULSE 70; RESP 18; O2SAT 98
--- NOTE | 2022-08-09 17:31 | ED.ABDPAIN ---
HPI - Abdominal Pain General Chief Complaint: Abdominal Pain Stated Complaint: abdominal pain x2 days Time Seen by Provider: 08/09/22 17:19 Source: patient Mode of arrival: Ambulatory History of Present Illness HPI narrative: Patient is a 72-year-old female without past medical history presenting today with abdominal pain and some right flank pain. She was actually seen evaluated here earlier this month by myself for something similar. She says her pain actually improved with antibiotics. But then is feeling it again. She feels like it might be radiating through to her stomach but difficult to tell. She also has had previous back surgery her tried along 1 of her scars. No nausea vomiting or fever. She denies any painful or frequent urination. She denies any hematuria. No upper abdominal pain no chest pain shortness breath or other symptoms. She previously had a CT earlier this month which was unremarkable. She is prior history of hysterectomy oophorectomy cholecystectomy, and appendectomy Related Data Home Medications Medication Instructions Recorded Confirmed acetaminophen 650 mg 650 mg PO BID prn 04/18/19 05/27/22 tablet,extended release Allergies Allergy/AdvReac Type Severity Reaction Status Date / Time hydrocodone AdvReac Mild Jittery, Verified 08/09/22 12:21 nervous, shakey Review of Systems Review of Systems ROS Unobtainable: All systems reviewed & are unremarkable except as noted in HPI and below Patient History Medical History Arthritis Depression Former smoker HTN (hypertension) IBS (irritable bowel syndrome) Pelvic fracture Spinal stenosis Surgical History H/O: hysterectomy History of arthroplasty of left shoulder (~2015) History of arthroplasty of right knee History of laparoscopic appendectomy (02/17/21) History of lumbar fusion (04/26/19) History of lumbar fusion (12/17/20) History of total left hip arthroplasty Hx of bilateral cataract extraction Hx of thyroidectomy Hx of tonsillectomy Social History household members: none Smoking Status: Never smoker alcohol intake: never Smoking Status: Never smoker alcohol intake frequency: other Substance Use Type: does not use Exam Initial Vital Signs Initial Vital Signs: Vital Signs Temperature 97.1 F L 08/09/22 12:17 Pulse Rate 85 08/09/22 12:17 Respiratory Rate 14 08/09/22 12:17 Blood Pressure 132/69 08/09/22 12:17 Pulse Oximetry 97 08/09/22 12:17 Oxygen Delivery Method 08/09/22 12:17 GENERAL: Alert pleasant 72-year-old female and in no acute distress. CARDIOVASCULAR: Regular rate and rhythm without murmurs, rubs or gallops. RESPIRATORY: Breath sounds equal bilaterally, no wheezes rales or rhonchi. ABDOMEN: Soft minimal lower abdominal pain slightly suprapubic slightly on the right guarding no rebound no upper abdominal pain : Minimal right CVA tenderness EXTREMITIES: Normal range of motion, no clubbing or edema. Neurovascularly intact NEUROLOGICAL: Alert and oriented x4.Normal gait and speech. SKIN: Warm, dry, no laceration, no petechiae, no rashes or lesions. Course Orders Ordered: ED Orders 08/09/22 12:21 EKG-12 Lead Stat 08/09/22 12:24 Covid-19 + FLU A/B + RSV - PCR Stat 08/09/22 12:32 Complete Blood Count AUTO DIFF Stat Comprehensive Metabolic Panel Stat Lipase Stat 08/09/22 17:38 CT kidney ureter bladder (KUB) Stat Ondansetron HCl (Ondansetron 4 Mg/2 Ml Inj) 4 mg IV NOW PRN PRN Reason: Nausea And Vomiting Discontinued Medications Acetaminophen (Acetaminophen 325 Mg Tablet) 650 mg PO NOW ONE Stop: 08/09/22 17:20 Last Admin: 08/09/22 17:33 Dose: 650 mg Vital Signs Vital signs: Vital Signs - 8 hr 08/09/22 12:17 Temperature 97.1 F L Pulse Rate 85 Respiratory Rate 14 Blood Pressure 132/69 Pulse Oximetry 97 Oxygen Delivery Method Room Air MDM - Abdominal Pain Lab Data Result diagrams: 08/09/22 12:32 08/09/22 12:32 Labs: Lab Results 08/09/22 08/09/22 08/09/22 Range/Units 12:24 12:32 12:32 WBC 7.3 (4.5-11.0) X10^3/uL RBC 4.98 (4.0-5.2) X10^6/uL Hgb 14.7 (12.0-16.0) g/dL Hct 44.3 (36-46) % MCV 89.0 (80-100) fL MCH 29.6 (26-34) PG MCHC 33.3 (30-36) % RDW 13.9 (11.6-14.8) % Plt Count 161 (150-400) X10^3/uL Neut % (Auto) 70.9 (50-75) % Lymph % (Auto) 20.5 L (25-40) % [place] % (Auto) 7.5 (3-14) % Eos % (Auto) 0.8 L (2-4) % Baso % (Auto) 0.3 (0-2) % Neut # (Auto) 5100 (1501-5484) /uL Lymph # (Auto) 1500 (2464-0349) /uL [place] # (Auto) 500 (0-900) /uL Eos # (Auto) 100 (0-450) /uL Baso # (Auto) 0 (0-100) /uL Sodium 138 (137-145) mmol/L Potassium 3.8 (3.4-5.1) mmol/L Chloride 103 (98-107) mmol/L Carbon Dioxide 22 (22-32) mmol/L BUN 16 (7-17) mg/dL Creatinine 0.51 L (0.52-1.04) mg/dL Estimated GFR > 60 (>60) mL/min BUN/Creatinine Ratio 31.4 H (6-22) Glucose 95 (80-110) mg/dL Calcium 9.1 (8.4-10.2) mg/dL Total Bilirubin 0.8 (0.2-1.3) mg/dL AST 33 (14-36) IU/L ALT 36 H (<35) IU/L Alkaline Phosphatase 66 (38-126) U/L Total Protein 7.2 (6.3-8.2) g/dL Albumin 4.1 (3.5-5.0) g/dL Globulin 3.1 (1.7-4.1) g/dL Albumin/Globulin Ratio 1.3 (1.0-2.8) Lipase 30 (23-300) U/L SARS-CoV-2 (PCR) Negative (Negative) Influenza A (RT-PCR) Flu a negative (NEGATIVE) Influenza B (RT-PCR) Flu b negative (NEGATIVE) RSV (PCR) Negative (Negative) Imaging Data CT scan - abdomen/pelvis: Radiologist's Impression: CT Scan Report Signed Patient: Veronica Calle MR#: [id number] : 1950 Acct:[id number] Age/Sex: 72 / F Date of Service: 08/09/22 Loc: ED Accession Number: [id number] ?? Procedure: CT kidney ureter bladder (KUB) Ordering Provider: Emily Park D.O. PROCEDURE:? CT KIDNEY URETER BLADDER (KUB) ? INDICATIONS:? right flank pain ? TECHNIQUE:? Axial sections were acquired from the lung bases to the pubic symphysis.? Coronal and sagittal reformats were performed.? For radiation dose reduction, the following was used: ?automated exposure control, adjustment of mA and/or kV according to patient size.? ? COMPARISON:? [facility], CT, CT ABDOMEN PELVIS W CON, 05/03/2021, 16:56.? [facility], CT, CT ABDOMEN PELVIS W CON, 09/21/2021, 11:27.? [facility], CT, CT ABDOMEN PELVIS W CON, 07/16/2022, 20:04.? [facility], CT, CT KIDNEY URETER BLADDER (KUB), 04/21/2022, 13:34. ? FINDINGS:? Image quality: There is artifact associated with the metallic hardware. ? Artifact from the metallic hardware is reduced by metal reconstruction algorithm.? ? Lung bases:? Unremarkable.? ? Heart:? No significant findings. ? URINARY: Right Kidney: ? No stones or hydronephrosis.? Right Ureter:? No hydroureter.? ? Left Kidney: ? No stones or hydronephrosis. Left Ureter:? No hydroureter.? ? Bladder:? Normal wall thickness. No stones. ? ? ? ABDOMEN: Liver:? Unremarkable.? ? Gallbladder:? Removed.? ? Biliary ducts:? Unremarkable.? ? Pancreas:? Unremarkable.? ? Spleen:? Unremarkable.? ? Adrenal Glands:? Unremarkable.? ? ? Stomach and Bowel:? Stomach, small bowel loops, and colon are unremarkable.? Appendectomy change can be seen. Peritoneum:? No abnormal intraperitoneal fluid.? No free air.? ? Ventral Wall: A mild periumbilical hernia is seen, containing fat. ? There is a curvilinear metallic foreign body seen involving the subcutaneous fat of the left anterior abdominal wall, as on series 2, image 50. Abdominal Nodes:? No enlarged retroperitoneal or mesenteric lymph nodes.? Vessels:? Aorta and inferior vena cava are normal in size.? ? PELVIS: Pelvic Organs: This patient is status post hysterectomy. No adnexal masses are seen.? Pelvic Nodes: Unremarkable. Miscellaneous: No inguinal hernias are seen. ? ? ? Bones:? Lumbar fixation hardware is seen.? Left hip arthroplasty hardware is present.? Likely bone islands are again seen.? S-shaped scoliotic curvature is seen. ? IMPRESSION:? ? Negative for kidney stones or obstructive uropathy. ? ? ? Additional findings: Cholecystectomy Periumbilical hernia Apparent bone islands 2.8 cm curvilinear foreign body involving the left anterior abdominal wall, stable. Appendectomy change S shaped scoliotic curvature Hysterectomy Lumbar fixation hardware Left hip arthroplasty hardware ? ? ? Dictated by: Sushant Peña M.D. on 08/09/2022 at 17:12 ? ? MDM Narrative Medical decision making narrative: Patient is a 72-year-old female presenting with ongoing abdominal discomfort. This is similar to when she presented previously. Blood work today is overall reassuring. No sign of UTI. She did have a colonoscopy in May of this year. At this time I have no explanation for her ongoing abdominal pain. No need for hospital admission she took Tylenol which did help some. No need for antibiotics. At this time recommend outpatient follow-up possible GI consultation. She is had multiple surgery no sign of obstruction. Initially thought might be a kidney stone with some right flank pain and abdominal pain but no kidney stone is found and she has no hematuria. Discharge Plan Departure Patient Disposition: Home Clinical Impression: Abdominal pain Instructions: DI for Abdominal Pain-Adult Activity Restrictions/Additional Instructions: *You have been diagnosed with abdominal pain *What to do: At this time blood work and CT scan do not show cause of your abdominal pain. This seems to be something that is ongoing for you. I recommend following up with GI doctor and or your primary care provider. No need for antibiotics at this time. *Continue to take medications as directed *Follow up with your primary care provider in 2-3 days or call [phone] *Return to ER if you should have fevers chills persistent vomiting intense pain or any new, worsening or concerning symptoms Prescriptions: No Action acetaminophen 650 mg Tablet Extended Release 650 mg PO BID Referrals: Amparo Browne MD [Primary Care Provider] -
[2022-08-09] MEDS: ACETAMINOPHEN 325 MG TABLET 650 MG PO (17:33)
--- NOTE | 2022-08-09 17:38 | DI.CT.S_ITS ---
PROCEDURE: CT KIDNEY URETER BLADDER (KUB) INDICATIONS: right flank pain TECHNIQUE: Axial sections were acquired from the lung bases to the pubic symphysis. Coronal and sagittal reformats were performed. For radiation dose reduction, the following was used: automated exposure control, adjustment of mA and/or kV according to patient size. COMPARISON: [facility], CT, CT ABDOMEN PELVIS W CON, 05/03/2021, 16:56. [facility], CT, CT ABDOMEN PELVIS W CON, 09/21/2021, 11:27. [facility], CT, CT ABDOMEN PELVIS W CON, 07/16/2022, 20:04. [facility], CT, CT KIDNEY URETER BLADDER (KUB), 04/21/2022, 13:34. FINDINGS: Image quality: There is artifact associated with the metallic hardware. Artifact from the metallic hardware is reduced by metal reconstruction algorithm. Lung bases: Unremarkable. Heart: No significant findings. URINARY: Right Kidney: No stones or hydronephrosis. Right Ureter: No hydroureter. Left Kidney: No stones or hydronephrosis. Left Ureter: No hydroureter. Bladder: Normal wall thickness. No stones. ABDOMEN: Liver: Unremarkable. Gallbladder: Removed. Biliary ducts: Unremarkable. Pancreas: Unremarkable. Spleen: Unremarkable. Adrenal Glands: Unremarkable. Stomach and Bowel: Stomach, small bowel loops, and colon are unremarkable. Appendectomy change can be seen. Peritoneum: No abnormal intraperitoneal fluid. No free air. Ventral Wall: A mild periumbilical hernia is seen, containing fat. There is a curvilinear metallic foreign body seen involving the subcutaneous fat of the left anterior abdominal wall, as on series 2, image 50. Abdominal Nodes: No enlarged retroperitoneal or mesenteric lymph nodes. Vessels: Aorta and inferior vena cava are normal in size. PELVIS: Pelvic Organs: This patient is status post hysterectomy. No adnexal masses are seen. Pelvic Nodes: Unremarkable. Miscellaneous: No inguinal hernias are seen. Bones: Lumbar fixation hardware is seen. Left hip arthroplasty hardware is present. Likely bone islands are again seen. S-shaped scoliotic curvature is seen. IMPRESSION: Negative for kidney stones or obstructive uropathy. Additional findings: Cholecystectomy Periumbilical hernia Apparent bone islands 2.8 cm curvilinear foreign body involving the left anterior abdominal wall, stable. Appendectomy change S shaped scoliotic curvature Hysterectomy Lumbar fixation hardware Left hip arthroplasty hardware Dictated by: Sushant Peña M.D. on 08/09/2022 at 17:12 Approved by: Sushant Peña M.D. on 08/09/2022 at 17:17
[2022-08-09 19:00] VITALS: BP 145/69; PULSE 70; RESP 18; O2SAT 96
== END 2022-08-09 19:09 | disposition home or self-care (01) ==
PROVIDERS: Emergency Provider Emergency Medicine; PCP Internal Medicine
DX: R10.9 Unspecified abdominal pain (principal); Z20.822 Contact with and (suspected) exposure to COVID-19
CPT/HCPCS: 0241U; 36415; 74176; 80053; 81003; 83690; 85025; 99284

== ENCOUNTER 2022-09-21 20:58 | Emergency (ER) | payer MEDICARE, SELFPAY ==
[2021-12-14 13:07] VITALS: BMI 30.4
--- NOTE | 2022-09-21 21:03 | ED_ITS ---
HPI - Abdominal Pain General Chief Complaint: Abdominal Pain Stated Complaint: abd pain Time Seen by Provider: 09/21/22 21:00 History of Present Illness HPI narrative: 72-year-old female nonsmoker without chronic medical history presents for evaluation severe right lower quadrant pain worsening over the course of the day. She states it is sharp and stabbing and severe in nature. She denies any radiation of the pain. She states that it is worse with motion seems to improve with rest. She is nauseated but denies any vomiting. She denies fever or chills. She denies any dizziness, weakness or lightheadedness. She is had no chest pain or shortness of breath. She denies any change in bowels or urinary abnormalities. She is had no vaginal bleeding or discharge. Prior abdominal surgeries include appendectomy, cholecystectomy and she states she is had a hysterectomy and bilateral oophorectomy. She denies change in medications or diet. She has had no trauma or injury. Related Data Home Medications Medication Instructions Recorded Confirmed acetaminophen 650 mg 650 mg PO BID prn 04/18/19 05/27/22 tablet,extended release Allergies Allergy/AdvReac Type Severity Reaction Status Date / Time hydrocodone AdvReac Mild Jittery, Verified 08/09/22 12:21 nervous, jose jkey Review of Systems Review of Systems Narrative: GENERAL: Denies chills, fatigue, malaise, fever, sweats. HEENT: Denies sinus pain, ear pain, sore throat, difficulty swallowing, dizziness. RESPIRATORY: Denies dyspnea, cough, wheezing, hemoptysis, sputum. CARDIOVASCULAR: Denies chest pain, palpitations, orthopnea, edema, GASTROINTESTINAL: See HPI : Denies dysuria, frequency, incontinence, hematuria, urinary retention. MUSCULOSKELETAL: denies weakness, joint pain, or bony pain SKIN: Denies rash, skin lesions, or other NEUROLOGIC: Denies weakness, headache, numbness, change in speech, confusion, seizures, incoordination. PSYCHIATRIC: No concerning psychosocial issues. 12 point review of systems is negative except for those stated above Patient History Medical History Arthritis Depression Former smoker HTN (hypertension) IBS (irritable bowel syndrome) Pelvic fracture Spinal stenosis Surgical History H/O: hysterectomy History of arthroplasty of left shoulder (~2016) History of arthroplasty of right knee History of laparoscopic appendectomy (02/17/21) History of lumbar fusion (04/26/19) History of lumbar fusion (12/17/20) History of total left hip arthroplasty Hx of bilateral cataract extraction Hx of thyroidectomy Hx of tonsillectomy Social History household members: none Smoking Status: Never smoker alcohol intake: never Smoking Status: Never smoker alcohol intake frequency: other Substance Use Type: does not use Exam Narrative Exam Narrative: GENERAL: [72] year old patient appears stated age. Well-developed patient, in mild distress. Appears uncomfortable HEAD: Atraumatic. Normocephalic. EYES: Pupils equal round and reactive. Extraocular motions intact. No scleral icterus. No injection or drainage. ENT: Nose without bleeding, purulent drainage. Throat without erythema, tonsillar hypertrophy or exudate. Airway patent. NECK: Trachea midline. Non tender CARDIOVASCULAR: Regular rate and rhythm without murmurs, gallops, or rubs. RESPIRATORY: Clear to auscultation. Breath sounds equal bilaterally. No wheezes, rales, or rhonchi. GASTROINTESTINAL: Abdomen soft, tender in the right lower quadrant, nondistended. Bowel sounds present in all 4 quadrants EXTREMITIES: No edema or joint tenderness. BACK: Nontender without deformity or crepitance. No flank tenderness. NEURO: AOx3. SKIN: No rash or erythema of visible areas Initial Vital Signs Initial Vital Signs: Vital Signs Temperature 97.8 F 09/21/22 21:05 Pulse Rate 70 09/21/22 21:05 Respiratory Rate 16 09/21/22 21:05 Blood Pressure 168/79 H 09/21/22 21:05 Pulse Oximetry 98 09/21/22 21:05 Oxygen Delivery Method 09/21/22 21:05 Course Orders Ordered: ED Orders 09/21/22 20:12 Complete Blood Count AUTO DIFF Stat Comprehensive Metabolic Panel Stat Lactate (Lactic Acid) Stat Lipase Stat Magnesium Stat 09/21/22 21:08 CT abdomen pelvis w con Stat Discontinued Medications Sodium Chloride (Normal Saline 0.9%) 1,000 mls @ 1,000 mls/hr IV BOLUS ONE Stop: 09/21/22 22:07 Last Infusion: 02/07/23 22:18 Dose: 0 mls/hr Documented By: Admin: 09/21/22 21:13 Dose: 1,000 mls/hr Documented By: KAR Vital Signs Vital signs: Vital Signs - 8 hr 09/21/22 21:05 09/21/22 21:07 09/21/22 21:15 Temperature 97.8 F Pulse Rate 70 69 66 Respiratory Rate 16 Blood Pressure 168/79 H Pulse Oximetry 98 99 96 Oxygen Delivery Method Room Air 09/21/22 21:22 09/21/22 21:22 09/21/22 21:30 Temperature Pulse Rate 65 Respiratory Rate Blood Pressure 151/67 H 148/70 H Pulse Oximetry 98 Oxygen Delivery Method 09/21/22 21:30 09/21/22 22:57 Temperature Pulse Rate 64 68 Respiratory Rate 18 Blood Pressure 141/69 H Pulse Oximetry 97 98 Oxygen Delivery Method Room Air MDM - Abdominal Pain Lab Data 09/21/22 20:12 09/21/22 20:12 Labs: Lab Results 09/21/22 09/21/22 09/21/22 Range/Units 20:12 20:12 20:12 WBC 6.3 (4.5-11.0) X10^3/uL RBC 5.05 (4.0-5.2) X10^6/uL Hgb 15.1 (12.0-16.0) g/dL Hct 45.4 (36-46) % MCV 89.9 (80-100) fL MCH 29.9 (26-34) PG MCHC 33.3 (30-36) % RDW 14.2 (11.6-14.8) % Plt Count 179 (150-400) X10^3/uL Neut % (Auto) 60.8 (50-75) % Lymph % (Auto) 31.4 (25-40) % [place] % (Auto) 6.0 (3-14) % Eos % (Auto) 1.2 L (2-4) % Baso % (Auto) 0.6 (0-2) % Neut # (Auto) 3800 (8969-1248) /uL Lymph # (Auto) 2000 (6744-4453) /uL [place] # (Auto) 400 (0-900) /uL Eos # (Auto) 100 (0-450) /uL Baso # (Auto) 0 (0-100) /uL Sodium 143 (137-145) mmol/L Potassium 3.6 (3.4-5.1) mmol/L Chloride 105 (98-107) mmol/L Carbon Dioxide 29 (22-32) mmol/L BUN 13 (7-17) mg/dL Creatinine 0.55 (0.52-1.04) mg/dL Estimated GFR > 60 (>60) mL/min BUN/Creatinine Ratio 23.6 H (6-22) Glucose 88 (80-110) mg/dL Lactate 0.7 (0.7-2.1) mmol/L Calcium 9.4 (8.4-10.2) mg/dL Magnesium 2.0 (1.6-2.3) mg/dL Total Bilirubin 0.8 (0.2-1.3) mg/dL AST 23 (14-36) IU/L ALT 23 (<35) IU/L Alkaline Phosphatase 74 (38-126) U/L Total Protein 7.2 (6.3-8.2) g/dL Albumin 4.2 (3.5-5.0) g/dL Globulin 3.0 (1.7-4.1) g/dL Albumin/Globulin Ratio 1.4 (1.0-2.8) Lipase 34 (23-300) U/L Point of care testing: Urine Dip Bedside Urine Glucose Negative Bedside Urine Bilirubin - Negative Bedside Urine Ketone - Negative Urine Specific [place] 1.03 Bedside Urine Occult Blood - Negative Bedside Urine pH 6.0 Bedside Urine Protein - Negative Bedside Urine Urobilinogen - Negative Bedside Urine Nitrite - Negative Bedside Urine Leukocytes - Negative Esterase Imaging Data CT scan - abdomen/pelvis: Radiologist's Impression: [address] [id number] Scan ReportSigned Patient: Carrillo Rai AMR#: [id number]: 08/21/1962cct:[id number]/Sex: 60 / MDate of Service: 09/21/22Loc: EDAccession Number: [id number] Procedure: CT abdomen pelvis w con Ordering Provider: Austyn Schaefer D.O. PROCEDURE: CT ABDOMEN PELVIS W CON INDICATIONS: severe abdominal pain, distension, vomiting TECHNIQUE: After the administration of IV contrast, axial sections were acquired from the lung bases to the pubic symphysis. Coronal and sagittal reformats were performed. For radiation dose reduction, the following was used: automated exposure control, adjustment of mA and/or kV according to patient size. COMPARISON: [facility], CT, CT ABDOMEN PELVIS W CON, 11/19/2021, 18:06. FINDINGS: Image quality: There is extensive metallic streak artifact secondary to patient's spinal fixation hardware. Lung bases: There is mild dependent atelectasis bilaterally. Heart: Heart is normal in size. ABDOMEN: Liver: No mass lesion. Gallbladder: Within normal limits without calcified gallstones. Biliary ducts: No biliary ductal dilatation. Pancreas: There is moderate fatty atrophy of the pancreas. No pancreatic duct dilatation or definite pancreatic mass identified. Spleen: Normal in size. Adrenal Glands: No adrenal nodules. Kidneys and Ureters: No hydronephrosis. There is a left renal cortical cyst within the inferior pole. Stomach and Bowel: Stomach, small bowel loops, and colon are normal in caliber and wall thickness. The appendix is normal in appearance. There is colonic diverticulosis without acute diverticulitis. Peritoneum: No abnormal intraperitoneal fluid. No free air. Ventral Wall: No hernia. Abdominal Nodes: No retroperitoneal or mesenteric adenopathy by size criteria. Vessels: Aorta and inferior vena cava are normal in size. PELVIS: Pelvic Organs: There is enlargement of the seminal vesicles bilaterally with an oval slightly hypoattenuating nodule on the left measuring up to 0.7 cm. Bladder: The urinary bladder is lobulated in contour with irregular margins and perivesicular fat stranding suggestive of a cystitis. Pelvic Nodes: No enlarged lymph nodes. Miscellaneous: No inguinal hernias are seen. Bones: There are extensive postsurgical changes redemonstrated within the thoracic and lumbar spine status post multilevel posterior fixation with intervertebral spacers at L4-5 and L5-S1 as well as anterior fixation at L5-S1. Bilateral fixation screws are also demonstrated traversing the sacroiliac joints. Visualized osseous structures demonstrate no suspicious focal lesions. IMPRESSION: 1. No evidence of bowel obstruction. 2. Lobulated contour of the urinary bladder with irregularity of the bladder wall and mild associated fat stranding. The findings are nonspecific but suggestive of a cystitis. Recommend correlation with urinalysis. 3. No evidence of appendicitis. Dictated by: Francisco Mancini M.D. on 09/21/2022 at 21:43 Approved by: Francisco Mancini M.D. on 09/21/2022 at 21:50 MDM Narrative Medical decision making narrative: CC: 72-year-old female with right lower quadrant pain over the course of the day, no fever or vomiting but is nauseated Complicating co-morbidities: Age Data collected from: Patient Medical records reviewed: Multiple prior ER visits Differential considered, but not limited to: Kidney stone, bowel obstruction, bowel infection versus other Exam documented above, pertinent findings include: Right lower quadrant pain without rebound or peritoneal signs, abdomen soft with bowel sounds present Lab Test results independently reviewed as above. Pertinent findings: No leukocytosis or left shift, no signs of anemia, electrolytes within normal limits as is renal function Imaging studies independently reviewed: No significant findings on CT, likely hemangioma in the liver is unchanged from prior studies and not consistent with symptoms which brought patient in today Treatments: saline Re-evaluations: Patient feeling significantly better after fluids alone, requesting discharge before results of CT head returned but willing to stay Discussion: Patient with right lower quadrant pain and multiple diagnoses considered, however history and physical exam as well as labs, urine and imaging are very reassuring and there is no specific finding that would require a specific or immediate intervention, patient would prefer to not receive any prescriptions for symptoms and will follow-up with her primary care provider Disposition: see below, along with detailed discharge instructions that have been reviewed with patient as well as indications for ED re-evaluation and additional outpatient follow up Discharge Plan Departure Patient Disposition: Home Clinical Impression: Abdominal right lower quadrant rigidity Instructions: DI for Abdominal Pain-Adult Activity Restrictions/Additional Instructions: *You have been diagnosed with [abdominal pain] * As we discussed your history and physical exam as well as labs and imaging are very reassuring. There is no evidence of any severe diagnoses that would require a specific or immediate intervention. *What to do: *Please continue to take your regular medications as directed. *Please follow up with your primary care provider in 2-3 days, call for an appointment. Let them know you were seen in the Emergency Department and that we ask that you be seen in follow up. We will electronically transmit a record of t justin's note if your PCP is in our system *Please consider a clear liquid diet for the next 24-48 hours and then slowly advance to regular as tolerated. Also, try to avoid alcohol, nicotine, caffeine, spicy, acidic or fatty foods as this may worsen your symptoms *If you do not have a primary care provider please contact the [facility] Resource line at [phone]. They will ask some questions about your medical history and help get you set up with a doctor in the community. *Return to Emergency Department if you should have any new, worsening or concerning symptoms, such as [fever greater than 101 F, shaking chills, worsening pain, persistent vomiting or other bothersome symptoms] Prescriptions: No Action acetaminophen 650 mg Tablet Extended Release 650 mg PO BID Referrals: Amparo Browne MD [Primary Care Provider] - Stand Alone Forms: Patient Portal/API
[2022-09-21 21:05] VITALS: BP 168/79; PULSE 70; RESP 16; TEMP 36.6; O2SAT 98; BMI 29.2
[2022-09-21 21:07] VITALS: PULSE 69; O2SAT 99
--- NOTE | 2022-09-21 21:08 | DI.CT.S_ITS ---
PROCEDURE: CT ABDOMEN PELVIS W CON INDICATIONS: severe RLQ pain, no appetite, nausea TECHNIQUE: After the administration of IV contrast, axial sections were acquired from the lung bases to the pubic symphysis. Coronal and sagittal reformats were performed. For radiation dose reduction, the following was used: automated exposure control, adjustment of mA and/or kV according to patient size. COMPARISON: [facility], CT, CT ABDOMEN PELVIS W CON, 02/17/2021, 15:53. [facility], CT, CT ABDOMEN PELVIS W CON, 07/16/2022, 20:04. FINDINGS: Image quality: There is metallic streak artifact secondary to patient's left hip prosthesis and spinal fixation hardware limiting evaluation. Lung bases: There is mild linear atelectasis and scarring bilaterally. Heart: Heart is normal in size. There is a small hiatal hernia. ABDOMEN: Liver: An oval hypodense lesion is redemonstrated within segment 7 of the right hepatic lobe measuring up to 2.2 by 1.1 cm. The findings are similar in size to the prior studies given differences in technique. Gallbladder: Surgically absent. Biliary ducts: There is mild biliary ductal dilatation likely secondary to prior cholecystectomy. Pancreas: Unremarkable. Spleen: Normal in size. Adrenal Glands: No adrenal nodules. Kidneys and Ureters: No hydronephrosis. There are bilateral renal cysts as well as additional small low-density foci in the kidneys which are too small to characterize but likely represent cysts. Stomach and Bowel: Stomach, small bowel loops, and colon are normal in caliber and wall thickness. The appendix is surgically absent as per history. There are few colonic diverticula without acute diverticulitis. Peritoneum: No abnormal intraperitoneal fluid. No free air. Ventral Wall: No hernia. Abdominal Nodes: No retroperitoneal or mesenteric adenopathy by size criteria. Vessels: Aorta and inferior vena cava are normal in size. PELVIS: Pelvic Organs: Unremarkable. Bladder: Unremarkable. Pelvic Nodes: No enlarged lymph nodes. Miscellaneous: No inguinal hernias are seen. Bones: There are old healed fractures of the right superior and inferior pubic rami. A left hip prosthesis is present. There is extensive posterior fixation within the lumbar spine at L1 through L5. There is partial fusion at T12-L1. Visualized osseous structures demonstrate no suspicious focal lesions. IMPRESSION: 1. No definite acute intra-abdominal abnormality to correlate with patient's pain symptoms. 2. Hypoattenuating lesion in the right hepatic lobe appears stable in size compared to prior studies. Findings are nonspecific and may represent a hemangioma. Dictated by: Francisco Mancini M.D. on 09/21/2022 at 22:12 Approved by: Francisco Mancini M.D. on 09/21/2022 at 22:18
[2022-09-21] MEDS: SODIUM CHLORIDE 0.9% 1,000 ML 1000 ML IV (21:13)
[2022-09-21 21:15] VITALS: PULSE 66; O2SAT 96
[2022-09-21 21:22] VITALS: BP 151/67; PULSE 65; O2SAT 98
[2022-09-21 21:29] LABS: Add Manual Diff / Slide Review NO; Basophils Absolute Auto 0 /uL (0-100); Basophils Percent Auto 0.6 % (0-2); Eosinophils Absolute Auto 100 /uL (0-450); Eosinophils Percent Auto 1.2 % (2-4); Hematocrit 45.4 % (36-46); Hemoglobin 15.1 g/dL (12.0-16.0); Lymphocytes Absolute Auto 2000 /uL (1100-4500); Lymphocytes Percent Auto 31.4 % (25-40); Mean Corpuscular HGB Conc 33.3 % (30-36); Mean Corpuscular Hemoglobin 29.9 PG (26-34); Mean Corpuscular Volume 89.9 fL (80-100); Monocytes Absolute Auto 400 /uL (0-900); Neutrophils Absolute Auto 3800 /uL (1500-7000); Neutrophils Percent Auto 60.8 % (50-75); Platelet Count 179 X10^3/uL (150-400); Red Blood Cell Count 5.05 X10^6/uL (4.0-5.2); Red Cell Distribution Width 14.2 % (11.6-14.8); White Blood Cell Count 6.3 X10^3/uL (4.5-11.0)
[2022-09-21 21:30] VITALS: BP 148/70; PULSE 64; O2SAT 97
[2022-09-21 21:36] LABS: Alanine Aminotransferase 23 IU/L (<35); Albumin 4.2 g/dL (3.5-5.0); Albumin Globulin Ratio 1.4 (1.0-2.8); Alkaline Phosphatase 74 U/L (38-126); Aspartate Aminotransferase 23 IU/L (14-36); BUN Creatinine Ratio 23.6 (6-22); Bilirubin Total 0.8 mg/dL (0.2-1.3); Blood Urea Nitrogen 13 mg/dL (7-17); Calcium 9.4 mg/dL (8.4-10.2); Carbon Dioxide 29 mmol/L (22-32); Chloride 105 mmol/L (98-107); Estimated Glomerular Filt Rate > 60 mL/min (>60); Glucose 88 mg/dL (80-110); HEMOLYSIS < 15 (0-50); Lactate (Lactic Acid) 0.7 mmol/L (0.7-2.1); Lipase 34 U/L (23-300); Potassium 3.6 mmol/L (3.4-5.1); Sodium 143 mmol/L (137-145); Total Protein 7.2 g/dL (6.3-8.2)
[2022-09-21 22:57] VITALS: BP 141/69; PULSE 68; RESP 18; O2SAT 98
== END 2022-09-21 23:04 | disposition home or self-care (01) ==
PROVIDERS: Emergency Provider Emergency Medicine; PCP Internal Medicine
DX: R10.31 Right lower quadrant pain (principal)
CPT/HCPCS: 36415; 74177; 80053; 81003; 83605; 83690; 83735; 85025; 99284; Q9967

== ENCOUNTER 2022-11-22 07:15 | Emergency (ER) | payer MEDICARE, SELFPAY ==
[2021-12-14 13:07] VITALS: BMI 30.4
[2022-11-22] VITALS (7 sets, daily range): BP systolic 137–161; BP diastolic 64–70; PULSE 66–82; RESP 13–38; TEMP 36.8; O2SAT 94–99; BMI 28.3
--- NOTE | 2022-11-22 07:38 | ED.DIZZY ---
HPI - Dizziness General Chief Complaint: Dizziness Stated Complaint: dizzy Time Seen by Provider: 11/22/22 07:19 Source: patient Mode of arrival: Wheelchair History of Present Illness HPI Narrative: 72-year-old female nonsmoker without chronic medical history presents for evaluationv of dizziness upon waking today. She states she went to bed in her normal state of health and thought nothing of it however upon waking today she feels profound dizziness as if the room is spinning. She states that it is rather persistent but is certainly worse with her eyes open and worse if she moves her head. It is unclear if it is worse turning her head 1 way or the other but she feels best with her eyes closed and remaining still. She admittedly feels quite anxious. She denies any blurred vision or trouble with speech. She states she could ambulate without too much difficulty. She denies any extremity numbness, tingling or weakness. She denies chest pain, palpitations or shortness of breath. She is had no fever or chills. She denies runny nose, sore throat or cough. She denies any ringing in her ears, ear pain or drainage. She is had no recent trauma or head injury. She denies recent travel. Related Data Home Medications Medication Instructions Recorded Confirmed acetaminophen 650 mg 650 mg PO BID prn 04/18/19 11/02/22 tablet,extended release Previous Rx's Medication Instructions Recorded diazepam 2 mg tablet (Valium) 2 mg PO BID-TID PRN muscle spasm 11/22/22 #10 tabs meclizine 25 mg tablet 25 mg PO BID-TID PRN dizziness #14 11/22/22 tabs ondansetron 4 mg disintegrating 4 mg PO TID-QID PRN nausea and 11/22/22 tablet vomiting #10 tabs Allergies Allergy/AdvReac Type Severity Reaction Status Date / Time hydrocodone AdvReac Mild Jittery, Verified 11/22/22 07:54 nervousbro Review of Systems Review of Systems Narrative: GENERAL: Denies chills, fatigue, malaise, fever, sweats. HEENT: See HPI RESPIRATORY: Denies dyspnea, cough, wheezing, hemoptysis, sputum. CARDIOVASCULAR: See HPI GASTROINTESTINAL: Denies nausea, vomiting, abdominal pain, diarrhea, constipation, melena. : Denies dysuria, frequency, incontinence, hematuria, urinary retention. MUSCULOSKELETAL: denies weakness, joint pain, or bony pain SKIN: Denies rash, skin lesions, or other NEUROLOGIC: Denies weakness, headache, numbness, change in speech, confusion, seizures, incoordination. PSYCHIATRIC: No concerning psychosocial issues. 12 point review of systems is negative except for those stated above Patient History Medical History Arthritis Depression Former smoker HTN (hypertension) IBS (irritable bowel syndrome) Pelvic fracture Postmenopausal atrophic vaginitis Right lower quadrant pain Spinal stenosis Surgical History H/O: hysterectomy History of arthroplasty of left shoulder (~2015) History of arthroplasty of right knee History of laparoscopic appendectomy (02/17/21) History of lumbar fusion (04/26/19) History of lumbar fusion (12/17/20) History of total left hip arthroplasty Hx of bilateral cataract extraction Hx of thyroidectomy Hx of tonsillectomy Family History Grandmother Cancer Father Hypertension Mother Hypertension Social History marital status: unmarried,single number of children: 0 household members: none Smoking Status: Never smoker alcohol intake: never Smoking Status: Never smoker alcohol intake frequency: other Substance Use Type: does not use Exam Narrative Exam Narrative: GENERAL: [72] year old patient appears stated age. Well-developed patient, in mild distress. Anxious, keeping eyes closed HEAD: Atraumatic. Normocephalic. EYES: Pupils equal round and reactive. Extraocular motions intact. No scleral icterus. No injection or drainage. Lateral nystagmus, she does become visibly dizzy when turning her head ENT: Nose without bleeding, purulent drainage. Throat without erythema, tonsillar hypertrophy or exudate. Airway patent. NECK: Trachea midline. Non tender CARDIOVASCULAR: Regular rate and rhythm without murmurs, gallops, or rubs. RESPIRATORY: Clear to auscultation. Breath sounds equal bilaterally. No wheezes, rales, or rhonchi. GASTROINTESTINAL: Abdomen soft, non-tender, nondistended. EXTREMITIES: No edema or joint tenderness. BACK: Nontender without deformity or crepitance. No flank tenderness. NEURO: AOx3. SKIN: No rash or erythema of visible areas NIH Stroke Scale 1a. LOC: Patient is alert and keenly responsive (0) 1b. LOC Questions: Patient answers both LOC questions accurately (0) 1c. LOC Commands: Patient performs both tasks correctly (0) 2. Best Gaze: Normal (0) 3. Visual: No visual loss (0) 4. Facial palsy: Normal symmetrical movements (0) 5. Motor arm: No drift (0) 6. Motor leg: No drift (0) 7. Limb ataxia: Absent (0) 8. Sensory: Normal (0) 9. Best language: No aphasia; normal (0) 10. Dysarthria: Normal (0) 11. Extinction and inattention: No abnormality (0) NIHSS: 0 Initial Vital Signs Initial Vital Signs: Vital Signs Temperature 98.2 F 11/22/22 07:30 Pulse Rate 82 11/22/22 07:30 Respiratory Rate 18 11/22/22 07:30 Blood Pressure 155/70 H 11/22/22 07:30 Pulse Oximetry 99 11/22/22 07:30 Oxygen Delivery Method Room Air 11/22/22 07:30 Course Orders Ordered: ED Orders 11/22/22 07:35 Complete Blood Count AUTO DIFF Stat Comprehensive Metabolic Panel Stat Magnesium Stat NT-proBNP (BNP-Adult 18+) Stat PTT Partial Thromboplastin [place] Stat Prothrombin Time INR Stat Troponin & CK Cardiac Panel Stat 11/22/22 07:36 EKG-12 Lead Routine 11/22/22 07:43 CT head/brain wo con Stat Discontinued Medications Diazepam (Diazepam 10 Mg/2 Ml Syringe) 2 mg IV NOW ONE Stop: 11/22/22 07:43 Last Admin: 11/22/22 07:53 Dose: 2 mg Documented By: HUI Sodium Chloride (Normal Saline 0.9%) 1,000 mls @ 1,000 mls/hr IV BOLUS ONE Stop: 11/22/22 08:41 Last Admin: 11/22/22 07:54 Dose: 1,000 mls/hr Documented By: HUI Meclizine HCl (Meclizine Hcl 12.5 Mg Tablet) 50 mg PO NOW ONE Stop: 11/22/22 07:43 Last Admin: 11/22/22 08:40 Dose: 50 mg Documented By: HUI Ondansetron HCl (Ondansetron 4 Mg/2 Ml Inj) 4 mg IV NOW ONE Stop: 11/22/22 07:43 Last Admin: 11/22/22 07:53 Dose: 4 mg Documented By: MO Reevaluation(s) Reevaluation #1: patient feeling much better after above stated therapies. Ambulating without difficulty. States no longer any dizziness at all Vital Signs Vital signs: Vital Signs - 8 hr 11/22/22 07:30 11/22/22 07:35 11/22/22 08:07 Temperature 98.2 F Pulse Rate 82 78 66 Respiratory Rate 18 26 H Blood Pressure 155/70 H Pulse Oximetry 99 99 94 Oxygen Delivery Method Room Air 11/22/22 08:08 11/22/22 08:08 Temperature Pulse Rate 67 Respiratory Rate 13 Blood Pressure 137/64 Pulse Oximetry 97 Oxygen Delivery Method MDM - Dizziness Lab Data 11/22/22 07:35 11/22/22 07:35 Labs: Lab Results 11/22/22 11/22/22 11/22/22 Range/Units 07:35 07:35 07:35 WBC 7.2 (4.5-11.0) X10^3/uL RBC 4.95 (4.0-5.2) X10^6/uL Hgb 15.0 (12.0-16.0) g/dL Hct 44.3 (36-46) % MCV 89.5 (80-100) fL MCH 30.3 (26-34) PG MCHC 33.8 (30-36) % RDW 13.9 (11.6-14.8) % Plt Count 205 (150-400) X10^3/uL Neut % (Auto) 69.0 (50-75) % Lymph % (Auto) 22.6 L (25-40) % Titus % (Auto) 6.2 (3-14) % Eos % (Auto) 1.6 L (2-4) % Baso % (Auto) 0.6 (0-2) % Neut # (Auto) 5000 (7326-1088) /uL Lymph # (Auto) 1600 (2171-3545) /uL Titus # (Auto) 400 (0-900) /uL Eos # (Auto) 100 (0-450) /uL Baso # (Auto) 0 (0-100) /uL PT 12.0 (10.1-12.7) SECONDS INR 1.0 (0.9-1.3) APTT 38 H (26-36) SECONDS Sodium 138 (137-145) mmol/L Potassium 3.7 (3.4-5.1) mmol/L Chloride 103 (98-107) mmol/L Carbon Dioxide 26 (22-32) mmol/L BUN 22 H (7-17) mg/dL Creatinine 0.56 (0.52-1.04) mg/dL Estimated GFR > 60 (>60) mL/min BUN/Creatinine Ratio 39.3 H (6-22) Glucose 160 H (80-110) mg/dL Calcium 9.2 (8.4-10.2) mg/dL Magnesium (1.6-2.3) mg/dL Total Bilirubin 0.5 (0.2-1.3) mg/dL AST 21 (14-36) IU/L ALT 21 (<35) IU/L Alkaline Phosphatase 60 (38-126) U/L Total Creatine Kinase (30-135) U/L CK-MB (CK-2) CK-MB (CK-2) Rel Index Troponin I (0.01-0.034) ng/mL NT-Pro-B Natriuret Pep (<125) pg/mL Total Protein 7.2 (6.3-8.2) g/dL Albumin 4.2 (3.5-5.0) g/dL Globulin 3.0 (1.7-4.1) g/dL Albumin/Globulin Ratio 1.4 (1.0-2.8) 11/22/22 Range/Units 07:35 WBC (4.5-11.0) X10^3/uL RBC (4.0-5.2) X10^6/uL Hgb (12.0-16.0) g/dL Hct (36-46) % MCV (80-100) fL MCH (26-34) PG MCHC (30-36) % RDW (11.6-14.8) % Plt Count (150-400) X10^3/uL Neut % (Auto) (50-75) % Lymph % (Auto) (25-40) % Titus % (Auto) (3-14) % Eos % (Auto) (2-4) % Baso % (Auto) (0-2) % Neut # (Auto) (5687-7996) /uL Lymph # (Auto) (6178-9126) /uL Titus # (Auto) (0-900) /uL Eos # (Auto) (0-450) /uL Baso # (Auto) (0-100) /uL PT (10.1-12.7) SECONDS INR (0.9-1.3) APTT (26-36) SECONDS Sodium (137-145) mmol/L Potassium (3.4-5.1) mmol/L Chloride (98-107) mmol/L Carbon Dioxide (22-32) mmol/L BUN (7-17) mg/dL Creatinine (0.52-1.04) mg/dL Estimated GFR (>60) mL/min BUN/Creatinine Ratio (6-22) Glucose (80-110) mg/dL Calcium (8.4-10.2) mg/dL Magnesium 1.8 (1.6-2.3) mg/dL Total Bilirubin (0.2-1.3) mg/dL AST (14-36) IU/L ALT (<35) IU/L Alkaline Phosphatase (38-126) U/L Total Creatine Kinase 37 (30-135) U/L CK-MB (CK-2) TNP CK-MB (CK-2) Rel Index TNP Troponin I < 0.012 (0.01-0.034) ng/mL NT-Pro-B Natriuret Pep 34 (<125) pg/mL Total Protein (6.3-8.2) g/dL Albumin (3.5-5.0) g/dL Globulin (1.7-4.1) g/dL Albumin/Globulin Ratio (1.0-2.8) Urine Dip Bedside Urine Glucose 250 mg/dl Bedside Urine Bilirubin - Negative Bedside Urine Ketone - Negative Urine Specific [place] 1.015 Bedside Urine Occult Blood - Negative Bedside Urine pH 6.0 Bedside Urine Protein - Negative Bedside Urine Urobilinogen - Negative Bedside Urine Nitrite - Negative Bedside Urine Leukocytes - Negative Esterase ECG Data Interpretation: [0736] EKG is normal sinus rhythm rate [77 ] and free of any signs of ischemia or ectopy. No ST segmental elevation or depression. No T wave inversions MDM Narrative Medical decision making narrative: CC: Sudden-onset dizziness this morning Complicating co-morbidities: Age Data collected from: Patient Medical records reviewed: Prior notes reviewed in our EMR Differential considered, but not limited to: peripheral vertigo, cardiac, electrolyte abnormalities, kidney trouble, vs. stroke vs. other Exam documented above, pertinent findings include: lateral gaze nystagmus noted, HRRR, breathing non-labored, normal NIHSS Lab Test results independently reviewed as above. Pertinent findings: No significant abnormalities requiring intervention Independently reviewed EKG as above Imaging studies independently reviewed: CT of the head unremarkable Scores Used: NIHSS Treatments: Fluids, Valium, Zofran, Meclizine Re-evaluations: Significant improvement, patient ambulating without difficulty, patient able to keep eyes open. Discussion: Patient with a sudden onset of dizziness upon rolling out of bed this morning with lateral gaze nystagmus and improvement with above-stated therapies. She has symptoms with motion and improvement with rest and closing her eyes. There are no focal findings, labs are very reassuring, CT is unremarkable. Cardiac considered but thought unlikely given cardiac monitoring, EKG, labs and history. Stroke considered but thought unlikely given reproducibility, nystagmus, improvement with above-stated therapies and reassuring head CT. Return precautions discussed, prescription sent to her pharmacy of choice. Disposition: see below, along with detailed discharge instructions that have been reviewed with patient as well as indications for ED re-evaluation and additional outpatient follow up Discharge Plan Departure Patient Disposition: Home Clinical Impression: Vertigo Instructions: DI for Vertigo Activity Restrictions/Additional Instructions: *You have been diagnosed with [ vertigo] *What to do: *Please continue to take your regular medications as directed. [x ] New medication prescriptions sent to your pharmacy: [[facility] ] [ ] New medication written as a paper prescription [ ] No new medications given *Please follow up with your primary care provider in 2-3 days, call for an appointment. Let them know you were seen in the Emergency Department and that we ask that you be seen in follow up. We will electronically transmit a record of today's note if your PCP is in our system *Return to Emergency Department if you should have any new, worsening or concerning symptoms, such as [fever greater than 101 F, shaking chills, worsening pain, persistent vomiting or other bothersome symptoms] Prescriptions: New meclizine 25 mg tablet 25 mg PO BID-TID PRN (Reason: dizziness) Qty: 14 0RF diazepam [Valium] 2 mg tablet 2 mg PO BID-TID PRN (Reason: muscle spasm) Qty: 10 0RF ondansetron 4 mg tablet,disintegrating 4 mg PO TID-QID PRN (Reason: nausea and vomiting) Qty: 10 0RF No Action acetaminophen 650 mg Tablet Extended Release 650 mg PO BID Referrals: Amparo Browne MD [Primary Care Provider] - Stand Alone Forms: Patient Portal/API
--- NOTE | 2022-11-22 07:43 | DI.CT.S_ITS ---
PROCEDURE: CT HEAD/BRAIN WO CON INDICATIONS: dizzy, R arm felt funny yesterday, no other neuro symptoms TECHNIQUE: Noncontrast 4.5 mm thick angled axial sections acquired from the foramen magnum to the vertex, with coronal and sagittal reformats. For radiation dose reduction, the following was used: automated exposure control, adjustment of mA and/or kV according to patient size. COMPARISON: None. FINDINGS: Image quality: Excellent. CSF spaces: Basal cisterns are patent. No extra-axial fluid collections. The ventricles are symmetric in size and shape. Brain: No intracranial bleeds or masses. There is cerebral volume loss for age, with resultant ventricular and sulcal prominence. There are periventricular and deep white matter chronic small vessel ischemic changes. There is intracranial internal carotid artery atherosclerosis. Skull and face: Calvarium and visualized facial bones appear intact, without suspicious lesions. Sinuses: Visualized sinuses and mastoids are clear. IMPRESSION: No evidence acute intracranial process. Dictated by: Jonh Corey M.D. on 11/22/2022 at 8:22 Approved by: Jonh Corey M.D. on 11/22/2022 at 8:23
[2022-11-22] MEDS: diazePAM 10 MG/2 ML SYRINGE 2 MG IV (07:53)
[2022-11-22] MEDS: ONDANSETRON 4 MG/2 ML INJ IV (07:53)
[2022-11-22] MEDS: SODIUM CHLORIDE 0.9% 1,000 ML 1000 ML IV (07:54)
[2022-11-22 07:57] LABS: Add Manual Diff / Slide Review NO; Basophils Absolute Auto 0 /uL (0-100); Basophils Percent Auto 0.6 % (0-2); Eosinophils Absolute Auto 100 /uL (0-450); Eosinophils Percent Auto 1.6 % (2-4); Hematocrit 44.3 % (36-46); Lymphocytes Absolute Auto 1600 /uL (1100-4500); Lymphocytes Percent Auto 22.6 % (25-40); Mean Corpuscular HGB Conc 33.8 % (30-36); Mean Corpuscular Hemoglobin 30.3 PG (26-34); Mean Corpuscular Volume 89.5 fL (80-100); Monocytes Absolute Auto 400 /uL (0-900); Monocytes Percent Auto 6.2 % (3-14); Neutrophils Absolute Auto 5000 /uL (1500-7000); Platelet Count 205 X10^3/uL (150-400); Red Blood Cell Count 4.95 X10^6/uL (4.0-5.2); Red Cell Distribution Width 13.9 % (11.6-14.8); White Blood Cell Count 7.2 X10^3/uL (4.5-11.0)
[2022-11-22 07:59] LABS: Alanine Aminotransferase 21 IU/L (<35); Albumin 4.2 g/dL (3.5-5.0); Albumin Globulin Ratio 1.4 (1.0-2.8); Alkaline Phosphatase 60 U/L (38-126); Aspartate Aminotransferase 21 IU/L (14-36); BUN Creatinine Ratio 39.3 (6-22); Bilirubin Total 0.5 mg/dL (0.2-1.3); Blood Urea Nitrogen 22 mg/dL (7-17); Calcium 9.2 mg/dL (8.4-10.2); Carbon Dioxide 26 mmol/L (22-32); Chloride 103 mmol/L (98-107); Creatine Kinase 37 U/L (30-135); Estimated Glomerular Filt Rate > 60 mL/min (>60); Glucose 160 mg/dL (80-110); HEMOLYSIS 15 (0-50); Magnesium 1.8 mg/dL (1.6-2.3); PTT Partial Thromboplastin Tim 38 SECONDS (26-36); Potassium 3.7 mmol/L (3.4-5.1); Sodium 138 mmol/L (137-145); Total Protein 7.2 g/dL (6.3-8.2)
[2022-11-22 08:10] LABS: NT-proBNP (BNP-Adult 18+) 34 pg/mL (<125); Troponin I < 0.012 ng/mL (0.01-0.034)
[2022-11-22] MEDS: MECLIZINE HCL 12.5 MG TABLET 50 MG PO (08:40)
== END 2022-11-22 09:28 | disposition home or self-care (01) ==
PROVIDERS: Emergency Provider Emergency Medicine; PCP Internal Medicine
DX: R42 Dizziness and giddiness (principal)
CPT/HCPCS: 36415; 70450; 80053; 81003; 82550; 83735; 83880; 84484; 85025; 85610; 85730; 93005; 96361; 96374; 96375; 99284; J2405; J3360

== ENCOUNTER 2023-02-17 22:33 | Emergency (ER) | payer MEDICARE, SELFPAY ==
[2021-12-14 13:07] VITALS: BMI 30.4
[2023-02-17 22:41] VITALS: BP 166/71; PULSE 88; RESP 18; TEMP 36.5; O2SAT 95; BMI 28.3
[2023-02-17 22:51] VITALS: PULSE 78; O2SAT 97
[2023-02-17 22:54] LABS: Add Manual Diff / Slide Review NO; Basophils Absolute Auto 100 /uL (0-100); Basophils Percent Auto 0.6 % (0-2); Eosinophils Absolute Auto 100 /uL (0-450); Eosinophils Percent Auto 1.5 % (2-4); Hematocrit 43.8 % (36-46); Hemoglobin 14.7 g/dL (12.0-16.0); Lymphocytes Absolute Auto 2000 /uL (1100-4500); Lymphocytes Percent Auto 22.2 % (25-40); Mean Corpuscular HGB Conc 33.7 % (30-36); Mean Corpuscular Hemoglobin 30.4 PG (26-34); Mean Corpuscular Volume 90.3 fL (80-100); Monocytes Absolute Auto 700 /uL (0-900); Monocytes Percent Auto 7.5 % (3-14); Neutrophils Absolute Auto 6000 /uL (1500-7000); Neutrophils Percent Auto 68.2 % (50-75); Platelet Count 211 X10^3/uL (150-400); Red Blood Cell Count 4.84 X10^6/uL (4.0-5.2); Red Cell Distribution Width 13.5 % (11.6-14.8); White Blood Cell Count 8.8 X10^3/uL (4.5-11.0)
[2023-02-17 23:00] VITALS: PULSE 76; O2SAT 96
[2023-02-17 23:05] LABS: Alanine Aminotransferase 29 IU/L (<35); Albumin 4.2 g/dL (3.5-5.0); Albumin Globulin Ratio 1.4 (1.0-2.8); Alkaline Phosphatase 57 U/L (38-126); Aspartate Aminotransferase 27 IU/L (14-36); BUN Creatinine Ratio 34.3 (6-22); Bilirubin Total 0.4 mg/dL (0.2-1.3); Blood Urea Nitrogen 23 mg/dL (7-17); Calcium 9.1 mg/dL (8.4-10.2); Carbon Dioxide 28 mmol/L (22-32); Chloride 103 mmol/L (98-107); Estimated Glomerular Filt Rate > 60 mL/min (>60); Globulin 3.1 g/dL (1.7-4.1); Glucose 108 mg/dL (80-110); HEMOLYSIS < 15 (0-50); Lipase 93 U/L (23-300); Potassium 4.2 mmol/L (3.4-5.1); Sodium 139 mmol/L (137-145); Total Protein 7.3 g/dL (6.3-8.2)
[2023-02-17 23:30] VITALS: PULSE 70; O2SAT 94
[2023-02-18] VITALS: PULSE 67; O2SAT 95
--- NOTE | 2023-02-18 00:40 | ED.ABDPAIN ---
HPI - Abdominal Pain General Chief Complaint: Abdominal Pain Stated Complaint: states lt sided pain, dehydration Time Seen by Provider: 02/18/23 00:40 Source: patient Mode of arrival: Ambulatory History of Present Illness HPI narrative: This is a 72-year-old female with history of prior diverticulitis and multiple abdominal surgeries who presents with complaint of several days of left lower quadrant pain that has been slowly worsening. She states she took Tylenol at 6:00 p.m. this evening which was helpful but has since worn off. She denies fevers or chills but states she did get sweaty today. She denies nausea or vomiting. She denies any diarrhea. She states she has been constipated she has not had a bowel movement for about 2 or 3 days, states she was having regular flatus until this evening. She did take 2 tsp worth of Metamucil today but without any success in bowel movement. No dysuria, urgency or frequency, no vaginal bleeding or discharge. Patient notes she is had diverticulitis in the past been on antibiotics before. She states her only regular medication is Tylenol. She is had prior total hysterectomy, cholecystectomy, appendectomy, prior arm surgery, throat surgery, knee surgery, hip surgery and eye surgery. She states OxyContin makes her crazy. No tobacco, alcohol or illicit. Her primary care is Amparo Browne. Related Data Home Medications Medication Instructions Recorded Confirmed acetaminophen 650 mg 650 mg PO BID prn 04/18/19 11/02/22 tablet,extended release Previous Rx's Medication Instructions Recorded diazepam 2 mg tablet (Valium) 2 mg PO BID-TID PRN muscle spasm 11/22/22 #10 tabs meclizine 25 mg tablet 25 mg PO BID-TID PRN dizziness #14 11/22/22 tabs ondansetron 4 mg disintegrating 4 mg PO TID-QID PRN nausea and 11/22/22 tablet vomiting #10 tabs Allergies Allergy/AdvReac Type Severity Reaction Status Date / Time hydrocodone AdvReac Mild Jittery, Verified 02/17/23 22:43 nervous, shakey Review of Systems Review of Systems ROS Unobtainable: All systems reviewed & are unremarkable except as noted in HPI and below Patient History Medical History Arthritis Depression Former smoker HTN (hypertension) IBS (irritable bowel syndrome) Pelvic fracture Postmenopausal atrophic vaginitis Right lower quadrant pain Spinal stenosis Surgical History H/O: hysterectomy History of arthroplasty of left shoulder (~2015) History of arthroplasty of right knee History of laparoscopic appendectomy (02/17/21) History of lumbar fusion (04/26/19) History of lumbar fusion (12/17/20) History of total left hip arthroplasty Hx of bilateral cataract extraction Hx of thyroidectomy Hx of tonsillectomy Family History Grandmother Cancer Father Hypertension Mother Hypertension Social History marital status: unmarried,single number of children: 0 household members: none Smoking Status: Never smoker alcohol intake: never Smoking Status: Never smoker alcohol intake frequency: other Substance Use Type: does not use Exam Narrative Exam Narrative: GENERAL: Alert and oriented x three, elderly female in mild distress. HEENT: Head normocephalic, atraumatic, EOMI, pupils reactive, face symmetric, moist mucous membranes NECK: Supple, full range of motion CARDIOVASCULAR: Regular rate and rhythm without murmurs, rubs or gallops. RESPIRATORY: Breath sounds equal bilaterally, no wheezes rales or rhonchi. ABDOMEN: Soft, positive for left lower quadrant tenderness, Normoactive bowel sounds all 4 quadrants. No guarding or rebound, rigidity, no mass : No CVA tenderness EXTREMITIES: Normal range of motion, no clubbing or edema. Neurovascularly intact NEUROLOGICAL: Cranial nerves II through XII grossly intact. Moving all extremities SKIN: Warm, dry, no petechiae, no rashes or lesions. Initial Vital Signs Initial Vital Signs: Vital Signs Temperature 97.7 F 02/17/23 22:41 Pulse Rate 88 02/17/23 22:41 Respiratory Rate 18 02/17/23 22:41 Blood Pressure 166/71 H 02/17/23 22:41 Pulse Oximetry 95 02/17/23 22:41 Oxygen Delivery Method Room Air 02/17/23 22:41 Course Orders Ordered: ED Orders 02/17/23 22:44 EKG-12 Lead Stat 02/17/23 22:45 Complete Blood Count AUTO DIFF Stat Comprehensive Metabolic Panel Stat Lipase Stat 02/18/23 00:49 CT abdomen pelvis w con Stat 02/18/23 00:54 Urine Culture Stat Urine Microscopic Stat Discontinued Medications Sodium Chloride (Normal Saline 0.9%) 1,000 mls @ 1,000 mls/hr IV BOLUS ONE Stop: 02/18/23 01:48 Last Infusion: 02/18/23 02:22 Dose: 0 mls/hr Documented By: Admin: 02/18/23 01:09 Dose: 1,000 mls/hr Documented By: KARLO Ketorolac Tromethamine (Ketorolac 30 Mg/Ml Vial) 15 mg IV NOW ONE Stop: 02/18/23 00:50 Last Admin: 02/18/23 01:09 Dose: 15 mg Documented By: KARLO Ondansetron HCl (Ondansetron 4 Mg Odt) 4 mg PO NOW PRN PRN Reason: Nausea And Vomiting Ondansetron HCl (Ondansetron 4 Mg/2 Ml Inj) 4 mg IV NOW PRN PRN Reason: Nausea And Vomiting Vital Signs Vital signs: Vital Signs - 8 hr 02/17/23 22:41 02/17/23 22:51 02/17/23 23:00 Temperature 97.7 F Pulse Rate 88 78 76 Respiratory Rate 18 Blood Pressure 166/71 H Pulse Oximetry 95 97 96 Oxygen Delivery Method Room Air 02/17/23 23:30 02/18/23 00:00 02/18/23 02:24 Temperature 97.8 F Pulse Rate 70 67 80 Respiratory Rate 16 Blood Pressure 152/84 H Pulse Oximetry 94 95 97 Oxygen Delivery Method Room Air MDM - Abdominal Pain Lab Data 02/17/23 22:45 02/17/23 22:45 Labs: Lab Results 02/17/23 02/17/23 02/18/23 Range/Units 22:45 22:45 00:54 WBC 8.8 (4.5-11.0) X10^3/uL RBC 4.84 (4.0-5.2) X10^6/uL Hgb 14.7 (12.0-16.0) g/dL Hct 43.8 (36-46) % MCV 90.3 (80-100) fL MCH 30.4 (26-34) PG MCHC 33.7 (30-36) % RDW 13.5 (11.6-14.8) % Plt Count 211 (150-400) X10^3/uL Neut % (Auto) 68.2 (50-75) % Lymph % (Auto) 22.2 L (25-40) % Dane % (Auto) 7.5 (3-14) % Eos % (Auto) 1.5 L (2-4) % Baso % (Auto) 0.6 (0-2) % Neut # (Auto) 6000 (1532-5784) /uL Lymph # (Auto) 2000 (8981-7605) /uL Dane # (Auto) 700 (0-900) /uL Eos # (Auto) 100 (0-450) /uL Baso # (Auto) 100 (0-100) /uL Sodium 139 (137-145) mmol/L Potassium 4.2 (3.4-5.1) mmol/L Chloride 103 (98-107) mmol/L Carbon Dioxide 28 (22-32) mmol/L BUN 23 H (7-17) mg/dL Creatinine 0.67 (0.52-1.04) mg/dL Estimated GFR > 60 (>60) mL/min BUN/Creatinine Ratio 34.3 H (6-22) Glucose 108 (80-110) mg/dL Calcium 9.1 (8.4-10.2) mg/dL Total Bilirubin 0.4 (0.2-1.3) mg/dL AST 27 (14-36) IU/L ALT 29 (<35) IU/L Alkaline Phosphatase 57 (38-126) U/L Total Protein 7.3 (6.3-8.2) g/dL Albumin 4.2 (3.5-5.0) g/dL Globulin 3.1 (1.7-4.1) g/dL Albumin/Globulin Ratio 1.4 (1.0-2.8) Lipase 93 (23-300) U/L Urine RBC None seen (0-5/HPF) Urine WBC 0-1/hpf (0-5/HPF) Ur Squamous Epith Cells 10-30 /hpf H D (0-5/HPF) Urine Bacteria Moderate (10-30) H (None) Ur Culture Indicated? Specimen cultured Point of care testing: Urine Dip Bedside Urine Glucose Negative Bedside Urine Bilirubin - Negative Bedside Urine Ketone - Negative Urine Specific [place] 1.030 Bedside Urine Occult Blood - Negative Bedside Urine pH 5.5 Bedside Urine Protein - Negative Bedside Urine Urobilinogen - Negative Bedside Urine Nitrite - Negative Bedside Urine Leukocytes +/- [address] scan - abdomen/pelvis: Radiologist's Impression: [address] [address] [address] Scan Report Signed Patient: Veronica Calle MR#: [id number] : 1950 Acct:[id number] Age/Sex: 72 / F Date of Service: 02/18/23 Loc: ED Accession Number: [id number] ?? Procedure: CT abdomen pelvis w con Ordering Provider: Beckie Ernandez D.O. PROCEDURE:? CT ABDOMEN PELVIS W CON ? INDICATIONS:? LLQ pain, hx diverticulitis, no BM x 3 days, no flatus tonig ? TECHNIQUE:? After the administration of IV contrast, axial sections were acquired from the lung bases to the pubic symphysis.? Coronal and sagittal reformats were performed.? For radiation dose reduction, the following was used:? automated exposure control, adjustment of mA and/or kV according to patient size. ? COMPARISON:? [facility], CT, CT ABDOMEN PELVIS W CON, 02/17/2021, 15:53.? [facility], CT, CT ABDOMEN PELVIS W CON, 09/21/2022, 21:48. ? FINDINGS:? Image quality:? There is metallic streak artifact from patient's surgical hardware within the spine and left hip.? ? Lung bases:? There is minimal atelectasis.? ? Heart:? Heart is normal in size. ? ? ABDOMEN: Liver:? A hypoattenuating lesion in the right hepatic lobe measuring up to 1.9 cm appears unchanged in size compared to the prior studies.? Gallbladder:? Surgically absent. Biliary ducts:? No biliary ductal dilatation.? ? Pancreas:? Unremarkable.? ? Spleen:? Normal in size.? ? Adrenal Glands:? No adrenal nodules.? ? Kidneys and Ureters:? No hydronephrosis.? Bilateral renal cysts are redemonstrated.? ? Stomach and Bowel:? Stomach, small bowel loops, and colon are normal in caliber and wall thickness.? The appendix is not discretely identified and likely surgically absent.? There is colonic diverticulosis without definite acute diverticulitis. Peritoneum:? No abnormal intraperitoneal fluid.? No free air.? ? Ventral Wall: ? No hernia.? Abdominal Nodes:? No retroperitoneal or mesenteric adenopathy by size criteria.? Vessels:? Aorta and inferior vena cava are normal in size.? ? PELVIS: Pelvic Organs:? Unremarkable.? ? Bladder:? Unremarkable.? ? Pelvic Nodes: No enlarged lymph nodes.? Miscellaneous: No inguinal hernias are seen. ? ? ? Bones:? Visualized osseous structures demonstrate no suspicious focal lesions. ? IMPRESSION:? ? 1. No definite acute intra-abdominal abnormality. ? 2. Colonic diverticulosis without acute diverticulitis.? ? ? Dictated by: Francisco Mancini M.D. on 02/18/2023 at 1:55 ? ? Approved by: Francisco Mancini M.D. on 02/18/2023 at 2:00?? ECG Data Attestation: I personally reviewed and interpreted this ECG as follows: Prior ECG tracings: available for review Interpretation: Sinus rhythm rate of 75 OH 128 QRS 82 and QTC of 471. No acute ST elevation, patient does have PVC . Patient has prior from 11/22/2022 for comparison no acute changes appreciated. MDM Narrative Medical decision making narrative: This is a 72-year-old female who presents with complaint of left-sided abdominal pain for several days slowly worsening with a history of prior diverticulitis. Patient's symptoms seem quite consistent, she is slightly hypertensive vitals are otherwise appropriate. CBC, CMP and lipase do not show acute change. Urine shows moderate bacteria but also tend to 30 squamous epithelials. Patient is not currently having any urinary symptoms willl await culture. Patient has had multiple abdominal surgeries, notes that she is had no bowel movements for the past 3 days and no flatus this evening so there is some concern for possible obstruction although seems less likely. Discussed risks versus benefits of CT imaging after discussion patient elects for additional imaging. CT imaging shows a small spot on the liver, stable to compared to priors. Patient does have some stool throughout but no obvious diverticulitis or other significant changes. Patient given fluids, Toradol and patient is feeling improved. Patient is requesting to return home. She feels much better. Discussed with patient she does have some stool she has been constipated in general would recommend continuing with stool softener increasing her fluids and high-fiber foods such watermelon, cherries but not to excess. Patient feels quite comfortable with this plan we discussed return precautions. Discharge Plan Departure Patient Disposition: Home Clinical Impression: Abdominal pain Instructions: DI for Abdominal Pain-Adult Activity Restrictions/Additional Instructions: Your imaging today does not show any diverticulitis, there is a small lesion in your liver this is stable compared to prior imaging. Continue to take stool softener regularly, I would also recommend increasing your fluid intake. You may take Tylenol up to a 1000 mg every 6 hours and/or ibuprofen up to 600 mg every 6 hours for pain. Please return for fevers, new or worsening abdominal pain, vomiting, black or bloody, lightheadedness or passing out, difficulty with urination or other new or concerning changes. Prescriptions: No Action acetaminophen 650 mg Tablet Extended Release 650 mg PO BID meclizine 25 mg tablet 25 mg PO BID-TID PRN (Reason: dizziness) Qty: 14 0RF diazepam [Valium] 2 mg tablet 2 mg PO BID-TID PRN (Reason: muscle spasm) Qty: 10 0RF ondansetron 4 mg tablet,disintegrating 4 mg PO TID-QID PRN (Reason: nausea and vomiting) Qty: 10 0RF Referrals: Amparo Browne MD [Primary Care Provider] - Stand Alone Forms: Patient Portal/API
--- NOTE | 2023-02-18 00:49 | DI.CT.S_ITS ---
PROCEDURE: CT ABDOMEN PELVIS W CON INDICATIONS: LLQ pain, hx diverticulitis, no BM x 3 days, no flatus tonig TECHNIQUE: After the administration of IV contrast, axial sections were acquired from the lung bases to the pubic symphysis. Coronal and sagittal reformats were performed. For radiation dose reduction, the following was used: automated exposure control, adjustment of mA and/or kV according to patient size. COMPARISON: [facility], CT, CT ABDOMEN PELVIS W CON, 02/17/2021, 15:53. [facility], CT, CT ABDOMEN PELVIS W CON, 09/21/2022, 21:48. FINDINGS: Image quality: There is metallic streak artifact from patient's surgical hardware within the spine and left hip. Lung bases: There is minimal atelectasis. Heart: Heart is normal in size. ABDOMEN: Liver: A hypoattenuating lesion in the right hepatic lobe measuring up to 1.9 cm appears unchanged in size compared to the prior studies. Gallbladder: Surgically absent. Biliary ducts: No biliary ductal dilatation. Pancreas: Unremarkable. Spleen: Normal in size. Adrenal Glands: No adrenal nodules. Kidneys and Ureters: No hydronephrosis. Bilateral renal cysts are redemonstrated. Stomach and Bowel: Stomach, small bowel loops, and colon are normal in caliber and wall thickness. The appendix is not discretely identified and likely surgically absent. There is colonic diverticulosis without definite acute diverticulitis. Peritoneum: No abnormal intraperitoneal fluid. No free air. Ventral Wall: No hernia. Abdominal Nodes: No retroperitoneal or mesenteric adenopathy by size criteria. Vessels: Aorta and inferior vena cava are normal in size. PELVIS: Pelvic Organs: Unremarkable. Bladder: Unremarkable. Pelvic Nodes: No enlarged lymph nodes. Miscellaneous: No inguinal hernias are seen. Bones: Visualized osseous structures demonstrate no suspicious focal lesions. IMPRESSION: 1. No definite acute intra-abdominal abnormality. 2. Colonic diverticulosis without acute diverticulitis. Dictated by: Francisco Mancini M.D. on 02/18/2023 at 1:55 Approved by: Francisco Mancini M.D. on 02/18/2023 at 2:00
[2023-02-18] MEDS: SODIUM CHLORIDE 0.9% 1,000 ML 1000 ML IV (01:09)
[2023-02-18] MEDS: KETOROLAC 30 MG/ML VIAL 15 MG IV (01:09)
[2023-02-18 01:20] LABS: Bacteria Urine Moderate (10-30); RBC Urine None Seen (0-5/HPF); WBC Urine 0-1/HPF (0-5/HPF)
[2023-02-18 01:21] LABS: Culture Indicated Urine Specimen Cultured; Squamous Epithelial Cell Urine 10-30 /HPF (0-5/HPF)
[2023-02-18 02:24] VITALS: BP 152/84; PULSE 80; RESP 16; TEMP 36.6; O2SAT 97
== END 2023-02-18 02:20 | disposition home or self-care (01) ==
PROVIDERS: Emergency Provider Emergency Medicine; PCP Internal Medicine
DX: R10.32 Left lower quadrant pain (principal)
CPT/HCPCS: 36415; 74177; 80053; 81003; 81015; 83690; 85025; 87086; 93005; 93010; 96374; 99284; J1885; Q9967

== ENCOUNTER 2023-03-03 18:16 | Emergency (ER) | payer MEDICARE, SELFPAY ==
[2021-12-14 13:07] VITALS: BMI 30.4
[2023-03-03 18:38] VITALS: BP 136/69; PULSE 78; RESP 18; TEMP 36.2; O2SAT 96; BMI 27.2
[2023-03-03 19:11] LABS: Add Manual Diff / Slide Review NO; Basophils Absolute Auto 0 /uL (0-100); Basophils Percent Auto 0.5 % (0-2); Eosinophils Absolute Auto 100 /uL (0-450); Eosinophils Percent Auto 0.8 % (2-4); Hemoglobin 14.7 g/dL (12.0-16.0); Lymphocytes Absolute Auto 1700 /uL (1100-4500); Lymphocytes Percent Auto 21.9 % (25-40); Mean Corpuscular HGB Conc 33.4 % (30-36); Mean Corpuscular Hemoglobin 29.8 PG (26-34); Mean Corpuscular Volume 89.4 fL (80-100); Monocytes Absolute Auto 500 /uL (0-900); Monocytes Percent Auto 7.2 % (3-14); Neutrophils Absolute Auto 5300 /uL (1500-7000); Neutrophils Percent Auto 69.6 % (50-75); Platelet Count 170 X10^3/uL (150-400); Red Blood Cell Count 4.91 X10^6/uL (4.0-5.2); Red Cell Distribution Width 13.7 % (11.6-14.8); White Blood Cell Count 7.6 X10^3/uL (4.5-11.0)
[2023-03-03 19:18] LABS: Alanine Aminotransferase 22 IU/L (<35); Albumin 4.3 g/dL (3.5-5.0); Albumin Globulin Ratio 1.5 (1.0-2.8); Alkaline Phosphatase 59 U/L (38-126); Aspartate Aminotransferase 23 IU/L (14-36); Bilirubin Total 0.4 mg/dL (0.2-1.3); Blood Urea Nitrogen 18 mg/dL (7-17); Calcium 9.6 mg/dL (8.4-10.2); Carbon Dioxide 29 mmol/L (22-32); Chloride 105 mmol/L (98-107); Estimated Glomerular Filt Rate > 60 mL/min (>60); Globulin 2.9 g/dL (1.7-4.1); Glucose 130 mg/dL (80-110); HEMOLYSIS < 15 (0-50); Lipase 71 U/L (23-300); Potassium 4.2 mmol/L (3.4-5.1); Sodium 141 mmol/L (137-145); Total Protein 7.2 g/dL (6.3-8.2)
[2023-03-03 21:37] VITALS: BP 153/86; PULSE 63; RESP 18; TEMP 36.7; O2SAT 95
--- NOTE | 2023-03-03 21:46 | ED.GENADULT ---
HPI - General Adult General Chief complaint: Abdominal Pain Stated complaint: Dry mouth, Hip pain Time Seen by Provider: 03/03/23 19:36 Source: patient Mode of arrival: Ambulatory History of Present Illness HPI narrative: Patient is a 73-year-old female. Does have a history of a gastric ulcer. Three days ago started to have epigastric abdominal pain she states feels very similar to that. She also states she is having a dry mouth. No chest pain. No shortness of breath. No change in bowel habits. No urinary symptoms. She also states she is having right hip pain but this has been going on for years. She has an appointment with her primary doctor any scheduled for tomorrow. She has not tried anything for the symptoms prior to arrival. She has had her gallbladder removed. Related Data Home Medications Medication Instructions Recorded Confirmed acetaminophen 650 mg 650 mg PO BID prn 04/18/19 11/02/22 tablet,extended release Previous Rx's Medication Instructions Recorded diazepam 2 mg tablet (Valium) 2 mg PO BID-TID PRN muscle spasm 11/22/22 #10 tabs meclizine 25 mg tablet 25 mg PO BID-TID PRN dizziness #14 11/22/22 tabs ondansetron 4 mg disintegrating 4 mg PO TID-QID PRN nausea and 11/22/22 tablet vomiting #10 tabs sucralfate 100 mg/mL oral 10 ml PO QACHS #414 mL 03/03/23 suspension (Carafate) Allergies Allergy/AdvReac Type Severity Reaction Status Date / Time hydrocodone AdvReac Mild Jittery, Verified 03/03/23 18:41 nervous, shakey Review of Systems Cardiovascular Cardiovascular: Reports system reviewed and no additional complaints, except as documented Respiratory Respiratory: Reports system reviewed and no additional complaints, except as documented Gastrointestinal Gastrointestinal: Reports system reviewed and no additional complaints, except as documented Genitourinary Genitourinary: Reports system reviewed and no additional complaints, except as documented Integumentary/Breasts Skin/Breast: Reports system reviewed and no additional complaints, except as documented Patient History Medical History Arthritis Depression Former smoker HTN (hypertension) IBS (irritable bowel syndrome) Pelvic fracture Postmenopausal atrophic vaginitis Right lower quadrant pain Spinal stenosis Surgical History H/O: hysterectomy History of arthroplasty of left shoulder (~2015) History of arthroplasty of right knee History of laparoscopic appendectomy (02/17/21) History of lumbar fusion (04/26/19) History of lumbar fusion (12/17/20) History of total left hip arthroplasty Hx of bilateral cataract extraction Hx of thyroidectomy Hx of tonsillectomy Family History Grandmother Cancer Father Hypertension Mother Hypertension Social History marital status: unmarried,single number of children: 0 household members: none Smoking Status: Never smoker alcohol intake: never Smoking Status: Never smoker alcohol intake frequency: other Substance Use Type: does not use Exam Initial Vital Signs Initial Vital Signs: Vital Signs Temperature 97.1 F L 03/03/23 18:38 Pulse Rate 78 03/03/23 18:38 Respiratory Rate 18 03/03/23 18:38 Blood Pressure 136/69 03/03/23 18:38 Pulse Oximetry 96 03/03/23 18:38 Oxygen Delivery Method Room Air 03/03/23 18:38 Const General: cooperative, comfortable and No ill appearing HENHI Head: normal to inspection and normocephalic Resp Effort & Inspection: normal respiratory effort Auscultation: clear to auscultation bilaterally Cardio Rate: regular rate Rhythm: regular rhythm GI Inspection: normal to inspection and non-distended Palpation: soft, No firm, No guarding and tender (Epigastric region) Neuro General: patient alert, patient awake and moves all extremities Extrem General: capillary refill normal Course Orders Ordered: ED Orders 03/03/23 18:41 EKG-12 Lead Stat 03/03/23 18:49 Complete Blood Count AUTO DIFF Stat Comprehensive Metabolic Panel Stat Lipase Stat Discontinued Medications Ondansetron HCl (Ondansetron 4 Mg Odt) 4 mg PO NOW PRN PRN Reason: Nausea And Vomiting Ondansetron HCl (Ondansetron 4 Mg/2 Ml Inj) 4 mg IV NOW PRN PRN Reason: Nausea And Vomiting Vital Signs Vital signs: Vital Signs - 8 hr 03/03/23 21:37 Temperature 98.0 F Pulse Rate 63 Respiratory Rate 18 Blood Pressure 153/86 H Pulse Oximetry 95 Oxygen Delivery Method Room Air Medical Decision Making Lab Data Lab results reviewed: Yes I reviewed the patient's lab results. 03/03/23 18:49 03/03/23 18:49 Labs: Lab Results 03/03/23 03/03/23 Range/Units 18:49 18:49 WBC 7.6 (4.5-11.0) X10^3/uL RBC 4.91 (4.0-5.2) X10^6/uL Hgb 14.7 (12.0-16.0) g/dL Hct 44.0 (36-46) % MCV 89.4 (80-100) fL MCH 29.8 (26-34) PG MCHC 33.4 (30-36) % RDW 13.7 (11.6-14.8) % Plt Count 170 (150-400) X10^3/uL Neut % (Auto) 69.6 (50-75) % Lymph % (Auto) 21.9 L (25-40) % [place] % (Auto) 7.2 (3-14) % Eos % (Auto) 0.8 L (2-4) % Baso % (Auto) 0.5 (0-2) % Neut # (Auto) 5300 (4806-5337) /uL Lymph # (Auto) 1700 (6043-1825) /uL [place] # (Auto) 500 (0-900) /uL Eos # (Auto) 100 (0-450) /uL Baso # (Auto) 0 (0-100) /uL Sodium 141 (137-145) mmol/L Potassium 4.2 (3.4-5.1) mmol/L Chloride 105 (98-107) mmol/L Carbon Dioxide 29 (22-32) mmol/L BUN 18 H (7-17) mg/dL Creatinine 0.62 (0.52-1.04) mg/dL Estimated GFR > 60 (>60) mL/min BUN/Creatinine Ratio 29.0 H (6-22) Glucose 130 H (80-110) mg/dL Calcium 9.6 (8.4-10.2) mg/dL Total Bilirubin 0.4 (0.2-1.3) mg/dL AST 23 (14-36) IU/L ALT 22 (<35) IU/L Alkaline Phosphatase 59 (38-126) U/L Total Protein 7.2 (6.3-8.2) g/dL Albumin 4.3 (3.5-5.0) g/dL Globulin 2.9 (1.7-4.1) g/dL Albumin/Globulin Ratio 1.5 (1.0-2.8) Lipase 71 (23-300) U/L ECG Data Attestation: I personally reviewed and interpreted this ECG as follows: Interpretation: Sinus rhythm Ventricular rate is 76 Normal axis Normal QRS Normal QTC No ST T wave changes MDM Narrative Medical decision making narrative: Patient has had her gallbladder removed. Her LFTs and lipase are unremarkable. EKG is unremarkable. Her right hip pain can be evaluated by her primary doctor as an outpatient. No further workup required for that here in the ER. I do have a high suspicion that her presentation today is gastric in origin most likely a gastric ulcer. She states she is never had an upper endoscopy. Will discharge home with a prescription for Carafate. Will also have her talk with her primary doctor about a referral to see GI. She was given return precautions. She expressed understanding and agreement. Discharge Plan Departure Patient Disposition: Home Clinical Impression: Epigastric abdominal pain Instructions: DI for Abdominal Pain-Adult Activity Restrictions/Additional Instructions: I do recommend that you use the Carafate as directed. Keep your scheduled appointment with your primary doctor tomorrow and discuss the indications for a referral to have a endoscopy. Return to the emergency department for new symptoms Prescriptions: New sucralfate [Carafate] 100 mg/mL suspension 10 ml PO QACHS Qty: 414 2RF No Action acetaminophen 650 mg Tablet Extended Release 650 mg PO BID meclizine 25 mg tablet 25 mg PO BID-TID PRN (Reason: dizziness) Qty: 14 0RF diazepam [Valium] 2 mg tablet 2 mg PO BID-TID PRN (Reason: muscle spasm) Qty: 10 0RF ondansetron 4 mg tablet,disintegrating 4 mg PO TID-QID PRN (Reason: nausea and vomiting) Qty: 10 0RF Referrals: Amparo Browne MD [Primary Care Provider] - Stand Alone Forms: Patient Portal/API
== END 2023-03-03 21:57 | disposition home or self-care (01) ==
PROVIDERS: Emergency Provider Emergency Medicine; PCP Internal Medicine
DX: R10.13 Epigastric pain (principal)
CPT/HCPCS: 36415; 80053; 83690; 85025; 93005; 99283; 99284

== ENCOUNTER → 2023-04-01 10:28 | Outpatient (CLI) | payer MEDICARE, SELFPAY ==
[2021-12-14 13:07] VITALS: BMI 30.4
--- NOTE | 2023-04-01 10:29 | DI.MRI.S_ITS ---
PROCEDURE: MR LUMBAR SPINE WO CON INDICATIONS: Radiculopathy, lumbosacral region TECHNIQUE: Noncontrast sagittal T1 spin echo and T2 fast echo, sagittal STIR, and T2 fast spin echo through the lumbar spine. In cases with scoliosis, additional coronal T2 fast spin echo may be performed. COMPARISON: [facility], MR, MR LUMBAR SPINE WO CON, 11/25/2018, 13:25. FINDINGS: Image quality: Excellent. Alignment and Curvature: Mild straightening of normal lumbar lordosis. The knee Bone Marrow: L1 through L5 posterior spinal fixation and discectomy. Marrow is of normal overall signal. No acute vertebral body compression fractures. Spinal Cord: Conus medullaris terminates at the L1 level. Visualized cord demonstrates normal signal and size. Paraspinous Soft Tissues: No paravertebral masses. Renal cysts. T12-L1: Disc desiccation and height loss with a posterior disc bulge. Facet arthropathy and thickening of the ligamentum flavum. Mild narrowing of the right lateral recess. No central canal stenosis. No neural foraminal stenosis. L1-L2: Facet arthropathy. No central canal stenosis. The left neural foramina appears patent. Possible moderate right neural foraminal stenosis, not well visualized secondary to hardware artifact. L2-L3: Facet arthropathy. Mild narrowing of the left lateral recess. No central canal stenosis. Moderate narrowing of the left neural foramina. No right neural foraminal narrowing. L3-L4: Asymmetric left greater than right facet arthropathy. No central canal stenosis. No significant neural foraminal stenosis L4-L5: Facet arthropathy. No central canal stenosis. Mild bilateral neural foraminal stenosis. L5-S1: Facet arthropathy. No central canal stenosis. No neural foraminal stenosis. IMPRESSION: 1. Compared to MRI of the lumbar spine from 11/25/2018, there has been interval L1 through L5 posterior spinal fixation and discectomy. 2. There has been resolution of central canal stenosis. The central canal is widely patent throughout the lumbar spine. 3. Neural foraminal stenosis is improved compared to prior. Moderate neural foraminal stenosis at L1-L2 and L2-L3 and mild or no neural foraminal stenosis at other levels as described above. Dictated by: Lele Eldridge M.D. on 04/01/2023 at 12:19 Approved by: Lele Eldridge M.D. on 04/01/2023 at 12:27
== END ==
PROVIDERS: PCP Internal Medicine; Referring Provider Orthopaedic Surgery; Visit Provider Orthopaedic Surgery
DX: M47.27 Other spondylosis with radiculopathy, lumbosacral region (principal); M47.26 Other spondylosis with radiculopathy, lumbar region; M48.061 Spinal stenosis, lumbar region without neurogenic claudication
CPT/HCPCS: 72148

== ENCOUNTER 2023-06-08 13:10 | Emergency (ER) | payer MEDICARE, SELFPAY ==
[2021-12-14 13:07] VITALS: BMI 30.4
[2023-06-08 13:21] VITALS: BP 157/85; PULSE 83; RESP 20; TEMP 36.8; O2SAT 95; BMI 27.9
[2023-06-08 14:14] LABS: Influenza A - CEPHEID Flu A NEGATIVE (NEGATIVE); Influenza B - CEPHEID Flu B NEGATIVE (NEGATIVE); Respiratory Syncytial Virus Negative (Negative)
[2023-06-08 14:18] LABS: COVID-19 CEPHEID 4-PLEX PCR Negative (Negative)
--- NOTE | 2023-06-08 15:53 | ED.HA ---
HPI - Headache General Chief Complaint: Headache Stated Complaint: Headache and Chills Time Seen by Provider: 06/08/23 15:38 History of Present Illness HPI Narrative: Patient is a 73-year-old female who reports no past medical history who presents with 10 days of bilateral headache and chills. She has had resolution of the headache with Excedrin but it always comes back. She denies any respiratory symptoms such as cough, sore throat, runny nose or any GI symptoms such as nausea or vomiting or diarrhea. She has had no visual changes, tinnitus. She has had no neck stiffness. She is very concerned that something is wrong in her brain. Related Data Home Medications Medication Instructions Recorded Confirmed acetaminophen 650 mg 650 mg PO BID prn 04/18/19 11/02/22 tablet,extended release Previous Rx's Medication Instructions Recorded diazepam 2 mg tablet (Valium) 2 mg PO BID-TID PRN muscle spasm 11/22/22 #10 tabs meclizine 25 mg tablet 25 mg PO BID-TID PRN dizziness #14 11/22/22 tabs ondansetron 4 mg disintegrating 4 mg PO TID-QID PRN nausea and 11/22/22 tablet vomiting #10 tabs sucralfate 100 mg/mL oral 10 ml PO QACHS #414 mL 03/03/23 suspension (Carafate) Allergies Allergy/AdvReac Type Severity Reaction Status Date / Time hydrocodone AdvReac Mild Jittery, Verified 06/08/23 13:27 nervous, shakey Review of Systems Review of Systems ROS Unobtainable: All systems reviewed & are unremarkable except as noted in HPI and below Patient History Medical History Postmenopausal atrophic vaginitis Right lower quadrant pain Former smoker IBS (irritable bowel syndrome) Pelvic fracture HTN (hypertension) Spinal stenosis Depression Arthritis Surgical History History of lumbar fusion (12/17/20) History of laparoscopic appendectomy (02/17/21) History of lumbar fusion (04/26/19) Hx of tonsillectomy History of total left hip arthroplasty History of arthroplasty of right knee H/O: hysterectomy Hx of thyroidectomy Hx of bilateral cataract extraction History of arthroplasty of left shoulder (~2015) Family History Grandmother Cancer Father Hypertension Mother Hypertension Social History marital status: unmarried,single number of children: 0 household members: none Smoking Status: Never smoker alcohol intake: never Smoking Status: Never smoker alcohol intake frequency: other Substance Use Type: does not use Exam Narrative Exam Narrative: GENERAL: 73 year old patient appears stated age. Well-developed patient, in no distress. NEURO: Alert and oriented x3, mood/affect normal, normal speech, normal cognition. CN's (II-XII) grossly intact,. No gross motor deficit, 5/5 strength throughout, no gross sensory loss, normal movement, no pronator drift, normal gait. HEAD: Atraumatic. Normocephalic. EYES: Pupils equal round and reactive. Extraocular motions intact. No scleral icterus. No injection or drainage. ENT: Nose without bleeding or purulent drainage. Airway patent. NECK: Trachea midline. Non tender RESPIRATORY: No distress or increased work of breathing EXTREMITIES: No edema or joint tenderness. SKIN: No rash or erythema of visible areas Initial Vital Signs Initial Vital Signs: Vital Signs Temperature 98.3 F 06/08/23 13:21 Pulse Rate 83 06/08/23 13:21 Respiratory Rate 20 06/08/23 13:21 Blood Pressure 157/85 H 06/08/23 13:21 Pulse Oximetry 95 06/08/23 13:21 Oxygen Delivery Method Room Air 06/08/23 13:21 Course Orders Ordered: ED Orders 06/08/23 13:32 Covid-19 + FLU A/B + RSV - PCR Stat 06/08/23 16:01 CT head/brain wo con Stat Discontinued Medications Acetaminophen (Acetaminophen 325 Mg Tablet) 650 mg PO Q4H PRN PRN Reason: Fever/Mild Pain (1-3) Last Admin: 06/08/23 17:44 Dose: 650 mg Documented By: KYLER Vital Signs Vital signs: Vital Signs - 8 hr 06/08/23 13:21 06/08/23 17:48 Temperature 98.3 F Pulse Rate 83 66 Respiratory Rate 20 14 Blood Pressure 157/85 H 167/70 H Pulse Oximetry 95 99 Oxygen Delivery Method Room Air Room Air MDM - Headache Lab Data Labs: Lab Results 06/08/23 Range/Units 13:32 SARS-CoV-2 (PCR) Negative (Negative) Influenza A (RT-PCR) Flu a negative (NEGATIVE) Influenza B (RT-PCR) Flu b negative (NEGATIVE) RSV (PCR) Negative (Negative) Imaging Data CT scan - head: My Impression: PROCEDURE: CT HEAD/BRAIN WO CON INDICATIONS: headaches x10 days TECHNIQUE: Noncontrast 4.5 mm thick angled axial sections acquired from the foramen magnum to the vertex, with coronal and sagittal reformats. For radiation dose reduction, the following was used: automated exposure control, adjustment of mA and/or kV according to patient size. COMPARISON: [facility], CT, CT HEAD/BRAIN WO CON, 11/22/2022, 7:51. FINDINGS: Image quality: Excellent. CSF spaces: Basal cisterns are patent. No extra-axial fluid collections. The ventricles are symmetric in size and shape. Brain: No intracranial bleeds or masses. There is cerebral volume loss for age, with resultant ventricular and sulcal prominence. There are periventricular and deep white matter chronic small vessel ischemic changes. There is intracranial internal carotid artery atherosclerosis. Skull and face: Calvarium and visualized facial bones appear intact, without suspicious lesions. Sinuses: Visualized sinuses and mastoids are clear. IMPRESSION: 1. No acute intracranial process. 2. Mild to moderate atrophy and chronic microvascular ischemic changes. Dictated by: Pita Luevano M.D. on 06/08/2023 at 17:10 Approved by: Pita Luevano M.D. on 06/08/2023 at 17:10 [facility] Narrative Medical decision making narrative: Multiple etiologies for patient's symptoms considered including, but not limited to: viral illness, migraine, tension headache, intracranial pathology Patient has a very normal neurologic exam and physical exam. Her vital signs are within normal limits. Her COVID, flu, RSV tests are all negative. Despite this, she remained very concerned that there was something wrong in her head. A head CT was done and there is no acute abnormality. She is very relieved, tearful, she states I thought I was dying. I encouraged her to continue to take Tylenol, rest, hydration. I anticipate that this headache will resolve over time. If it does not or if she develops any new symptoms, I encouraged her to return to the emergency department. She has a appointment with her primary care in a couple of weeks. Patient's symptoms improved over duration of stay with above-stated therapies. Findings and discharge diagnosis discussed with patient/family followed by verbalization of understanding Return precautions discussed with patient/family whom verbalize understanding of diagnosis and plan Discharge Plan Departure Patient Disposition: Home Clinical Impression: Headache Qualifiers: Headache type: unspecified Headache chronicity pattern: acute headache Intractability: not intractable Qualified Code(s): R51.9 - Headache, unspecified Instructions: DI for Headache Activity Restrictions/Additional Instructions: *Your test today was negative for COVID, influenza A, influenza B and RSV infection. As we discussed, I am not sure why you're having headaches and chills intermittently. Your head CT does not show any acute pathology, just changes that we expect to see with aging. There is nothing on the head CT that would cause her symptoms. I would advise you to continue taking medication for the headache and continue to monitor. Be sure to drink plenty of water and get adequate rest. If you develop double vision, dizziness, fever or other concerning symptoms, please return to the emergency department for reassessment. *What to do: *Please continue to take your regular medications as directed. [ ] New medication prescriptions sent to your pharmacy: [ ] [ ] New medication written as a paper prescription [x] No new medications given *Please follow up with your primary care provider in 2-3 days, call for an appointment. Let them know you were seen in the Emergency Department and that we ask that you be seen in follow up. We will electronically transmit a record of today's note if your PCP is in our system *If you do not have a primary care provider please contact the [facility] Resource line at [phone]. They will ask some questions about your medical history and help get you set up with a doctor in the community. *Return to Emergency Department if you should have any new, worsening or concerning symptoms, such as [fever greater than 101 F, shaking chills, worsening pain, persistent vomiting or other concerning symptoms]. Prescriptions: No Action acetaminophen 650 mg Tablet Extended Release 650 mg PO BID meclizine 25 mg tablet 25 mg PO BID-TID PRN (Reason: dizziness) Qty: 14 0RF diazepam [Valium] 2 mg tablet 2 mg PO BID-TID PRN (Reason: muscle spasm) Qty: 10 0RF ondansetron 4 mg tablet,disintegrating 4 mg PO TID-QID PRN (Reason: nausea and vomiting) Qty: 10 0RF sucralfate [Carafate] 100 mg/mL suspension 10 ml PO QACHS Qty: 414 2RF Referrals: Amparo Browne MD [Primary Care Provider] - Stand Alone Forms: Patient Portal/API
--- NOTE | 2023-06-08 16:01 | DI.CT.S_ITS ---
PROCEDURE: CT HEAD/BRAIN WO CON INDICATIONS: headaches x10 days TECHNIQUE: Noncontrast 4.5 mm thick angled axial sections acquired from the foramen magnum to the vertex, with coronal and sagittal reformats. For radiation dose reduction, the following was used: automated exposure control, adjustment of mA and/or kV according to patient size. COMPARISON: [facility], CT, CT HEAD/BRAIN WO CON, 11/22/2022, 7:51. FINDINGS: Image quality: Excellent. CSF spaces: Basal cisterns are patent. No extra-axial fluid collections. The ventricles are symmetric in size and shape. Brain: No intracranial bleeds or masses. There is cerebral volume loss for age, with resultant ventricular and sulcal prominence. There are periventricular and deep white matter chronic small vessel ischemic changes. There is intracranial internal carotid artery atherosclerosis. Skull and face: Calvarium and visualized facial bones appear intact, without suspicious lesions. Sinuses: Visualized sinuses and mastoids are clear. IMPRESSION: 1. No acute intracranial process. 2. Mild to moderate atrophy and chronic microvascular ischemic changes. Dictated by: Pita Luevano M.D. on 06/08/2023 at 17:10 Approved by: Pita Luevano M.D. on 06/08/2023 at 17:10
[2023-06-08] MEDS: ACETAMINOPHEN 325 MG TABLET 650 MG PO (17:44)
[2023-06-08 17:48] VITALS: BP 167/70; PULSE 66; RESP 14; O2SAT 99
== END 2023-06-08 17:49 | disposition home or self-care (01) ==
PROVIDERS: Emergency Medicine; Emergency Provider Physician Assistant; PCP Internal Medicine
DX: R51.9 Headache, unspecified (principal); Z20.822 Contact with and (suspected) exposure to COVID-19
CPT/HCPCS: 0241U; 70450; 99284

== ENCOUNTER 2023-06-16 17:23 | Emergency (ER) | payer MEDICARE, SELFPAY ==
[2021-12-14 13:07] VITALS: BMI 30.4
[2023-06-16 17:32] VITALS: BP 172/95; PULSE 88; RESP 18; TEMP 36.8; O2SAT 97; BMI 28.6
[2023-06-16 18:42] LABS: Add Manual Diff / Slide Review NO; Basophils Absolute Auto 0 /uL (0-100); Basophils Percent Auto 0.4 % (0-2); Eosinophils Absolute Auto 100 /uL (0-450); Eosinophils Percent Auto 2.1 % (2-4); Hemoglobin 14.6 g/dL (12.0-16.0); Lymphocytes Absolute Auto 1400 /uL (1100-4500); Lymphocytes Percent Auto 22.7 % (25-40); Mean Corpuscular Hemoglobin 30.5 PG (26-34); Mean Corpuscular Volume 89.9 fL (80-100); Monocytes Absolute Auto 500 /uL (0-900); Monocytes Percent Auto 7.6 % (3-14); Neutrophils Absolute Auto 4300 /uL (1500-7000); Neutrophils Percent Auto 67.2 % (50-75); Platelet Count 172 X10^3/uL (150-400); Red Blood Cell Count 4.78 X10^6/uL (4.0-5.2); White Blood Cell Count 6.3 X10^3/uL (4.5-11.0)
--- NOTE | 2023-06-16 18:51 | ED.GENADULT ---
HPI - General Adult General Chief complaint: Abdominal Pain Stated complaint: ABD pain Time Seen by Provider: 06/16/23 18:09 Source: patient Mode of arrival: Ambulatory History of Present Illness HPI narrative: 73-year-old female who is here for evaluation of right-sided abdominal pain. She states the pain started earlier today. Does seem to be intermittent. Has never had a history of a kidney stone. Has had a history of diverticulitis. Has had diverticulitis on the right side of her abdomen. This feels somewhat similar but not exactly the same as prior diverticulitis history. No vomiting. No fevers. No urinary symptoms. No change in bowel habits. Related Data Home Medications Medication Instructions Recorded Confirmed acetaminophen 650 mg 650 mg PO BID prn 04/18/19 11/02/22 tablet,extended release Previous Rx's Medication Instructions Recorded diazepam 2 mg tablet (Valium) 2 mg PO BID-TID PRN muscle spasm 11/22/22 #10 tabs meclizine 25 mg tablet 25 mg PO BID-TID PRN dizziness #14 11/22/22 tabs ondansetron 4 mg disintegrating 4 mg PO TID-QID PRN nausea and 11/22/22 tablet vomiting #10 tabs sucralfate 100 mg/mL oral 10 ml PO QACHS #414 mL 03/03/23 suspension (Carafate) Allergies Allergy/AdvReac Type Severity Reaction Status Date / Time hydrocodone AdvReac Mild Jittery, Verified 06/08/23 13:27 nervous, shakey Review of Systems Constitutional Constitutional: Reports system reviewed and no additional complaints, except as documented Cardiovascular Cardiovascular: Reports system reviewed and no additional complaints, except as documented Respiratory Respiratory: Reports system reviewed and no additional complaints, except as documented Gastrointestinal Gastrointestinal: Reports system reviewed and no additional complaints, except as documented Genitourinary Genitourinary: Reports system reviewed and no additional complaints, except as documented Integumentary/Breasts Skin/Breast: Reports system reviewed and no additional complaints, except as documented Patient History Medical History Postmenopausal atrophic vaginitis Right lower quadrant pain Former smoker IBS (irritable bowel syndrome) Pelvic fracture HTN (hypertension) Spinal stenosis Depression Arthritis Surgical History History of lumbar fusion (12/17/20) History of laparoscopic appendectomy (02/17/21) History of lumbar fusion (04/26/19) Hx of tonsillectomy History of total left hip arthroplasty History of arthroplasty of right knee H/O: hysterectomy Hx of thyroidectomy Hx of bilateral cataract extraction History of arthroplasty of left shoulder (~2015) Family History Grandmother Cancer Father Hypertension Mother Hypertension Social History marital status: unmarried,single number of children: 0 household members: none Smoking Status: Never smoker alcohol intake: never Smoking Status: Never smoker alcohol intake frequency: other Substance Use Type: does not use Exam Initial Vital Signs Initial Vital Signs: Vital Signs Temperature 98.2 F 06/16/23 17:32 Pulse Rate 88 06/16/23 17:32 Respiratory Rate 18 06/16/23 17:32 Blood Pressure 172/95 H 06/16/23 17:32 Pulse Oximetry 97 06/16/23 17:32 Oxygen Delivery Method Room Air 06/16/23 17:32 Const General: cooperative and No ill appearing HENMT Head: normal to inspection and normocephalic Resp Effort & Inspection: normal respiratory effort Auscultation: clear to auscultation bilaterally Cardio Rate: regular rate Rhythm: regular rhythm GI Inspection: normal to inspection and non-distended Palpation: soft, No firm, No guarding and tender (Right-sided abdomen) Skin General: no rashes or lesions noted Course Orders Ordered: ED Orders 06/16/23 17:38 EKG-12 Lead Stat 06/16/23 18:35 Complete Blood Count AUTO DIFF Stat Comprehensive Metabolic Panel Stat Lipase Stat 06/16/23 18:51 CT abdomen pelvis w con Stat 06/16/23 19:31 Urine Culture Stat Urine Microscopic Stat Discontinued Medications Ondansetron HCl (Ondansetron 4 Mg Odt) 4 mg PO NOW PRN PRN Reason: Nausea And Vomiting Ondansetron HCl (Ondansetron 4 Mg/2 Ml Inj) 4 mg IV NOW PRN PRN Reason: Nausea And Vomiting Vital Signs Vital signs: Vital Signs - 8 hr 06/16/23 17:32 06/16/23 19:00 06/16/23 19:00 Temperature 98.2 F Pulse Rate 88 69 Respiratory Rate 18 18 Blood Pressure 172/95 H 138/73 Pulse Oximetry 97 96 Oxygen Delivery Method Room Air Room Air 06/16/23 19:30 06/16/23 19:30 06/16/23 20:00 Temperature Pulse Rate 68 66 Respiratory Rate 23 20 Blood Pressure 196/84 H Pulse Oximetry 98 96 Oxygen Delivery Method Room Air Nasal Cannula 06/16/23 20:05 06/16/23 20:05 Temperature 98.2 F Pulse Rate 66 Respiratory Rate 24 Blood Pressure 154/70 H Pulse Oximetry 97 Oxygen Delivery Method Room Air Medical Decision Making Lab Data Lab results reviewed: Yes I reviewed the patient's lab results. 06/16/23 18:35 06/16/23 18:35 Labs: Lab Results 06/16/23 06/16/23 Range/Units 18:35 19:31 WBC 6.3 (4.5-11.0) X10^3/uL RBC 4.78 (4.0-5.2) X10^6/uL Hgb 14.6 (12.0-16.0) g/dL Hct 43.0 (36-46) % MCV 89.9 (80-100) fL MCH 30.5 (26-34) PG MCHC 34.0 (30-36) % RDW 14.0 (11.6-14.8) % Plt Count 172 (150-400) X10^3/uL Neut % (Auto) 67.2 (50-75) % Lymph % (Auto) 22.7 L (25-40) % [place] % (Auto) 7.6 (3-14) % Eos % (Auto) 2.1 (2-4) % Baso % (Auto) 0.4 (0-2) % Neut # (Auto) 4300 (0945-6257) /uL Lymph # (Auto) 1400 (8015-3036) /uL [place] # (Auto) 500 (0-900) /uL Eos # (Auto) 100 (0-450) /uL Baso # (Auto) 0 (0-100) /uL Sodium 140 (137-145) mmol/L Potassium 3.9 (3.4-5.1) mmol/L Chloride 104 (98-107) mmol/L Carbon Dioxide 28 (22-32) mmol/L BUN 14 (7-17) mg/dL Creatinine 0.55 (0.52-1.04) mg/dL Estimated GFR > 60 (>60) mL/min BUN/Creatinine Ratio 25.5 H (6-22) Glucose 106 (80-110) mg/dL Calcium 9.5 (8.4-10.2) mg/dL Total Bilirubin 0.4 (0.2-1.3) mg/dL AST 21 (14-36) IU/L ALT 17 (<35) IU/L Alkaline Phosphatase 56 (38-126) U/L Total Protein 7.0 (6.3-8.2) g/dL Albumin 4.2 (3.5-5.0) g/dL Globulin 2.8 (1.7-4.1) g/dL Albumin/Globulin Ratio 1.5 (1.0-2.8) Lipase 102 (23-300) U/L Urine RBC 0-1/hpf (0-5/HPF) Urine WBC 1-5/hpf (0-5/HPF) Ur Squamous Epith Cells 1-5 /hpf D (0-5/HPF) Urine Bacteria Few (2-10) H (None) Ur Culture Indicated? Specimen cultured Urine Dip Bedside Urine Glucose Negative Bedside Urine Bilirubin - Negative Bedside Urine Ketone - Negative Bedside Urine Occult Blood - Negative Bedside Urine Protein - Negative Bedside Urine Urobilinogen - Negative Bedside Urine Nitrite - Negative Bedside Urine Leukocytes +/- 15 Esterase Point of care testing: Urine Dip Bedside Urine Glucose Negative Bedside Urine Bilirubin - Negative Bedside Urine Ketone - Negative Bedside Urine Occult Blood - Negative Bedside Urine Protein - Negative Bedside Urine Urobilinogen - Negative Bedside Urine Nitrite - Negative Bedside Urine Leukocytes +/- [address] scan - abdomen/pelvis: Radiologist's Impression: PROCEDURE: CT ABDOMEN PELVIS W CON INDICATIONS: RLQ abd pain TECHNIQUE: After the administration of intravenous contrast, axial sections acquired from the lung bases to the pubic symphysis. Coronal and sagittal reformats were performed. For radiation dose reduction, the following was used: automated exposure control, adjustment of mA and/or kV according to patient size. COMPARISON: [facility], CT, CT ABDOMEN PELVIS W CON, 02/18/2023, 1:03. [facility], CT, CT ABDOMEN PELVIS W CON, 09/21/2022, 21:48. FINDINGS: Image quality: Diagnostic Lung bases: Lung bases are clear. Heart: No significant findings. ABDOMEN: Liver: Stable CT appearance of the liver with redemonstration of hepatic hypodensity in the right hepatic lobe. Gallbladder: Status post cholecystectomy. Biliary ducts: No intrahepatic or extrahepatic biliary ductal dilatation identified. Pancreas: Unremarkable. Spleen: No splenomegaly. Adrenal Glands: Unremarkable. Kidneys and Ureters: Kidneys are symmetric in size and enhancement, and there is no obstructive uropathy. No perinephric inflammatory changes. Ureters are normal in course and caliber. Multiple bilateral renal hypodensities likely representing cysts are again noted. Stomach and Bowel: Stomach, small bowel loops, and colon are unremarkable. Mild colonic diverticulosis without acute diverticulitis. Peritoneum: No abnormal intraperitoneal fluid. No free air. Ventral Wall: There is a fat-containing umbilical hernia without acute inflammation. Abdominal Nodes: No retroperitoneal or mesenteric adenopathy by size criteria. Vessels: Scattered atherosclerotic calcifications of the abdominal aorta and iliac vessels without aneurysmal dilatation. The inferior vena cava appears patent. PELVIS: Pelvic Organs: Unremarkable. Bladder: Unremarkable. Pelvic Nodes: No enlarged lymph nodes. Miscellaneous: No hernias are seen. Bones: No acute osseous abnormalities. Stable surgical changes of lumbar spinal fusion. Status post left total hip arthroplasty. IMPRESSION: 1. CT abdomen and pelvis without definite acute intra-abdominal abnormalities. 2. Mild colonic diverticulosis without acute diverticulitis. [facility] Narrative Medical decision making narrative: Patient had no urinary symptoms. She does have bacteria in her urine but we will wait for culture before treating with any antibiotics. She has a benign abdominal exam. CT scan shows diverticulosis without signs of acute diverticulitis. No signs of kidney stone. No signs of obstruction. She is no skin changes over the area concerning for zoster. Labs unremarkable. There was no indication for surgical consultation. No indication for antibiotics. We did discuss the lack of a definitive diagnosis. We discussed strict return precautions and follow-up instructions. She expressed understanding and agreement with plan. Discharge Plan Departure Patient Disposition: Home Clinical Impression: Abdominal pain Instructions: DI for Abdominal Pain-Adult Activity Restrictions/Additional Instructions: Your workup here in the emergency department is very reassuring. Recommend that you take 650 mg of Tylenol every 4-6 hours as needed for any pain. Contact your primary doctor for a follow-up. Return to the emergency department for new or worsening symptoms. Prescriptions: No Action acetaminophen 650 mg Tablet Extended Release 650 mg PO BID meclizine 25 mg tablet 25 mg PO BID-TID PRN (Reason: dizziness) Qty: 14 0RF diazepam [Valium] 2 mg tablet 2 mg PO BID-TID PRN (Reason: muscle spasm) Qty: 10 0RF ondansetron 4 mg tablet,disintegrating 4 mg PO TID-QID PRN (Reason: nausea and vomiting) Qty: 10 0RF sucralfate [Carafate] 100 mg/mL suspension 10 ml PO QACHS Qty: 414 2RF Referrals: Amparo Browne MD [Primary Care Provider] - Stand Alone Forms: Patient Portal/API
--- NOTE | 2023-06-16 18:56 | PC.NURSE ---
pt states that she started to have lower abd pain this morning when she woke up. she denies any sob, cp, n/v/d. reports that pain was 5/10 this morning but has since subsided and remains pain free at this time. pt is a&ox4.
[2023-06-16 19:00] VITALS: BP 138/73; PULSE 69; RESP 18; O2SAT 96
[2023-06-16 19:01] LABS: Alanine Aminotransferase 17 IU/L (<35); Albumin 4.2 g/dL (3.5-5.0); Albumin Globulin Ratio 1.5 (1.0-2.8); Alkaline Phosphatase 56 U/L (38-126); Aspartate Aminotransferase 21 IU/L (14-36); BUN Creatinine Ratio 25.5 (6-22); Bilirubin Total 0.4 mg/dL (0.2-1.3); Blood Urea Nitrogen 14 mg/dL (7-17); Calcium 9.5 mg/dL (8.4-10.2); Carbon Dioxide 28 mmol/L (22-32); Chloride 104 mmol/L (98-107); Estimated Glomerular Filt Rate > 60 mL/min (>60); Globulin 2.8 g/dL (1.7-4.1); Glucose 106 mg/dL (80-110); HEMOLYSIS < 15 (0-50); Lipase 102 U/L (23-300); Potassium 3.9 mmol/L (3.4-5.1); Sodium 140 mmol/L (137-145)
[2023-06-16 19:30] VITALS: BP 196/84; PULSE 68; RESP 23; O2SAT 98
[2023-06-16 19:49] LABS: Bacteria Urine Few (2-10); RBC Urine 0-1/HPF (0-5/HPF); Squamous Epithelial Cell Urine 1-5 /HPF (0-5/HPF); WBC Urine 1-5/HPF (0-5/HPF)
[2023-06-16 19:50] LABS: Culture Indicated Urine Specimen Cultured
[2023-06-16 20:00] VITALS: PULSE 66; RESP 20; O2SAT 96
[2023-06-16 20:05] VITALS: BP 154/70; PULSE 66; RESP 24; TEMP 36.8; O2SAT 97
== END 2023-06-16 20:10 | disposition home or self-care (01) ==
PROVIDERS: Emergency Medicine; Emergency Provider Emergency Medicine; PCP Internal Medicine
DX: R10.9 Unspecified abdominal pain (principal)
CPT/HCPCS: 36415; 74177; 80053; 81003; 81015; 83690; 85025; 87086; 99284; 99285; Q9967

== ENCOUNTER 2023-06-30 21:47 | Emergency (ER) | payer MEDICARE, SELFPAY ==
[2021-12-14 13:07] VITALS: BMI 30.4
[2023-06-30] VITALS (7 sets, daily range): BP systolic 139–160; BP diastolic 66–87; PULSE 70–79; RESP 16–18; TEMP 36.6–36.9; O2SAT 97–99; BMI 27.4
[2023-06-30 23:08] LABS: Add Manual Diff / Slide Review NO; Basophils Absolute Auto 100 /uL (0-100); Basophils Percent Auto 1.4 % (0-2); Eosinophils Absolute Auto 100 /uL (0-450); Eosinophils Percent Auto 1.4 % (2-4); Hematocrit 43.1 % (36-46); Hemoglobin 14.6 g/dL (12.0-16.0); Lymphocytes Absolute Auto 2100 /uL (1100-4500); Lymphocytes Percent Auto 27.1 % (25-40); Mean Corpuscular Hemoglobin 31.1 PG (26-34); Mean Corpuscular Volume 91.5 fL (80-100); Monocytes Absolute Auto 600 /uL (0-900); Monocytes Percent Auto 7.3 % (3-14); Neutrophils Absolute Auto 5000 /uL (1500-7000); Neutrophils Percent Auto 62.8 % (50-75); Platelet Count 206 X10^3/uL (150-400); Red Blood Cell Count 4.71 X10^6/uL (4.0-5.2); White Blood Cell Count 7.9 X10^3/uL (4.5-11.0)
--- NOTE | 2023-06-30 23:08 | ED.ABDPAIN ---
HPI - Abdominal Pain General Chief Complaint: Abdominal Pain Stated Complaint: lt sided abd pain Time Seen by Provider: 06/30/23 22:57 Source: patient Mode of arrival: Ambulatory History of Present Illness HPI narrative: Patient comes to the hospital tonight with 3 days of abdominal pain. She says the pain is on the left side of her abdomen and is reminiscent of diverticulitis which she has suffered from in the past. She says it has been quite some time since the last time she is had some definitive abdominal imaging. Over the past few days she does not know whether or not she is had a fever because she does not own a thermometer but she says she did feel warm. She is not had any nausea or vomiting or diarrhea. She denies any urinary symptoms. She denies back pain. She has no chest symptoms or cough. She says that movement may make it slightly worse. Related Data Home Medications Medication Instructions Recorded Confirmed acetaminophen 650 mg 650 mg PO BID prn 04/18/19 11/02/22 tablet,extended release Previous Rx's Medication Instructions Recorded diazepam 2 mg tablet (Valium) 2 mg PO BID-TID PRN muscle spasm 11/22/22 #10 tabs meclizine 25 mg tablet 25 mg PO BID-TID PRN dizziness #14 11/22/22 tabs ondansetron 4 mg disintegrating 4 mg PO TID-QID PRN nausea and 11/22/22 tablet vomiting #10 tabs sucralfate 100 mg/mL oral 10 ml PO QACHS #414 mL 03/03/23 suspension (Carafate) Allergies Allergy/AdvReac Type Severity Reaction Status Date / Time hydrocodone AdvReac Mild Jittery, Verified 06/08/23 13:27 nervous, bro Patient History Medical History Postmenopausal atrophic vaginitis Right lower quadrant pain Former smoker IBS (irritable bowel syndrome) Pelvic fracture HTN (hypertension) Spinal stenosis Depression Arthritis Surgical History History of lumbar fusion (12/17/20) History of laparoscopic appendectomy (02/17/21) History of lumbar fusion (04/26/19) Hx of tonsillectomy History of total left hip arthroplasty History of arthroplasty of right knee H/O: hysterectomy Hx of thyroidectomy Hx of bilateral cataract extraction History of arthroplasty of left shoulder (~2016) Family History Grandmother Cancer Father Hypertension Mother Hypertension Social History marital status: unmarried,single number of children: 0 household members: none Smoking Status: Never smoker alcohol intake: never Smoking Status: Never smoker alcohol intake frequency: other Substance Use Type: does not use Exam Narrative Exam Narrative: GENERAL: Alert, cooperative and in no distress. HEAD: Atraumatic. Normocephalic. EYES: Sclera are clear without icterus. Extraocular movements are full. ENT: No rhinorrhea. Oropharynx is moist. Mouth exam is benign. NECK: Supple. Full range of motion. CARDIOVASCULAR: Normal rate and rhythm without murmur gallop or rub. RESPIRATORY: Clear to auscultation. Breath sounds equal bilaterally. No wheezes, rales, or rhonchi. GASTROINTESTINAL: Abdomen soft, non-tender, nondistended. EXTREMITIES: No edema, full range of motion. No obvious trauma. BACK: Normal inspection, no CVA tenderness. NEURO: Nonfocal examination, normal speech, normal gait. SKIN: No rash or erythema of visible areas PSYCH: Normally oriented. Normal range of affect. Appropriate behavior Initial Vital Signs Initial Vital Signs: Vital Signs Temperature 97.9 F 06/30/23 22:03 Pulse Rate 79 06/30/23 22:03 Respiratory Rate 16 06/30/23 22:03 Blood Pressure 160/87 H 06/30/23 22:03 Pulse Oximetry 99 06/30/23 22:03 Oxygen Delivery Method Room Air 06/30/23 22:03 Course Orders Ordered: ED Orders 06/30/23 22:07 EKG-12 Lead Stat 06/30/23 22:28 Complete Blood Count AUTO DIFF Stat Comprehensive Metabolic Panel Stat Lipase Stat Ondansetron HCl (Ondansetron 4 Mg Odt) 4 mg PO NOW PRN PRN Reason: Nausea And Vomiting Ondansetron HCl (Ondansetron 4 Mg/2 Ml Inj) 4 mg IV NOW PRN PRN Reason: Nausea And Vomiting Reevaluation(s) Reevaluation #1: This is a well-appearing woman with a completely benign examination and vital signs. CT imaging for similar presentation 2 weeks ago was unremarkable as were laboratory tests. We will recheck laboratory tests today but I anticipate normal results. Current recommendation for uncomplicated diverticulitis is symptom management which I will recommend to the patient. Vital Signs Vital signs: Vital Signs - 8 hr 06/30/23 22:03 06/30/23 22:27 06/30/23 22:28 Temperature 97.9 F Pulse Rate 79 71 74 Respiratory Rate 16 Blood Pressure 160/87 H Pulse Oximetry 99 99 99 Oxygen Delivery Method Room Air 06/30/23 22:28 06/30/23 22:30 06/30/23 22:30 Temperature Pulse Rate 70 Respiratory Rate 18 Blood Pressure 139/66 144/67 H Pulse Oximetry 98 Oxygen Delivery Method MDM - Abdominal Pain Lab Data 06/30/23 22:28 06/30/23 22:28 Labs: Lab Results 06/30/23 Range/Units 22:28 WBC 7.9 (4.5-11.0) X10^3/uL RBC 4.71 (4.0-5.2) X10^6/uL Hgb 14.6 (12.0-16.0) g/dL Hct 43.1 (36-46) % MCV 91.5 (80-100) fL MCH 31.1 (26-34) PG MCHC 34.0 (30-36) % RDW 14.0 (11.6-14.8) % Plt Count 206 (150-400) X10^3/uL Neut % (Auto) 62.8 (50-75) % Lymph % (Auto) 27.1 (25-40) % [place] % (Auto) 7.3 (3-14) % Eos % (Auto) 1.4 L (2-4) % Baso % (Auto) 1.4 (0-2) % Neut # (Auto) 5000 (0165-9139) /uL Lymph # (Auto) 2100 (8891-8284) /uL [place] # (Auto) 600 (0-900) /uL Eos # (Auto) 100 (0-450) /uL Baso # (Auto) 100 (0-100) /uL Sodium 139 (137-145) mmol/L Potassium 4.2 (3.4-5.1) mmol/L Chloride 104 (98-107) mmol/L Carbon Dioxide 26 (22-32) mmol/L BUN 15 (7-17) mg/dL Creatinine 0.52 (0.52-1.04) mg/dL Estimated GFR > 60 (>60) mL/min BUN/Creatinine Ratio 28.8 H (6-22) Glucose 82 (80-110) mg/dL Calcium 10.2 (8.4-10.2) mg/dL Total Bilirubin 1.0 (0.2-1.3) mg/dL AST 24 (14-36) IU/L ALT 20 (<35) IU/L Alkaline Phosphatase 67 (38-126) U/L Total Protein 7.8 (6.3-8.2) g/dL Albumin 4.4 (3.5-5.0) g/dL Globulin 3.4 (1.7-4.1) g/dL Albumin/Globulin Ratio 1.3 (1.0-2.8) Lipase 46 (23-300) U/L ECG Data Interpretation: ECG obtained at 10:39 p.m. shows sinus rhythm at 76 beats per minute with a QTC of 470. This ECG is normal. MDM Narrative Medical decision making narrative: Benign exam, benign blood test results. Vital signs are normal. I think symptomatic therapy and outpatient follow-up is safe and appropriate. Discharge Plan Departure Patient Disposition: Home Clinical Impression: Abdominal pain Instructions: DI for Abdominal Pain-Adult Activity Restrictions/Additional Instructions: No immediately dangerous cause for her abdominal pain is identified. You may in fact have diverticulitis but the treatment recommended is simple symptom management for now. I recommended clear liquid diet. Tylenol 1000 mg taken together with ibuprofen 600 mg every 6 hours. Follow-up with your doctor in 2 or 3 days to reassess. Return to the ED for repeated vomiting, high fever or uncontrolled abdominal pain. Prescriptions: No Action acetaminophen 650 mg Tablet Extended Release 650 mg PO BID meclizine 25 mg tablet 25 mg PO BID-TID PRN (Reason: dizziness) Qty: 14 0RF diazepam [Valium] 2 mg tablet 2 mg PO BID-TID PRN (Reason: muscle spasm) Qty: 10 0RF ondansetron 4 mg tablet,disintegrating 4 mg PO TID-QID PRN (Reason: nausea and vomiting) Qty: 10 0RF sucralfate [Carafate] 100 mg/mL suspension 10 ml PO QACHS Qty: 414 2RF Referrals: Amparo Browne MD [Primary Care Provider] - Stand Alone Forms: Patient Portal/API
[2023-06-30 23:18] LABS: Alanine Aminotransferase 20 IU/L (<35); Albumin 4.4 g/dL (3.5-5.0); Albumin Globulin Ratio 1.3 (1.0-2.8); Alkaline Phosphatase 67 U/L (38-126); Aspartate Aminotransferase 24 IU/L (14-36); BUN Creatinine Ratio 28.8 (6-22); Blood Urea Nitrogen 15 mg/dL (7-17); Calcium 10.2 mg/dL (8.4-10.2); Carbon Dioxide 26 mmol/L (22-32); Chloride 104 mmol/L (98-107); Estimated Glomerular Filt Rate > 60 mL/min (>60); Globulin 3.4 g/dL (1.7-4.1); Glucose 82 mg/dL (80-110); HEMOLYSIS 20 (0-50); Lipase 46 U/L (23-300); Potassium 4.2 mmol/L (3.4-5.1); Sodium 139 mmol/L (137-145); Total Protein 7.8 g/dL (6.3-8.2)
== END 2023-06-30 23:43 | disposition home or self-care (01) ==
PROVIDERS: Emergency Provider Family Medicine Addiction Medicine; PCP Internal Medicine
DX: R10.9 Unspecified abdominal pain (principal)
CPT/HCPCS: 36415; 80053; 83690; 85025; 93005; 93010; 99283; 99284

== ENCOUNTER 2023-08-20 19:45 | Emergency (ER) | payer MEDICARE, SELFPAY ==
[2021-12-14 13:07] VITALS: BMI 30.4
[2023-08-20 19:46] VITALS: BP 154/74; PULSE 84; RESP 16; TEMP 36.2; O2SAT 98; BMI 28.4
[2023-08-20] MEDS: ACETAMINOPHEN 325 MG TABLET 650 MG PO (20:29)
--- NOTE | 2023-08-20 21:11 | PC.NURSE ---
pt ambulatory to room in nad
--- NOTE | 2023-08-20 22:00 | DI.CT.S_ITS ---
PROCEDURE: CT ABDOMEN PELVIS W CON INDICATIONS: RLQ abdominal pain TECHNIQUE: After the administration of intravenous contrast, axial sections acquired from the lung bases to the pubic symphysis. Coronal and sagittal reformats were performed. For radiation dose reduction, the following was used: automated exposure control, adjustment of mA and/or kV according to patient size. COMPARISON: [facility], CT, CT ABDOMEN PELVIS W CON, 06/16/2023, 19:21. FINDINGS: Image quality: Diagnostic. Lower Chest: No significant findings. ABDOMEN: Liver: 1.8 x 1.2 cm hypodensity involving right hepatic lobe is again seen unchanged in size and appearance from prior study series 2, image 18. No new hepatic lesion is noted. Gallbladder: Gallbladder is surgically absent. Biliary ducts: No biliary dilation. Pancreas: No ductal dilation. Spleen: Size is within normal limits. Adrenal Glands: No adrenal nodules. Kidneys and Ureters: No hydronephrosis. No solid mass. Bilateral small renal cysts are again seen . No complex renal cystic lesion which requires follow up. 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 There is no evidence of bowel obstruction. No abnormal bowel wall thickening or mesenteric fat stranding. Questionable gastric wall thickening is noted which may be due to under distension. Fecal stasis throughout the colon is seen. No abscess collection. Peritoneum: No abnormal intraperitoneal fluid. No free air. Ventral Wall: No hernia. Abdominal Nodes: No retroperitoneal or mesenteric adenopathy by size criteria. Vessels: Aorta and inferior vena cava are normal in size. Mild atherosclerotic calcifications scattered in abdominal aorta is again seen. PELVIS: Pelvic Organs: Unremarkable. Bladder: Unremarkable. Pelvic Nodes: No enlarged lymph nodes. Miscellaneous: No inguinal hernias are seen. Bones: No suspicious bony lesions. No acute vertebral body compression fracture. Extensive post fusion changes are noted throughout lumbar spine. IMPRESSION: 1. Questionable diffuse gastric wall thickening which may be due to under distension versus gastritis. No bowel obstruction or abnormal bowel wall thickening. No abscess collection. Suggestion of prior appendectomy suggest clinical correlation. No free fluid or free air. 2. Stable hypodensity in right hepatic lobe. Prior cholecystectomy. 3. Bilateral renal cysts. No hydronephrosis or hydroureter. Dictated by: Mervin Tapia M.D. on 08/20/2023 at 23:53 Approved by: Mervin Tapia M.D. on 08/20/2023 at 23:59
--- NOTE | 2023-08-20 22:05 | ED.ABDPAIN ---
HPI - Abdominal Pain General Chief Complaint: Abdominal Pain Stated Complaint: ABD pain Time Seen by Provider: 08/20/23 20:25 Source: patient Mode of arrival: Ambulatory History of Present Illness HPI narrative: 73-year-old female who presents with right lower quadrant abdominal pain that began around 1900. No medications used for symptom relief. Patient reports the pain is sharp, nonradiating and denies known aggravating/alleviating factors. Patient was given Tylenol 650 mg here in the emergency department with improvement in symptoms the patient reports the pain has returned and is gradually worsening. No other complaints or associated symptoms noted. Patient reports being in her usual state of health prior to symptom onset. Patient arrives via private vehicle. Patient is ambulatory awake, alert, oriented x3, in no apparent distress and maintaining her own airway. Related Data Home Medications Medication Instructions Recorded Confirmed acetaminophen 650 mg 650 mg PO BID prn 04/18/19 09/19/23 tablet,extended release pantoprazole 40 mg tablet,delayed 40 mg PO DAILY 09/19/23 09/19/23 release Allergies Allergy/AdvReac Type Severity Reaction Status Date / Time hydrocodone AdvReac Mild Jittery, Verified 09/19/23 14:20 nervous, jose jkey Review of Systems Review of Systems Narrative: See HPI for pertinent positives, otherwise review of systems negative Patient History Medical History Postmenopausal atrophic vaginitis Right lower quadrant pain Former smoker IBS (irritable bowel syndrome) Pelvic fracture HTN (hypertension) Spinal stenosis Depression Arthritis Surgical History History of lumbar fusion (12/17/20) History of laparoscopic appendectomy (02/17/21) History of lumbar fusion (04/26/19) Hx of tonsillectomy History of total left hip arthroplasty History of arthroplasty of right knee H/O: hysterectomy Hx of thyroidectomy Hx of bilateral cataract extraction History of arthroplasty of left shoulder (~2015) Family History Grandmother Cancer Father Hypertension Mother Hypertension Social History marital status: unmarried,single number of children: 0 household members: none lives independently: Yes occupational status: previously employed Smoking Status: Never smoker alcohol intake: never Smoking Status: Never smoker alcohol intake frequency: other Substance Use Type: does not use Exam Narrative Exam Narrative: General:? Awake, alert, lying comfortably in bed during both exam and interview and in no apparent distress HEENT:? Normocephalic, atraumatic, pupils equal and reactive to light, TMs clear bilateral, trachea midline, neck is supple, normal range of motion Chest:? Normal to inspection, no crepitus, no tenderness Cardiovascular:? 2+ radial bilaterally, regular rhythm/rate. Pulmonary:? Regular respirations, no respiratory distress, lungs clear to auscultation bilateral Abdomen:? Soft, RLQ abdominal tenderness, nondistended, no guarding or rebound tenderness, no hernia Back: ?No midline spinal tenderness, normal range of motion, no step-off deformities :? Exam deferred Skin:? Warm, dry, intact, no rashes Extremities:? No deformities of bilateral upper/lower extremities, nontender Neuro:? No focal neurological deficits, moving all 4 extremities equally, normal gait, normal speech Psych:? Normal mood, normal affect normal attention Initial Vital Signs Initial Vital Signs: Vital Signs Temperature 97.1 F L 08/20/23 19:46 Pulse Rate 84 08/20/23 19:46 Respiratory Rate 16 08/20/23 19:46 Blood Pressure 154/74 H 08/20/23 19:46 Pulse Oximetry 98 08/20/23 19:46 Oxygen Delivery Method Room Air 08/20/23 19:46 Course Orders Ordered: Discontinued Medications Acetaminophen (Acetaminophen 325 Mg Tablet) 650 mg PO NOW ONE Stop: 08/20/23 20:26 Last Admin: 08/20/23 20:29 Dose: 650 mg Documented By: HNG Vital Signs Vital signs: Vital Signs - 8 hr 08/20/23 19:46 Temperature 97.1 F L Pulse Rate 84 Respiratory Rate 16 Blood Pressure 154/74 H Pulse Oximetry 98 Oxygen Delivery Method Room Air MDM - Abdominal Pain Lab Data 08/20/23 22:20 08/20/23 22:20 Labs: Lab Results 08/20/23 08/20/23 Range/Units 22:01 22:20 WBC 8.0 (4.5-11.0) X10^3/uL RBC 4.90 (4.0-5.2) X10^6/uL Hgb 14.9 (12.0-16.0) g/dL Hct 44.6 (36-46) % MCV 91.0 (80-100) fL MCH 30.5 (26-34) PG MCHC 33.5 (30-36) % RDW 13.7 (11.6-14.8) % Plt Count 184 (150-400) X10^3/uL Neut % (Auto) 63.0 (50-75) % Lymph % (Auto) 26.4 (25-40) % [place] % (Auto) 8.7 (3-14) % Eos % (Auto) 1.6 L (2-4) % Baso % (Auto) 0.3 (0-2) % Neut # (Auto) 5000 (6682-8384) /uL Lymph # (Auto) 2100 (4306-1810) /uL [place] # (Auto) 700 (0-900) /uL Eos # (Auto) 100 (0-450) /uL Baso # (Auto) 0 (0-100) /uL Sodium 138 (137-145) mmol/L Potassium 3.7 (3.4-5.1) mmol/L Chloride 102 (98-107) mmol/L Carbon Dioxide 28 (22-32) mmol/L BUN 17 (7-17) mg/dL Creatinine 0.52 (0.52-1.04) mg/dL Estimated GFR > 60 (>60) mL/min BUN/Creatinine Ratio 32.7 H (6-22) Glucose 94 (80-110) mg/dL Calcium 9.9 (8.4-10.2) mg/dL Total Bilirubin 0.7 (0.2-1.3) mg/dL AST 22 (14-36) IU/L ALT 18 (<35) IU/L Alkaline Phosphatase 55 (38-126) U/L Total Protein 7.1 (6.3-8.2) g/dL Albumin 4.2 (3.5-5.0) g/dL Globulin 2.9 (1.7-4.1) g/dL Albumin/Globulin Ratio 1.4 (1.0-2.8) Urine Color Yellow Urine Appearance Clear Urine pH 6.0 (4.5-8.0) Ur Specific [place] 1.015 (1.000-1.035) Urine Protein Negative (Negative) Urine Glucose (UA) Negative (Negative) g/dL Urine Ketones Negative (NEGATIVE) Urine Occult Blood Negative (Negative) Urine Nitrate Negative (Negative) Urine Bilirubin Negative (NEGATIVE) Urine Urobilinogen 0.2 (0.2) E.U./dL Ur Leukocyte Esterase Negative (NEGATIVE) Urine RBC 0-1/hpf (0-5/HPF) Urine WBC 0-1/hpf (0-5/HPF) Ur Squamous Epith Cells 0-1 /hpf (0-5/HPF) Amorphous Sediment 1+ Urine Bacteria Occasional (0-1) (None) Ur Culture Indicated? Cult not indicated MDM Narrative Medical decision making narrative: Patient presents with right lower quadrant abdominal pain. Current vital signs are within normal limits/non-actionablel. Diagnostic laboratory testing within normal limits/nonactionable. UA not suggestive of UTI. CT abdomen and pelvis not suggestive acute disease bowel obstruction perforation or mass or abscess. Discussed findings with patient. Patient reports feeling better. Return precautions given. PCP follow-up recommended within 1 week. Patient discharged home in stable condition Discharge Plan Departure Patient Disposition: Home Clinical Impression: Abdominal pain Qualifiers: Abdominal location: generalized Qualified Code(s): R10.84 - Generalized abdominal pain Instructions: DI for Abdominal Pain-Adult Activity Restrictions/Additional Instructions: Take Tylenol as directed and as needed for symptom relief. Please return to the emergency department immediately if symptoms should change or worsen. Prescriptions: Continued acetaminophen 650 mg Tablet Extended Release 650 mg PO BID No Action pantoprazole 40 mg tablet,delayed release (DR/EC) 40 mg PO DAILY Patient Comments: pt. takes one tablet 30 mins before each meal. Referrals: Amparo Browne MD [Primary Care Provider] - As soon as possible Stand Alone Forms: Patient Portal/API
[2023-08-20 22:30] LABS: Add Manual Diff / Slide Review NO; Basophils Absolute Auto 0 /uL (0-100); Basophils Percent Auto 0.3 % (0-2); Eosinophils Absolute Auto 100 /uL (0-450); Eosinophils Percent Auto 1.6 % (2-4); Hematocrit 44.6 % (36-46); Hemoglobin 14.9 g/dL (12.0-16.0); Lymphocytes Absolute Auto 2100 /uL (1100-4500); Lymphocytes Percent Auto 26.4 % (25-40); Mean Corpuscular HGB Conc 33.5 % (30-36); Mean Corpuscular Hemoglobin 30.5 PG (26-34); Monocytes Absolute Auto 700 /uL (0-900); Monocytes Percent Auto 8.7 % (3-14); Neutrophils Absolute Auto 5000 /uL (1500-7000); Platelet Count 184 X10^3/uL (150-400); Red Cell Distribution Width 13.7 % (11.6-14.8)
[2023-08-20 22:45] LABS: Alanine Aminotransferase 18 IU/L (<35); Albumin 4.2 g/dL (3.5-5.0); Albumin Globulin Ratio 1.4 (1.0-2.8); Alkaline Phosphatase 55 U/L (38-126); Aspartate Aminotransferase 22 IU/L (14-36); BUN Creatinine Ratio 32.7 (6-22); Bilirubin Total 0.7 mg/dL (0.2-1.3); Blood Urea Nitrogen 17 mg/dL (7-17); Calcium 9.9 mg/dL (8.4-10.2); Carbon Dioxide 28 mmol/L (22-32); Chloride 102 mmol/L (98-107); Estimated Glomerular Filt Rate > 60 mL/min (>60); Globulin 2.9 g/dL (1.7-4.1); Glucose 94 mg/dL (80-110); HEMOLYSIS < 15 (0-50); Potassium 3.7 mmol/L (3.4-5.1); Sodium 138 mmol/L (137-145); Total Protein 7.1 g/dL (6.3-8.2)
[2023-08-20 22:51] LABS: Appearance Urine UA CLEAR; Bilirubin Urine UA NEGATIVE (NEGATIVE); Color Urine UA YELLOW; Glucose Urine UA NEGATIVE (Negative); Ketones Urine UA NEGATIVE (NEGATIVE); Leukocyte Esterase Urine UA NEGATIVE (NEGATIVE); Nitrite Urine UA NEGATIVE (Negative); Occult Blood Urine UA NEGATIVE (Negative); Protein Urine UA NEGATIVE (Negative); Specific Gravity Urine UA 1.015 (1.000-1.035); Urobilinogen Urine UA 0.2 E.U./dL (0.2)
[2023-08-20 23:05] LABS: Amorphous Sediment Urine 1+; Bacteria Urine Occasional (0-1); RBC Urine 0-1/HPF (0-5/HPF); Squamous Epithelial Cell Urine 0-1 /HPF (0-5/HPF); WBC Urine 0-1/HPF (0-5/HPF)
[2023-08-20 23:06] LABS: Culture Indicated Urine Cult Not Indicated
[2023-08-21 00:16] VITALS: BP 148/82; PULSE 78; RESP 18; O2SAT 100
== END 2023-08-21 00:19 | disposition home or self-care (01) ==
PROVIDERS: Emergency Provider Emergency Medicine; PCP Internal Medicine
DX: R10.84 Generalized abdominal pain (principal)
CPT/HCPCS: 36415; 74177; 80053; 81001; 85025; 99284; Q9967

== ENCOUNTER 2023-09-02 02:03 | Emergency (ER) | payer MEDICARE, SELFPAY ==
[2021-12-14 13:07] VITALS: BMI 30.4
[2023-09-02 02:11] VITALS: BP 171/76; PULSE 83; RESP 18; TEMP 36.6; O2SAT 98; BMI 28.8
[2023-09-02 02:31] VITALS: PULSE 73; O2SAT 98
--- NOTE | 2023-09-02 02:35 | ED_ITS ---
HPI - General Adult General Chief complaint: Abdominal Pain Stated complaint: abd pain Time Seen by Provider: 09/02/23 02:18 Source: patient Mode of arrival: Ambulatory History of Present Illness HPI narrative: Patient is a 73-year-old female who is here for evaluation of lower abdominal pain. She has been seen here in the emergency department multiple times over the past several weeks/months for similar symptoms that she comes in with today. Has had multiple CT scans. Labs that have all been unremarkable. She has a follow-up with her primary doctor scheduled for approximately 1 month from now. She states she normally has 3 bowel movements a day and she did have multiple bowel movements yesterday. She denies any urinary symptoms. No nausea vomiting. No fevers. She has had abdominal surgeries in the past. She also has a history of diverticulitis. She states that since the last time she was seen here in the emergency department her symptoms have not necessarily change just have not gone away. Related Data Home Medications Medication Instructions Recorded Confirmed acetaminophen 650 mg 650 mg PO BID prn 04/18/19 11/02/22 tablet,extended release Previous Rx's Medication Instructions Recorded diazepam 2 mg tablet (Valium) 2 mg PO BID-TID PRN muscle spasm 11/22/22 #10 tabs meclizine 25 mg tablet 25 mg PO BID-TID PRN dizziness #14 11/22/22 tabs ondansetron 4 mg disintegrating 4 mg PO TID-QID PRN nausea and 11/22/22 tablet vomiting #10 tabs sucralfate 100 mg/mL oral 10 ml PO QACHS #414 mL 03/03/23 suspension (Carafate) hydralazine 10 mg tablet 10 mg PO BID #60 tabs 09/02/23 Allergies Allergy/AdvReac Type Severity Reaction Status Date / Time hydrocodone AdvReac Mild Jittery, Verified 08/20/23 19:50 nervous, shakey Review of Systems Constitutional Constitutional: Reports system reviewed and no additional complaints, except as documented Gastrointestinal Gastrointestinal: Reports system reviewed and no additional complaints, except as documented Genitourinary Genitourinary: Reports system reviewed and no additional complaints, except as documented Musculoskeletal Musculoskeletal: Reports system reviewed and no additional complaints, except as documented Integumentary/Breasts Skin/Breast: Reports system reviewed and no additional complaints, except as documented Patient History Medical History Postmenopausal atrophic vaginitis Right lower quadrant pain Former smoker IBS (irritable bowel syndrome) Pelvic fracture HTN (hypertension) Spinal stenosis Depression Arthritis Surgical History History of lumbar fusion (12/17/20) History of laparoscopic appendectomy (02/17/21) History of lumbar fusion (04/26/19) Hx of tonsillectomy History of total left hip arthroplasty History of arthroplasty of right knee H/O: hysterectomy Hx of thyroidectomy Hx of bilateral cataract extraction History of arthroplasty of left shoulder (~2015) Family History Grandmother Cancer Father Hypertension Mother Hypertension Social History marital status: unmarried,single number of children: 0 household members: none Smoking Status: Never smoker alcohol intake: never Smoking Status: Never smoker alcohol intake frequency: other Substance Use Type: does not use Exam Initial Vital Signs Initial Vital Signs: Vital Signs Temperature 97.8 F 09/02/23 02:11 Pulse Rate 83 09/02/23 02:11 Respiratory Rate 18 09/02/23 02:11 Blood Pressure 171/76 H 09/02/23 02:11 Pulse Oximetry 98 09/02/23 02:11 Oxygen Delivery Method Room Air 09/02/23 02:11 Const General: cooperative and comfortable HENMT Head: normal to inspection GI Inspection: normal to inspection and non-distended Palpation: soft, No firm, No guarding and No tender Skin Other: Well-healed surgical scars midline abdomen Course Orders Ordered: ED Orders 09/02/23 02:25 Complete Blood Count AUTO DIFF Stat Comprehensive Metabolic Panel Stat Lipase Stat 09/02/23 02:57 XR abdomen 1V Stat Discontinued Medications Acetaminophen (Acetaminophen 325 Mg Tablet) 650 mg PO NOW ONE Stop: 09/02/23 03:31 Last Admin: 09/02/23 03:34 Dose: 650 mg Documented By: SB Vital Signs Vital signs: Vital Signs - 8 hr 09/02/23 02:11 09/02/23 02:31 09/02/23 02:53 Temperature 97.8 F Pulse Rate 83 73 68 Respiratory Rate 18 Blood Pressure 171/76 H Pulse Oximetry 98 98 97 Oxygen Delivery Method Room Air 09/02/23 02:54 09/02/23 02:54 Temperature Pulse Rate 69 Respiratory Rate 18 Blood Pressure 142/69 H 142/69 H Pulse Oximetry 97 Oxygen Delivery Method Room Air Medical Decision Making Lab Data Lab results reviewed: Yes I reviewed the patient's lab results. 09/02/23 02:25 09/02/23 02:25 Labs: Lab Results 09/02/23 Range/Units 02:25 WBC 8.1 (4.5-11.0) X10^3/uL RBC 4.81 (4.0-5.2) X10^6/uL Hgb 14.9 (12.0-16.0) g/dL Hct 44.0 (36-46) % MCV 91.6 (80-100) fL MCH 30.9 (26-34) PG MCHC 33.8 (30-36) % RDW 13.5 (11.6-14.8) % Plt Count 180 (150-400) X10^3/uL Neut % (Auto) 69.6 (50-75) % Lymph % (Auto) 21.1 L (25-40) % [place] % (Auto) 7.3 (3-14) % Eos % (Auto) 1.6 L (2-4) % Baso % (Auto) 0.4 (0-2) % Neut # (Auto) 5600 (1996-1471) /uL Lymph # (Auto) 1700 (2977-4046) /uL [place] # (Auto) 600 (0-900) /uL Eos # (Auto) 100 (0-450) /uL Baso # (Auto) 0 (0-100) /uL Sodium 139 (137-145) mmol/L Potassium 3.8 (3.4-5.1) mmol/L Chloride 101 (98-107) mmol/L Carbon Dioxide 28 (22-32) mmol/L BUN 17 (7-17) mg/dL Creatinine 0.55 (0.52-1.04) mg/dL Estimated GFR > 60 (>60) mL/min BUN/Creatinine Ratio 30.9 H (6-22) Glucose 101 (80-110) mg/dL Calcium 9.6 (8.4-10.2) mg/dL Total Bilirubin 0.8 (0.2-1.3) mg/dL AST 20 (14-36) IU/L ALT 17 (<35) IU/L Alkaline Phosphatase 61 (38-126) U/L Total Protein 7.1 (6.3-8.2) g/dL Albumin 4.2 (3.5-5.0) g/dL Globulin 2.9 (1.7-4.1) g/dL Albumin/Globulin Ratio 1.4 (1.0-2.8) Lipase 85 (23-300) U/L Imaging Data Abdominal x-ray: Radiologist's Impression: No acute findings MDM Narrative Medical decision making narrative: Patient has a benign exam. Labs unremarkable. X-ray is unremarkable. Has had a fairly extensive workup out of the emergency department for her symptoms today. I do feel that it is best not to obtain further imaging studies. I talked with the patient that we are at the point to where she needs to follow-up with her primary doctor and most likely general surgeon or GI 2 discuss further evaluation and potentially colonoscopy. Patient expressed understanding and agreement with this. A prescription for hydralazine was inadvertently placed on this patient. Unfortunately once the medication has been electronically sent I can not undo this process. Patient was informed that if she receives a call from the pharmacy stating that this medication is ready that she should as tell the pharmacy that she was told not to take the medicine. Discharge Plan Departure Patient Disposition: Home Clinical Impression: Abdominal pain Instructions: DI for Abdominal Pain-Adult Activity Restrictions/Additional Instructions: I do recommend that you keep your appointment that you has scheduled with your primary doctor next month. I would recommend that during normal business hours you contact the general surgeon of the number provided below for a follow-up as well. Continue to take all of your medications as directed. There was a medicine called hydralazine that was sent to [facility] here in [place] under your name. This was placed under your name by mistake. You do not need to take this medication. If you happened to receive a call from [facility] stating that this medication is ready for pick up attendant you can just tell them that this was placed under your name by mistake and you do not need to take this medicine. Prescriptions: New hydralazine 10 mg tablet 10 mg PO BID Qty: 60 0RF No Action acetaminophen 650 mg Tablet Extended Release 650 mg PO BID meclizine 25 mg tablet 25 mg PO BID-TID PRN (Reason: dizziness) Qty: 14 0RF diazepam [Valium] 2 mg tablet 2 mg PO BID-TID PRN (Reason: muscle spasm) Qty: 10 0RF ondansetron 4 mg tablet,disintegrating 4 mg PO TID-QID PRN (Reason: nausea and vomiting) Qty: 10 0RF sucralfate [Carafate] 100 mg/mL suspension 10 ml PO QACHS Qty: 414 2RF Referrals: Yang Mckeon MD [Physician] - Amparo Browne MD [Primary Care Provider] - Stand Alone Forms: Patient Portal/API
[2023-09-02 02:40] LABS: Add Manual Diff / Slide Review NO; Basophils Absolute Auto 0 /uL (0-100); Basophils Percent Auto 0.4 % (0-2); Eosinophils Absolute Auto 100 /uL (0-450); Eosinophils Percent Auto 1.6 % (2-4); Hemoglobin 14.9 g/dL (12.0-16.0); Lymphocytes Absolute Auto 1700 /uL (1100-4500); Lymphocytes Percent Auto 21.1 % (25-40); Mean Corpuscular HGB Conc 33.8 % (30-36); Mean Corpuscular Hemoglobin 30.9 PG (26-34); Mean Corpuscular Volume 91.6 fL (80-100); Monocytes Absolute Auto 600 /uL (0-900); Monocytes Percent Auto 7.3 % (3-14); Neutrophils Absolute Auto 5600 /uL (1500-7000); Neutrophils Percent Auto 69.6 % (50-75); Platelet Count 180 X10^3/uL (150-400); Red Blood Cell Count 4.81 X10^6/uL (4.0-5.2); Red Cell Distribution Width 13.5 % (11.6-14.8); White Blood Cell Count 8.1 X10^3/uL (4.5-11.0)
[2023-09-02 02:49] LABS: Alanine Aminotransferase 17 IU/L (<35); Albumin 4.2 g/dL (3.5-5.0); Albumin Globulin Ratio 1.4 (1.0-2.8); Alkaline Phosphatase 61 U/L (38-126); Aspartate Aminotransferase 20 IU/L (14-36); BUN Creatinine Ratio 30.9 (6-22); Bilirubin Total 0.8 mg/dL (0.2-1.3); Blood Urea Nitrogen 17 mg/dL (7-17); Calcium 9.6 mg/dL (8.4-10.2); Carbon Dioxide 28 mmol/L (22-32); Chloride 101 mmol/L (98-107); Estimated Glomerular Filt Rate > 60 mL/min (>60); Globulin 2.9 g/dL (1.7-4.1); Glucose 101 mg/dL (80-110); HEMOLYSIS < 15 (0-50); Lipase 85 U/L (23-300); Potassium 3.8 mmol/L (3.4-5.1); Sodium 139 mmol/L (137-145); Total Protein 7.1 g/dL (6.3-8.2)
[2023-09-02 02:53] VITALS: PULSE 68; O2SAT 97
[2023-09-02 02:54] VITALS: BP 142/69; PULSE 69; RESP 18; O2SAT 97
--- NOTE | 2023-09-02 02:57 | DI.RAD.S_ITS ---
PROCEDURE: XR ABDOMEN 1V INDICATIONS: Generalized abdominal pain TECHNIQUE: One view of the abdomen acquired. COMPARISON: [facility], CT, CT ABDOMEN PELVIS W CON, 08/20/2023, 23:02. FINDINGS: Surgical changes and devices: None. Bowel: Bowel gas pattern is nonobstructive with gas seen in the colon. Metallic curved density projecting over the left SI joint is of unknown etiology. Soft tissues: Orthopedic hardware with intervertebral spacers projects over the spine. The position of these intervertebral spacers and the orthopedic hardware does not appear different from prior study. Bones: Severe DJD of the spine IMPRESSION: 1. Nonobstructive bowel gas pattern 2. Curved 3 cm long, 2 mm thick metallic density projecting over the left abdomen/SI joint is of unknown etiology. Dictated by: Madhav Stacy M.D. on 09/02/2023 at 8:16 Approved by: Madhav Stacy M.D. on 09/02/2023 at 8:23
[2023-09-02] MEDS: ACETAMINOPHEN 325 MG TABLET 650 MG PO (03:34)
== END 2023-09-02 03:49 | disposition home or self-care (01) ==
PROVIDERS: Emergency Provider Emergency Medicine; PCP Internal Medicine
DX: R10.30 Lower abdominal pain, unspecified (principal)
CPT/HCPCS: 36415; 74018; 80053; 83690; 85025; 99283; 99284

== ENCOUNTER 2023-09-29 07:57 | Day surgery (SDC) | payer MEDICARE, SELFPAY ==
[2021-12-14 13:07] VITALS: BMI 30.4
--- NOTE | 2023-09-29 | PATH_ITS ---
[facility] Accession Number: [id number] No. of containers..01 Tissue . 01 Material submitted: . stomach - ANTRAL BIOPSY . 01 Diagnosis: GASTRIC ANTRUM, BIOPSY: Gastric antral mucosa with no diagnostic abnormality. No evidence of Helicobacter organisms on H/E stain. Negative for intestinal metaplasia. Negative for dysplasia or malignancy. V 10/03/2023 1151 Local . 01 Electronically signed: . Eh Castro MD, PhD, Pathologist NPI- [id number] . 01 Gross description: . ANTRAL BIOPSY: Received in formalin is 2 fragment(s) of kelly, soft tissue measuring 0.2 x 0.1 x 0.1 cm to 0.1 x 0.1 x 0.1 cm submitted entirely in 1 cassette(s) /AAY 09/30/2023 0528 Local . 01 Pathologist provided ICD-10: R10.9 . 01 CPT . 777268 Specimen Comment: A courtesy copy of this report has been sent to [phone] Performed at: 01 [facility] [address] [place] [address] [address], [place], [place] [id number] MD Francisco Avery MD Phone: [phone]
[2023-09-29 09:02] VITALS: BP 138/89; PULSE 78; RESP 16; TEMP 36.3; O2SAT 96
[2023-09-29] MEDS: LACTATED RINGERS 1,000 ML 42 ML IV (09:12)
--- NOTE | 2023-09-29 12:05 | PM.HP.1 ---
History of Present Illness History of Present Illness Date Patient Seen: 09/29/23 Time Patient Seen: 12:05 Chief complaint: EGD w/poss bx Narrative: Hx of abdomen pain for the last several months, brought on by eating. RLQ, s/p appendectomy and lap jeff. PFSH Medical History Postmenopausal atrophic vaginitis Right lower quadrant pain Former smoker IBS (irritable bowel syndrome) Pelvic fracture HTN (hypertension) Spinal stenosis Depression Arthritis Surgical History History of lumbar fusion (12/17/20) History of laparoscopic appendectomy (02/17/21) History of lumbar fusion (04/26/19) Hx of tonsillectomy History of total left hip arthroplasty History of arthroplasty of right knee H/O: hysterectomy Hx of thyroidectomy Hx of bilateral cataract extraction History of arthroplasty of left shoulder (~2015) Family History Grandmother Cancer Father Hypertension Mother Hypertension Social History marital status: unmarried,single number of children: 0 household members: none lives independently: Yes occupational status: previously employed Smoking Status: Never smoker alcohol intake: never Meds Home Medications and Allergies Home Medications Medication Instructions Recorded Confirmed Type acetaminophen 650 mg 650 mg PO BID prn 04/18/19 09/29/23 History tablet,extended release pantoprazole 40 mg tablet,delayed 40 mg PO DAILY 09/19/23 09/29/23 History release Allergies Allergy/AdvReac Type Severity Reaction Status Date / Time hydrocodone AdvReac Mild Jittery, Verified 09/29/23 08:57 nervous, shakey Review of Systems Review of Systems ROS: Yes All systems reviewed with the patient and are negative except as otherwise documented Exam Vital Signs (past 8 hours): - 09/29/23 09:02 Temperature 97.4 F L Pulse Rate 78 Respiratory Rate 16 Blood Pressure 138/89 Pulse Oximetry 96 Oxygen Delivery Method Room Air Oxygen Delivery Method Room Air Const General: cooperative Nutritional Appearance: average body habitus HENMT Head: normocephalic and atraumatic Eyes General: appearance normal, both eyes and all related structures Neck Neck: trachea midline Resp Effort & Inspection: normal respiratory effort and able to speak in complete sentences Cardio Rate: regular rate Rhythm: regular rhythm GI Palpation: soft Skin General: turgor normal and atrophy Neuro General: patient alert, patient awake and patient oriented x3 Cognition: normal cognition Psych Mental Status: mental status grossly normal Judgment: judgment good Assessment & Plan Assessment & Plan narrative: abdominal pain Plan: EGD with biopsy if indicated. Time Spent With Patient Time with patient: less than 30 minutes
--- NOTE | 2023-09-29 12:17 | PM.OP.EGD ---
Operative Date/Time/Diagnoses Date of procedure: 09/29/23 Time of procedure: 12:17 Pre-op diagnosis: abd pain Post-op diagnosis: same Procedure & Clinicians Study performed: EGD with cold forceps biopsy Same procedure as scheduled: Yes Indications: Abdominal pain Surgeon: Freida Mustaaf Procedure Notes Procedure in detail: Preop diagnosis: Abdominal pain Postop diagnosis: Same Operative procedure: EGD with cold forceps biopsy of the antrum Surgeon: Tosha Mustafa MD Findings: Small hiatal hernia, moderate gastritis with erosions just past the pylorus. Bile reflux. Procedure: Patient placed in a lateral position. Anesthetic was provided. Through a jaw thrust maneuver was able to pass the scope into the esophagus and insufflate. With the insufflation identified the opening of the pylorus and intubate into the stomach. And from there we intubated into the duodenal. Findings as above. With the extraction cold forceps biopsy was taken of the antral area to include area of inflammatory changes. Retroflex was included. Scope was removed without complication. Impression: Gastritis with small erosion at the pylorus. Specimens taken for H pylori. Plan: Follow up PCP with results of H pylori. Continue on proton pump inhibitor at 40 mg daily. Findings: gastritis and hiatal hernia Specimen(s): other (Antral biopsies using cold forceps x2) Complications: none Post-procedure Recommendations: Reflux diet and Continue medication(s) Follow up: weeks (Follow-up in 1-2 weeks with PCP for pathology results) Disposition: PACU
[2023-09-29 12:21] VITALS: BP 127/76; PULSE 72; RESP 18; TEMP 36.3; O2SAT 96
[2023-09-29 12:25] VITALS: BP 133/79; PULSE 72; RESP 20; O2SAT 97
[2023-09-29 12:31] VITALS: BP 133/76; PULSE 68; RESP 16; TEMP 36.8; O2SAT 97
[2023-09-29 12:37] VITALS: BP 140/71; PULSE 69; RESP 14; O2SAT 96
[2023-09-29 12:43] VITALS: BP 100/63; PULSE 70; RESP 19; TEMP 36.3; O2SAT 93
== END 2023-09-29 12:59 | disposition home or self-care (01) ==
PROVIDERS: PCP Internal Medicine; Referring Provider Surgery; Visit Provider Surgery
PROC: 0DJ08ZZ Inspection of Upper Intestinal Tract, Via Natural or Artificial Opening Endoscopic (ICD-10-PCS; CPT 43235; principal; 2023-09-29 09:15)
DX: R10.9 Unspecified abdominal pain (principal); K29.70 Gastritis, unspecified, without bleeding; K44.9 Diaphragmatic hernia without obstruction or gangrene
CPT/HCPCS: 43239; J2704

== ENCOUNTER 2023-10-04 02:36 | Emergency (ER) | payer MEDICARE, SELFPAY ==
[2021-12-14 13:07] VITALS: BMI 30.4
[2023-10-04 02:42] VITALS: BP 147/70; PULSE 85; RESP 18; TEMP 36.4; O2SAT 98; O2SAT 99; BMI 28.3
[2023-10-04 02:43] VITALS: BP 142/65; PULSE 86
[2023-10-04 02:44] VITALS: PULSE 88; RESP 19; O2SAT 98
[2023-10-04 03:00] VITALS: BP 131/63
[2023-10-04 03:01] LABS: Add Manual Diff / Slide Review NO; Basophils Absolute Auto 0 /uL (0-100); Basophils Percent Auto 0.4 % (0-2); Eosinophils Absolute Auto 100 /uL (0-450); Eosinophils Percent Auto 1.5 % (2-4); Hemoglobin 15.6 g/dL (12.0-16.0); Lymphocytes Absolute Auto 1800 /uL (1100-4500); Lymphocytes Percent Auto 29.8 % (25-40); Mean Corpuscular HGB Conc 33.9 % (30-36); Mean Corpuscular Hemoglobin 30.7 PG (26-34); Mean Corpuscular Volume 90.7 fL (80-100); Monocytes Absolute Auto 500 /uL (0-900); Neutrophils Absolute Auto 3700 /uL (1500-7000); Neutrophils Percent Auto 60.3 % (50-75); Platelet Count 183 X10^3/uL (150-400); Red Blood Cell Count 5.07 X10^6/uL (4.0-5.2); Red Cell Distribution Width 13.7 % (11.6-14.8); White Blood Cell Count 6.1 X10^3/uL (4.5-11.0)
--- NOTE | 2023-10-04 03:09 | ED_ITS ---
HPI - Abdominal Pain General Chief Complaint: Abdominal Pain Stated Complaint: abd pain Time Seen by Provider: 10/04/23 02:43 Source: patient Mode of arrival: Ambulatory History of Present Illness HPI narrative: This is a 73-year-old female here with left lower quadrant abdominal pain times approximately 2 hours. Patient reports the pain has subsided now. She has not had any fever or vomiting and no urinary symptoms. She has had numerous presentations to this department for abdominal pain, reviewing old records shows that since February of 2021 she has had no fever than [address]s. Does not look like any of them found any acute problem. She did or so recently have an EGD, this happened on the of this month was seen to have some gastritis there was a biopsy performed. I reviewed the general surgery office visit on the 19 of September and the EGD note on the 29 of September. The patient has not had the changes in her bowel habits. She has had a prior appy. Related Data Home Medications Medication Instructions Recorded Confirmed acetaminophen 650 mg 650 mg PO BID prn 04/18/19 09/29/23 tablet,extended release pantoprazole 40 mg tablet,delayed 40 mg PO DAILY 09/19/23 09/29/23 release Allergies Allergy/AdvReac Type Severity Reaction Status Date / Time hydrocodone AdvReac Mild Jittery, Verified 09/29/23 08:57 nervous, shakey Patient History Medical History Postmenopausal atrophic vaginitis Right lower quadrant pain Former smoker IBS (irritable bowel syndrome) Pelvic fracture HTN (hypertension) Spinal stenosis Depression Arthritis Surgical History History of lumbar fusion (12/17/20) History of laparoscopic appendectomy (02/17/21) History of lumbar fusion (04/26/19) Hx of tonsillectomy History of total left hip arthroplasty History of arthroplasty of right knee H/O: hysterectomy Hx of thyroidectomy Hx of bilateral cataract extraction History of arthroplasty of left shoulder (~2015) Family History Grandmother Cancer Father Hypertension Mother Hypertension Social History marital status: unmarried,single number of children: 0 household members: none lives independently: Yes occupational status: previously employed Smoking Status: Never smoker alcohol intake: never Smoking Status: Never smoker alcohol intake frequency: other Substance Use Type: does not use Exam Initial Vital Signs Initial Vital Signs: Vital Signs Temperature 97.5 F L 10/04/23 02:42 Pulse Rate 85 10/04/23 02:42 Respiratory Rate 18 10/04/23 02:42 Blood Pressure 147/70 H 10/04/23 02:42 Pulse Oximetry 98 10/04/23 02:42 Oxygen Delivery Method Room Air 10/04/23 02:42 Const General: No acute distress HENMT Head: normocephalic and atraumatic Resp Effort & Inspection: normal respiratory effort Auscultation: clear to auscultation bilaterally Cardio Other: Regular rhythm and rate no murmur rub or gallop GI Other: Normal bowel sounds soft and nontender Neuro General: patient alert and patient oriented x3 Psych Other: Affect is a bit anxious. Course Orders Ordered: ED Orders 10/04/23 02:51 CBC Auto Diff [Complete Blood Count AUTO DIFF] Stat CMP [Comprehensive Metabolic Panel] Stat Lipase Stat Vital Signs Vital signs: Vital Signs - 8 hr 10/04/23 02:42 10/04/23 02:42 10/04/23 02:43 Temperature 97.5 F L Pulse Rate 85 Respiratory Rate 18 Blood Pressure 147/70 H 142/65 H Pulse Oximetry 98 99 Oxygen Delivery Method Room Air Room Air 10/04/23 02:43 10/04/23 02:44 10/04/23 03:00 Temperature Pulse Rate 86 88 Respiratory Rate 19 Blood Pressure 131/63 Pulse Oximetry 98 Oxygen Delivery Method Room Air MDM - Abdominal Pain Lab Data Lab results narrative: CBC with diff, CMP and lipase are unremarkable 10/04/23 02:52 10/04/23 02:52 Labs: Lab Results 10/04/23 Range/Units 02:52 WBC 6.1 (4.5-11.0) X10^3/uL RBC 5.07 (4.0-5.2) X10^6/uL Hgb 15.6 (12.0-16.0) g/dL Hct 46.0 (36-46) % MCV 90.7 (80-100) fL MCH 30.7 (26-34) PG MCHC 33.9 (30-36) % RDW 13.7 (11.6-14.8) % Plt Count 183 (150-400) X10^3/uL Neut % (Auto) 60.3 (50-75) % Lymph % (Auto) 29.8 (25-40) % [place] % (Auto) 8.0 (3-14) % Eos % (Auto) 1.5 L (2-4) % Baso % (Auto) 0.4 (0-2) % Neut # (Auto) 3700 (3224-2590) /uL Lymph # (Auto) 1800 (6082-1110) /uL [place] # (Auto) 500 (0-900) /uL Eos # (Auto) 100 (0-450) /uL Baso # (Auto) 0 (0-100) /uL Sodium 142 (137-145) mmol/L Potassium 4.5 (3.4-5.1) mmol/L Chloride 107 (98-107) mmol/L Carbon Dioxide 25 (22-32) mmol/L BUN 18 H (7-17) mg/dL Creatinine 0.56 (0.52-1.04) mg/dL Estimated GFR > 60 (>60) mL/min BUN/Creatinine Ratio 32.1 H (6-22) Glucose 102 (80-110) mg/dL Calcium 9.5 (8.4-10.2) mg/dL Total Bilirubin 0.9 (0.2-1.3) mg/dL AST 22 (14-36) IU/L ALT 17 (<35) IU/L Alkaline Phosphatase 60 (38-126) U/L Total Protein 7.3 (6.3-8.2) g/dL Albumin 4.3 (3.5-5.0) g/dL Globulin 3.0 (1.7-4.1) g/dL Albumin/Globulin Ratio 1.4 (1.0-2.8) Lipase 41 (23-300) U/L Point of care testing: Urine Dip Bedside Urine Glucose Negative Bedside Urine Bilirubin - Negative Bedside Urine Ketone - Negative Urine Specific [place] 1.020 Bedside Urine Occult Blood - Negative Bedside Urine pH 6.0 Bedside Urine Protein - Negative Bedside Urine Urobilinogen - Negative Bedside Urine Nitrite - Negative Bedside Urine Leukocytes - Negative Esterase MDM Narrative Medical decision making narrative: 73-year-old female with an extensive history of left lower quadrant abdominal pain without identified cause. Presents today with typical symptoms, I note that she recently had upper GI endoscopy with biopsies, presentation does not suggest perforation. Given her numerous previous imaging studies and benign presentation today I elected not to image her. Recommended symptomatic care and follow up soon with primary care. Discharge Plan Departure Patient Disposition: Home Clinical Impression: Abdominal pain Qualifiers: Abdominal location: left lower quadrant Qualified Code(s): R10.32 - Left lower quadrant pain Activity Restrictions/Additional Instructions: No serious cause for abdominal pain is found today. I think it is safe to go home, I recommend that you follow up soon with your primary care provider to discuss things further. If you have a change in your symptoms you are always welcome to return to the emergency department. Prescriptions: No Action pantoprazole 40 mg tablet,delayed release (DR/EC) 40 mg PO DAILY Patient Comments: pt. takes one tablet 30 mins before each meal. acetaminophen 650 mg Tablet Extended Release 650 mg PO BID Referrals: Amparo Browne MD [Primary Care Provider] - Stand Alone Forms: Patient Portal/API
[2023-10-04 03:15] LABS: Alanine Aminotransferase 17 IU/L (<35); Albumin 4.3 g/dL (3.5-5.0); Albumin Globulin Ratio 1.4 (1.0-2.8); Alkaline Phosphatase 60 U/L (38-126); Aspartate Aminotransferase 22 IU/L (14-36); BUN Creatinine Ratio 32.1 (6-22); Bilirubin Total 0.9 mg/dL (0.2-1.3); Blood Urea Nitrogen 18 mg/dL (7-17); Calcium 9.5 mg/dL (8.4-10.2); Carbon Dioxide 25 mmol/L (22-32); Chloride 107 mmol/L (98-107); Estimated Glomerular Filt Rate > 60 mL/min (>60); Glucose 102 mg/dL (80-110); HEMOLYSIS 21 (0-50); Lipase 41 U/L (23-300); Potassium 4.5 mmol/L (3.4-5.1); Sodium 142 mmol/L (137-145); Total Protein 7.3 g/dL (6.3-8.2)
== END 2023-10-04 03:59 | disposition home or self-care (01) ==
PROVIDERS: Emergency Provider Emergency Medicine; PCP Internal Medicine
DX: R10.32 Left lower quadrant pain (principal)
CPT/HCPCS: 80053; 81003; 83690; 85025; 99282

== ENCOUNTER 2024-01-06 14:18 | Emergency (ER) | payer MEDICARE, SELFPAY ==
[2021-12-14 13:07] VITALS: BMI 30.4
[2024-01-06 14:26] VITALS: BP 150/78; PULSE 79; RESP 18; TEMP 36.4; O2SAT 97; BMI 28.2
[2024-01-06 14:54] LABS: RBC Urine None Seen (0-5/HPF); Urine Volume 10mL (spun)
[2024-01-06 14:55] LABS: Bacteria Urine Few (2-10); Culture Indicated Urine Cult Not Indicated; Squamous Epithelial Cell Urine 5-10 /HPF (0-5/HPF); WBC Urine 1-5/HPF (0-5/HPF)
--- NOTE | 2024-01-06 15:18 | DI.CT.S_ITS ---
PROCEDURE: CT KIDNEY URETER BLADDER (KUB) INDICATIONS: flank pain TECHNIQUE: Axial sections were acquired from the lung bases to the pubic symphysis. Coronal and sagittal reformats were performed. For radiation dose reduction, the following was used: automated exposure control, adjustment of mA and/or kV according to patient size. COMPARISON: [facility], CT, CT KIDNEY URETER BLADDER (KUB), 08/09/2022, 17:50. [facility], CT, CT KIDNEY URETER BLADDER (KUB), 04/21/2022, 13:34. FINDINGS: Image quality: Diagnostic. Lower Chest: No significant findings. URINARY: Right Kidney: No stones or hydronephrosis. Right Ureter: No hydroureter. Left Kidney: No stones or hydronephrosis. Left Ureter: No hydroureter. Bladder: Normal wall thickness. No stones. ABDOMEN: Liver: No contour-deforming solid mass. Gallbladder: The gallbladder is not seen. Biliary ducts: No biliary dilation. Pancreas: No ductal dilation. Spleen: Size is within normal limits. Adrenal Glands: No adrenal nodules. Stomach and Bowel: Normal colonic caliber, without significant wall thickening. Peritoneum: No abnormal intraperitoneal fluid. No free air. Ventral Wall: No hernia. Abdominal Nodes: No enlarged retroperitoneal or mesenteric lymph nodes. Vessels: Aorta and inferior vena cava are normal in size. PELVIS: Pelvic Organs: Unremarkable. Pelvic Nodes: Unremarkable. Miscellaneous: No inguinal hernias are seen. Bones: Unremarkable. Metallic streak artifact from spine fixation and also left total hip arthroplasty reduces quality of visualization through the pelvis no secondary CT evidence distal ureteral obstructive calculus is found. IMPRESSION: No obstructing stones or hydronephrosis. Poor quality of visualization of portions the abdomen and pelvis due metal artifact spine fixation devices left total hip arthroplasty. Dictated by: Geovany Ruiz M.D. on 01/06/2024 at 16:13 Approved by: Geovany Ruiz M.D. on 01/06/2024 at 16:17
--- NOTE | 2024-01-06 15:21 | ED_ITS ---
HPI - Back Pain/Injury General Chief Complaint: Back Pain/Injury Stated Complaint: Back ache/kidney pain Time Seen by Provider: 01/06/24 15:12 Source: patient History of Present Illness HPI Narrative: 73-year-old female complaining of left flank pain. Reports that this has been present for about 3 days. No fevers and no vomiting, has not had similar pain in the past cheek her recall although she says she did have a kidney stone in the past. She has not noted any blood in her urine. She does not have any dysuria does not have change in frequency but thinks he might have a bit of urgency. No abdominal pain no midline back pain. Has been taking Tylenol for this, says that she took 1 Tylenol earlier today and is still having pain. Related Data Home Medications Medication Instructions Recorded Confirmed acetaminophen 650 mg 650 mg PO BID prn 04/18/19 09/29/23 tablet,extended release pantoprazole 40 mg tablet,delayed 40 mg PO DAILY 09/19/23 09/29/23 release Previous Rx's Medication Instructions Recorded cefdinir 300 mg capsule 300 mg PO BID #14 caps 01/06/24 Allergies Allergy/AdvReac Type Severity Reaction Status Date / Time hydrocodone AdvReac Mild Jittery, Verified 01/06/24 14:29 nervous, shakey Patient History Medical History Postmenopausal atrophic vaginitis Right lower quadrant pain Former smoker IBS (irritable bowel syndrome) Pelvic fracture HTN (hypertension) Spinal stenosis Depression Arthritis Surgical History History of lumbar fusion (12/17/20) History of laparoscopic appendectomy (02/17/21) History of lumbar fusion (04/26/19) Hx of tonsillectomy History of total left hip arthroplasty History of arthroplasty of right knee H/O: hysterectomy Hx of thyroidectomy Hx of bilateral cataract extraction History of arthroplasty of left shoulder (~2015) Family History Grandmother Cancer Father Hypertension Mother Hypertension Social History marital status: unmarried,single number of children: 0 household members: none lives independently: Yes occupational status: previously employed Smoking Status: Never smoker alcohol intake: never Smoking Status: Never smoker alcohol intake frequency: other Substance Use Type: does not use Exam Initial Vital Signs Initial Vital Signs: Vital Signs Temperature 97.5 F L 01/06/24 14:26 Pulse Rate 79 01/06/24 14:26 Respiratory Rate 18 01/06/24 14:26 Blood Pressure 150/78 H 01/06/24 14:26 Pulse Oximetry 97 01/06/24 14:26 Oxygen Delivery Method Room Air 01/06/24 14:26 Const Other: Appears to be in no distress Resp Other: Normal effort speaking in full sentences lungs are clear Cardio Other: Normal rate GI Other: Normal bowel sounds soft and nontender, no CVAT Back/Spine/Pelvis Other: No midline tenderness Skin Other: Warm and dry Neuro Other: Alert and fully oriented Course Orders Ordered: ED Orders 01/06/24 14:38 Urine Culture Stat Urine Microscopic Stat 01/06/24 15:18 CT kidney ureter bladder (KUB) Stat Discontinued Medications Ibuprofen (Ibuprofen 400 Mg Tablet) 400 mg PO NOW ONE Stop: 01/06/24 15:19 Last Admin: 01/06/24 15:38 Dose: 400 mg Documented By: GEORGE Vital Signs Vital signs: Vital Signs - 8 hr 01/06/24 14:26 01/06/24 16:29 Temperature 97.5 F L Pulse Rate 79 75 Respiratory Rate 18 Blood Pressure 150/78 H 160/79 H Pulse Oximetry 97 96 Oxygen Delivery Method Room Air Room Air MDM - Back Pain/Injury Lab Data Labs: Lab Results 01/06/24 Range/Units 14:38 Urine RBC None seen (0-5/HPF) Urine WBC 1-5/hpf (0-5/HPF) Ur Squamous Epith Cells 5-10 /hpf H (0-5/HPF) Urine Bacteria Few (2-10) H (None) Ur Culture Indicated? Cult not indicated Vol Urine Centrifuged 10ml (spun) Urine Dip Bedside Urine Glucose Negative Bedside Urine Bilirubin - Negative Bedside Urine Ketone - Negative Urine Specific [place] 1.030 Bedside Urine Occult Blood - Negative Bedside Urine pH 6.0 Bedside Urine Protein - Negative Bedside Urine Urobilinogen - Negative Bedside Urine Nitrite - Negative Bedside Urine Leukocytes +++ [address] scan - abdomen/pelvis: My Impression: Independently reviewed CT abdomen pelvis: No hydronephrosis no ureteral stone Radiologist's Impression: Reviewed CT report per Radiology no hydronephrosis or ureteral stone Discharge Plan Departure Patient Disposition: Home Clinical Impression: Acute right flank pain Urinary tract infection Qualifiers: Urinary tract infection type: acute cystitis Hematuria presence: without hematuria Qualified Code(s): N30.00 - Acute cystitis without hematuria Activity Restrictions/Additional Instructions: Emergency department workup today suggest that you have a urinary tract infection. I have sent a prescription for an antibiotic to your pharmacy, start this today and take it as prescribed. Acetaminophen (tylenol) should be dosed at 650 mg every 4 hours or 1000mg every 6 hours. It can be given as needed but is more effective if given on a scheduled basis. Total daily dose should not exceed 4,000mg. If you were prescribed norco (hydrocodone/apap) or percocet (oxycodone/apap) each tablet of these contains 325 mg of acetaminophen and should be included when calculating daily dose. Ibuprofen (motrin or advil) should be dosed at 600mg (3 non-prescription tablets) every 6 hours. Taking this on a scheduled basis is more effective. It is a good idea to take this with food. Use this with caution if you have a history of bleeding ulcers or renal disease.. Return to the emergency department for fevers shaking chills increasing pain or vomiting. Plan to follow up with your primary care doctor in the coming week for a recheck. Prescriptions: New cefdinir 300 mg capsule 300 mg PO BID Qty: 14 0RF No Action pantoprazole 40 mg tablet,delayed release (DR/EC) 40 mg PO DAILY Patient Comments: pt. takes one tablet 30 mins before each meal. acetaminophen 650 mg Tablet Extended Release 650 mg PO BID Referrals: Amparo Browne MD [Primary Care Provider] - Stand Alone Forms: Patient Portal/API
[2024-01-06] MEDS: IBUPROFEN 400 MG TABLET PO (15:38)
[2024-01-06 16:29] VITALS: BP 160/79; PULSE 75; O2SAT 96
== END 2024-01-06 16:28 | disposition home or self-care (01) ==
PROVIDERS: Emergency Provider Emergency Medicine; PCP Internal Medicine
DX: N30.00 Acute cystitis without hematuria (principal)
CPT/HCPCS: 74176; 81003; 81015; 87086; 99283; 99284

== ENCOUNTER 2024-06-16 02:35 | Emergency (ER) | payer MEDICARE, SELFPAY ==
[2021-12-14 13:07] VITALS: BMI 30.4
[2024-06-16] VITALS (10 sets, daily range): BP systolic 140–179; BP diastolic 66–81; PULSE 60–78; RESP 11–31; TEMP 36.3; O2SAT 96–98; BMI 32.4
--- NOTE | 2024-06-16 02:48 | ED.ABDPAIN ---
HPI - Abdominal Pain General Chief Complaint: Abdominal Pain Stated Complaint: lt side abd pain Time Seen by Provider: 06/16/24 02:45 History of Present Illness HPI narrative: 74-year-old female with history of previous kidney stones, history of prior diverticulitis, complains of sudden onset left lower quadrant abdominal discomfort within the last hour. No recent trauma, fall, injury, new activities. No fevers or chills. No nausea or vomiting or diarrhea. No black or red stools. She has not tried any medications for the pain. Related Data Home Medications Medication Instructions Recorded Confirmed acetaminophen 650 mg 650 mg PO BID prn 04/18/19 09/29/23 tablet,extended release pantoprazole 40 mg tablet,delayed 40 mg PO DAILY 09/19/23 09/29/23 release Previous Rx's Medication Instructions Recorded cefdinir 300 mg capsule 300 mg PO BID #14 caps 01/06/24 lactulose 20 gram/30 mL oral 20 g (30 mL) PO BID #600 mL 06/16/24 solution Allergies Allergy/AdvReac Type Severity Reaction Status Date / Time hydrocodone AdvReac Mild Jittery, Verified 01/06/24 14:29 nervous, bro Review of Systems Review of Systems Narrative: See HPI Patient History Medical History Postmenopausal atrophic vaginitis Right lower quadrant pain Former smoker IBS (irritable bowel syndrome) Pelvic fracture HTN (hypertension) Spinal stenosis Depression Arthritis Surgical History History of lumbar fusion (12/17/20) History of laparoscopic appendectomy (02/17/21) History of lumbar fusion (04/26/19) Hx of tonsillectomy History of total left hip arthroplasty History of arthroplasty of right knee H/O: hysterectomy Hx of thyroidectomy Hx of bilateral cataract extraction History of arthroplasty of left shoulder (~2015) Family History Grandmother Cancer Father Hypertension Mother Hypertension Social History marital status: unmarried,single number of children: 0 household members: none lives independently: Yes occupational status: previously employed Smoking Status: Never smoker alcohol intake: never Smoking Status: Never smoker alcohol intake frequency: other Substance Use Type: does not use Exam Narrative Exam Narrative: GENERAL: Well-developed patient, in mild distress. HEAD: Atraumatic. Normocephalic. EYES: Pupils equal round and reactive. Extraocular motions intact. No scleral icterus. No injection or drainage. ENT: Nose without bleeding, purulent drainage. Throat without erythema, tonsillar hypertrophy or exudate. Airway patent. NECK: Trachea midline. Non tender CARDIOVASCULAR: Regular rate and rhythm without murmurs, gallops, or rubs. RESPIRATORY: Clear to auscultation. Breath sounds equal bilaterally. No wheezes, rales, or rhonchi. GASTROINTESTINAL: Abdomen soft, non-tender, nondistended. EXTREMITIES: No edema or joint tenderness. BACK: Nontender without deformity or crepitance. No flank tenderness. NEURO: AOx3. Motor functions grossly nonfocal SKIN: No rash or erythema of visible areas Initial Vital Signs Initial Vital Signs: Vital Signs Temperature 97.4 F L 06/16/24 02:51 Pulse Rate 78 06/16/24 02:51 Respiratory Rate 18 06/16/24 02:51 Blood Pressure 140/66 06/16/24 02:51 Pulse Oximetry 96 06/16/24 02:51 Oxygen Delivery Method Room Air 06/16/24 02:51 Course Orders Ordered: Discontinued Medications Ketorolac Tromethamine (Ketorolac 30 Mg/Ml Vial) 15 mg IV NOW ONE Stop: 06/16/24 03:22 Last Admin: 06/16/24 03:36 Dose: 15 mg Documented By: KARLO Lactulose (Lactulose 20 Gm/30 Ml Solution) 20 gm PO NOW ONE Stop: 06/16/24 05:39 Last Admin: 06/16/24 05:42 Dose: 20 gm Documented By: AB Vital Signs Vital signs: Vital Signs - 8 hr 06/16/24 02:51 Temperature 97.4 F L Pulse Rate 78 Respiratory Rate 18 Blood Pressure 140/66 Pulse Oximetry 96 Oxygen Delivery Method Room Air MDM - Abdominal Pain Lab Data Attestation: I reviewed the patient's lab results. Lab results narrative: White blood cell count 6600, hemoglobin 14.6, platelets adequate. Basic metabolic panel unremarkable, liver functions normal, lipase negative. Urine dip negative. 06/16/24 02:55 06/16/24 02:55 Labs: Lab Results 06/16/24 Range/Units 02:55 WBC 6.6 (4.5-11.0) X10^3/uL RBC 4.85 (4.0-5.2) X10^6/uL Hgb 14.6 (12.0-16.0) g/dL Hct 43.5 (36-46) % MCV 89.7 (80-100) fL MCH 30.2 (26-34) PG MCHC 33.6 (30-36) % RDW 13.9 (11.6-14.8) % Plt Count 166 (150-400) X10^3/uL Neut % (Auto) 61.8 (50-75) % Lymph % (Auto) 28.2 (25-40) % [place] % (Auto) 7.2 (3-14) % Eos % (Auto) 2.3 (2-4) % Baso % (Auto) 0.5 (0-2) % Neut # (Auto) 4100 (7365-3705) /uL Lymph # (Auto) 1900 (2240-1055) /uL [place] # (Auto) 500 (0-900) /uL Eos # (Auto) 100 (0-450) /uL Baso # (Auto) 0 (0-100) /uL Sodium 141 (137-145) mmol/L Potassium 3.8 (3.4-5.1) mmol/L Chloride 110 H (98-107) mmol/L Carbon Dioxide 25 (22-32) mmol/L BUN 16 (7-17) mg/dL Creatinine 0.56 (0.52-1.04) mg/dL Estimated GFR > 60 (>60) mL/min BUN/Creatinine Ratio 28.6 H (6-22) Glucose 87 (80-110) mg/dL Calcium 9.0 (8.4-10.2) mg/dL Total Bilirubin 0.4 (0.2-1.3) mg/dL AST 28 (14-36) IU/L ALT 17 (<35) IU/L Alkaline Phosphatase 60 (38-126) U/L Total Protein 6.4 (6.3-8.2) g/dL Albumin 3.9 (3.5-5.0) g/dL Globulin 2.5 (1.7-4.1) g/dL Albumin/Globulin Ratio 1.6 (1.0-2.8) Lipase 47 (23-300) U/L Point of care testing: Urine Dip Bedside Urine Glucose Negative Bedside Urine Bilirubin - Negative Bedside Urine Ketone - Negative Urine Specific [place] 1.030 Bedside Urine Occult Blood - Negative Bedside Urine pH 6.0 Bedside Urine Protein - Negative Bedside Urine Urobilinogen - Negative Bedside Urine Nitrite - Negative Bedside Urine Leukocytes - Negative Esterase MDM Narrative Medical decision making narrative: 74-year-old female with prior diverticulitis, prior kidney stones, complains of acute onset left lower quadrant abdominal discomfort within the last couple of hours. Afebrile, sirs screen negative. Not particularly tender on left lower quadrant abdominal exam, nor other areas of exam, no CVA tenderness. Urine and serum studies pending. DDx consider ureteral stone, diverticulitis, colitis, constipation, volvulus, other form of bowel obstruction, UTI, hernia, other. CT noncontrast abdomen and pelvis imaging requested. Pain medications offered, declined for now. Keep NPO pending imaging results Serum studies unremakable. Urine dip negative. CT abdomen and pelvis noncontrast. Impressions: ?No acute findings. See teleradiology report. Moderate colonic stool burden mentioned in text. Copy of the report given to patient, with discussion, no acute changes obvious. Colonic stool noted, that might be cause of her symptoms. We discussed laxative therapy. She would like to try this. Oral dose of lactulose given, prescription for further lactulose to her pharmacy. Discharged home, stable, return precautions discussed Discharge Plan Departure Patient Disposition: Home Clinical Impression: Abdominal pain, Constipation Activity Restrictions/Additional Instructions: Left lower quadrant abdominal discomfort. CT abdomen and pelvis imaging showed no acute changes. There was mention of moderate stool in the colon, this can be a cause of discomfort, trial of laxative therapy discussed. Oral dose lactulose given, prescription for further lactulose laxative to use. Follow up with your regular doctor on Tuesday if symptoms persist, return to this/nearest emergency department for any change worsening symptoms or any concerns prior Prescriptions: New lactulose 20 gram/30 mL solution 20 g PO BID Qty: 600 0RF No Action pantoprazole 40 mg tablet,delayed release (DR/EC) 40 mg PO DAILY Patient Comments: pt. takes one tablet 30 mins before each meal. acetaminophen 650 mg Tablet Extended Release 650 mg PO BID cefdinir 300 mg capsule 300 mg PO BID Qty: 14 0RF Referrals: Amparo Browne MD [Primary Care Provider] - Stand Alone Forms: Patient Portal/API/Survey
--- NOTE | 2024-06-16 02:59 | DI.CT.S_ITS ---
PROCEDURE: CT ABDOMEN PELVIS WO CON INDICATIONS: LLQ pain, hx stones, hx divertic TECHNIQUE: Axial sections were acquired from the lung bases to the pubic symphysis. Coronal and sagittal reformats were performed. For radiation dose reduction, the following was used: automated exposure control, adjustment of mA and/or kV according to patient size. COMPARISON: [facility], CT, CT KIDNEY URETER BLADDER (KUB), 01/06/2024, 15:46. FINDINGS: Image quality: Diagnostic. Lower Chest: No significant findings. URINARY: Right Kidney: No stones or hydronephrosis. Right Ureter: No hydroureter. Left Kidney: No stones or hydronephrosis. A water density cyst can be seen along the lateral aspect of the left kidney. Left Ureter: No hydroureter. Bladder: Normal wall thickness. No stones. ABDOMEN: Liver: No contour-deforming solid mass. Gallbladder: Removed. Biliary ducts: No biliary dilation. Pancreas: No ductal dilation. Spleen: Size is within normal limits. Adrenal Glands: No adrenal nodules. Stomach and Bowel: Negative for diverticulitis. No significant focal left lower quadrant inflammatory change can be seen. The more proximal colon is within normal limits. No dilated loops of small bowel are seen. Peritoneum: No abnormal intraperitoneal fluid. No free air. Ventral Wall: No hernia. Abdominal Nodes: No enlarged retroperitoneal or mesenteric lymph nodes. Vessels: Aorta and inferior vena cava are normal in size. PELVIS: Pelvic Organs: No adnexal masses are seen on either side. Pelvic Nodes: Unremarkable. Miscellaneous: No inguinal hernias are seen. Bones: Extensive lumbar postoperative change can be seen. Left hip arthroplasty hardware is seen. IMPRESSION: Negative for diverticulitis. No obstructing stones or hydronephrosis. Additional findings: Cholecystectomy Extensive lumbar postoperative change Age left hip arthroplasty hardware Note: No significant discrepancy from the preliminary report. Dictated by: Sushant Peña M.D. on 06/16/2024 at 6:52 Approved by: Sushant Peña M.D. on 06/16/2024 at 6:55
[2024-06-16 03:04] LABS: Add Manual Diff / Slide Review NO; Basophils Absolute Auto 0 /uL (0-100); Basophils Percent Auto 0.5 % (0-2); Eosinophils Absolute Auto 100 /uL (0-450); Eosinophils Percent Auto 2.3 % (2-4); Hematocrit 43.5 % (36-46); Hemoglobin 14.6 g/dL (12.0-16.0); Lymphocytes Absolute Auto 1900 /uL (1100-4500); Lymphocytes Percent Auto 28.2 % (25-40); Mean Corpuscular HGB Conc 33.6 % (30-36); Mean Corpuscular Hemoglobin 30.2 PG (26-34); Mean Corpuscular Volume 89.7 fL (80-100); Monocytes Absolute Auto 500 /uL (0-900); Monocytes Percent Auto 7.2 % (3-14); Neutrophils Absolute Auto 4100 /uL (1500-7000); Neutrophils Percent Auto 61.8 % (50-75); Platelet Count 166 X10^3/uL (150-400); Red Blood Cell Count 4.85 X10^6/uL (4.0-5.2); Red Cell Distribution Width 13.9 % (11.6-14.8); White Blood Cell Count 6.6 X10^3/uL (4.5-11.0)
[2024-06-16 03:17] LABS: Alanine Aminotransferase 17 IU/L (<35); Albumin 3.9 g/dL (3.5-5.0); Albumin Globulin Ratio 1.6 (1.0-2.8); Alkaline Phosphatase 60 U/L (38-126); Aspartate Aminotransferase 28 IU/L (14-36); BUN Creatinine Ratio 28.6 (6-22); Bilirubin Total 0.4 mg/dL (0.2-1.3); Blood Urea Nitrogen 16 mg/dL (7-17); Carbon Dioxide 25 mmol/L (22-32); Chloride 110 mmol/L (98-107); Estimated Glomerular Filt Rate > 60 mL/min (>60); Globulin 2.5 g/dL (1.7-4.1); Glucose 87 mg/dL (80-110); HEMOLYSIS < 15 (0-50); Lipase 47 U/L (23-300); Potassium 3.8 mmol/L (3.4-5.1); Sodium 141 mmol/L (137-145); Total Protein 6.4 g/dL (6.3-8.2)
[2024-06-16] MEDS: KETOROLAC 30 MG/ML VIAL 15 MG IV (03:36)
[2024-06-16] MEDS: LACTULOSE 20 GM/30 ML SOLUTION PO (05:42)
== END 2024-06-16 05:51 | disposition home or self-care (01) ==
PROVIDERS: Emergency Provider Emergency Medicine; PCP Internal Medicine
DX: R10.32 Left lower quadrant pain (principal); K59.00 Constipation, unspecified; Z87.442 Personal history of urinary calculi
CPT/HCPCS: 36415; 74176; 80053; 81003; 83690; 85025; 96374; 99284; J1885

== ENCOUNTER 2024-08-14 08:21 | Emergency (ER) | payer MEDICARE, SELFPAY ==
[2021-12-14 13:07] VITALS: BMI 30.4
[2024-08-14 08:30] VITALS: BP 159/77; PULSE 88; RESP 16; TEMP 36.6; O2SAT 95; BMI 32.9
[2024-08-14 08:38] VITALS: BP 137/76; PULSE 84; O2SAT 94
--- NOTE | 2024-08-14 08:41 | EKG_ITS ---
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
[2024-08-14 08:53] LABS: Add Manual Diff / Slide Review NO; Basophils Absolute Auto 0 /uL (0-100); Basophils Percent Auto 0.6 % (0-2); Eosinophils Absolute Auto 100 /uL (0-450); Eosinophils Percent Auto 1.1 % (2-4); Hematocrit 44.7 % (36-46); Hemoglobin 14.9 g/dL (12.0-16.0); Lymphocytes Absolute Auto 1300 /uL (1100-4500); Lymphocytes Percent Auto 18.2 % (25-40); Mean Corpuscular HGB Conc 33.3 % (30-36); Mean Corpuscular Hemoglobin 30.3 PG (26-34); Mean Corpuscular Volume 90.8 fL (80-100); Monocytes Absolute Auto 400 /uL (0-900); Monocytes Percent Auto 5.5 % (3-14); Neutrophils Absolute Auto 5400 /uL (1500-7000); Neutrophils Percent Auto 74.6 % (50-75); Platelet Count 208 X10^3/uL (150-400); Red Blood Cell Count 4.92 X10^6/uL (4.0-5.2); White Blood Cell Count 7.2 X10^3/uL (4.5-11.0)
[2024-08-14 09:01] LABS: Alanine Aminotransferase 25 IU/L (<35); Albumin 4.2 g/dL (3.5-5.0); Albumin Globulin Ratio 1.6 (1.0-2.8); Alkaline Phosphatase 57 U/L (38-126); Aspartate Aminotransferase 27 IU/L (14-36); BUN Creatinine Ratio 20.9 (6-22); Bilirubin Total 0.6 mg/dL (0.2-1.3); Blood Urea Nitrogen 14 mg/dL (7-17); Calcium 9.4 mg/dL (8.4-10.2); Carbon Dioxide 25 mmol/L (22-32); Chloride 107 mmol/L (98-107); Estimated Glomerular Filt Rate > 60 mL/min (>60); Globulin 2.6 g/dL (1.7-4.1); Glucose 110 mg/dL (80-110); HEMOLYSIS < 15 (0-50); Lipase 44 U/L (23-300); Potassium 4.3 mmol/L (3.4-5.1); Sodium 141 mmol/L (137-145); Total Protein 6.8 g/dL (6.3-8.2)
--- NOTE | 2024-08-14 09:19 | ED.ABDPAIN ---
HPI - Abdominal Pain General Chief Complaint: Abdominal Pain Stated Complaint: pain in lower left side Time Seen by Provider: 08/14/24 09:19 Source: patient Mode of arrival: Ambulatory History of Present Illness HPI narrative: Patient is 74-year-old female with history of diverticulitis presenting today with left lower quadrant pain. Reports that started suddenly this morning. She did not have any sort of issue last night. Mild nausea no vomiting no back pain. Denies any sort of injury. She thinks it might be her diverticulitis acting up. No fever chills chest pain or other symptoms Related Data Home Medications Medication Instructions Recorded Confirmed acetaminophen 650 mg 650 mg PO BID prn 04/18/19 08/14/24 tablet,extended release Allergies Allergy/AdvReac Type Severity Reaction Status Date / Time hydrocodone AdvReac Mild Jittery, Verified 08/14/24 08:48 nervousbro Patient History Medical History Postmenopausal atrophic vaginitis Right lower quadrant pain Former smoker IBS (irritable bowel syndrome) Pelvic fracture HTN (hypertension) Spinal stenosis Depression Arthritis Surgical History History of lumbar fusion (12/17/20) History of laparoscopic appendectomy (02/17/21) History of lumbar fusion (04/26/19) Hx of tonsillectomy History of total left hip arthroplasty History of arthroplasty of right knee H/O: hysterectomy Hx of thyroidectomy Hx of bilateral cataract extraction History of arthroplasty of left shoulder (~2015) Family History Grandmother Cancer Father Hypertension Mother Hypertension Social History marital status: unmarried,single number of children: 0 household members: none lives independently: Yes occupational status: previously employed Smoking Status: Never smoker alcohol intake: never Smoking Status: Never smoker alcohol intake frequency: other Exam Initial Vital Signs Initial Vital Signs: Vital Signs Temperature 97.9 F 08/14/24 08:30 Pulse Rate 88 08/14/24 08:30 Respiratory Rate 16 08/14/24 08:30 Blood Pressure 159/77 H 08/14/24 08:30 Pulse Oximetry 95 08/14/24 08:30 Oxygen Delivery Method Room Air 08/14/24 08:30 GENERAL: Alert 74-year-old female appears mildly uncomfortable HEENT: Head atraumatic,EOMI, pupils reactive, face symmetric, moist mucous membranes CARDIOVASCULAR: Regular rate and rhythm without murmurs, rubs or gallops. RESPIRATORY: Breath sounds equal bilaterally, no wheezes rales or rhonchi. ABDOMEN: Soft, tender left lower quadrant no guarding or rebound : No CVA tenderness EXTREMITIES: Normal range of motion, no clubbing or edema. Neurovascularly intact NEUROLOGICAL: Alert and oriented x4.Normal gait and speech. SKIN: Warm, dry, no laceration, no petechiae, no rashes or lesions. Course Orders Ordered: ED Orders 08/14/24 08:41 EKG-12 Lead Stat 08/14/24 08:45 Complete Blood Count AUTO DIFF Stat Comprehensive Metabolic Panel Stat Lipase Stat 08/14/24 09:23 CT abdomen pelvis w con Stat Discontinued Medications Ketorolac Tromethamine (Ketorolac 30 Mg/Ml Vial) 15 mg IV NOW ONE Stop: 08/14/24 09:24 Last Admin: 08/14/24 09:46 Dose: 15 mg Documented By: SEEMA Ondansetron HCl (Ondansetron 4 Mg/2 Ml Inj) 4 mg IV NOW PRN PRN Reason: Nausea And Vomiting Ondansetron HCl (Ondansetron 4 Mg Odt) 4 mg PO NOW PRN PRN Reason: Nausea And Vomiting Vital Signs Vital signs: Vital Signs - 8 hr 08/14/24 08:30 08/14/24 08:38 08/14/24 10:53 Temperature 97.9 F Pulse Rate 88 84 77 Respiratory Rate 16 17 Blood Pressure 159/77 H 137/76 128/66 Pulse Oximetry 95 94 98 Oxygen Delivery Method Room Air Room Air MDM - Abdominal Pain Lab Data 08/14/24 08:45 08/14/24 08:45 Labs: Lab Results 08/14/24 Range/Units 08:45 WBC 7.2 (4.5-11.0) X10^3/uL RBC 4.92 (4.0-5.2) X10^6/uL Hgb 14.9 (12.0-16.0) g/dL Hct 44.7 (36-46) % MCV 90.8 (80-100) fL MCH 30.3 (26-34) PG MCHC 33.3 (30-36) % RDW 14.0 (11.6-14.8) % Plt Count 208 (150-400) X10^3/uL Neut % (Auto) 74.6 (50-75) % Lymph % (Auto) 18.2 L (25-40) % [place] % (Auto) 5.5 (3-14) % Eos % (Auto) 1.1 L (2-4) % Baso % (Auto) 0.6 (0-2) % Neut # (Auto) 5400 (2104-3389) /uL Lymph # (Auto) 1300 (6545-6867) /uL [place] # (Auto) 400 (0-900) /uL Eos # (Auto) 100 (0-450) /uL Baso # (Auto) 0 (0-100) /uL Sodium 141 (137-145) mmol/L Potassium 4.3 (3.4-5.1) mmol/L Chloride 107 (98-107) mmol/L Carbon Dioxide 25 (22-32) mmol/L BUN 14 (7-17) mg/dL Creatinine 0.67 (0.52-1.04) mg/dL Estimated GFR > 60 (>60) mL/min BUN/Creatinine Ratio 20.9 (6-22) Glucose 110 (80-110) mg/dL Calcium 9.4 (8.4-10.2) mg/dL Total Bilirubin 0.6 (0.2-1.3) mg/dL AST 27 (14-36) IU/L ALT 25 (<35) IU/L Alkaline Phosphatase 57 (38-126) U/L Total Protein 6.8 (6.3-8.2) g/dL Albumin 4.2 (3.5-5.0) g/dL Globulin 2.6 (1.7-4.1) g/dL Albumin/Globulin Ratio 1.6 (1.0-2.8) Lipase 44 (23-300) U/L Point of care testing: Urine Dip Bedside Urine Glucose Negative Bedside Urine Bilirubin - Negative Bedside Urine Ketone - Negative Urine Specific [place] 1.010 Bedside Urine Occult Blood - Negative Bedside Urine pH 6.0 Bedside Urine Protein - Negative Bedside Urine Urobilinogen - Negative Bedside Urine Nitrite - Negative Bedside Urine Leukocytes - Negative Esterase Imaging Data CT scan - abdomen/pelvis: Radiologist's Impression: PROCEDURE: CT ABDOMEN PELVIS W CON INDICATIONS: left lower quad pain TECHNIQUE: After the administration of intravenous contrast, axial sections acquired from the lung bases to the pubic symphysis. Coronal and sagittal reformats were performed. For radiation dose reduction, the following was used: automated exposure control, adjustment of mA and/or kV according to patient size. COMPARISON: [facility], CT, CT ABDOMEN PELVIS W CON, 08/20/2023, 23:02. FINDINGS: Image quality: Diagnostic. Lower Chest: No significant findings. ABDOMEN: Liver: Hypodense area is again seen involving right hepatic lobe near hepatic dome not significantly changed in size and appearance compared to prior studies series 2, image 25. No new hepatic lesion is seen. Gallbladder: Gallbladder is surgically absent. Biliary ducts: No biliary dilation. Pancreas: No ductal dilation. Spleen: Size is within normal limits. Adrenal Glands: No adrenal nodules. Kidneys and Ureters: No hydronephrosis. No solid mass. Simple appearing bilateral renal cysts are again seen and are unchanged. No complex renal cystic lesion which requires follow up. Stomach and Bowel: Evaluation of lower abdomen and pelvis is limited due to significant beam hardening artifacts. Suggestion of prior appendectomy with postsurgical changes again seen in right lower quadrant abdomen. No evidence of bowel obstruction or abnormal bowel wall thickening. No definite CT evidence of acute diverticulitis. No abscess collection. Peritoneum: No abnormal intraperitoneal fluid. No free air. Ventral Wall: No significant ventral hernia. Abdominal Nodes: No retroperitoneal or mesenteric adenopathy by size criteria. Vessels: Aorta and inferior vena cava are normal in size. PELVIS: Pelvic Organs: Unremarkable. Bladder: No bladder wall thickening, accounting for underdistention. Pelvic Nodes: No enlarged lymph nodes. Miscellaneous: No inguinal hernias are seen. Bones: No aggressive osseous abnormality. Postsurgical changes are again seen in lumbar spine. Again noted is prior left hip arthroplasty. IMPRESSION: 1. Slightly limited evaluation of left lower quadrant due to significant beam hardening artifacts. No gross CT evidence of acute diverticulitis. No bowel obstruction or abnormal bowel wall thickening. No free fluid or free air. 2. Stable hypodense area involving right hepatic lobe near hepatic dome. 3. No obstructing renal stones or hydronephrosis. Dictated by: Mervin Tapia M.D. on 08/14/2024 at 9:41 Approved by: Mervin Tapia M.D. on 08/14/2024 at 9:46 ECG Data Attestation: I personally reviewed and interpreted this ECG as follows: Prior ECG tracings: available for review Interpretation: Normal sinus rhythm rate 81 GA interval 126 QRS [address] changes MDM Narrative Medical decision making narrative: MDM CC: Left lower quadrant Complicating co-morbidities: History of diverticulitis Medical records reviewed: Previous ED visits Differential considered: Diverticulitis nephrolithiasis Exam documented above, pertinent findings include: Mild tenderness left lower quadrant no guarding or rebound Lab Test results independently reviewed as above. Pertinent findings: WBC 7.2 hemoglobin 14.9 hematocrit 40.7 platelets 208 Sodium 141 potassium 4.3 chloride 107 carbon dioxide 20 BUN 14 creatinine 0.6 Bilirubin 0 0.6 AST 27 ALT 25 alk-phos 57 Independently reviewed EKG as above no ischemia similar to prior Imaging studies independently reviewed: CT limited evaluation but no, evidence of acute diverticulitis Treatments: Toradol Re-evaluations: Patient's pain is improved Discussion: 74-year-old female presenting today with sudden onset left lower quadrant pain. She has no leukocytosis electrolytes stable CT does not show any evidence of acute diverticulitis even though evaluation is mildly limited. She had a similar presentation couple of months ago CT at that time was also normal with out acute cause. At this time with no leukocytosis I see no need for antibiotics. Supportive care only Discharge Plan Departure Patient Disposition: Home Clinical Impression: Abdominal pain Instructions: DI for Abdominal Pain-Adult Activity Restrictions/Additional Instructions: *You have been diagnosed with abdominal pain *What to do: At this time blood work is overall reassuring no evidence of diverticulitis or kidney stone today *Continue to take medications as directed Tylenol 650 mg every 4-6 hours for mjeb-cy-kxdzycur pain Motrin 600 mg every 6 hours for cxsr-kn-jmjxphqn pain *Follow up with your primary care provider in 2-3 days or call [phone] *Return to ER if you should have increasing pain nausea vomiting or any new, worsening or concerning symptoms Prescriptions: No Action acetaminophen 650 mg Tablet Extended Release 650 mg PO BID Referrals: Amparo Browne MD [Primary Care Provider] - Stand Alone Forms: Patient Portal/API/Survey
--- NOTE | 2024-08-14 09:23 | DI.CT.S_ITS ---
PROCEDURE: CT ABDOMEN PELVIS W CON INDICATIONS: left lower quad pain TECHNIQUE: After the administration of intravenous contrast, axial sections acquired from the lung bases to the pubic symphysis. Coronal and sagittal reformats were performed. For radiation dose reduction, the following was used: automated exposure control, adjustment of mA and/or kV according to patient size. COMPARISON: [facility], CT, CT ABDOMEN PELVIS W CON, 08/20/2023, 23:02. FINDINGS: Image quality: Diagnostic. Lower Chest: No significant findings. ABDOMEN: Liver: Hypodense area is again seen involving right hepatic lobe near hepatic dome not significantly changed in size and appearance compared to prior studies series 2, image 25. No new hepatic lesion is seen. Gallbladder: Gallbladder is surgically absent. Biliary ducts: No biliary dilation. Pancreas: No ductal dilation. Spleen: Size is within normal limits. Adrenal Glands: No adrenal nodules. Kidneys and Ureters: No hydronephrosis. No solid mass. Simple appearing bilateral renal cysts are again seen and are unchanged. No complex renal cystic lesion which requires follow up. Stomach and Bowel: Evaluation of lower abdomen and pelvis is limited due to significant beam hardening artifacts. Suggestion of prior appendectomy with postsurgical changes again seen in right lower quadrant abdomen. No evidence of bowel obstruction or abnormal bowel wall thickening. No definite CT evidence of acute diverticulitis. No abscess collection. Peritoneum: No abnormal intraperitoneal fluid. No free air. Ventral Wall: No significant ventral hernia. Abdominal Nodes: No retroperitoneal or mesenteric adenopathy by size criteria. Vessels: Aorta and inferior vena cava are normal in size. PELVIS: Pelvic Organs: Unremarkable. Bladder: No bladder wall thickening, accounting for underdistention. Pelvic Nodes: No enlarged lymph nodes. Miscellaneous: No inguinal hernias are seen. Bones: No aggressive osseous abnormality. Postsurgical changes are again seen in lumbar spine. Again noted is prior left hip arthroplasty. IMPRESSION: 1. Slightly limited evaluation of left lower quadrant due to significant beam hardening artifacts. No gross CT evidence of acute diverticulitis. No bowel obstruction or abnormal bowel wall thickening. No free fluid or free air. 2. Stable hypodense area involving right hepatic lobe near hepatic dome. 3. No obstructing renal stones or hydronephrosis. Dictated by: Mervin Tapia M.D. on 08/14/2024 at 9:41 Approved by: Mervin Tapia M.D. on 08/14/2024 at 9:46
[2024-08-14] MEDS: KETOROLAC 30 MG/ML VIAL 15 MG IV (09:46)
[2024-08-14 10:53] VITALS: BP 128/66; PULSE 77; RESP 17; O2SAT 98
== END 2024-08-14 10:54 | disposition home or self-care (01) ==
PROVIDERS: Emergency Provider Emergency Medicine; PCP Internal Medicine
DX: R10.32 Left lower quadrant pain (principal); R11.0 Nausea; Z87.19 Personal history of other diseases of the digestive system
CPT/HCPCS: 36415; 74177; 80053; 81003; 83690; 85025; 93005; 96374; 99284; J1885; Q9967

== ENCOUNTER 2024-08-28 08:23 | Emergency (ER) | payer MEDICARE, SELFPAY ==
[2021-12-14 13:07] VITALS: BMI 30.4
--- NOTE | 2024-08-28 08:26 | ED.GENADULT ---
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 No cleaning supplies such as mops are provided. She has been using sponge and getting on her hands and knees to clean the floors of the bathrooms. She is complaining that her left knee is swollen and hurting. It initially started in the back of the knee now involves the area over the patella, she has not had similar findings and comes in for further evaluation. She has been taking Tylenol and found that has not been effective. Will use ice and finds that it helps with the swelling but the swelling will again return. She is not noting decreased range of motion at the joint, no calf or thigh swelling, no fevers or chills Related Data Home Medications Medication Instructions Recorded Confirmed acetaminophen 650 mg 650 mg PO BID prn 04/18/19 08/14/24 tablet,extended release Allergies Allergy/AdvReac Type Severity Reaction Status Date / Time hydrocodone AdvReac Mild Jittery, Verified 08/28/24 08:31 bro neal Review of Systems Review of Systems Narrative: Pertinent positive and negative findings as per HPI Patient History Medical History Postmenopausal atrophic vaginitis Right lower quadrant pain Former smoker IBS (irritable bowel syndrome) Pelvic fracture HTN (hypertension) Spinal stenosis Depression Arthritis Surgical History History of lumbar fusion (12/17/20) History of laparoscopic appendectomy (02/17/21) History of lumbar fusion (04/26/19) Hx of tonsillectomy History of total left hip arthroplasty History of arthroplasty of right knee H/O: hysterectomy Hx of thyroidectomy Hx of bilateral cataract extraction History of arthroplasty of left shoulder (~2015) Family History Grandmother Cancer Father Hypertension Mother Hypertension Social History marital status: unmarried,single number of children: 0 household members: none lives independently: Yes occupational status: previously employed Smoking Status: Never smoker alcohol intake: never Smoking Status: Never smoker alcohol intake frequency: other Exam Initial Vital Signs Initial Vital Signs: Vital Signs Temperature 97.8 F 08/28/24 08:29 Pulse Rate 96 H 08/28/24 08:29 Respiratory Rate 12 08/28/24 08:29 Blood Pressure 154/82 H 08/28/24 08:29 Pulse Oximetry 100 08/28/24 08:29 Oxygen Delivery Method Room Air 08/28/24 08:29 General: Alert appropriate in no acute distress Respiratory: Able to speak in full sentences, no obvious respiratory distress Skin: No obvious rashes, warm and dry Neurologic: Grossly intact no obvious asymmetries or abnormalities Psych: appropriate insight and affect, cooperative Extremity: Left prepatellar bursa is slightly full, not erythematous. There was no tenderness with flexion or complete extension of the left knee joint. No tenderness along the joint line. No swelling to the calf or ankle. No tenderness with external or internal rotation of the hip. 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 I do not suspect arthritis, septic joint, DVT, with the acute onset osteoarthritis seems less of a concern. We talked about prepatellar bursitis is an overuse injury. With no evidence of infection at this time management is not being on her hands and knees, she feels that she has to be she needs more padding and she states that she does have deep has at home. I strongly recommended that she simply ask for a mop to help with her cleaning tasks. Discussed ibuprofen and Tylenol. Anticipated course of resolution of bursitis reviewed. There was no indication for imaging, lab work or hospital irritation and she is safe for discharge Discharge Plan Departure Patient Disposition: Home Clinical Impression: Bursitis, prepatellar, left Instructions: DI for Bursitis Activity Restrictions/Additional Instructions: Thank you for coming in today You have prepatellar bursitis, swelling in the bag of fluid that protects the top part of your kneecap. This is an overuse injury and is because you are crawling around on the floors. I think it is completely appropriate to ask for a mop to be provided so that you can continue with your janitorial services and would encourage you to do so If you feel that you need to continue on your hands and knees protecting your knee with padding or a knee pad as much as possible we will be helpful Using 400 mg of ibuprofen (2 [id number] pills) and 1 Tylenol every 6 hours can be very helpful in controlling pain. Icing the knee as much as possible Again, this is an overuse injury and not kneeling is going to be the primary determinant on the symptoms resolving completely If you find that you are getting worse or develop any new symptoms, please feel free to return to the emergency department for further evaluation. Prescriptions: No Action acetaminophen 650 mg Tablet Extended Release 650 mg PO BID Referrals: Amparo Browne MD [Primary Care Provider] - Stand Alone Forms: Patient Portal/API/Survey
[2024-08-28 08:29] VITALS: BP 154/82; PULSE 96; RESP 12; TEMP 36.6; O2SAT 100; BMI 33.4
[2024-08-28 08:36] VITALS: PULSE 91; O2SAT 94
[2024-08-28 09:00] VITALS: PULSE 87; O2SAT 95
[2024-08-28] MEDS: IBUPROFEN 400 MG TABLET PO (09:20)
== END 2024-08-28 09:29 | disposition home or self-care (01) ==
PROVIDERS: Emergency Provider Emergency Medicine; PCP Internal Medicine
DX: M70.42 Prepatellar bursitis, left knee (principal)
CPT/HCPCS: 99282; 99283

== ENCOUNTER 2024-10-02 11:07 | Emergency (ER) | payer MEDICARE, SELFPAY ==
[2021-12-14 13:07] VITALS: BMI 30.4
[2024-10-02 11:14] VITALS: BP 146/79; PULSE 96; RESP 18; TEMP 37.1; O2SAT 97
--- NOTE | 2024-10-02 11:18 | EKG_ITS ---
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
[2024-10-02 11:54] LABS: Add Manual Diff / Slide Review NO; Basophils Absolute Auto 100 /uL (0-100); Basophils Percent Auto 1.1 % (0-2); Eosinophils Absolute Auto 100 /uL (0-450); Eosinophils Percent Auto 0.9 % (2-4); Hematocrit 45.2 % (36-46); Hemoglobin 15.1 g/dL (12.0-16.0); Lymphocytes Absolute Auto 1900 /uL (1100-4500); Lymphocytes Percent Auto 21.1 % (25-40); Mean Corpuscular HGB Conc 33.4 % (30-36); Mean Corpuscular Hemoglobin 30.4 PG (26-34); Mean Corpuscular Volume 91.2 fL (80-100); Monocytes Absolute Auto 500 /uL (0-900); Monocytes Percent Auto 5.7 % (3-14); Neutrophils Absolute Auto 6500 /uL (1500-7000); Neutrophils Percent Auto 71.2 % (50-75); Platelet Count 196 X10^3/uL (150-400); Red Blood Cell Count 4.96 X10^6/uL (4.0-5.2); Red Cell Distribution Width 13.4 % (11.6-14.8); White Blood Cell Count 9.1 X10^3/uL (4.5-11.0)
[2024-10-02 12:05] LABS: Alanine Aminotransferase 22 IU/L (<35); Albumin 4.5 g/dL (3.5-5.0); Albumin Globulin Ratio 1.7 (1.0-2.8); Alkaline Phosphatase 55 U/L (38-126); Aspartate Aminotransferase 29 IU/L (14-36); Bilirubin Total 0.6 mg/dL (0.2-1.3); Blood Urea Nitrogen 16 mg/dL (7-17); Calcium 9.5 mg/dL (8.4-10.2); Carbon Dioxide 27 mmol/L (22-32); Chloride 103 mmol/L (98-107); Estimated Glomerular Filt Rate > 60 mL/min (>60); Globulin 2.7 g/dL (1.7-4.1); Glucose 110 mg/dL (80-110); HEMOLYSIS < 15 (0-50); Lipase 37 U/L (23-300); Potassium 4.3 mmol/L (3.4-5.1); Sodium 140 mmol/L (137-145); Total Protein 7.2 g/dL (6.3-8.2)
[2024-10-02 14:05] VITALS: BP 147/74; PULSE 78; RESP 18; TEMP 36.6; O2SAT 97
[2024-10-02] MEDS: ACETAMINOPHEN 325 MG TABLET 975 MG PO (16:23)
[2024-10-02 16:32] LABS: Bacteria Urine Few (2-10); RBC Urine None Seen (0-5/HPF); Squamous Epithelial Cell Urine 5-10 /HPF (0-5/HPF); Urine Volume 10mL (spun); WBC Urine 1-5/HPF (0-5/HPF)
[2024-10-02 16:33] LABS: Culture Indicated Urine Specimen Cultured
--- NOTE | 2024-10-02 16:33 | ED.ABDPAIN ---
HPI - Abdominal Pain General Chief Complaint: Abdominal Pain Stated Complaint: Lower left side Stomach pain Time Seen by Provider: 10/02/24 16:25 Source: patient Mode of arrival: Ambulatory History of Present Illness HPI narrative: Patient is 74-year-old female history of diverticulitis presenting today with left lower quadrant pain. She actually has been here handful times with left lower quadrant pain has had multiple CTs done in 2023 none of which showed diverticulitis presenting today with left lower quadrant pain. She reports it started around 11:00 a.m. but has since subsided since she has been in the emergency department. She denies any flank pain nausea or vomiting. She thinks it is because she has to have a bowel movement. She never really complaining of a headache for which she received Tylenol for. She thinks the headache is from stress she has no nausea vomiting or weakness. Related Data Home Medications Medication Instructions Recorded Confirmed acetaminophen 650 mg 650 mg PO BID prn 04/18/19 08/14/24 tablet,extended release Allergies Allergy/AdvReac Type Severity Reaction Status Date / Time hydrocodone AdvReac Mild Jittery, Verified 08/28/24 08:31 nervousbro Patient History Medical History Postmenopausal atrophic vaginitis Right lower quadrant pain Former smoker IBS (irritable bowel syndrome) Pelvic fracture HTN (hypertension) Spinal stenosis Depression Arthritis Surgical History History of lumbar fusion (12/17/20) History of laparoscopic appendectomy (02/17/21) History of lumbar fusion (04/26/19) Hx of tonsillectomy History of total left hip arthroplasty History of arthroplasty of right knee H/O: hysterectomy Hx of thyroidectomy Hx of bilateral cataract extraction History of arthroplasty of left shoulder (~2015) Family History Grandmother Cancer Father Hypertension Mother Hypertension Social History marital status: unmarried,single number of children: 0 household members: none lives independently: Yes occupational status: previously employed Smoking Status: Never smoker alcohol intake: never Smoking Status: Never smoker alcohol intake frequency: other Exam Initial Vital Signs Initial Vital Signs: Vital Signs Temperature 98.7 F 02/18/25 11:14 Pulse Rate 96 H 10/02/24 11:14 Respiratory Rate 18 10/02/24 11:14 Blood Pressure 146/79 H 10/02/24 11:14 Pulse Oximetry 97 10/02/24 11:14 Oxygen Delivery Method Room Air 10/02/24 11:14 GENERAL: Alert 74-year-old female appears to not feel well and in no acute distress. HEENT: Head atraumatic,EOMI, pupils reactive, face symmetric, moist mucous membranes CARDIOVASCULAR: Regular rate and rhythm without murmurs, rubs or gallops. RESPIRATORY: Breath sounds equal bilaterally, no wheezes rales or rhonchi. ABDOMEN: Soft, nontender. Normoactive bowel sounds all 4 quadrants. No guarding or rebound. No tenderness in left lower quadrant epigastric area or right side no significant distention EXTREMITIES: Normal range of motion, no clubbing or edema. Neurovascularly intact NEUROLOGICAL: Alert and oriented x4.Normal gait and speech. Cranial nerves II through XII grossly intact. SKIN: Warm, dry, no laceration, no petechiae, no rashes or lesions. Course Orders Ordered: ED Orders 10/02/24 11:18 EKG-12 Lead Stat 10/02/24 11:40 Complete Blood Count AUTO DIFF Stat Comprehensive Metabolic Panel Stat Lipase Stat 10/02/24 16:05 Urine Culture Stat Urine Microscopic Stat Discontinued Medications Acetaminophen (Acetaminophen 325 Mg Tablet) 975 mg PO NOW ONE Stop: 10/02/24 16:20 Last Admin: 10/02/24 16:23 Dose: 975 mg Documented By: CHRISTAL Ondansetron HCl (Ondansetron 4 Mg/2 Ml Inj) 4 mg IV NOW PRN PRN Reason: Nausea And Vomiting Ondansetron HCl (Ondansetron 4 Mg Odt) 4 mg PO NOW PRN PRN Reason: Nausea And Vomiting Vital Signs Vital signs: Vital Signs - 8 hr 10/02/24 11:14 10/02/24 14:05 10/02/24 17:06 Temperature 98.7 F 97.8 F 98 F Pulse Rate 96 H 78 77 Respiratory Rate 18 18 20 Blood Pressure 146/79 H 147/74 H 139/76 Pulse Oximetry 97 97 100 Oxygen Delivery Method Room Air Room Air Room Air MDM - Abdominal Pain Lab Data 10/02/24 11:40 10/02/24 11:40 Labs: Lab Results 10/02/24 10/02/24 Range/Units 11:40 16:05 WBC 9.1 (4.5-11.0) X10^3/uL RBC 4.96 (4.0-5.2) X10^6/uL Hgb 15.1 (12.0-16.0) g/dL Hct 45.2 (36-46) % MCV 91.2 (80-100) fL MCH 30.4 (26-34) PG MCHC 33.4 (30-36) % RDW 13.4 (11.6-14.8) % Plt Count 196 (150-400) X10^3/uL Neut % (Auto) 71.2 (50-75) % Lymph % (Auto) 21.1 L (25-40) % [place] % (Auto) 5.7 (3-14) % Eos % (Auto) 0.9 L (2-4) % Baso % (Auto) 1.1 (0-2) % Neut # (Auto) 6500 (6662-0452) /uL Lymph # (Auto) 1900 (6834-8605) /uL [place] # (Auto) 500 (0-900) /uL Eos # (Auto) 100 (0-450) /uL Baso # (Auto) 100 (0-100) /uL Sodium 140 (137-145) mmol/L Potassium 4.3 (3.4-5.1) mmol/L Chloride 103 (98-107) mmol/L Carbon Dioxide 27 (22-32) mmol/L BUN 16 (7-17) mg/dL Creatinine 0.64 (0.52-1.04) mg/dL Estimated GFR > 60 (>60) mL/min BUN/Creatinine Ratio 25.0 H (6-22) Glucose 110 (80-110) mg/dL Calcium 9.5 (8.4-10.2) mg/dL Total Bilirubin 0.6 (0.2-1.3) mg/dL AST 29 (14-36) IU/L ALT 22 (<35) IU/L Alkaline Phosphatase 55 (38-126) U/L Total Protein 7.2 (6.3-8.2) g/dL Albumin 4.5 (3.5-5.0) g/dL Globulin 2.7 (1.7-4.1) g/dL Albumin/Globulin Ratio 1.7 (1.0-2.8) Lipase 37 (23-300) U/L Urine RBC None seen (0-5/HPF) Urine WBC 1-5/hpf (0-5/HPF) Ur Squamous Epith Cells 5-10 /hpf H (0-5/HPF) Urine Bacteria Few (2-10) H (None) Ur Culture Indicated? Specimen cultured Vol Urine Centrifuged 10ml (spun) Point of care testing: Urine Dip Bedside Urine Glucose Negative Bedside Urine Bilirubin - Negative Bedside Urine Ketone - Negative Urine Specific [place] 1.015 Bedside Urine Occult Blood - Negative Bedside Urine pH 6.0 Bedside Urine Protein - Negative Bedside Urine Urobilinogen - Negative Bedside Urine Nitrite - Negative Bedside Urine Leukocytes +/- 15 Esterase ECG Data Attestation: I personally reviewed and interpreted this ECG as follows: Prior ECG tracings: available for review Interpretation: Sinus rhythm rate 79 SC interval 132 QRS [address] changes T-wave inversion noted in lead 3 only no other acute changes MDM Narrative Medical decision making narrative: Patient 74-year-old female sitting today with ongoing left lower quadrant pain. She does have a very remote history of diverticulitis but in 1 year has not had diverticulitis. Pain quickly resolved in the emergency department. Blood work has been reviewed she has no leukocytosis no anemia electrolytes are stable no JARAD bilirubin liver enzymes within normal limits She was given Tylenol here for headache and pain. Abdomen is relatively soft nontender. She has a mild headache. Vitals are stable. EKG reviewed as above At this time I recommend patient go home if symptoms get worse then she may need CT your further imaging. However she frequently has a lower quadrant pain he has had multiple CTs in the last 1 year. She reports that she was even had a colonoscopy.records have been reviewed she had a colonoscopy in May 2022. She had an EGD in September 2023. Discharge Plan Departure Patient Disposition: Home Clinical Impression: Abdominal pain, Headache Instructions: DI for Abdominal Pain-Adult Activity Restrictions/Additional Instructions: *You have been diagnosed with abdominal pain and *What to do: At this time blood work is overall reassuring. If your abdominal pain continues please return to the ED to discuss further evaluation such as a CT. Please go home and drink fluids and eat this might help with your headache *Continue to take medications as directed Tylenol Motrin as needed for pain *Follow up with your primary care provider in 2-3 days or call [phone] *Return to ER if you should have increasing pain nausea vomiting fever or any new, worsening or concerning symptoms Prescriptions: No Action acetaminophen 650 mg Tablet Extended Release 650 mg PO BID Referrals: Amparo Browne MD [Primary Care Provider] - Stand Alone Forms: Patient Portal/API/Survey
[2024-10-02 17:06] VITALS: BP 139/76; PULSE 77; RESP 20; TEMP 36.6; O2SAT 100
== END 2024-10-02 17:07 | disposition home or self-care (01) ==
PROVIDERS: Emergency Provider Emergency Medicine; PCP Internal Medicine
DX: R10.32 Left lower quadrant pain (principal); R51.9 Headache, unspecified
CPT/HCPCS: 36415; 80053; 81003; 81015; 83690; 85025; 87086; 93005; 93010; 99283; 99284

== ENCOUNTER 2024-11-08 10:37 | Emergency (ER) | payer MEDICARE, SELFPAY ==
[2021-12-14 13:07] VITALS: BMI 30.4
[2024-11-08 10:57] VITALS: BP 137/72; PULSE 83; RESP 17; TEMP 36.6; O2SAT 96
--- NOTE | 2024-11-08 11:02 | EKG_ITS ---
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
--- NOTE | 2024-11-08 11:02 | DI.RAD.S_ITS ---
PROCEDURE: XR CHEST 1V INDICATIONS: chest pain TECHNIQUE: One view of the chest was acquired. COMPARISON: [facility], CR, XR CHEST 1V, 02/10/2021, 13:45. FINDINGS: Surgical changes and devices: Prior left shoulder arthroplasty. Lungs and pleura: Lungs are clear. No pleural effusions or pneumothorax. Mediastinum: Mediastinal contours appear normal. Heart size is normal. Bones and chest wall: No suspicious bony lesions. Overlying soft tissues appear unremarkable. IMPRESSION: No acute cardiopulmonary pathology. Dictated by: Mervin Tapia M.D. on 11/08/2024 at 11:29 Approved by: Mervin Tapia M.D. on 11/08/2024 at 11:29
[2024-11-08 11:44] LABS: Add Manual Diff / Slide Review NO; Basophils Absolute Auto 100 /uL (0-100); Basophils Percent Auto 0.6 % (0-2); Eosinophils Absolute Auto 100 /uL (0-450); Hematocrit 46.4 % (36-46); Hemoglobin 15.5 g/dL (12.0-16.0); Lymphocytes Absolute Auto 1700 /uL (1100-4500); Lymphocytes Percent Auto 19.7 % (25-40); Mean Corpuscular HGB Conc 33.4 % (30-36); Mean Corpuscular Hemoglobin 30.2 PG (26-34); Mean Corpuscular Volume 90.6 fL (80-100); Monocytes Absolute Auto 600 /uL (0-900); Monocytes Percent Auto 6.6 % (3-14); Neutrophils Absolute Auto 6100 /uL (1500-7000); Neutrophils Percent Auto 72.1 % (50-75); Platelet Count 190 X10^3/uL (150-400); Red Blood Cell Count 5.13 X10^6/uL (4.0-5.2); Red Cell Distribution Width 13.9 % (11.6-14.8); White Blood Cell Count 8.4 X10^3/uL (4.5-11.0)
[2024-11-08 11:46] LABS: Prothrombin Time 11.6 SECONDS (9.4-12.5)
[2024-11-08 11:49] LABS: PTT Partial Thromboplastin Tim 45 SECONDS (25.1-36.5)
[2024-11-08 11:52] LABS: Alanine Aminotransferase 20 IU/L (<35); Albumin 4.4 g/dL (3.5-5.0); Albumin Globulin Ratio 1.6 (1.0-2.8); Alkaline Phosphatase 70 U/L (38-126); Aspartate Aminotransferase 26 IU/L (14-36); BUN Creatinine Ratio 22.6 (6-22); Bilirubin Total 0.9 mg/dL (0.2-1.3); Blood Urea Nitrogen 14 mg/dL (7-17); Calcium 9.8 mg/dL (8.4-10.2); Carbon Dioxide 25 mmol/L (22-32); Chloride 104 mmol/L (98-107); Creatine Kinase 59 U/L (30-135); Estimated Glomerular Filt Rate > 60 mL/min (>60); Globulin 2.8 g/dL (1.7-4.1); Glucose 91 mg/dL (80-110); HEMOLYSIS < 15 (0-50); Lipase 34 U/L (23-300); Sodium 139 mmol/L (137-145); Total Protein 7.2 g/dL (6.3-8.2)
[2024-11-08 12:04] LABS: NT-proBNP (BNP-Adult 18+) 39 pg/mL (<450); Troponin I < 0.012 ng/mL (0.01-0.034)
[2024-11-08 13:32] VITALS: BP 190/94; PULSE 75; O2SAT 96
[2024-11-08 13:33] VITALS: BP 134/78; PULSE 77; O2SAT 96
--- NOTE | 2024-11-08 13:51 | DI.CT.S_ITS ---
PROCEDURE: CT HEAD/BRAIN WO CON INDICATIONS: headache TECHNIQUE: Noncontrast 4.5 mm thick angled axial sections acquired from the foramen magnum to the vertex, with coronal and sagittal reformats. For radiation dose reduction, the following was used: automated exposure control, adjustment of mA and/or kV according to patient size. COMPARISON: [facility], CT, CT HEAD/BRAIN WO CON, 06/08/2023, 16:16. FINDINGS: Image quality: Diagnostic. CSF spaces: Basal cisterns are patent. No extra-axial fluid collections. The ventricles are symmetric in size and shape. Brain: No intracranial bleeds or masses. There is cerebral volume loss for age, with resultant ventricular and sulcal prominence. There are periventricular and deep white matter chronic small vessel ischemic changes. There is intracranial internal carotid artery atherosclerosis. Skull and face: Calvarium and visualized facial bones appear intact, without suspicious lesions. Sinuses: Visualized sinuses and mastoids are clear. IMPRESSION: No acute intracranial pathology. Dictated by: Mervin Tapia M.D. on 11/08/2024 at 14:27 Approved by: Mervin Tapia M.D. on 11/08/2024 at 14:27
[2024-11-08 14:00] VITALS: BP 143/81; PULSE 69; RESP 23; O2SAT 97
--- NOTE | 2024-11-08 14:25 | PC.NURSE ---
Patient states that she feels more like she has a headache than actually dizzy, reports the headache started this AM at 1000. Recently had some sick contacts where friends had headache and some nausea. Patient reports no nausea currently. Patient expressing desire to this RN that she would like to leave soon, this RN informed patient of the wait
[2024-11-08 14:30] VITALS: PULSE 71; O2SAT 96
--- NOTE | 2024-11-08 14:47 | ED.DIZZY ---
HPI - Dizziness General Chief Complaint: Dizziness Stated Complaint: Dizzy Time Seen by Provider: 11/08/24 13:49 History of Present Illness HPI Narrative: This is a 74-year-old female here with headache onset this morning about 2 hours prior to arrival and a feeling of lightheadedness or dizziness. Headache is not associated with nausea it was abrupt in onset but not explosive is not associated with chest pain shortness of breath fevers she does not have any problems with weakness numbness difficulty with speech or swallowing. She does not typically have headaches. She says her symptoms are now better. She denies hypertension diabetes elevated cholesterol in her shoes stroke. She is not taking a blood thinner. Related Data Home Medications Medication Instructions Recorded Confirmed acetaminophen 650 mg 650 mg PO BID prn 04/18/19 11/08/24 tablet,extended release Allergies Allergy/AdvReac Type Severity Reaction Status Date / Time hydrocodone AdvReac Mild Jittery, Verified 11/08/24 11:01 nervous, bro Patient History Medical History Postmenopausal atrophic vaginitis Right lower quadrant pain Former smoker IBS (irritable bowel syndrome) Pelvic fracture HTN (hypertension) Spinal stenosis Depression Arthritis Surgical History History of lumbar fusion (12/17/20) History of laparoscopic appendectomy (02/17/21) History of lumbar fusion (04/26/19) Hx of tonsillectomy History of total left hip arthroplasty History of arthroplasty of right knee H/O: hysterectomy Hx of thyroidectomy Hx of bilateral cataract extraction History of arthroplasty of left shoulder (~2015) Family History Grandmother Cancer Father Hypertension Mother Hypertension Social History marital status: unmarried,single number of children: 0 household members: none lives independently: Yes occupational status: previously employed Smoking Status: Never smoker alcohol intake: never Smoking Status: Never smoker alcohol intake frequency: other Exam Initial Vital Signs Initial Vital Signs: Vital Signs Temperature 98 F 11/08/24 10:57 Pulse Rate 83 11/08/24 10:57 Respiratory Rate 17 11/08/24 10:57 Blood Pressure 137/72 11/08/24 10:57 Pulse Oximetry 96 11/08/24 10:57 Oxygen Delivery Method Room Air 11/08/24 10:57 Const General: cooperative and No acute distress HENOK Head: normocephalic and atraumatic Face and sinus: face symmetric Mouth: moist mucous membranes Eyes Pupils: PERRL EOM: EOM intact bilaterally Other: No nystagmus Neck Neck: No JVD Resp Effort & Inspection: normal respiratory effort and able to speak in complete sentences Auscultation: clear to auscultation bilaterally Cardio Rate: regular rate Rhythm: regular rhythm Heart Sounds: no murmurs GI Inspection: normal to inspection Palpation: soft Neuro General: patient alert (She is ambulatory with a steady gait), patient oriented x3 and moves all extremities Speech: speech normal Extrem General: full ROM Course Orders Ordered: ED Orders 11/08/24 11:02 XR chest 1V Stat EKG-12 Lead Stat 11/08/24 11:26 Complete Blood Count AUTO DIFF Stat Comprehensive Metabolic Panel Stat Lipase Stat Magnesium Stat NT-proBNP (BNP-Adult 18+) Stat PTT Partial Thromboplastin [place] Stat Prothrombin Time INR Stat Troponin & CK Cardiac Panel Stat 11/08/24 13:51 CT head/brain wo con Stat Ondansetron HCl (Ondansetron 4 Mg/2 Ml Inj) 4 mg IV NOW PRN PRN Reason: Nausea And Vomiting Ondansetron HCl (Ondansetron 4 Mg Odt) 4 mg SL NOW PRN PRN Reason: Nausea And Vomiting Discontinued Medications Aspirin (Aspirin 81 Mg Chew Tab) 324 mg PO NOW ONE Stop: 11/08/24 11:03 Last Admin: 11/08/24 11:49 Dose: Not Given Documented By: RLS Vital Signs Vital signs: Vital Signs - 8 hr 11/08/24 10:57 11/08/24 13:32 11/08/24 13:32 Temperature 98 F Pulse Rate 83 75 Respiratory Rate 17 Blood Pressure 137/72 190/94 H Pulse Oximetry 96 96 Oxygen Delivery Method Room Air 11/08/24 13:33 11/08/24 13:33 11/08/24 14:00 Temperature Pulse Rate 77 69 Respiratory Rate 23 Blood Pressure 134/78 Pulse Oximetry 96 97 Oxygen Delivery Method Room Air 11/08/24 14:00 Temperature Pulse Rate Respiratory Rate Blood Pressure 143/81 H Pulse Oximetry Oxygen Delivery Method MDM - Dizziness Lab Data Lab results narrative: CBC with diff CMP are unremarkable troponin is normal 11/08/24 11:26 11/08/24 11:26 Labs: Lab Results 11/08/24 Range/Units 11:26 WBC 8.4 (4.5-11.0) X10^3/uL RBC 5.13 (4.0-5.2) X10^6/uL Hgb 15.5 (12.0-16.0) g/dL Hct 46.4 H (36-46) % MCV 90.6 (80-100) fL MCH 30.2 (26-34) PG MCHC 33.4 (30-36) % RDW 13.9 (11.6-14.8) % Plt Count 190 (150-400) X10^3/uL Neut % (Auto) 72.1 (50-75) % Lymph % (Auto) 19.7 L (25-40) % [place] % (Auto) 6.6 (3-14) % Eos % (Auto) 1.0 L (2-4) % Baso % (Auto) 0.6 (0-2) % Neut # (Auto) 6100 (6796-0694) /uL Lymph # (Auto) 1700 (1951-3161) /uL [place] # (Auto) 600 (0-900) /uL Eos # (Auto) 100 (0-450) /uL Baso # (Auto) 100 (0-100) /uL PT 11.6 (9.4-12.5) SECONDS INR 1.0 (0.9-1.3) APTT 45 H (25.1-36.5) SECONDS Sodium 139 (137-145) mmol/L Potassium 4.0 (3.4-5.1) mmol/L Chloride 104 (98-107) mmol/L Carbon Dioxide 25 (22-32) mmol/L BUN 14 (7-17) mg/dL Creatinine 0.62 (0.52-1.04) mg/dL Estimated GFR > 60 (>60) mL/min BUN/Creatinine Ratio 22.6 H (6-22) Glucose 91 (80-110) mg/dL Calcium 9.8 (8.4-10.2) mg/dL Magnesium 2.0 (1.6-2.3) mg/dL Total Bilirubin 0.9 (0.2-1.3) mg/dL AST 26 (14-36) IU/L ALT 20 (<35) IU/L Alkaline Phosphatase 70 (38-126) U/L Total Creatine Kinase 59 (30-135) U/L Troponin I < 0.012 (0.01-0.034) ng/mL NT-Pro-B Natriuret Pep 39 (<450) pg/mL Total Protein 7.2 (6.3-8.2) g/dL Albumin 4.4 (3.5-5.0) g/dL Globulin 2.8 (1.7-4.1) g/dL Albumin/Globulin Ratio 1.6 (1.0-2.8) Lipase 34 (23-300) U/L Imaging Data Chest x-ray: My Impression: Independent review of chest x-ray, no acute abnormality Radiologist's Impression: Radiology report reviewed, no acute abnormality CT scan - head: My Impression: Independent review of CT head, no acute finding Radiologist's Impression: Radiology report reviewed, no acute finding ECG Data Interpretation: ECG shows normal sinus rhythm normal rate no acute change MDM Narrative Medical decision making narrative: 74-year-old female with acute onset headache accompanied by lightheadedness or dizziness. No hemorrhage seen on CT scan and she presented within 6 hours, I think that hemorrhage reliably be seen. Presentation does not suggest stroke she does not have any persistent symptoms in terms of headache lightheadedness or dizziness. Does not have any major metabolic abnormality, her vital signs are normal I think she can safely be discharged home on symptomatic care. Discharge Plan Departure Patient Disposition: Home Clinical Impression: Dizziness Headache Qualifiers: Headache type: unspecified Headache chronicity pattern: acute headache Intractability: not intractable Qualified Code(s): R51.9 - Headache, unspecified Activity Restrictions/Additional Instructions: Emergency department workup today is reassuring. I have not found indications of a serious cause for your headache and dizziness or lightheadedness. I think it is safe to go home. Get adequate fluids and rest, you can use acetaminophen (Tylenol) as needed for headaches. Follow up soon with her primary care provider. If you are having acute symptoms such as severe headache frequent vomiting new numbness weakness chest pain or shortness of breath return to the emergency department Prescriptions: No Action acetaminophen 650 mg Tablet Extended Release 650 mg PO BID Referrals: Amparo Browne MD [Primary Care Provider] - Stand Alone Forms: Patient Portal/API/Survey
== END 2024-11-08 15:02 | disposition home or self-care (01) ==
PROVIDERS: Emergency Provider Emergency Medicine; PCP Internal Medicine
DX: R42 Dizziness and giddiness (principal); R51.9 Headache, unspecified
CPT/HCPCS: 36415; 70450; 71045; 80053; 81003; 82550; 83690; 83735; 83880; 84484; 85025; 85610; 85730; 93005; 93010; 99283; 99284

== ENCOUNTER 2025-02-17 10:03 | Emergency (ER) | payer MEDICARE, SELFPAY ==
[2021-12-14 13:07] VITALS: BMI 30.4
[2025-02-17] VITALS (12 sets, daily range): BP systolic 137–169; BP diastolic 65–76; PULSE 31–83; RESP 17–25; TEMP 36.6; O2SAT 85–99; BMI 28.3
--- NOTE | 2025-02-17 10:18 | DI.CT.S_ITS ---
PROCEDURE: CT STROKE INDICATIONS: Positive BE-FAST, Stroke symptoms TECHNIQUE: Noncontrast 4.5 mm thick angled axial sections acquired from the foramen magnum to the vertex, with coronal reformats. For radiation dose reduction, the following was used: automated exposure control, adjustment of mA and/or kV according to patient size. COMPARISON: [facility], CT, CT HEAD/BRAIN WO CON, 11/08/2024, 14:18. FINDINGS: Image quality: Diagnostic CSF spaces: Basal cisterns are patent. Lateral ventricles are symmetric. Volume: Vascular calcifications. Periventricular white matter disease is commonly seen with chronic microangiopathy. Volume loss is present. These findings are [id number] Brain: No intracranial hemorrhage. Jones-white differentiation is grossly maintained. Craniofacial structures: No significant paranasal sinus opacity IMPRESSION: No acute intracranial pathology. Consider MRI if there is high concern for infarction. Discussed with ordering doctor at the time stamp below This study fulfills neurological imaging criteria for inclusion or exclusion of acute stroke therapies based on available published neurological imaging guidelines. Dictated by: Arron Yañez M.D. on 02/17/2025 at 9:31 Approved by: Arron Yañez M.D. on 02/17/2025 at 9:33
--- NOTE | 2025-02-17 10:18 | DI.RAD.S_ITS ---
PROCEDURE: XR CHEST 1V INDICATIONS: Possible stroke TECHNIQUE: One view of the chest was acquired. COMPARISON: [facility], CR, XR CHEST 1V, 11/08/2024, 11:02. FINDINGS AND IMPRESSION: Low lung volumes. No airspace consolidation or pleural effusion on this single view study. Heart size is at the upper limit of normal. Degenerative osseous changes and left shoulder arthroplasty. Dictated by: Arron Yañez M.D. on 02/17/2025 at 9:46 Approved by: Arron Yañez M.D. on 02/17/2025 at 9:46
--- NOTE | 2025-02-17 10:18 | DI.CT.S_ITS ---
PROCEDURE: CT ANGIO HEAD AND NECK INDICATIONS: sudden onset of dizziness TECHNIQUE: After the administration of intravenous contrast, 1 mm thick sections acquired from the aortic arch through the [place]. 3-dimensional erohwhm-tubrxiuql-bnatnznpwh (MIP) and/or volume rendering reformats were acquired of the central intracranial vasculature and neck separately. For radiation dose reduction, the following was used: automated exposure control, adjustment of mA and/or kV according to patient size. COMPARISON: None. FINDINGS: Image quality: Diagnostic HEAD ANGIOGRAPHY: Anterior circulation: ICAs: [id number] cavernous and supraclinoid calcifications ACAs: Patent MCAs: Patent AComm: No aneurysm Venous sinuses: Patent Posterior circulation: Dominance: Right Vertebral arteries: Patent Basilar artery: Patent PComms: No aneurysm global process owner: Patent NECK ANGIOGRAPHY: Aortic arch and subclavian arteries: Mild calcifications CCAs: Patent ICA origins (by NASCET criteria): Mild calcifications. No significant narrowing ICAs: Patent ECAs: Origins are patent. Vertebral arteries: Moderate calcifications seen at the origins bilaterally Soft tissues: 2 cm right thyroid nodule with hypervascularity. Left thyroid is not seen. No enlarged lymph nodes by size criteria Lung apices: No apical pneumothorax Bones: There are degenerative osseous changes. IMPRESSION: No large vessel occlusion or high-grade stenosis. Mild and moderate areas of atherosclerotic calcifications, as described above. Consider MRI if there is high concern for infarction. 2 cm hypervascular right thyroid nodule incidentally noted. Nonurgent sonographic follow-up is suggested. Any quantitative measurements of stenosis were performed using NASCET criteria. Dictated by: Arron Yañez M.D. on 02/17/2025 at 9:36 Approved by: Arron Yañez M.D. on 02/17/2025 at 9:41
--- NOTE | 2025-02-17 10:19 | PC.NURSE ---
This RN called code stroke in Triage room. Provider immediately responded and performed NIH while triage was being completed and line being started. Patient straight to CT with assigned RN from triage room.
[2025-02-17 10:29] LABS: Add Manual Diff / Slide Review NO; Hematocrit 44.4 % (36-46); Hemoglobin 15.0 g/dL (12.0-16.0); Lymphocytes Absolute Auto 1300 /uL (1100-4500); Mean Corpuscular HGB Conc 33.8 % (30-36); Mean Corpuscular Hemoglobin 30.9 PG (26-34); Mean Corpuscular Volume 91.4 fL (80-100); Platelet Count 153 X10^3/uL (150-400)
--- NOTE | 2025-02-17 10:32 | ED_ITS ---
HPI - Neuro Symptoms/Deficit General Chief Complaint: Neuro Symptoms/Deficit Stated Complaint: Dizzy and has headache Time Seen by Provider: 02/17/25 10:32 Source: patient Mode of arrival: Ambulatory History of Present Illness HPI Narrative: 74 years old female came today complaining of right frontal headache this morning about 5/10 in severity along with problem with walking. She said she woke up okay this morning and the pain started later. She denies similar symptoms in the past or history of migraine. She denied any head injury, taking blood thinners, fever, chills, runny nose, sore throat, coughing, nausea vomiting, neck pain, stiff neck, chest pain, shortness of breath, abdominal pain, diarrhea, constipation, urinary problem, numbness weakness on 1 side of the body, facial droop, slurred speech, change in her vision. On Anticoagulants: No Related Data Home Medications ?Medication ?Instructions ?Recorded ?Confirmed acetaminophen 650 mg 650 mg PO BID prn 04/18/19 0 11/08/24 tablet,extended release Allergies Allergy/AdvReac Type Severity Reaction Status Date / Time hydrocodone AdvReac Mild Jittery, Verified 02/17/25 10:16 bro neal Review of Systems Review of Systems Narrative: Positive for headache, difficulty walking. Negative for head injury, taking blood thinners, fever, chills, runny nose, sore throat, coughing, nausea vomiting, neck pain, stiff neck, chest pain, shortness of breath, abdominal pain, diarrhea, constipation, urinary problem, numbness weakness on 1 side of the body, facial droop, slurred speech, change in her vision. Hematologic/Lymphatic On Anticoagulants: No Patient History Medical History Postmenopausal atrophic vaginitis Right lower quadrant pain Former smoker IBS (irritable bowel syndrome) Pelvic fracture HTN (hypertension) Spinal stenosis Depression Arthritis Surgical History History of lumbar fusion (12/17/20) History of laparoscopic appendectomy (02/17/21) History of lumbar fusion (04/26/19) Hx of tonsillectomy History of total left hip arthroplasty History of arthroplasty of right knee H/O: hysterectomy Hx of thyroidectomy Hx of bilateral cataract extraction History of arthroplasty of left shoulder (~2015) Family History Grandmother Cancer Father Hypertension Mother Hypertension Social History marital status: unmarried,single number of children: 0 household members: none lives independently: Yes occupational status: previously employed alcohol intake: never Smoking Status: Never smoker alcohol intake frequency: other Exam Initial Vital Signs Initial Vital Signs: Vital Signs Temperature 98 F 02/17/25 10:10 Pulse Rate 77 02/17/25 10:10 Respiratory Rate 18 02/17/25 10:10 Blood Pressure 169/72 H 02/17/25 10:10 Pulse Oximetry 98 02/17/25 10:10 Oxygen Delivery Method Room Air 02/17/25 10:10 Const General: cooperative, well developed, No acute distress, anxious and No ill appearing Eyes EOM: EOM intact bilaterally Neck Neck: supple Resp Other: Clear to auscultation bilaterally with no wheezing or rales. No respiratory distress. Cardio Other: Normal S1-S2 without murmur. Normal rate and rhythm. GI Other: Soft nontender. No guarding or rebound tenderness or distention. Skin General: no rashes or lesions noted Neuro Other: Normal facial movement, eye movement. Normal sensation bilaterally on both side of her face, arms, legs. Normal strain on both arms and legs. Course Course Additional Information: Radiology call of the CT brain without contrast showed no acute finding or bleeding. 1:12 p.m.. Currently she denied any headache. She went to the bathroom twice during the ER stay without any problem with walking. I explained to her odd lab results including blood test, EKG, urine, MRI brain, CT brain, CTA head and neck. Orders Ordered: ED Orders 02/17/25 10:15 Complete Blood Count AUTO DIFF Stat Comprehensive Metabolic Panel Stat PTT Partial Thromboplastin Bryan Stat Prothrombin Time INR Stat Troponin & CK Cardiac Panel Stat 02/17/25 10:[address] angio head and neck Stat XR chest 1V Stat Urine Drug Screen, Rapid Stat EKG-12 Lead Stat 02/17/25 10:41 MR head/brain wo con Stat 02/17/25 11:29 Urine Culture Stat Urine Microscopic Stat 02/17/25 12:19 EKG-12 Lead Stat 02/17/25 12:23 Trop I [Troponin I] Stat Ondansetron HCl (Ondansetron 4 Mg/2 Ml Inj) 4 mg IV NOW PRN PRN Reason: Nausea And Vomiting Ondansetron HCl (Ondansetron 4 Mg Odt) 4 mg PO NOW PRN PRN Reason: Nausea And Vomiting Vital Signs Vital signs: Vital Signs - 8 hr 02/17/25 10:10 02/17/25 10:28 02/17/25 10:30 Temperature 98 F Pulse Rate 77 31 L 71 Respiratory Rate 18 Blood Pressure 169/72 H Pulse Oximetry 98 85 L 96 Oxygen Delivery Method Room Air 02/17/25 10:31 02/17/25 10:31 02/17/25 11:00 Temperature Pulse Rate 70 Respiratory Rate Blood Pressure 151/69 H 137/65 Pulse Oximetry 98 Oxygen Delivery Method 02/17/25 11:00 02/17/25 11:30 Temperature Pulse Rate 68 67 Respiratory Rate 17 17 Blood Pressure Pulse Oximetry 95 95 Oxygen Delivery Method MDM - Neuro Symptoms/Deficit Lab Data 02/17/25 10:15 02/17/25 10:15 Labs: Lab Results 02/17/25 02/17/25 02/17/25 Range/Units 10:14 10:15 11:29 WBC 6.9 (4.5-11.0) X10^3/uL RBC 4.86 (4.0-5.2) X10^6/uL Hgb 15.0 (12.0-16.0) g/dL Hct 44.4 (36-46) % MCV 91.4 (80-100) fL MCH 30.9 (26-34) PG MCHC 33.8 (30-36) % RDW 13.4 (11.6-14.8) % Plt Count 153 (150-400) X10^3/uL Neut % (Auto) 73.8 (50-75) % Lymph % (Auto) 19.2 L (25-40) % Wilkinson % (Auto) 5.7 (3-14) % Eos % (Auto) 0.8 L (2-4) % Baso % (Auto) 0.5 (0-2) % Neut # (Auto) 5100 (6566-0161) /uL Lymph # (Auto) 1300 (9380-6009) /uL Wilkinson # (Auto) 400 (0-900) /uL Eos # (Auto) 100 (0-450) /uL Baso # (Auto) 0 (0-100) /uL PT 11.9 (9.4-12.5) SECONDS INR 1.1 (0.9-1.3) APTT 41 H (25.1-36.5) SECONDS Sodium 139 (137-145) mmol/L Potassium 4.2 (3.4-5.1) mmol/L Chloride 105 (98-107) mmol/L Carbon Dioxide 27 (22-32) mmol/L BUN 13 (7-17) mg/dL Creatinine 0.64 (0.52-1.04) mg/dL Estimated GFR > 60 (>60) mL/min BUN/Creatinine Ratio 20.3 (6-22) Glucose 129 H (70-99) mg/dL POC Whole Bld Glucose 148 H (70-99) mg/dL Calcium 9.4 (8.4-10.2) mg/dL Total Bilirubin 1.1 (0.2-1.3) mg/dL AST 33 (14-36) IU/L ALT 29 (<35) IU/L Alkaline Phosphatase 69 (38-126) U/L Total Creatine Kinase 71 (30-135) U/L Troponin I < 0.012 (0.01-0.034) ng/mL Total Protein 7.2 (6.3-8.2) g/dL Albumin 4.4 (3.5-5.0) g/dL Globulin 2.8 (1.7-4.1) g/dL Albumin/Globulin Ratio 1.6 (1.0-2.8) Urine RBC None seen (0-5/HPF) Urine WBC None seen (0-5/HPF) Ur Squamous Epith Cells 0-1 /hpf (0-5/HPF) Urine Bacteria None seen (None) Vol Urine Centrifuged 10ml (spun) U Opiates 300ng/mL cut Negative (Negative) Ur Oxycodone Screen Negative (Negative) Urine Methadone Screen Negative (Negative) Ur Barbiturates Screen Negative (Negative) U Tricyclic Antidepress Negative (Negative) Ur Phencyclidine Scrn Negative (Negative) Ur Amphetamines Screen Negative (Negative) U Methamphetamines Scrn Negative (Negative) Ur MDMA Scrn (Ecstasy) Negative (Negative) U Benzodiazepines Scrn Negative (Negative) Urine Cocaine Screen Negative (Negative) U Marijuana (THC) Screen Negative (Negative) Urine pH Normal (Normal) Urine Specific [place] Normal (Normal) Ur Creatinine Normal (Normal) 02/17/25 Range/Units 12:23 WBC (4.5-11.0) X10^3/uL RBC (4.0-5.2) X10^6/uL Hgb (12.0-16.0) g/dL Hct (36-46) % MCV (80-100) fL MCH (26-34) PG MCHC (30-36) % RDW (11.6-14.8) % Plt Count (150-400) X10^3/uL Neut % (Auto) (50-75) % Lymph % (Auto) (25-40) % Wilkinson % (Auto) (3-14) % Eos % (Auto) (2-4) % Baso % (Auto) (0-2) % Neut # (Auto) (0258-5008) /uL Lymph # (Auto) (5316-6621) /uL Wilkinson # (Auto) (0-900) /uL Eos # (Auto) (0-450) /uL Baso # (Auto) (0-100) /uL PT (9.4-12.5) SECONDS INR (0.9-1.3) APTT (25.1-36.5) SECONDS Sodium (137-145) mmol/L Potassium (3.4-5.1) mmol/L Chloride (98-107) mmol/L Carbon Dioxide (22-32) mmol/L BUN (7-17) mg/dL Creatinine (0.52-1.04) mg/dL Estimated GFR (>60) mL/min BUN/Creatinine Ratio (6-22) Glucose (70-99) mg/dL POC Whole Bld Glucose (70-99) mg/dL Calcium (8.4-10.2) mg/dL Total Bilirubin (0.2-1.3) mg/dL AST (14-36) IU/L ALT (<35) IU/L Alkaline Phosphatase (38-126) U/L Total Creatine Kinase (30-135) U/L Troponin I < 0.012 (0.01-0.034) ng/mL Total Protein (6.3-8.2) g/dL Albumin (3.5-5.0) g/dL Globulin (1.7-4.1) g/dL Albumin/Globulin Ratio (1.0-2.8) Urine RBC (0-5/HPF) Urine WBC (0-5/HPF) Ur Squamous Epith Cells (0-5/HPF) Urine Bacteria (None) Vol Urine Centrifuged U Opiates 300ng/mL cut (Negative) Ur Oxycodone Screen (Negative) Urine Methadone Screen (Negative) Ur Barbiturates Screen (Negative) U Tricyclic Antidepress (Negative) Ur Phencyclidine Scrn (Negative) Ur Amphetamines Screen (Negative) U Methamphetamines Scrn (Negative) Ur MDMA Scrn (Ecstasy) (Negative) U Benzodiazepines Scrn (Negative) Urine Cocaine Screen (Negative) U Marijuana (THC) Screen (Negative) Urine pH (Normal) Urine Specific [place] (Normal) Ur Creatinine (Normal) Urine Dip Bedside Urine Glucose Negative Bedside Urine Bilirubin - Negative Bedside Urine Ketone - Negative Urine Specific [place] 1.005 Bedside Urine Occult Blood - Negative Bedside Urine pH 7 Bedside Urine Protein - Negative Bedside Urine Urobilinogen 1+ 2mg Bedside Urine Nitrite - Negative Bedside Urine Leukocytes - Negative Esterase Imaging Data CT scan - head: Radiologist's Impression: PROCEDURE: CT STROKE INDICATIONS: Positive BE-FAST, Stroke symptoms TECHNIQUE: Noncontrast 4.5 mm thick angled axial sections acquired from the foramen magnum to the vertex, with coronal reformats. For radiation dose reduction, the following was used: automated exposure control, adjustment of mA and/or kV according to patient size. COMPARISON: [facility], CT, CT HEAD/BRAIN WO CON, 11/08/2024, 14:18. FINDINGS: Image quality: Diagnostic CSF spaces: Basal cisterns are patent. Lateral ventricles are symmetric. Volume: Vascular calcifications. Periventricular white matter disease is commonly seen with chronic microangiopathy. Volume loss is present. These findings are yvja-ez-pyspripd Brain: No intracranial hemorrhage. Jones-white differentiation is grossly maintained. Craniofacial structures: No significant paranasal sinus opacity IMPRESSION: No acute intracranial pathology. Consider MRI if there is high concern for infarction. Discussed with ordering doctor at the time stamp below This study fulfills neurological imaging criteria for inclusion or exclusion of acute stroke therapies based on available published neurological imaging guidelines. Dictated by: Arron Yañez M.D. on 02/17/2025 at 9:31 Approved by: Arron Yañez M.D. on 02/17/2025 at 9:33 Chest x-ray: Radiologist's Impression: PROCEDURE: XR CHEST 1V INDICATIONS: Possible stroke TECHNIQUE: One view of the chest was acquired. COMPARISON: [facility], XR CHEST 1V, 11/08/2024, 11:02. FINDINGS AND IMPRESSION: Low lung volumes. No airspace consolidation or pleural effusion on this single view study. Heart size is at the upper limit of normal. Degenerative osseous changes and left shoulder arthroplasty. Dictated by: Arron Yañez M.D. on 02/17/2025 at 9:46 Approved by: Arron Yañez M.D. on 02/17/2025 at 9:46 CTA head and neck: Radiologist's Impression: PROCEDURE: CT ANGIO HEAD AND NECK INDICATIONS: sudden onset of dizziness TECHNIQUE: After the administration of intravenous contrast, 1 mm thick sections acquired from the aortic arch through the [place] of [place]. 3-dimensional madjvxi-qfzfmivub-jdlhttqjbj (MIP) and/or volume rendering reformats were acquired of the central intracranial vasculature and neck separately. For radiation dose reduction, the following was used: automated exposure control, adjustment of mA and/or kV according to patient size. COMPARISON: None. FINDINGS: Image quality: Diagnostic HEAD ANGIOGRAPHY: Anterior circulation: ICAs: Bgrx-ef-jsdeqgfh cavernous and supraclinoid calcifications ACAs: Patent MCAs: Patent AComm: No aneurysm Venous sinuses: Patent Posterior circulation: Dominance: Right Vertebral arteries: Patent Basilar artery: Patent PComms: No aneurysm fresh foods cake decorator: Patent NECK ANGIOGRAPHY: Aortic arch and subclavian arteries: Mild calcifications CCAs: Patent ICA origins (by NASCET criteria): Mild calcifications. No significant narrowing ICAs: Patent ECAs: Origins are patent. Vertebral arteries: Moderate calcifications seen at the origins bilaterally Soft tissues: 2 cm right thyroid nodule with hypervascularity. Left thyroid is not seen. No enlarged lymph nodes by size criteria Lung apices: No apical pneumothorax Bones: There are degenerative osseous changes. IMPRESSION: No large vessel occlusion or high-grade stenosis. Mild and moderate areas of atherosclerotic calcifications, as described above. Consider MRI if there is high concern for infarction. 2 cm hypervascular right thyroid nodule incidentally noted. Nonurgent sonographic follow-up is suggested. Any quantitative measurements of stenosis were performed using NASCET criteria. Dictated by: Arron Yañez M.D. on 02/17/2025 at 9:36 Approved by: Arron Yañez M.D. on 02/17/2025 at 9:41 MRI brain: Radiologist's Impression: PROCEDURE: MR HEAD/BRAIN WO CON INDICATIONS: Imbalance, headache TECHNIQUE: Noncontrast axial T1 spin echo, axial T2 fast spin echo, sagittal and axial FLAIR, coronal T2 fast spin echo, axial gradient echo, axial diffusion and ADC through the brain. COMPARISON: Same day CT FINDINGS: Image quality: Mild motion artifact CSF spaces: Basal cisterns are patent. Lateral ventricles are symmetric. Volume: Volume loss. Periventricular white matter signal abnormality most commonly seen with small vessel disease. These findings are vski-wl-wcqjowhs Brain: No acute diffusion restriction. No intracranial hematoma Craniofacial structures: No significant paranasal sinus opacity. IMPRESSION: No acute infarct on diffusion images. No acute intracranial hematoma Dictated by: Arron Yañez M.D. on 02/17/2025 at 11:40 Approved by: Arron Yañez M.D. on 02/17/2025 at 11:42 ECG Data Interpretation: First EKG showed normal sinus rhythm at 70 beats per minute without ischemic ST- T changes. The 2nd EKG show normal sinus rhythm at 62 beats per minute without ischemic ST- T changes. [facility] Narrative Medical decision making narrative: 74 years old female presented with headache, difficulty walking this morning. Currently her headache went away and she has been walking normally without difficulty. Her neuro exam was intact without focal deficit. Her CBC was normal. Normal PT INR with elevation of PTT consistent with her baseline. Her CMP was normal. Two set troponin were negative. Her UA showed no UTI. Her urine drug screen was negative. His CTA head and neck showed no significant stenosis. Her CT brain and MRI brain showed no acute finding. He was not home and to continue with Tylenol as needed for pain. I asked her to come back to the emergency room if any worsening symptoms including but not limited to worsening headache, nausea vomiting, fever, visual changes, numbness weakness on 1 side of her body, facial droop, slurred speech, change of vision. Discharge Plan Departure Patient Disposition: Home Clinical Impression: Acute headache Instructions: DI for Headache Activity Restrictions/Additional Instructions: Please come back to the emergency room if any worsening symptoms including but not limited to worsening headache, fever, visual changes, numbness weakness on your arms or legs, slurred speech, chest pain, shortness of breath, abdominal pain, back pain. Please take Tylenol as needed for pain and follow up your primary care doctor outpatient. Prescriptions: No Action acetaminophen 650 mg Tablet Extended Release 650 mg PO BID Referrals: Amparo Browne MD [Primary Care Provider, Internal Medicine] Stand Alone Forms: Patient Portal/API
--- NOTE | 2025-02-17 10:32 | EKG_ITS ---
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
[2025-02-17 10:37] LABS: INR 1.1 (0.9-1.3); Prothrombin Time 11.9 SECONDS (9.4-12.5)
[2025-02-17 10:39] LABS: PTT Partial Thromboplastin Tim 41 SECONDS (25.1-36.5)
--- NOTE | 2025-02-17 10:41 | DI.MRI.S_ITS ---
PROCEDURE: MR HEAD/BRAIN WO CON INDICATIONS: Imbalance, headache TECHNIQUE: Noncontrast axial T1 spin echo, axial T2 fast spin echo, sagittal and axial FLAIR, coronal T2 fast spin echo, axial gradient echo, axial diffusion and ADC through the brain. COMPARISON: Same day CT FINDINGS: Image quality: Mild motion artifact CSF spaces: Basal cisterns are patent. Lateral ventricles are symmetric. Volume: Volume loss. Periventricular white matter signal abnormality most commonly seen with small vessel disease. These findings are hwov-se-wpfypnvr Brain: No acute diffusion restriction. No intracranial hematoma Craniofacial structures: No significant paranasal sinus opacity. IMPRESSION: No acute infarct on diffusion images. No acute intracranial hematoma Dictated by: Arron Yañez M.D. on 02/17/2025 at 11:40 Approved by: Arron Yañez M.D. on 02/17/2025 at 11:42
[2025-02-17 10:45] LABS: Alanine Aminotransferase 29 IU/L (<35); Albumin 4.4 g/dL (3.5-5.0); Albumin Globulin Ratio 1.6 (1.0-2.8); Alkaline Phosphatase 69 U/L (38-126); Blood Urea Nitrogen 13 mg/dL (7-17); Calcium 9.4 mg/dL (8.4-10.2); Carbon Dioxide 27 mmol/L (22-32); Chloride 105 mmol/L (98-107); Creatine Kinase 71 U/L (30-135); Estimated Glomerular Filt Rate > 60 mL/min (>60); Globulin 2.8 g/dL (1.7-4.1); Glucose 129 mg/dL (70-99); HEMOLYSIS 50 (0-50); Potassium 4.2 mmol/L (3.4-5.1); Sodium 139 mmol/L (137-145); Total Protein 7.2 g/dL (6.3-8.2)
--- NOTE | 2025-02-17 10:51 | PC.NURSE ---
Ambulated pt from triage chair to stretcher with wellfield technician assist, pt had unsteady gait, but was able to ambulate under own power. While in CT pt stood and pivot to CT table, pt became unsteady while standing and was assisted to upright standing position by this RN. Pt c/o of dizziness. Pt states headache to right side of head and face currently 1/10 pain. Pt denies numbness or tingling at this time. Pt was able to remove shirt and bra without assistance and is currently able to follow commands. Call light within reach, cardiac rehabilitation program director placed on pt. No other needs at this time. Pt updated to plan of care.
[2025-02-17 10:56] LABS: Troponin I < 0.012 ng/mL (0.01-0.034)
[2025-02-17 11:47] LABS: Ur Specific Gravity Normal (Normal)
[2025-02-17 11:48] LABS: UR Morphine/Opiate cutoff 300 Negative (Negative); Urine MDMA Negative (Negative); Urine Methamphetamines Negative (Negative); Urine Tetrahydrocannabinol Negative (Negative); Urine Tricyclic Antidepressant Negative (Negative)
--- NOTE | 2025-02-17 12:23 | EKG_ITS ---
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
[2025-02-17 12:56] LABS: Troponin I < 0.012 ng/mL (0.01-0.034)
--- NOTE | 2025-02-18 10:38 | PC.NURSE ---
Dr. Diaz called this emergency department at 10:23 from [phone] explaining that he forgot to inform patient of a result and asked this RN as the charge nurse to call patient and relay the following results from CT 2 cm hypervascular right thyroid nodule incidentally noted. Nonurgent sonographic follow-up is suggested. This RN called patient at 10:34am at [phone] and informed patient of what the doctor asked me to tell her. This RN confirmed she needed to get an appointment with PCP in order to follow up on this result. This RN reminded patient that they could access these results through the patient portal or medical records request.
== END 2025-02-17 13:34 | disposition home or self-care (01) ==
PROVIDERS: Emergency Provider Emergency Medicine; PCP Internal Medicine
DX: R51.9 Headache, unspecified (principal)
CPT/HCPCS: 36415; 70450; 70496; 70498; 70551; 71045; 80053; 80305; 81003; 81015; 82550; 82962; 84484; 85025; 85610; 85730; 87086; 93005; 93010; 99284; 99285; Q9967

== ENCOUNTER 2025-03-15 07:21 | Emergency (ER) | payer MEDICARE, SELFPAY ==
[2021-12-14 13:07] VITALS: BMI 30.4
[2025-03-15] VITALS (10 sets, daily range): BP systolic 117–164; BP diastolic 58–78; PULSE 61–74; RESP 16–18; TEMP 36.7; O2SAT 95–98; BMI 29.0
[2025-03-15 07:43] LABS: Add Manual Diff / Slide Review NO; Hematocrit 45.9 % (36-46); Hemoglobin 15.5 g/dL (12.0-16.0); Lymphocytes Absolute Auto 1600 /uL (1100-4500); Mean Corpuscular HGB Conc 33.8 % (30-36); Mean Corpuscular Hemoglobin 30.6 PG (26-34); Mean Corpuscular Volume 90.6 fL (80-100); Platelet Count 177 X10^3/uL (150-400)
--- NOTE | 2025-03-15 07:47 | EKG_ITS ---
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
--- NOTE | 2025-03-15 07:48 | ED.DIZZY ---
HPI - Dizziness General Chief Complaint: Dizziness Stated Complaint: Dizzy 1 day Time Seen by Provider: 03/15/25 07:27 Source: patient Mode of arrival: Ambulatory History of Present Illness HPI Narrative: 75 years old female with history of hypertension without taking blood pressure medicine came in today complaining of dizziness since yesterday afternoon as lightheadedness, frontal headache without room spinning, nausea vomiting, numbness weakness on 1 side of her body, facial droop, slurred speech, change in her vision, chest pain, shortness of breath, leg pain, leg swelling, abdominal pain, urine problem, black stool, blood in her stool, loss of consciousness, head injury. He also reported diarrhea since yesterday without blood or mucus in the stool, fever. He was in our ED on 02/17/2025 for headache and difficulty walking so the CT brain, CTA head and neck, MRI brain were done for stroke code and all came back no acute finding. He also was seen in October 2024 for dizziness and a CT brain was negative but the time. Related Data Home Medications ?Medication ?Instructions ?Recorded ?Confirmed acetaminophen 650 mg 650 mg PO BID prn 04/18/19 11/08/24 tablet,extended release Previous Rx's ?Medication ?Instructions ?Recorded nitrofurantoin 100 mg PO BID #10 caps 03/15/25 monohydrate/macrocrystals 100 mg capsule (Macrobid) Allergies Allergy/AdvReac Type Severity Reaction Status Date / Time hydrocodone AdvReac Mild Jittery, Verified 03/15/25 07:30 nervousbro Review of Systems Review of Systems Narrative: Positive for dizziness, headache, diarrhea. Negative for numbness weakness on 1 side of the body, facial droop, slurred speech, change in her vision, chest pain, shortness of breath, leg pain, leg swelling, nausea vomiting, urine problem, back pain, loss of consciousness, runny nose, sore throat, coughing. Patient History Medical History Postmenopausal atrophic vaginitis Right lower quadrant pain Former smoker IBS (irritable bowel syndrome) Pelvic fracture HTN (hypertension) Spinal stenosis Depression Arthritis Surgical History History of lumbar fusion (12/17/20) History of laparoscopic appendectomy (02/17/21) History of lumbar fusion (04/26/19) Hx of tonsillectomy History of total left hip arthroplasty History of arthroplasty of right knee H/O: hysterectomy Hx of thyroidectomy Hx of bilateral cataract extraction History of arthroplasty of left shoulder (~2015) Family History Grandmother Cancer Father Hypertension Mother Hypertension Social History marital status: unmarried,single number of children: 0 household members: none lives independently: Yes occupational status: previously employed Smoking Status: Never smoker alcohol intake: never Smoking Status: Never smoker alcohol intake frequency: other Exam Narrative Exam Narrative: GENERAL: Cooperative. No acute distress. My anxious. HEAD: Atraumatic. Normocephalic. EYES: Pupils equal round and reactive. Extraocular motions intact. No scleral icterus. No injection or drainage. NECK: Trachea midline. Non tender CARDIOVASCULAR: Regular rate and rhythm without murmurs, gallops, or rubs. RESPIRATORY: Clear to auscultation. Breath sounds equal bilaterally. No wheezes, rales, or rhonchi. GASTROINTESTINAL: Abdomen soft, non-tender, nondistended. EXTREMITIES: No edema or joint tenderness. BACK: Nontender without deformity or crepitance. No flank tenderness. NEURO: AOx3. Normal facial movement, eye movement. Normal strength 5/5 in both arms and legs. Normal sensation on both arms and legs. SKIN: No rash or erythema of visible areas Initial Vital Signs Initial Vital Signs: Vital Signs Pulse Rate 74 03/15/25 07:27 Blood Pressure 160/75 H 03/15/25 07:27 Pulse Oximetry 98 03/15/25 07:27 Course Orders Ordered: Discontinued Medications Lactated Ringer's (Lactated Ringers) 1,000 mls @ 1,000 mls/hr IV BOLUS ONE Stop: 03/15/25 08:46 Last Infusion: 03/15/25 08:58 Dose: Infused Documented By: Admin: 03/15/25 08:05 Dose: 1,000 mls/hr Documented By: ANCA Vital Signs Vital signs: Vital Signs - 8 hr 03/15/25 07:27 03/15/25 07:27 03/15/25 07:30 Temperature 98.1 F Pulse Rate 74 74 Respiratory Rate 18 Blood Pressure 160/75 H 160/75 H Pulse Oximetry 98 98 Oxygen Delivery Method Room Air 03/15/25 07:30 03/15/25 07:30 03/15/25 08:00 Temperature Pulse Rate 74 67 Respiratory Rate Blood Pressure 141/72 H Pulse Oximetry 97 95 Oxygen Delivery Method 03/15/25 08:00 03/15/25 08:30 03/15/25 08:31 Temperature Pulse Rate 61 61 Respiratory Rate Blood Pressure 117/58 L Pulse Oximetry 98 98 Oxygen Delivery Method 03/15/25 08:31 03/15/25 09:00 03/15/25 09:01 Temperature Pulse Rate 71 Respiratory Rate Blood Pressure 164/75 H 137/78 Pulse Oximetry 97 Oxygen Delivery Method 03/15/25 09:01 Temperature Pulse Rate 64 Respiratory Rate Blood Pressure Pulse Oximetry 97 Oxygen Delivery Method MDM - Dizziness Lab Data 03/15/25 07:36 03/15/25 07:36 Labs: Lab Results 03/15/25 03/15/25 Range/Units 07:36 09:18 WBC 6.6 (4.5-11.0) X10^3/uL RBC 5.07 (4.0-5.2) X10^6/uL Hgb 15.5 (12.0-16.0) g/dL Hct 45.9 (36-46) % MCV 90.6 (80-100) fL MCH 30.6 (26-34) PG MCHC 33.8 (30-36) % RDW 13.6 (11.6-14.8) % Plt Count 177 (150-400) X10^3/uL Neut % (Auto) 65.4 (50-75) % Lymph % (Auto) 24.4 L (25-40) % [place] % (Auto) 7.7 (3-14) % Eos % (Auto) 2.1 (2-4) % Baso % (Auto) 0.4 (0-2) % Neut # (Auto) 4300 (0946-6906) /uL Lymph # (Auto) 1600 (4786-3793) /uL [place] # (Auto) 500 (0-900) /uL Eos # (Auto) 100 (0-450) /uL Baso # (Auto) 0 (0-100) /uL Sodium 141 (137-145) mmol/L Potassium 4.0 (3.4-5.1) mmol/L Chloride 109 H (98-107) mmol/L Carbon Dioxide 22 (22-32) mmol/L BUN 22 H (7-17) mg/dL Creatinine 0.62 (0.52-1.04) mg/dL Estimated GFR > 60 (>60) mL/min BUN/Creatinine Ratio 35.5 H (6-22) Glucose 92 (70-99) mg/dL Calcium 9.3 (8.4-10.2) mg/dL Total Bilirubin 0.6 (0.2-1.3) mg/dL AST 31 (14-36) IU/L ALT 29 (<35) IU/L Alkaline Phosphatase 71 (38-126) U/L Troponin I < 0.012 (0.01-0.034) ng/mL Total Protein 7.4 (6.3-8.2) g/dL Albumin 4.5 (3.5-5.0) g/dL Globulin 2.9 (1.7-4.1) g/dL Albumin/Globulin Ratio 1.6 (1.0-2.8) Urine Color Yellow Urine Appearance Sl cloudy Urine pH 6.0 (4.5-8.0) Ur Specific [place] 1.020 (1.000-1.035) Urine Protein Negative (Negative) Urine Glucose (UA) Negative (Negative) g/dL Urine Ketones Negative (NEGATIVE) Urine Occult Blood Negative (Negative) Urine Nitrate Negative (Negative) Urine Bilirubin Negative (NEGATIVE) Urine Urobilinogen 1.0 (0.2) E.U./dL Ur Leukocyte Esterase 1+ H (NEGATIVE) Urine RBC None seen (0-5/HPF) Urine WBC 5-10/hpf H (0-5/HPF) Ur Squamous Epith Cells 1-5 /hpf (0-5/HPF) Urine Bacteria None seen (None) Ur Culture Indicated? Specimen cultured Vol Urine Centrifuged 10ml (spun) Urine Dip Bedside Urine Glucose Negative Bedside Urine Bilirubin - Negative Bedside Urine Ketone - Negative Urine Specific [place] 1.020 Bedside Urine Occult Blood - Negative Bedside Urine pH 6.0 Bedside Urine Protein - Negative Bedside Urine Urobilinogen - Negative Bedside Urine Nitrite - Negative Bedside Urine Leukocytes + 70 Esterase ECG Data Interpretation: EKG showed normal sinus rhythm at 65 beats per minute with PVC without ischemic ST-T changes. MDM Narrative Medical decision making narrative: 75 years old female with history of hypertension came in today complaining of lightheadedness, headaches, diarrhea since yesterday. Her neuro exam was intact without focal deficit. She denied any chest pain or shortness of breath. Her abdominal exam was benign. Her CV exam, lung exam were normal. She was seen last time in our ED on 02/17/2025 and stroke workup was done showed no acute finding. After IV fluid she was able to walk to the bathroom okay in the ED and her lightheadedness was improve. Her UA showed a little bit of UTI so was sent home with Macrobid twice a day for 5 days. I actually drink plenty of fluid. Her CBC showed normal white cell count red cell count. Her CMP showed mild elevation of BUN, chloride otherwise normal CMP. Her troponin and lipase were normal. Return to the ED precautions was given. She was given IV Ringer lactate in the ED. Discharge Plan Departure Patient Disposition: Home Clinical Impression: Lightheadedness, Diarrhea, Acute UTI, Headache Instructions: Urinary Tract Infection, Diarrhea, DI for Dehydration -- Adult, DI for Urinary Tract Infection (UTI), DI for Dizziness-Nonvertigo Activity Restrictions/Additional Instructions: Please come back to the emergency room if any worsening symptoms including but not limited to worsening headache, dizziness, chest pain, shortness of breath, abdominal pain, fever, chills, nausea vomiting. Please finish your antibiotic. Please set up primary care doctor for follow up outpatient within 1-2 weeks. Prescriptions: New nitrofurantoin monohyd/m-cryst [Macrobid] 100 mg capsule 100 mg PO BID Qty: 10 0RF Rx Instructions: must administer with a meal/food No Action acetaminophen 650 mg Tablet Extended Release 650 mg PO BID Referrals: Amparo Browne MD [Primary Care Provider, Internal Medicine] Stand Alone Forms: Patient Portal/API
[2025-03-15 08:01] LABS: Alanine Aminotransferase 29 IU/L (<35); Albumin 4.5 g/dL (3.5-5.0); Albumin Globulin Ratio 1.6 (1.0-2.8); Alkaline Phosphatase 71 U/L (38-126); Blood Urea Nitrogen 22 mg/dL (7-17); Calcium 9.3 mg/dL (8.4-10.2); Carbon Dioxide 22 mmol/L (22-32); Chloride 109 mmol/L (98-107); Estimated Glomerular Filt Rate > 60 mL/min (>60); Globulin 2.9 g/dL (1.7-4.1); Glucose 92 mg/dL (70-99); HEMOLYSIS < 15 (0-50); Potassium 4.0 mmol/L (3.4-5.1); Sodium 141 mmol/L (137-145); Total Protein 7.4 g/dL (6.3-8.2)
[2025-03-15] MEDS: LACTATED RINGERS 1,000 ML 1000 ML IV (08:05)
[2025-03-15 08:17] LABS: Troponin I < 0.012 ng/mL (0.01-0.034)
[2025-03-15 09:42] LABS: Appearance Urine UA SL CLOUDY; Bilirubin Urine UA NEGATIVE (NEGATIVE); Color Urine UA YELLOW; Glucose Urine UA NEGATIVE (Negative); Ketones Urine UA NEGATIVE (NEGATIVE); Leukocyte Esterase Urine UA 1+ (NEGATIVE); Nitrite Urine UA NEGATIVE (Negative); Occult Blood Urine UA NEGATIVE (Negative); Protein Urine UA NEGATIVE (Negative); Specific Gravity Urine UA 1.020 (1.000-1.035); Urobilinogen Urine UA 1.0 E.U./dL (0.2)
[2025-03-15 09:44] LABS: pH Urine UA 6.0 (4.5-8.0)
[2025-03-15 09:47] LABS: Culture Indicated Urine Specimen Cultured
== END 2025-03-15 10:24 | disposition home or self-care (01) ==
PROVIDERS: Emergency Provider Emergency Medicine; PCP Internal Medicine
DX: N39.0 Urinary tract infection, site not specified (principal); R42 Dizziness and giddiness; R19.7 Diarrhea, unspecified; R51.9 Headache, unspecified
CPT/HCPCS: 36415; 80053; 81003; 81015; 84484; 85025; 87086; 93005; 96360; 99284

== ENCOUNTER 2025-04-25 11:05 | Emergency (ER) | payer MEDICARE, SELFPAY ==
[2021-12-14 13:07] VITALS: BMI 30.4
[2025-04-25 11:06] VITALS: BP 156/71; PULSE 77; RESP 14; TEMP 36.9; O2SAT 98; BMI 29.2
[2025-04-25 11:11] VITALS: BP 156/71; PULSE 74; RESP 17; O2SAT 96
--- NOTE | 2025-04-25 11:12 | EKG_ITS ---
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
[2025-04-25 11:24] LABS: Add Manual Diff / Slide Review NO; Hematocrit 45.0 % (36-46); Hemoglobin 15.0 g/dL (12.0-16.0); Lymphocytes Absolute Auto 1600 /uL (1100-4500); Mean Corpuscular HGB Conc 33.4 % (30-36); Mean Corpuscular Hemoglobin 30.6 PG (26-34); Mean Corpuscular Volume 91.7 fL (80-100); Platelet Count 192 X10^3/uL (150-400)
[2025-04-25 11:30] VITALS: PULSE 70; O2SAT 97
[2025-04-25 11:31] VITALS: BP 121/57; PULSE 71; O2SAT 98
[2025-04-25 11:36] LABS: Alanine Aminotransferase 19 IU/L (<35); Albumin 4.2 g/dL (3.5-5.0); Albumin Globulin Ratio 1.6 (1.0-2.8); Alkaline Phosphatase 59 U/L (38-126); Blood Urea Nitrogen 19 mg/dL (7-17); Calcium 9.2 mg/dL (8.4-10.2); Carbon Dioxide 26 mmol/L (22-32); Chloride 104 mmol/L (98-107); Estimated Glomerular Filt Rate > 60 mL/min (>60); Globulin 2.7 g/dL (1.7-4.1); Glucose 90 mg/dL (70-99); HEMOLYSIS 17 (0-50); Lipase 41 U/L (23-300); Potassium 4.0 mmol/L (3.4-5.1); Sodium 140 mmol/L (137-145); Total Protein 6.9 g/dL (6.3-8.2)
--- NOTE | 2025-04-25 11:41 | ED_ITS ---
HPI - Abdominal Pain General Chief Complaint: Abdominal Pain Stated Complaint: Lower stomach pain x 1 day Time Seen by Provider: 04/25/25 11:08 Source: patient, RN notes reviewed and old records reviewed Mode of arrival: Ambulatory Limitations: no limitations History of Present Illness HPI narrative: 75-year-old female history of diverticulitis has a left lower quadrant pain. Patient presents with complaint of left lower quadrant pain states no flank pain. No fevers or chills. No nausea or vomiting no issues with bowel movements has not she notes she had 4 bowel movements yesterday but no diarrheal stools. No black or bloody stools. No rash or skin changes appreciated. She has had diverticulitis in the past she states it feels very similar. States her only daily medication is Tylenol Q 8 hours. She has had prior hysterectomy and cholecystectomy. Notes an adverse reaction to hydrocodone it makes her zooey.No tobacco, alcohol or recreational drugs. Patient states pain is improved currently. Related Data Home Medications ?Medication ?Instructions ?Recorded ?Confirmed acetaminophen 650 mg 650 mg PO BID prn 04/18/19 0 11/08/24 tablet,extended release Previous Rx's ?Medication ?Instructions ?Recorded nitrofurantoin 100 mg PO BID #10 caps 03/15 monohydrate/macrocrystals 100 mg capsule (Macrobid) amoxicillin 875 mg-potassium 1 tab PO BID 10 days #20 tabs 04/25/25 clavulanate 125 mg tablet Allergies Allergy/AdvReac Type Severity Reaction Status Date / Time hydrocodone AdvReac Mild Jittery, Verified 04/25/25 11:12 nervous, shakey Review of Systems Review of Systems ROS Unobtainable: All systems reviewed & are unremarkable except as noted in HPI and below Patient History Medical History Postmenopausal atrophic vaginitis Right lower quadrant pain Former smoker IBS (irritable bowel syndrome) Pelvic fracture HTN (hypertension) Spinal stenosis Depression Arthritis Surgical History History of lumbar fusion (12/17/20) History of laparoscopic appendectomy (02/17/21) History of lumbar fusion (04/26/19) Hx of tonsillectomy History of total left hip arthroplasty History of arthroplasty of right knee H/O: hysterectomy Hx of thyroidectomy Hx of bilateral cataract extraction History of arthroplasty of left shoulder (~2015) Family History Grandmother Cancer Father Hypertension Mother Hypertension Social History marital status: unmarried,single number of children: 0 household members: none lives independently: Yes occupational status: previously employed Smoking Status: Unknown if ever smoked alcohol intake: never Smoking Status: Unknown if ever smoked alcohol intake frequency: other Exam Narrative Exam Narrative: GENERAL: Alert and oriented x three, mild distress HEENT: Head normocephalic, atraumatic, EOMI, pupils reactive, face symmetric, moist mucous membranes NECK: Supple, full range of motion CARDIOVASCULAR: Regular rate and rhythm without murmurs, rubs or gallops. RESPIRATORY: Breath sounds equal bilaterally, no wheezes rales or rhonchi. ABDOMEN: Soft, nontender. Normoactive bowel sounds all 4 quadrants. No guarding or rebound, rigidity, no mass : No CVA tenderness EXTREMITIES: Normal range of motion, no clubbing or edema. Neurovascularly intact NEUROLOGICAL: Cranial nerves II through XII grossly intact. Moving all extremities SKIN: Warm, dry, no petechiae, no rashes or lesions. Initial Vital Signs Initial Vital Signs: Vital Signs Temperature 98.5 F 04/25/25 11:06 Pulse Rate 77 04/25/25 11:06 Respiratory Rate 14 04/25/25 11:06 Blood Pressure 156/71 H 04/25/25 11:06 Pulse Oximetry 98 04/25/25 11:06 Oxygen Delivery Method Room Air 04/25/25 11:06 Course Orders Ordered: ED Orders 04/25/25 11:12 EKG-12 Lead Stat 04/25/25 11:16 Complete Blood Count AUTO DIFF Stat Comprehensive Metabolic Panel Stat Lipase Stat Discontinued Medications Ondansetron HCl (Ondansetron 4 Mg/2 Ml Inj) 4 mg IV NOW PRN PRN Reason: Nausea And Vomiting Ondansetron HCl (Ondansetron 4 Mg Odt) 4 mg PO NOW PRN PRN Reason: Nausea And Vomiting Vital Signs Vital signs: Vital Signs - 8 hr 04/25/25 11:06 04/25/25 11:11 09/11/25 11:11 Temperature 98.5 F Pulse Rate 77 74 Respiratory Rate 14 17 Blood Pressure 156/71 H 156/71 H Pulse Oximetry 98 96 Oxygen Delivery Method Room Air Room Air 04/25/25 11:30 04/25/25 11:31 04/25/25 11:31 Temperature Pulse Rate 70 71 Respiratory Rate Blood Pressure 121/57 L Pulse Oximetry 97 98 Oxygen Delivery Method 04/25/25 12:00 04/25/25 12:01 04/25/25 12:01 Temperature Pulse Rate 70 70 Respiratory Rate Blood Pressure 131/87 Pulse Oximetry 98 97 Oxygen Delivery Method MDM - Abdominal Pain Lab Data 04/25/25 11:16 04/25/25 11:16 Labs: Lab Results 04/25/25 Range/Units 11:16 WBC 7.7 (4.5-11.0) X10^3/uL RBC 4.90 (4.0-5.2) X10^6/uL Hgb 15.0 (12.0-16.0) g/dL Hct 45.0 (36-46) % MCV 91.7 (80-100) fL MCH 30.6 (26-34) PG MCHC 33.4 (30-36) % RDW 13.7 (11.6-14.8) % Plt Count 192 (150-400) X10^3/uL Neut % (Auto) 69.0 (50-75) % Lymph % (Auto) 21.1 L (25-40) % [place] % (Auto) 7.3 (3-14) % Eos % (Auto) 2.0 (2-4) % Baso % (Auto) 0.6 (0-2) % Neut # (Auto) 5300 (5760-2728) /uL Lymph # (Auto) 1600 (2649-9027) /uL [place] # (Auto) 600 (0-900) /uL Eos # (Auto) 200 (0-450) /uL Baso # (Auto) 0 (0-100) /uL Sodium 140 (137-145) mmol/L Potassium 4.0 (3.4-5.1) mmol/L Chloride 104 (98-107) mmol/L Carbon Dioxide 26 (22-32) mmol/L BUN 19 H (7-17) mg/dL Creatinine 0.57 (0.52-1.04) mg/dL Estimated GFR > 60 (>60) mL/min BUN/Creatinine Ratio 33.3 H (6-22) Glucose 90 (70-99) mg/dL Calcium 9.2 (8.4-10.2) mg/dL Total Bilirubin 0.5 (0.2-1.3) mg/dL AST 26 (14-36) IU/L ALT 19 (<35) IU/L Alkaline Phosphatase 59 (38-126) U/L Total Protein 6.9 (6.3-8.2) g/dL Albumin 4.2 (3.5-5.0) g/dL Globulin 2.7 (1.7-4.1) g/dL Albumin/Globulin Ratio 1.6 (1.0-2.8) Lipase 41 (23-300) U/L Point of care testing: Urine Dip Bedside Urine Glucose Negative Bedside Urine Bilirubin - Negative Bedside Urine Ketone - Negative Urine Specific [place] 1.015 Bedside Urine Occult Blood - Negative Bedside Urine pH 6.0 Bedside Urine Protein - Negative Bedside Urine Urobilinogen - Negative Bedside Urine Nitrite - Negative Bedside Urine Leukocytes - Negative Esterase ECG Data Attestation: I personally reviewed and interpreted this ECG as follows: Prior ECG tracings: available for review Interpretation: Sinus rhythm rate of 76 CA 126 QRS is 76 QTC of 465, no acute ST elevation depression noted. Patient has prior EKG from 03/15/2025 appears similar to today's. [facility] Narrative Medical decision making narrative: EKG shows sinus rhythm no acute ST changes Labs CBC shows normal white count hemoglobin and platelets, chemistries are appropriate BUN 19 creatinine 0.57 glucose is 90 LFTs are negative. Lipase, AST ALT and bilirubin are all normal. Urine poc is negative. Discussed with the patient has left lower quadrant tenderness been somewhat intermittent but feels very similar to prior episodes of diverticulitis. Discussed obtaining CT the patient is afebrile with a rather benign exam recurrent history of diverticulitis she feels comfortable starting oral antibiotics without CT imaging. We did discuss that if she has worsening symptoms or no improvement she needs to return for further evaluation. We will start on oral antibiotic. Discharge Plan Departure Patient Disposition: Home Clinical Impression: Diverticulitis Instructions: DI for Diverticulitis Activity Restrictions/Additional Instructions: Follow up for recheck if your symptoms are not improving over the next 2-3 days or if they do not completely resolved by the time you have completed your antibiotic. We are treating you for presumed diverticulitis. We did not do any confirmatory me imaging today so if you are not having improvement you do need to be re- evaluated. Take oral antibiotics until completed. Prescription sent to [facility] in [place]. Please return for fevers new or worsening abdominal back or flank pain, any persistent vomiting, new black or bloody stools, lightheadedness or passing out or other new or concerning changes. Prescriptions: New amoxicillin-pot clavulanate 875-125 mg tablet 1 tab PO BID 10 Days Qty: 20 0RF No Action acetaminophen 650 mg Tablet Extended Release 650 mg PO BID nitrofurantoin monohyd/m-cryst [Macrobid] 100 mg capsule 100 mg PO BID Qty: 10 0RF Rx Instructions: must administer with a meal/food Referrals: Amparo Browne MD [Primary Care Provider, Internal Medicine] Stand Alone Forms: Patient Portal/API
[2025-04-25 12:00] VITALS: PULSE 70; O2SAT 98
[2025-04-25 12:01] VITALS: BP 131/87; PULSE 70; O2SAT 97
== END 2025-04-25 12:36 | disposition home or self-care (01) ==
PROVIDERS: Emergency Provider Emergency Medicine; PCP Internal Medicine
DX: K57.92 Diverticulitis of intestine, part unspecified, without perforation or abscess without bleeding (principal)
CPT/HCPCS: 36415; 80053; 81003; 83690; 85025; 93005; 99283; 99284

== ENCOUNTER 2025-04-30 08:24 | Emergency (ER) | payer MEDICARE, SELFPAY ==
[2021-12-14 13:07] VITALS: BMI 30.4
[2025-04-30] VITALS (7 sets, daily range): BP systolic 116–169; BP diastolic 57–77; PULSE 66–81; RESP 16–18; TEMP 36.3; O2SAT 95–99; BMI 28.5
--- NOTE | 2025-04-30 08:36 | ED.ABDPAIN ---
HPI - Abdominal Pain General Chief Complaint: Abdominal Pain Stated Complaint: Lower left side pain Time Seen by Provider: 04/30/25 08:26 History of Present Illness HPI narrative: Patient 75-year-old female with chronic left lower quadrant pain presenting today with left lower quadrant pain. She was seen evaluated here on 04/25/2025 diagnosed clinically with diverticulitis started on Augmentin and returns today for ongoing pain. She reports no change in bowel movements she says bowel movement this morning was quite difficult. No nausea no vomiting no fever. She has been taking Tylenol for pain at home. She denies any chest pain or shortness of breath. No flank pain Related Data Home Medications ?Medication ?Instructions ?Recorded ?Confirmed acetaminophen 650 mg 650 mg PO BID prn 04/18/19 11/08/24 tablet,extended release Previous Rx's ?Medication ?Instructions ?Recorded nitrofurantoin 100 mg PO BID #10 caps 03/15/25 monohydrate/macrocrystals 100 mg capsule (Macrobid) amoxicillin 875 mg-potassium 1 tab PO BID 10 days #20 tabs 04/25/25 clavulanate 125 mg tablet polyethylene glycol 3350 17 17 g PO DAILY #119 grams 04/30/25 gram/dose oral powder (Miralax) Allergies Allergy/AdvReac Type Severity Reaction Status Date / Time hydrocodone AdvReac Mild Jittery, Verified 04/30/25 08:40 nervous, bro Patient History Medical History Postmenopausal atrophic vaginitis Right lower quadrant pain Former smoker IBS (irritable bowel syndrome) Pelvic fracture HTN (hypertension) Spinal stenosis Depression Arthritis Surgical History History of lumbar fusion (12/17/20) History of laparoscopic appendectomy (02/17/21) History of lumbar fusion (04/26/19) Hx of tonsillectomy History of total left hip arthroplasty History of arthroplasty of right knee H/O: hysterectomy Hx of thyroidectomy Hx of bilateral cataract extraction History of arthroplasty of left shoulder (~2015) Family History Grandmother Cancer Father Hypertension Mother Hypertension Social History marital status: unmarried,single number of children: 0 household members: none lives independently: Yes occupational status: previously employed Smoking Status: Never smoker alcohol intake: never alcohol intake frequency: other Exam Initial Vital Signs Initial Vital Signs: Vital Signs Pulse Rate 80 04/30/25 08:29 Pulse Oximetry 98 04/30/25 08:29 GENERAL: [Well-appearing, well-nourished] and in [no acute] distress. HEENT: Head atraumatic,EOMI, pupils reactive, face symmetric, [moist] mucous membranes CARDIOVASCULAR: Regular rate and rhythm without murmurs, rubs or gallops. RESPIRATORY: Breath sounds equal bilaterally, no wheezes rales or rhonchi. ABDOMEN: Soft, tender left lower quadrant pain no guarding no rebound : No CVA tenderness EXTREMITIES: Normal range of motion, no clubbing or edema. Neurovascularly intact NEUROLOGICAL: Alert and oriented x4.Normal gait and speech. SKIN: Warm, dry, no laceration, no petechiae, no rashes or lesions. Course Orders Ordered: ED Orders 04/30/25 08:36 CT abdomen pelvis w con Stat 04/30/25 08:40 Complete Blood Count AUTO DIFF Stat Comprehensive Metabolic Panel Stat Lipase Stat 04/30/25 08:57 Urine Culture Stat Urine Microscopic Stat Discontinued Medications Ketorolac Tromethamine (Ketorolac 30 Mg/Ml Vial) 15 mg IV NOW ONE Stop: 04/30/25 08:37 Last Admin: 04/30/25 09:15 Dose: 15 mg Documented By: ANCA Vital Signs Vital signs: Vital Signs - 8 hr 04/30/25 08:29 04/30/25 08:30 04/30/25 08:30 Temperature Pulse Rate 80 81 Respiratory Rate Blood Pressure 169/77 H Pulse Oximetry 98 99 Oxygen Delivery Method 04/30/25 08:35 04/30/25 08:58 04/30/25 08:58 Temperature 97.4 F L Pulse Rate 79 72 Respiratory Rate 16 Blood Pressure 116/57 L 137/74 Pulse Oximetry 99 97 Oxygen Delivery Method Room Air 04/30/25 09:00 04/30/25 09:00 04/30/25 09:30 Temperature Pulse Rate 72 Respiratory Rate Blood Pressure 147/74 H 140/67 Pulse Oximetry 97 Oxygen Delivery Method 04/30/25 09:30 04/30/25 10:21 Temperature Pulse Rate 68 66 Respiratory Rate 18 Blood Pressure 136/66 Pulse Oximetry 99 95 Oxygen Delivery Method Room Air MDM - Abdominal Pain Lab Data 04/30/25 08:40 04/30/25 08:40 Labs: Lab Results 04/30/25 04/30/25 Range/Units 08:40 08:57 WBC 6.7 (4.5-11.0) X10^3/uL RBC 5.32 H (4.0-5.2) X10^6/uL Hgb 16.3 H (12.0-16.0) g/dL Hct 48.1 H (36-46) % MCV 90.5 (80-100) fL MCH 30.7 (26-34) PG MCHC 33.9 (30-36) % RDW 13.5 (11.6-14.8) % Plt Count 200 (150-400) X10^3/uL Neut % (Auto) 73.6 (50-75) % Lymph % (Auto) 19.0 L (25-40) % [place] % (Auto) 5.6 (3-14) % Eos % (Auto) 1.3 L (2-4) % Baso % (Auto) 0.5 (0-2) % Neut # (Auto) 5000 (2889-0103) /uL Lymph # (Auto) 1300 (6623-5279) /uL [place] # (Auto) 400 (0-900) /uL Eos # (Auto) 100 (0-450) /uL Baso # (Auto) 0 (0-100) /uL Sodium 140 (137-145) mmol/L Potassium 4.3 (3.4-5.1) mmol/L Chloride 103 (98-107) mmol/L Carbon Dioxide 26 (22-32) mmol/L BUN 18 H (7-17) mg/dL Creatinine 0.67 (0.52-1.04) mg/dL Estimated GFR > 60 (>60) mL/min BUN/Creatinine Ratio 26.9 H (6-22) Glucose 96 (70-99) mg/dL Calcium 9.9 (8.4-10.2) mg/dL Total Bilirubin 0.9 (0.2-1.3) mg/dL AST 33 (14-36) IU/L ALT 23 (<35) IU/L Alkaline Phosphatase 75 (38-126) U/L Total Protein 8.0 (6.3-8.2) g/dL Albumin 4.8 (3.5-5.0) g/dL Globulin 3.2 (1.7-4.1) g/dL Albumin/Globulin Ratio 1.5 (1.0-2.8) Lipase 42 (23-300) U/L Urine RBC None seen (0-5/HPF) Urine WBC 5-10/hpf H (0-5/HPF) Ur Squamous Epith Cells 1-5 /hpf (0-5/HPF) Amorphous Sediment 1+ Urine Bacteria Few (2-10) H (None) Ur Culture Indicated? Specimen cultured Vol Urine Centrifuged 10ml (spun) Point of care testing: Urine Dip Bedside Urine Glucose Negative Bedside Urine Bilirubin - Negative Bedside Urine Ketone - Negative Urine Specific [place] 1.020 Bedside Urine Occult Blood - Negative Bedside Urine pH 6.0 Bedside Urine Protein - Negative Bedside Urine Urobilinogen - Negative Bedside Urine Nitrite - Negative Bedside Urine Leukocytes + [address] scan - abdomen/pelvis: Radiologist's Impression: PROCEDURE: CT ABDOMEN PELVIS W [facility] INDICATIONS: left lower quad pain TECHNIQUE: After the administration of intravenous contrast, axial sections acquired from the lung bases to the pubic symphysis. Coronal and sagittal reformats were performed. For radiation dose reduction, the following was used: automated exposure control, adjustment of mA and/or kV according to patient size. COMPARISON: [facility], CT, CT ABDOMEN PELVIS W [facility], 08/14/2024, 9:28. [facility], CT, CT ABDOMEN PELVIS W [facility], 08/20/2023, 23:02. FINDINGS: Image quality: Diagnostic. Lower Chest: No significant findings. ABDOMEN: Liver: No solid mass. Stable hypoattenuating lesion in the right hepatic lobe near the dome. Gallbladder: Status post cholecystectomy. Biliary ducts: No biliary dilation. Pancreas: No ductal dilation. Spleen: A few small hypoattenuating lesions in the liver are too small to characterize and appear unchanged when compared to the prior CT. Adrenal Glands: No adrenal nodules. Kidneys and Ureters: No hydronephrosis. No solid mass. No complex renal cystic lesion which requires follow up. Bilateral benign-appearing renal cysts do not appear significantly changed. Stomach and Bowel: Status post appendectomy. Moderate to large amount of stool in the colon. Small bowel loops are nondilated. No pericolonic inflammatory changes. Peritoneum: No abnormal intraperitoneal fluid. No free air. Ventral Wall: Tiny fat containing periumbilical hernia. Abdominal Nodes: No retroperitoneal or mesenteric adenopathy by size criteria. Vessels: Aorta and inferior vena cava are normal in size. PELVIS: Pelvic Organs: Status post hysterectomy. Bladder: No bladder wall thickening, accounting for underdistention. Pelvic Nodes: No enlarged lymph nodes. Miscellaneous: No inguinal hernias are seen. Bones: No aggressive osseous abnormality. Status post left hip arthroplasty with associated metal artifact that mildly obscures surrounding structures. Mild degenerative changes in the sacroiliac joints. Postsurgical changes are seen throughout the lumbar spine. There is osseous bridging across the T12-L1 disc space. Degenerative changes are noted at the L5-S1 and T11-12 levels. IMPRESSION: 1. No acute inflammatory process identified in the abdomen or pelvis. 2. Moderate to large volume of stool in the colon. Correlate for constipation. Approved by: Stan Medina M.D. on 04/30/2025 at 9:05 [facility] Narrative Medical decision making narrative: MDM CC: Left lower quadrant pain Complicating co-morbidities: Chronic left lower quadrant pain Data collected from: Patient Medical records reviewed: Records from recent ED visit reviewed along with prior abdominal imaging she has not had an abdominal CT since 08/14/2024 but had a total of 5 abdominal [address]s in 2023 none in 2024. All of the CT results reviewed none actually show any intra-abdominal pathology or diverticulitis Differential considered: Diverticulitis nephrolithiasis constipation ischemic bowel, pancreatitis Exam documented above, pertinent findings include: Alert 75-year-old female tender in left lower quadrant no guarding no rebound bowel sounds normal Lab Test results independently reviewed as above. Pertinent findings: CBC no leukocytosis white count is 6 CMP no electrolyte abnormality no JARAD Bilirubin liver enzymes and lipase all within normal limit Independently reviewed EKG as above Imaging studies independently reviewed: No diverticulitis or inflammatory process moderate large volume stool Consultations: none Treatments: Toradol Re-evaluations: Abdomen is reexamined absolutely no pain in left lower quadrant Discussion: Patient is a 75-year-old female who has chronic left lower quadrant pain. Initially diagnosed with diverticulitis clinically 5 days ago however not yet found radiologic evidence that she has had diverticulitis. She reports that she had a colonoscopy a long time ago she does not have any blood in her stool. Pain is completely resolved after Toradol. Blood work is overall reassuring without leukocytosis. CT does not show evidence of any intra-abdominal abnormality. At this time I recommend she have another colonoscopy. Outpatient follow-up Discharge Plan Departure Patient Disposition: Home Clinical Impression: Constipation Instructions: DI for Constipation Activity Restrictions/Additional Instructions: *You have been diagnosed with constipation *What to do: At this time no evidence of diverticulitis or infection you can stop your antibiotics. I do recommend that you get colonoscopy please discuss this with your primary care provider *Continue to take medications as directed MiraLax once daily *Follow up with your primary care provider in 2-3 days or call [phone] *Return to ER if you should have increasing pain fever bloody stool, persistent vomiting or any new, worsening or concerning symptoms Prescriptions: New polyethylene glycol 3350 [Miralax] 17 gram/dose powder 17 g PO DAILY Qty: 119 0RF No Action acetaminophen 650 mg Tablet Extended Release 650 mg PO BID nitrofurantoin monohyd/m-cryst [Macrobid] 100 mg capsule 100 mg PO BID Qty: 10 0RF Rx Instructions: must administer with a meal/food amoxicillin-pot clavulanate 875-125 mg tablet 1 tab PO BID 10 Days Qty: 20 0RF Referrals: Amparo Browne MD [Primary Care Provider, Internal Medicine] Stand Alone Forms: Patient Portal/API
[2025-04-30 08:57] LABS: Add Manual Diff / Slide Review NO; Hematocrit 48.1 % (36-46); Hemoglobin 16.3 g/dL (12.0-16.0); Lymphocytes Absolute Auto 1300 /uL (1100-4500); Mean Corpuscular HGB Conc 33.9 % (30-36); Mean Corpuscular Hemoglobin 30.7 PG (26-34); Mean Corpuscular Volume 90.5 fL (80-100); Platelet Count 200 X10^3/uL (150-400)
[2025-04-30 09:12] LABS: Alanine Aminotransferase 23 IU/L (<35); Albumin 4.8 g/dL (3.5-5.0); Albumin Globulin Ratio 1.5 (1.0-2.8); Alkaline Phosphatase 75 U/L (38-126); Blood Urea Nitrogen 18 mg/dL (7-17); Calcium 9.9 mg/dL (8.4-10.2); Carbon Dioxide 26 mmol/L (22-32); Chloride 103 mmol/L (98-107); Estimated Glomerular Filt Rate > 60 mL/min (>60); Globulin 3.2 g/dL (1.7-4.1); Glucose 96 mg/dL (70-99); HEMOLYSIS < 15 (0-50); Lipase 42 U/L (23-300); Potassium 4.3 mmol/L (3.4-5.1); Sodium 140 mmol/L (137-145); Total Protein 8.0 g/dL (6.3-8.2)
[2025-04-30] MEDS: KETOROLAC 30 MG/ML VIAL 15 MG IV (09:15)
[2025-04-30 09:46] LABS: Culture Indicated Urine Specimen Cultured
== END 2025-04-30 10:23 | disposition home or self-care (01) ==
PROVIDERS: Emergency Provider Emergency Medicine; PCP Internal Medicine
DX: K59.00 Constipation, unspecified (principal)
CPT/HCPCS: 36415; 74177; 80053; 81003; 81015; 83690; 85025; 87086; 96374; 99284; J1885; Q9967

== ENCOUNTER 2025-07-15 02:24 | Emergency (ER) | payer MEDICARE, SELFPAY ==
[2021-12-14 13:07] VITALS: BMI 30.4
[2025-07-15] VITALS (19 sets, daily range): BP systolic 138–193; BP diastolic 64–102; PULSE 53–73; RESP 11–27; TEMP 37; O2SAT 85–98; BMI 26.9
--- NOTE | 2025-07-15 02:27 | ED_ITS ---
HPI - Abdominal Pain General Chief Complaint: Abdominal Pain Stated Complaint: LLQ pain Time Seen by Provider: 07/15/25 02:27 History of Present Illness HPI narrative: Patient is a 75-year-old female states has history diverticulitis, comes into the ED from home for evaluation of left lower quadrant abdominal pain ongoing persistent for the past 3 days, she states it is very similar to when she has had diverticulitis in the past. Patient denies any other symptoms such as headache visual disturbance chest pain shortness breath fever chills or any other GI/ symptoms time. Patient states that she has not seen her GI doctor in ?a while. No trauma no falls not on any blood thinners Related Data Home Medications ?Medication ?Instructions ?Recorded ?Confirmed acetaminophen 650 mg 650 mg PO BID prn 04/18/19 0 11/08/24 tablet,extended release Previous Rx's ?Medication ?Instructions ?Recorded nitrofurantoin 100 mg PO BID #10 caps 03/15 monohydrate/macrocrystals 100 mg capsule (Macrobid) polyethylene glycol 3350 17 17 g PO DAILY #119 grams 0 04/30/25 gram/dose oral powder (Miralax) Allergies Allergy/AdvReac Type Severity Reaction Status Date / Time hydrocodone AdvReac Mild Jittery, Verified 04/30/25 08:40 nervous, shakey Review of Systems Review of Systems Narrative: General: Denies fever, chills, weight loss HEENT: Denies headache, eye drainage, eye irritation, head trauma, sore throat, voice change Cardiovascular: Denies any chest pain, palpitations, tachycardia Respiratory: Denies any shortness of breath, cough, wheeze, stridor GI/: Positive abdominal pain, denies nausea, vomiting, diarrhea, bright red blood per rectum, melanotic stools, urinary frequency, urinary retention, dysuria, hematuria MSK: Denies any joint pain, muscle pains, swelling Skin: Denies any rashes, lesions, discoloration Neuro: Denies any headache, lightheadedness, dizziness, fainting, weakness Psych: Denies SI/HI Patient History Medical History Postmenopausal atrophic vaginitis Right lower quadrant pain Former smoker IBS (irritable bowel syndrome) Pelvic fracture HTN (hypertension) Spinal stenosis Depression Arthritis Surgical History History of lumbar fusion (12/17/20) History of laparoscopic appendectomy (02/17/21) History of lumbar fusion (04/26/19) Hx of tonsillectomy History of total left hip arthroplasty History of arthroplasty of right knee H/O: hysterectomy Hx of thyroidectomy Hx of bilateral cataract extraction History of arthroplasty of left shoulder (~2015) Family History Grandmother Cancer Father Hypertension Mother Hypertension Social History marital status: unmarried,single number of children: 0 household members: none lives independently: Yes occupational status: previously employed alcohol intake: never alcohol intake frequency: other Exam Narrative Exam Narrative: General: Cooperative, well-developed, not in acute distress HEENT: Normocephalic, atraumatic, PERRLA, normal sclera, eyelids normal Neck: Active full range of motion, atraumatic Chest: Normal to inspection, negative crepitus, no overlying erythema ecchymosis Respiratory: Normal respiratory effort, not in acute respiratory distress, clear to auscultation bilaterally negative cough, wheeze, tachypnea, rhonchi, rales Cardiology: Regular rate rhythm negative gallop, murmur, rubs GI/: Mild tenderness to the lower abdomen, soft, non rigid, normal to inspection, exam deferred MSK: Full active range of motion in all 4 extremities, atraumatic, no tenderness to palpation of any bony prominences Skin: No rashes or lesions noted Neuro: Alert awake oriented x3, moves all 4 extremities spontaneously, cranial nerves intact, able to answer all questions appropriately follows commands appropriately Psych: Cooperative, negative suicidal or homicidal ideations Initial Vital Signs Initial Vital Signs: Vital Signs Temperature 98.6 F 07/15/25 02:30 Pulse Rate 73 07/15/25 02:30 Respiratory Rate 18 07/15/25 02:30 Blood Pressure 162/71 H 07/15/25 02:30 Pulse Oximetry 98 07/15/25 02:30 Oxygen Delivery Method Room Air 07/15/25 02:30 Course Orders Ordered: ED Orders 07/15/25 02:28 CT abdomen pelvis w con Stat 07/15/25 02:35 CBC Auto Diff [Complete Blood Count AUTO DIFF] Stat CMP [Comprehensive Metabolic Panel] Stat Lipase Stat MAG [Magnesium] Stat 07/15/25 02:39 NT-proBNP (BNP-Adult 18+) Stat PT [Prothrombin Time INR] Stat PTT Partial Thromboplastin [place] Stat Troponin & CK Cardiac Panel Stat 07/15/25 04:01 CXR [XR chest 1V] Stat EKG-12 Lead Stat 07/15/25 04:48 Troponin & CK Cardiac Panel Stat 07/15/25 04:50 Consult to [facility] Stat 07/15/25 07:00 Trop I [Troponin I] Stat Discontinued Medications Aspirin (Aspirin 81 Mg Chew Tab) 324 mg PO NOW ONE Stop: 07/15/25 04:49 Last Admin: 07/15/25 04:53 Dose: 324 mg Documented By: GREYSON Sodium Chloride (Normal Saline 0.9%) 1,000 mls @ 1,000 mls/hr IV BOLUS ONE Stop: 07/15/25 03:27 Last Infusion: 07/15/25 04:51 Dose: Infused Documented By: Admin: 07/15/25 03:37 Dose: 1,000 mls/hr Documented By: GREYSON Lorazepam (Lorazepam 2 Mg/Ml Inj) 1 mg IV NOW ONE Stop: 07/15/25 04:50 Last Admin: 07/15/25 04:55 Dose: 1 mg Documented By: GREYSON Morphine Sulfate (Morphine 4 Mg/Ml Inj) 4 mg IV NOW ONE Stop: 07/15/25 02:51 Last Admin: 07/15/25 03:06 Dose: 4 mg Documented By: GREYSON Ondansetron HCl (Ondansetron 4 Mg/2 Ml Inj) 4 mg IV NOW ONE Stop: 07/15/25 02:51 Last Admin: 07/15/25 03:06 Dose: 4 mg Documented By: GREYSON Vital Signs Vital signs: Vital Signs - 8 hr 07/15/25 02:30 07/15/25 02:49 07/15/25 03:00 Temperature 98.6 F Pulse Rate 73 68 53 L Respiratory Rate 18 Blood Pressure 162/71 H Pulse Oximetry 98 90 L 96 Oxygen Delivery Method Room Air 07/15/25 03:01 07/15/25 03:01 07/15/25 03:38 Temperature Pulse Rate 65 58 L Respiratory Rate Blood Pressure 146/69 H Pulse Oximetry 95 95 Oxygen Delivery Method 07/15/25 04:00 07/15/25 04:01 07/15/25 04:01 Temperature Pulse Rate 59 L 56 L Respiratory Rate Blood Pressure 193/86 H Pulse Oximetry 98 98 Oxygen Delivery Method 07/15/25 04:19 07/15/25 04:19 07/15/25 04:30 Temperature Pulse Rate 58 L 62 Respiratory Rate 17 14 Blood Pressure 190/73 H Pulse Oximetry 93 94 Oxygen Delivery Method 07/15/25 04:31 07/15/25 04:31 Temperature Pulse Rate 62 Respiratory Rate 27 H Blood Pressure 172/75 H Pulse Oximetry 95 Oxygen Delivery Method MDM - Abdominal Pain Lab Data 07/15/25 02:35 07/15/25 02:35 Labs: Lab Results 07/15/25 07/15/25 07/15/25 Range/Units 02:35 02:39 04:48 WBC 5.5 (4.5-11.0) X10^3/uL RBC 5.20 (4.0-5.2) X10^6/uL Hgb 15.8 (12.0-16.0) g/dL Hct 47.1 H (36-46) % MCV 90.5 (80-100) fL MCH 30.3 (26-34) PG MCHC 33.5 (30-36) % RDW 14.1 (11.6-14.8) % Plt Count 172 (150-400) X10^3/uL Neut % (Auto) 49.9 L (50-75) % Lymph % (Auto) 37.4 (25-40) % [place] % (Auto) 8.3 (3-14) % Eos % (Auto) 3.3 (2-4) % Baso % (Auto) 1.1 (0-2) % Neut # (Auto) 2700 (6435-2375) /uL Lymph # (Auto) 2000 (5786-7961) /uL [place] # (Auto) 500 (0-900) /uL Eos # (Auto) 200 (0-450) /uL Baso # (Auto) 100 (0-100) /uL PT 11.5 (9.4-12.5) SECONDS INR 1.0 (0.9-1.3) APTT 38 H (25.1-36.5) SECONDS Sodium 142 (137-145) mmol/L Potassium 4.4 (3.4-5.1) mmol/L Chloride 110 H (98-107) mmol/L Carbon Dioxide 25 (22-32) mmol/L BUN 10 (7-17) mg/dL Creatinine 0.60 (0.52-1.04) mg/dL Estimated GFR > 60 (>60) mL/min BUN/Creatinine Ratio 16.7 (6-22) Glucose 92 (70-99) mg/dL Calcium 9.4 (8.4-10.2) mg/dL Magnesium 2.0 (1.6-2.3) mg/dL Total Bilirubin 0.7 (0.2-1.3) mg/dL AST 22 (14-36) IU/L ALT 16 (<35) IU/L Alkaline Phosphatase 61 (38-126) U/L Total Creatine Kinase 50 50 (30-135) U/L Troponin I < 0.012 < 0.012 (0.01-0.034) ng/mL NT-Pro-B Natriuret Pep 156 (<450) pg/mL Total Protein 6.7 (6.3-8.2) g/dL Albumin 4.2 (3.5-5.0) g/dL Globulin 2.5 (1.7-4.1) g/dL Albumin/Globulin Ratio 1.7 (1.0-2.8) Lipase 40 (23-300) U/L Point of care testing: Urine Dip Bedside Urine Glucose Negative Bedside Urine Bilirubin - Negative Bedside Urine Ketone - Negative Urine Specific [place] 1.005 Bedside Urine Occult Blood - Negative Bedside Urine pH 7.0 Bedside Urine Protein - Negative Bedside Urine Urobilinogen - Negative Bedside Urine Nitrite - Negative Bedside Urine Leukocytes - Negative Esterase ECG Data Interpretation: EKG interpreted ED physician sinus 60 beats per minute, QTC 438, QRS MO interval within normal limits, no STEMI MDM Narrative Medical decision making narrative: 75-year-old female with a past medical history of diverticulitis, comes into the ED from home for evaluation of left lower quadrant abdominal pain, she states that she has a history of chronic pain states that she has also been diagnosed with diverticulitis in the past. She states that symptoms started a proximally 3 days ago not getting any better but not getting any worse. Patient states this is somewhat similar to previous symptoms when she has been diagnosed with this. Patient states that she has had a total hysterectomy and appendectomy previously. Patient without any leukocytosis Chem panel unremarkable. Chest x- ray without any acute cardiopulmonary abnormality. Patient's troponin negative, EKG nonischemic in nature. Patient with a heart score of 2 for age. 0400: Patient just came back from CT scan, and informed myself as well as nursing staff that she is now feeling some chest pressure, nonexertional no radiation not complaining of any shortness of breath, he is not diaphoretic, we will add additional lab work imaging to rule out ACS Preliminary CT scan showing no evidence of diverticulitis possible mild enteritis however there is increasing ground-glass lucency along the anterior aspect of the left acetabulum concerning for early particle disease, patient is neurovascularly intact to the lower extremity, has no pain to palpation is able to stand bear weight and ambulate unassisted, I believe this is what can be contributing to the patient's pain we will send a referral to Orthopedic surgery for further evaluation treatment of this this was relayed to the patient. Discharge Plan Departure Clinical Impression: Abnormal CT scan, Chest pain Instructions: DI for Chest Pain Activity Restrictions/Additional Instructions: You had a CT scan that had concerns for early particle disease of your left acetabulum secondary to your history of hip surgery, it is recommended that you follow up with Orthopedic surgery in outpatient setting. Please follow up with your primary care doctor and Cardiology in outpatient setting Please read the discharge instructions sheet carefully and bring all papers to all doctor follow-up visits, as it may contain information that your doctor may want to see. Disease processes change and evolve, if your symptoms worsen or if you develop any new symptoms that are concerning to you please return for evaluation. Your evaluation today does not show any evidence of any life- threatening/serious illnesses requiring admission to the hospital or surgery. Please follow-up with your doctor for re-evaluation in approximately 1 day. Seek immediate medical attention for any worrisome symptoms. *If you do not have a primary care provider please contact the [facility] Resource line at [phone]. They will ask some questions about your medical history and help get you set up with a doctor in the community. Prescriptions: No Action acetaminophen 650 mg Tablet Extended Release 650 mg PO BID nitrofurantoin monohyd/m-cryst [Macrobid] 100 mg capsule 100 mg PO BID Qty: 10 0RF Rx Instructions: must administer with a meal/food polyethylene glycol 3350 [Miralax] 17 gram/dose powder 17 g PO DAILY Qty: 119 0RF Referrals: Amparo Browne MD [Primary Care Provider, Internal Medicine] Gerry Hyman MD [Physician, Cardiology]
--- NOTE | 2025-07-15 02:28 | DI.CT.S_ITS ---
PROCEDURE: CT ABDOMEN PELVIS W CON INDICATIONS: LLQ abd pain , hx of divertic TECHNIQUE: After the administration of intravenous contrast, axial sections acquired from the lung bases to the pubic symphysis. Coronal and sagittal reformats were performed. For radiation dose reduction, the following was used: automated exposure control, adjustment of mA and/or kV according to patient size. COMPARISON: [facility], CT, CT ABDOMEN PELVIS W CON, 02/17/2021, 15:53. [facility], CT, CT ABDOMEN PELVIS W CON, 08/20/2023, 23:02. [facility], CT, CT ABDOMEN PELVIS W CON, 04/30/2025, 8:44. FINDINGS: Image quality: Diagnostic. Lower Chest: No significant findings. ABDOMEN: Liver: Stable appearance of a 1.9 cm hypoattenuating lesion in segment 7 (2/27), unchanged from at least August 2023. Gallbladder: Post cholecystectomy. Biliary ducts: Post cholecystectomy reservoir effect of the common bile duct. No radiopaque choledocholithiasis. Pancreas: No ductal dilation. Spleen: Size is within normal limits. Multiple small hypoattenuating foci, likely cysts, not significantly changed. Adrenal Glands: No adrenal nodules. Kidneys and Ureters: No hydronephrosis. No solid mass. No complex renal cystic lesion which requires follow up. Exophytic simple cyst in the right upper pole. Stomach and Bowel: Normal colonic caliber, without significant wall thickening. Post appendectomy. Mild diverticulosis. No focal stranding or mural thickening of the distal large bowel to suggest diverticulitis. There is minimal edema adjacent to a few loops of small bowel in the left lower quadrant, which may represent mild enteritis. Peritoneum: No abnormal intraperitoneal fluid. No free air. Ventral Wall: No significant ventral hernia. Abdominal Nodes: No retroperitoneal or mesenteric adenopathy by size criteria. Vessels: Aorta and inferior vena cava are normal in size. PELVIS: Pelvic Organs: Unremarkable. Bladder: No bladder wall thickening, accounting for underdistention. Pelvic Nodes: No enlarged lymph nodes. Miscellaneous: No inguinal hernias are seen. Bones: Changes of L1-5 spinal instrumented fusion. Changes of left total hip prosthesis with cystic change along the left anterior inferior iliac spine adjacent to the prosthesis. IMPRESSION: 1. Findings suggestive of mild enteritis in the left lower quadrant. 2. Mild diverticulosis without imaging findings of acute diverticulitis. 3. Changes of left total hip prosthesis with increased periprosthetic cystic change in the left anterior superior acetabulum extending into the left anterior inferior iliac spine without pathologic fracture. This may represent a septic reaction to the implant. Correlate with clinical symptomatology. Findings are concordant preliminary interpretation provided by [facility]. Dictated by: Genaro Braxton M.D. on 07/15/2025 at 7:43 Approved by: Genaro Braxton M.D. on 07/15/2025 at 7:51
[2025-07-15 02:46] LABS: Add Manual Diff / Slide Review NO; Hematocrit 47.1 % (36-46); Hemoglobin 15.8 g/dL (12.0-16.0); Lymphocytes Absolute Auto 2000 /uL (1100-4500); Mean Corpuscular HGB Conc 33.5 % (30-36); Mean Corpuscular Hemoglobin 30.3 PG (26-34); Mean Corpuscular Volume 90.5 fL (80-100); Platelet Count 172 X10^3/uL (150-400)
[2025-07-15] MEDS: ONDANSETRON 4 MG/2 ML INJ IV (03:06)
[2025-07-15] MEDS: MORPHINE 4 MG/ML INJ IV (03:06)
[2025-07-15 03:21] LABS: Alanine Aminotransferase 16 IU/L (<35); Albumin 4.2 g/dL (3.5-5.0); Albumin Globulin Ratio 1.7 (1.0-2.8); Alkaline Phosphatase 61 U/L (38-126); Blood Urea Nitrogen 10 mg/dL (7-17); Calcium 9.4 mg/dL (8.4-10.2); Carbon Dioxide 25 mmol/L (22-32); Chloride 110 mmol/L (98-107); Estimated Glomerular Filt Rate > 60 mL/min (>60); Globulin 2.5 g/dL (1.7-4.1); Glucose 92 mg/dL (70-99); HEMOLYSIS < 15 (0-50); Lipase 40 U/L (23-300); Magnesium 2.0 mg/dL (1.6-2.3); Potassium 4.4 mmol/L (3.4-5.1); Sodium 142 mmol/L (137-145); Total Protein 6.7 g/dL (6.3-8.2)
[2025-07-15] MEDS: SODIUM CHLORIDE 0.9% 1,000 ML 1000 ML IV (03:37)
--- NOTE | 2025-07-15 04:01 | DI.RAD.S_ITS ---
PROCEDURE: XR CHEST 1V INDICATIONS: chest pain TECHNIQUE: One view of the chest was acquired. COMPARISON: [facility], CR, XR CHEST 1V, 02/17/2025, 10:26. [facility], CR, XR CHEST 1V, 11/08/2024, 11:02. FINDINGS: Surgical changes and devices: Partially visualized lumbar spinal instrumentation. Partially visualized left anatomic total shoulder arthroplasty. Lungs and pleura: Lungs are clear. No pleural effusions or pneumothorax. Mediastinum: Mediastinal contours appear normal. Heart size is normal. Bones and chest wall: No suspicious bony lesions. Overlying soft tissues appear unremarkable. IMPRESSION: No acute cardiopulmonary abnormality is seen. Findings are concordant preliminary interpretation provided by [facility]. Dictated by: Genaro Braxton M.D. on 07/15/2025 at 7:39 Approved by: Genaro Braxton M.D. on 07/15/2025 at 7:40
--- NOTE | 2025-07-15 04:09 | EKG_ITS ---
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
[2025-07-15 04:14] LABS: INR 1.0 (0.9-1.3); Prothrombin Time 11.5 SECONDS (9.4-12.5)
--- NOTE | 2025-07-15 04:14 | PC.NURSE ---
called to pt's room, pt c/o a sudden onset of heaviness in her chest pt states she was just lying on the stretcher when the heaviness started. Dr Mcghee notified and in room to evaluate pt
[2025-07-15 04:17] LABS: PTT Partial Thromboplastin Tim 38 SECONDS (25.1-36.5)
[2025-07-15 04:18] LABS: Creatine Kinase 50 U/L (30-135)
[2025-07-15 04:31] LABS: NT-proBNP (BNP-Adult 18+) 156 pg/mL (<450); Troponin I < 0.012 ng/mL (0.01-0.034)
[2025-07-15] MEDS: ASPIRIN 81 MG CHEW TAB 324 MG PO (04:53)
[2025-07-15 05:11] LABS: Creatine Kinase 50 U/L (30-135)
[2025-07-15 05:24] LABS: Troponin I < 0.012 ng/mL (0.01-0.034)
--- NOTE | 2025-07-15 06:30 | PC.NURSE ---
pt resting quietly without further c/o wait for further lab tests and disposition
--- NOTE | 2025-07-15 06:51 | PC.NURSE ---
blood drawn for repeat trop and sent pt's brothers (aka her ride) at bedside
[2025-07-15 07:17] LABS: Troponin I 0.021 ng/mL (0.01-0.034)
== END 2025-07-15 07:40 | disposition home or self-care (01) ==
PROVIDERS: Emergency Provider Student in an Organized Health Care Education/Training Program; PCP Internal Medicine
DX: R93.7 Abnormal findings on diagnostic imaging of other parts of musculoskeletal system (principal); R10.32 Left lower quadrant pain; R07.89 Other chest pain; Z87.19 Personal history of other diseases of the digestive system
CPT/HCPCS: 36415; 71045; 74177; 80053; 81003; 82550; 83690; 83735; 83880; 84484; 85025; 85610; 85730; 93005; 96374; 96375; 99284; J2060; J2272; J2405; J7030; Q9967

== ENCOUNTER 2025-07-16 09:10 | Emergency (ER) | payer MEDICARE, SELFPAY ==
[2021-12-14 13:07] VITALS: BMI 30.4
--- NOTE | 2025-07-16 09:20 | ED_ITS ---
HPI - Abdominal Pain General Chief Complaint: Abdominal Pain Stated Complaint: abdominal pain Time Seen by Provider: 07/16/25 09:19 History of Present Illness HPI narrative: Patient seen here yesterday morning/last night and had CT imaging done. For left lower abdominal pain. Patient has had 16 cat scans of abdomen pelvis in the past 4 years. Has history of diverticulosis but I reviewed CT imaging and none of the CT showed diverticulitis. One CT did show appendicitis. The patien t has ongoing 3-4 days of left pelvic pain. It is bony pain. Very focal point tenderness to the pelvic bone. At the anterior superior iliac spine of the left side. 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 Has been constant pain. No nausea or vomiting no diarrhea no urinary complaints. No hip pain. Related Data Home Medications ?Medication ?Instructions ?Recorded ?Confirmed acetaminophen 650 mg 650 mg PO BID prn 04/18/19 0 11/08/24 tablet,extended release Previous Rx's ?Medication ?Instructions ?Recorded nitrofurantoin 100 mg PO BID #10 caps 03/15 monohydrate/macrocrystals 100 mg capsule (Macrobid) polyethylene glycol 3350 17 17 g PO DAILY #119 grams 0 04/30/25 gram/dose oral powder (Miralax) oxycodone-acetaminophen 5 mg-325 1 tab PO Q4-6H PRN pa in #20 tabs 07/16/25 mg tablet (Percocet) Allergies Allergy/AdvReac Type Severity Reaction Status Date / Time hydrocodone AdvReac Mild Jittery, Verified 07/16/25 09:31 nervous, shakey Review of Systems Review of Systems Narrative: GENERAL: Negative chills, fatigue, malaise, fever, sweats. HEENT: Negative sinus pain, ear pain, sore throat RESPIRATORY: Negative dyspnea, cough CARDIOVASCULAR: Negative chest pain, palpitations GASTROINTESTINAL: Negative vomiting, nausea, positive abdominal pain : Negative dysuria, frequency, hematuria MUSCULOSKELETAL: Negative muscle or bony pain SKIN: Negative rash, skin lesions NEUROLOGIC: Negative weakness, numbness ROS Unobtainable: All systems reviewed & are unremarkable except as noted in HPI and below Patient History Medical History Postmenopausal atrophic vaginitis Right lower quadrant pain Former smoker IBS (irritable bowel syndrome) Pelvic fracture HTN (hypertension) Spinal stenosis Depression Arthritis Surgical History History of lumbar fusion (12/17/20) History of laparoscopic appendectomy (02/17/21) History of lumbar fusion (04/26/19) Hx of tonsillectomy History of total left hip arthroplasty History of arthroplasty of right knee H/O: hysterectomy Hx of thyroidectomy Hx of bilateral cataract extraction History of arthroplasty of left shoulder (~2015) Family History Grandmother Cancer Father Hypertension Mother Hypertension Social History marital status: unmarried,single number of children: 0 household members: none lives independently: Yes occupational status: previously employed Smoking Status: Never smoker alcohol intake: never alcohol intake frequency: other Exam Narrative Exam Narrative: GENERAL: in no distress, not toxic not dyspneic HEAD: Normocephalic. EYES: Pupils equal round ENT: Mucous membranes moist. NECK: Trachea midline. CARDIOVASCULAR: Regular rate and rhythm RESPIRATORY: Clear to auscultation. Breath sounds equal bilaterally. No wheezes, rales, or rhonchi. GASTROINTESTINAL: Abdomen soft, reproducible left hemipelvis at the anterior s uperior iliac spine region tenderness. No no abdominal tenderness. No peritoneal signs no guarding or rebound. No palpable foreign body BACK: No flank tenderness. EXTREMITIES: No gross deformities. NEURO: AOx4. Clear speech SKIN: Warm and dry PSYCH: Not anxious, is cooperative Initial Vital Signs Initial Vital Signs: Vital Signs Temperature 98.0 F 07/16/25 09:31 Pulse Rate 78 07/16/25 09:31 Respiratory Rate 16 07/16/25 09:31 Blood Pressure 165/78 H 07/16/25 09:31 Pulse Oximetry 98 07/16/25 09:31 Oxygen Delivery Method Room Air 07/16/25 09:31 Course Orders Ordered: ED Orders 07/16/25 09:36 XR hip w pel LT 2V Stat Vital Signs Vital signs: Vital Signs - 8 hr 07/16/25 09:31 07/16/25 10:53 Temperature 98.0 F Pulse Rate 78 77 Respiratory Rate 16 16 Blood Pressure 165/78 H 170/80 H Pulse Oximetry 98 99 Oxygen Delivery Method Room Air Room Air MDM - Abdominal Pain MDM Narrative Medical decision making narrative: Patient seen here yesterday morning/last night and had CT imaging done. For left lower abdominal pain. Patient has had 16 cat scans of abdomen pelvis in the past 4 years. Has history of diverticulosis but I reviewed CT imaging and none of the CT showed diverticulitis. One CT did show appendicitis. The patient has ongoing 3-4 days of left pelvic pain. It is bony pain. Very focal point tenderness to the pelvic bone. At the anterior superior iliac spine of the left side. 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 Has been constant pain. No nausea or vomiting no diarrhea no urinary complaints. No hip pain. MDM After history and exam, exam is reassuring. This is not abdominal pain this is musculoskeletal pain. X-ray pelvis will be completed. Referral for Orthopedics will be provided. Referral for primary care as well. Patient needs outpatient MRI and likely physical therapy. Short course of pain medication will be provided for patient. No blood work is indicated. Differential considered: Includes but not limited to muscular strain tendinitis abdominal wall strain. Medical records reviewed: 16 CAT scans abdomen pelvis in the past 4 years done here. ER visit here yesterday Imaging studies independently reviewed: Knee x-ray pelvis foreign body left hemipelvis Consult: 10:20 a.m.. I spoke with General surgery Dr. Bull. Who will see patient in the office to set up appointment for removal of foreign body. Re-evaluations: 10:33 a.m.. Spoke with patient results foreign body. She states her last abdominal surgery hip surgery was in 2014. No surgeries in the past 5 years in the abdomen or hip or pelvis. Patient states she has had oxycodone without allergic reaction or side effects. Discussion: Appropriate for discharge home. I reviewed with general surgeon for follow up for removal foreign body. Patient in no distress. Short course of pain medication provided. Diagnosis: Abdominal wall foreign body Discharge Plan Departure Patient Disposition: Home Clinical Impression: Foreign body (FB) in soft tissue Instructions: DI for Removal of Foreign Body From Skin Activity Restrictions/Additional Instructions: Please call provided general surgery office today to schedule appointment in the office for removal of the foreign body under your skin in your pelvis. Short course of pain medication has been provided for you. Return if worse if any questions or concerns no driving operating machinery when taking prescribed pain medication. Prescriptions: New oxycodone-acetaminophen [Percocet] 5-325 mg tablet 1 tab PO Q4-6H PRN (Reason: pain) Qty: 20 0RF No Action acetaminophen 650 mg Tablet Extended Release 650 mg PO BID nitrofurantoin monohyd/m-cryst [Macrobid] 100 mg capsule 100 mg PO BID Qty: 10 0RF Rx Instructions: must administer with a meal/food polyethylene glycol 3350 [Miralax] 17 gram/dose powder 17 g PO DAILY Qty: 119 0RF Referrals: Robin Bull MD [Physician, General Surgery] Amparo Browne MD [Primary Care Provider, Internal Medicine] Stand Alone Forms: Patient Portal/API
[2025-07-16 09:31] VITALS: BP 165/78; PULSE 78; RESP 16; TEMP 36.7; O2SAT 98; BMI 28.5
--- NOTE | 2025-07-16 09:36 | DI.RAD.S_ITS ---
PROCEDURE: XR HIP W PEL IF DONE LT 2V INDICATIONS: Left pelvic pain TECHNIQUE: AP pelvis with lateral view(s) of the left hip(s). COMPARISON: [facility], CT, CT ABDOMEN PELVIS W CON, 08/14/2024, 9:28. [facility], CT, CT ABDOMEN PELVIS W CON, 04/30/2025, 8:44. [facility], CT, CT ABDOMEN PELVIS W CON, 07/15/2025, 2:29. FINDINGS: Bones: No fractures or dislocations. Expected appearance of total left hip arthroplasty. No evidence of hardware failure or loosening. Pelvic ring appears intact. No suspicious bony lesions. Soft tissues: The visualized bowel gas pattern is normal. No suspicious soft tissue calcifications. There is a broken piece of a curved needle were fishhook in the left anterior upper pelvic subcutaneous fat. It has been present on all previous studies. There is no inflammatory change associated with this. IMPRESSION: No acute bony abnormality. Expected appearance of total left hip arthroplasty. Longstanding, incidental subcutaneous metal foreign body, anterior left upper pelvic subcutaneous fat. Dictated by: Jonh Corey M.D. on 07/16/2025 at 10:10 Approved by: Jonh Corey M.D. on 07/16/2025 at 10:14
[2025-07-16 10:53] VITALS: BP 170/80; PULSE 77; RESP 16; O2SAT 99
== END 2025-07-16 10:54 | disposition home or self-care (01) ==
PROVIDERS: Emergency Provider Emergency Medicine; PCP Internal Medicine
DX: M79.5 Residual foreign body in soft tissue (principal)
CPT/HCPCS: 73502; 99281; 99283

== ENCOUNTER 2025-08-10 09:28 | Emergency (ER) | payer MEDICARE, SELFPAY ==
[2021-12-14 13:07] VITALS: BMI 30.4
[2025-08-10] VITALS (20 sets, daily range): BP systolic 132–151; BP diastolic 61–81; PULSE 56–92; RESP 14–27; TEMP 36.9; O2SAT 91–99; BMI 27.1
--- NOTE | 2025-08-10 09:33 | ED_ITS ---
HPI - General Adult General Chief complaint: Dizziness Stated complaint: Headache/dizziness/doesn't feel in control Time Seen by Provider: 08/10/25 09:29 History of Present Illness HPI narrative: 75y F presents with headache starting this morning unrelieved with Tylenol. Lights and sound button to not bother her and she denies any nausea, vomiting, cough, sore throat, stiff neck, rash, fever, chills, body aches, chest pain, shortness of breath, back pain, abdominal pain, vision changes. Other than what is stated 14 point review of system is negative. Related Data Home Medications ?Medication ?Instructions ?Recorded ?Confirmed acetaminophen 650 mg 650 mg PO BID prn 04/18/19 0 11/08/24 tablet,extended release Previous Rx's ?Medication ?Instructions ?Recorded nitrofurantoin 100 mg PO BID #10 caps 03/15 monohydrate/macrocrystals 100 mg capsule (Macrobid) polyethylene glycol 3350 17 17 g PO DAILY #119 grams 0 04/30/25 gram/dose oral powder (Miralax) oxycodone-acetaminophen 5 mg-325 1 tab PO Q4-6H PRN pa in #20 tabs 07/16/25 mg tablet (Percocet) Allergies Allergy/AdvReac Type Severity Reaction Status Date / Time hydrocodone AdvReac Mild Jittery, Verified 08/10/25 09:35 nervous, shakey Review of Systems Review of Systems ROS Unobtainable: All systems reviewed & are unremarkable except as noted in HPI and below Patient History Medical History Postmenopausal atrophic vaginitis Right lower quadrant pain Former smoker IBS (irritable bowel syndrome) Pelvic fracture HTN (hypertension) Spinal stenosis Depression Arthritis Surgical History History of lumbar fusion (12/17/20) History of laparoscopic appendectomy (02/17/21) History of lumbar fusion (04/26/19) Hx of tonsillectomy History of total left hip arthroplasty History of arthroplasty of right knee H/O: hysterectomy Hx of thyroidectomy Hx of bilateral cataract extraction History of arthroplasty of left shoulder (~2015) Family History Grandmother Cancer Father Hypertension Mother Hypertension Social History marital status: unmarried,single number of children: 0 household members: none lives independently: Yes occupational status: previously employed Smoking Status: Unknown if ever smoked alcohol intake: never alcohol intake frequency: other Exam Narrative Exam Narrative: GENERAL: 75 year old patient appears stated age. Well-developed patient, in mild distress. HEAD: Atraumatic. Normocephalic. EYES: Pupils equal round and reactive. Extraocular motions intact. No scleral icterus. No injection or drainage. ENT: Nose without bleeding, purulent drainage. Throat without erythema, tonsillar hypertrophy or exudate. Airway patent. NECK: Trachea midline. Non tender CARDIOVASCULAR: Regular rate and rhythm without murmurs, gallops, or rubs. RESPIRATORY: Clear to auscultation. Breath sounds equal bilaterally. No wheezes, rales, or rhonchi. GASTROINTESTINAL: Abdomen soft, non-tender, nondistended. EXTREMITIES: No edema or joint tenderness. BACK: Nontender without deformity or crepitance. No flank tenderness. NEURO: AOx3. SKIN: No rash or erythema of visible areas Initial Vital Signs Initial Vital Signs: Vital Signs Temperature 98.4 F 08/10/25 09:29 Pulse Rate 56 L 08/10/25 09:29 Respiratory Rate 14 08/10/25 09:29 Blood Pressure 140/81 08/10/25 09:29 Pulse Oximetry 94 08/10/25 09:29 Oxygen Delivery Method Room Air 08/10/25 09:29 Course Orders Ordered: ED Orders 08/10/25 09:40 XR chest 1V Stat Complete Blood Count AUTO DIFF Stat Comprehensive Metabolic Panel Stat Lipase Stat Magnesium Stat NT-proBNP (BNP-Adult 18+) Stat Troponin I Stat EKG-12 Lead Stat 08/10/25 09:47 Covid-19 + FLU A/B + RSV - PCR Stat 08/10/25 11:36 Troponin I Stat 08/10/25 12:58 CT angio head and neck Stat CT head/brain wo con Stat 08/10/25 13:02 Ictotest Urine Stat Urinalysis and Microscopic Stat Discontinued Medications Lactated Ringer's (Lactated Ringers) 1,000 mls @ 1,000 mls/hr IV BOLUS ONE Stop: 08/10/25 12:47 Last Admin: 08/10/25 11:54 Dose: Not Given Documented By: KB Vital Signs Vital signs: Vital Signs - 8 hr 08/10/25 09:29 08/10/25 09:34 08/10/25 09:35 Temperature 98.4 F Pulse Rate 56 L 88 Respiratory Rate 14 Blood Pressure 140/81 140/81 Pulse Oximetry 94 91 Oxygen Delivery Method Room Air 08/10/25 09:42 08/10/25 09:42 08/10/25 10:00 Temperature Pulse Rate 92 H Respiratory Rate 20 Blood Pressure 132/61 145/69 H Pulse Oximetry 94 Oxygen Delivery Method 08/10/25 10:00 08/10/25 10:30 08/10/25 10:30 Temperature Pulse Rate 85 82 Respiratory Rate 26 H 19 Blood Pressure 146/68 H Pulse Oximetry 94 91 Oxygen Delivery Method 08/10/25 11:00 08/10/25 11:01 08/10/25 11:01 Temperature Pulse Rate 82 85 Respiratory Rate 25 H 20 Blood Pressure 144/68 H Pulse Oximetry 95 91 Oxygen Delivery Method 08/10/25 11:30 08/10/25 11:31 08/10/25 11:31 Temperature Pulse Rate 88 85 Respiratory Rate 17 22 Blood Pressure 147/69 H Pulse Oximetry 93 99 Oxygen Delivery Method 08/10/25 12:00 08/10/25 12:00 08/10/25 12:30 Temperature Pulse Rate 84 86 Respiratory Rate 24 18 Blood Pressure 151/78 H Pulse Oximetry 98 94 Oxygen Delivery Method 08/10/25 12:31 08/10/25 12:31 08/10/25 13:21 Temperature Pulse Rate 88 89 Respiratory Rate 18 16 Blood Pressure 142/72 H Pulse Oximetry 95 96 Oxygen Delivery Method 08/10/25 13:30 08/10/25 14:00 08/10/25 14:15 Temperature Pulse Rate 90 88 90 Respiratory Rate 20 22 25 H Blood Pressure Pulse Oximetry 95 95 96 Oxygen Delivery Method Room Air 08/10/25 14:15 Temperature Pulse Rate Respiratory Rate Blood Pressure 133/68 Pulse Oximetry Oxygen Delivery Method Medical Decision Making Lab Data 08/10/25 09:40 08/10/25 09:40 Labs: Lab Results 08/10/25 08/10/25 08/10/25 Range/Units 09:40 09:47 11:36 WBC 6.9 (4.5-11.0) X10^3/uL RBC 5.29 H (4.0-5.2) X10^6/uL Hgb 16.0 (12.0-16.0) g/dL Hct 47.7 H (36-46) % MCV 90.2 (80-100) fL MCH 30.3 (26-34) PG MCHC 33.6 (30-36) % RDW 13.9 (11.6-14.8) % Plt Count 178 (150-400) X10^3/uL Neut % (Auto) 75.3 H (50-75) % Lymph % (Auto) 12.0 L (25-40) % Quay % (Auto) 11.5 (3-14) % Eos % (Auto) 0.3 L (2-4) % Baso % (Auto) 0.9 (0-2) % Neut # (Auto) 5200 (7959-9623) /uL Lymph # (Auto) 800 L (9472-3938) /uL Quay # (Auto) 800 (0-900) /uL Eos # (Auto) 0 (0-450) /uL Baso # (Auto) 100 (0-100) /uL Sodium 138 (137-145) mmol/L Potassium 3.9 (3.4-5.1) mmol/L Chloride 106 (98-107) mmol/L Carbon Dioxide 22 (22-32) mmol/L BUN 12 (7-17) mg/dL Creatinine 0.72 (0.52-1.04) mg/dL Estimated GFR > 60 (>60) mL/min BUN/Creatinine Ratio 16.7 (6-22) Glucose 86 (70-99) mg/dL Calcium 9.5 (8.4-10.2) mg/dL Magnesium 1.8 (1.6-2.3) mg/dL Total Bilirubin 0.6 (0.2-1.3) mg/dL AST 34 (14-36) IU/L ALT 18 (<35) IU/L Alkaline Phosphatase 66 (38-126) U/L Troponin I < 0.012 < 0.012 (0.01-0.034) ng/mL NT-Pro-B Natriuret Pep 332 (<450) pg/mL Total Protein 7.8 (6.3-8.2) g/dL Albumin 4.6 (3.5-5.0) g/dL Globulin 3.2 (1.7-4.1) g/dL Albumin/Globulin Ratio 1.4 (1.0-2.8) Lipase 33 (23-300) U/L Urine Color Urine Appearance Urine pH (4.5-8.0) Ur Specific [place] (1.000-1.035) Urine Protein (Negative) Urine Glucose (UA) (Negative) g/dL Urine Ketones (NEGATIVE) Urine Occult Blood (Negative) Urine Nitrate (Negative) Urine Bilirubin (NEGATIVE) Ur Bilirubin Confirm (Negative) Urine Urobilinogen (0.2) E.U./dL Ur Leukocyte Esterase (NEGATIVE) Urine RBC (0-5/HPF) Urine WBC (0-5/HPF) Ur Squamous Epith Cells (0-5/HPF) Urine Bacteria (None) Hyaline Casts (None) Ur Culture Indicated? Vol Urine Centrifuged SARS-CoV-2 (PCR) Positive H (Negative) Influenza A (RT-PCR) Flu a negative (NEGATIVE) Influenza B (RT-PCR) Flu b negative (NEGATIVE) RSV (PCR) Negative (Negative) 08/10/25 Range/Units 13:02 WBC (4.5-11.0) X10^3/uL RBC (4.0-5.2) X10^6/uL Hgb (12.0-16.0) g/dL Hct (36-46) % MCV (80-100) fL MCH (26-34) PG MCHC (30-36) % RDW (11.6-14.8) % Plt Count (150-400) X10^3/uL Neut % (Auto) (50-75) % Lymph % (Auto) (25-40) % Quay % (Auto) (3-14) % Eos % (Auto) (2-4) % Baso % (Auto) (0-2) % Neut # (Auto) (1578-7157) /uL Lymph # (Auto) (5753-5787) /uL Quay # (Auto) (0-900) /uL Eos # (Auto) (0-450) /uL Baso # (Auto) (0-100) /uL Sodium (137-145) mmol/L Potassium (3.4-5.1) mmol/L Chloride (98-107) mmol/L Carbon Dioxide (22-32) mmol/L BUN (7-17) mg/dL Creatinine (0.52-1.04) mg/dL Estimated GFR (>60) mL/min BUN/Creatinine Ratio (6-22) Glucose (70-99) mg/dL Calcium (8.4-10.2) mg/dL Magnesium (1.6-2.3) mg/dL Total Bilirubin (0.2-1.3) mg/dL AST (14-36) IU/L ALT (<35) IU/L Alkaline Phosphatase (38-126) U/L Troponin I (0.01-0.034) ng/mL NT-Pro-B Natriuret Pep (<450) pg/mL Total Protein (6.3-8.2) g/dL Albumin (3.5-5.0) g/dL Globulin (1.7-4.1) g/dL Albumin/Globulin Ratio (1.0-2.8) Lipase (23-300) U/L Urine Color Yellow Urine Appearance Clear Urine pH 5.5 (4.5-8.0) Ur Specific [place] >=1.030 H (1.000-1.035) Urine Protein Negative (Negative) Urine Glucose (UA) Negative (Negative) g/dL Urine Ketones 2+ H (NEGATIVE) Urine Occult Blood Negative (Negative) Urine Nitrate Negative (Negative) Urine Bilirubin 1+ H (NEGATIVE) Ur Bilirubin Confirm Negative (Negative) Urine Urobilinogen 0.2 (0.2) E.U./dL Ur Leukocyte Esterase Trace H (NEGATIVE) Urine RBC None seen (0-5/HPF) Urine WBC 1-5/hpf (0-5/HPF) Ur Squamous Epith Cells 1-5 /hpf (0-5/HPF) Urine Bacteria None seen (None) Hyaline Casts 1-5/lpf (None) Ur Culture Indicated? Cult not indicated Vol Urine Centrifuged 10ml (spun) SARS-CoV-2 (PCR) (Negative) Influenza A (RT-PCR) (NEGATIVE) Influenza B (RT-PCR) (NEGATIVE) RSV (PCR) (Negative) Imaging Data Chest x-ray: Radiologist's Impression: [address] [address] XRay Report Signed Patient: Veronica Calle MR#: [id number] : 1950 Acct:[id number] Age/Sex: 75 / F Date of Service: 08/10/25 Loc: ED Accession Number: [id number] Procedure: XR chest 1V Ordering Provider: Cliff Small D.O. PROCEDURE: XR CHEST 1V INDICATIONS: Short of breath TECHNIQUE: One view of the chest was acquired. COMPARISON: [facility], CR, XR CHEST 1V, 02/17/2025, 10:26. [facility], CR, XR CHEST 1V, 07/15/2025, 4:09. FINDINGS: Surgical changes and devices: Left shoulder arthroplasty hardware is partially seen. There is partial visualization of lumbar fixation hardware. Lungs and pleura: Lungs are clear. No pleural effusions or pneumothorax. Mediastinum: The cardiac contours are within normal limits. The aorta demonstrates calcification and tortuosity. Bones and chest wall: Age-appropriate bony degenerative changes are seen. No suspicious bony lesions. Overlying soft tissues appear unremarkable. IMPRESSION: Clear lungs without infiltrates. Postoperative and degenerative changes are seen. Dictated by: Sushant Peña M.D. on 08/10/2025 at 9:23 Approved by: Sushant Peña M.D. on 08/10/2025 at 9:24 CT scan - head: Radiologist's Impression: [place] [address] CT Scan Report Signed Patient: Veronica Calle MR#: [id number] : 1950 Acct:[id number] Age/Sex: 75 / F Date of Service: 08/10/25 Loc: ED Accession Number: [id number] Procedure: CT head/brain wo con Ordering Provider: Cliff Small D.O. PROCEDURE: CT HEAD/BRAIN WO CON INDICATIONS: dizziness/headache TECHNIQUE: Noncontrast 4.5 mm thick angled axial sections acquired from the foramen magnum to the vertex, with coronal and sagittal reformats. For radiation dose reduction, the following was used: automated exposure control, adjustment of mA and/or kV according to patient size. COMPARISON: [facility], CT, CT ANGIO HEAD AND NECK, 08/10/2025, 13:06. [facility], CR, XR CHEST 1V, 08/10/2025, 10:01. [facility], CT, CT HEAD/BRAIN WO CON, 11/08/2024, 14:18. FINDINGS: Image quality: Diagnostic. CSF spaces: Basal cisterns are patent. No extra-axial fluid collections. The ventricles are symmetric in size and shape. Brain: No intracranial bleeds or mass effect. There is cerebral volume loss, with resultant ventricular and sulcal prominence. There are periventricular and deep white matter chronic small vessel ischemic changes. There is intracranial internal carotid artery atherosclerosis. Skull and face: Calvarium and visualized facial bones appear intact, without suspicious lesions. Incidental note is made of hyperostosis frontalis. This is not considered to be pathologic in a woman of this age. Sinuses: Visualized sinuses and mastoids are clear. IMPRESSION: No imaging explanation is found for this patient's presenting symptoms. Similar to the prior. Dictated by: Sushant Peña M.D. on 08/10/2025 at 12:52 Approved by: Sushant Peña M.D. on 08/10/2025 at 12:53 CTA - brain/neck: Radiologist's Impression: [place] [address] CT Scan Report Signed Patient: Veronica Calle MR#: [id number] : 1950 Acct:[id number] Age/Sex: 75 / F Date of Service: 08/10/25 Loc: ED Accession Number: [id number] Procedure: CT angio head and neck Ordering Provider: Cliff Small D.O. PROCEDURE: CT ANGIO HEAD AND NECK INDICATIONS: dizziness TECHNIQUE: After the administration of intravenous contrast, 1 mm thick sections acquired from the aortic arch through the [place] of [place]. 3-dimensional iczoqpu-zngcahebn-nqzhsqjggz (MIP) and/or volume rendering reformats were acquired of the central intracranial vasculature and neck separately. For radiation dose reduction, the following was used: automated exposure control, adjustment of mA and/or kV according to patient size. COMPARISON: [facility], CT, CT HEAD/BRAIN WO CON, 08/10/2025, 13:06. [facility], CR, XR CHEST 1V, 08/10/2025, 10:01. [facility], CT, CT ANGIO HEAD AND NECK, 02/17/2025, 10:22. FINDINGS: Image quality: Limited by bolus timing, with venous contamination. There is artifact associated with the metallic hardware. Artifact from the metallic hardware is reduced by metal reconstruction algorithm. There is streak artifact seen through the level of the shoulders. Cerebral CT Angiogram: Internal carotid arteries: No acute findings. Intracranial ICA are patent with no significant stenosis. No occlusion. No aneurysm. Anterior cerebral arteries: Unremarkable. No significant stenosis. No occlusion. No aneurysm. Middle cerebral arteries: Unremarkable. No significant stenosis. No occlusion. No aneurysm. Posterior cerebral arteries: Unremarkable. No significant stenosis. No occlusion. No aneurysm. Basilar artery: Unremarkable. No significant stenosis. No occlusion. No aneurysm. Vertebral arteries: Unremarkable as visualized. Dural venous sinuses: Unremarkable given phase of enhancement. Other: Arterial phase appearance of the brain parenchyma is unremarkable. Neck CT Angiogram: Internal carotid arteries: Unremarkable. No significant stenosis. No dissection or occlusion. Common carotid arteries: Unremarkable. No significant stenosis. No dissection or occlusion. External carotid arteries: Unremarkable. No occlusion. Vertebral arteries: The origins of the vertebral arteries both appear widely patent. The more superior extracranial portions of both vertebral arteries also demonstrate normal courses and calibers. The right vertebral artery is dominant to the left. Aortic Arch and Mediastinum: Partially visualized aortic arch unremarkable without evidence of aneurysm. Origins of the great vessels unremarkable. Other: At least moderate cervical spine degenerative change is seen. A right thyroid nodule is again seen. IMPRESSION: No significant intracranial arterial abnormality is seen. No significant abnormality is seen within the arteries of the neck. Additional findings: Right thyroid nodule again seen, please consider follow-up ultrasound At least moderate cervical spine degenerative change MDM Narrative Medical decision making narrative: All lab work, vital signs, nurse triage note, medication list, previous ER visits, and all imaging studies reviewed. 2 sets troponin negative BNP 332. Chest x-ray no acute process. CT head no acute process. CTA showed no acute process. Differential diagnosis aneurysm CVA dehydration vertigo STEMI NSTEMI hemorrhage dehydration. Discharge Plan Departure Patient Disposition: Home Clinical Impression: Dizziness Instructions: DI for Dizziness-Nonvertigo Activity Restrictions/Additional Instructions: Return with new or worsening symptoms. Keep hydrated. Follow up PCP next week if no improvement in symptoms call office for appointment on Tuesday. Prescriptions: No Action acetaminophen 650 mg Tablet Extended Release 650 mg PO BID nitrofurantoin monohyd/m-cryst [Macrobid] 100 mg capsule 100 mg PO BID Qty: 10 0RF Rx Instructions: must administer with a meal/food polyethylene glycol 3350 [Miralax] 17 gram/dose powder 17 g PO DAILY Qty: 119 0RF oxycodone-acetaminophen [Percocet] 5-325 mg tablet 1 tab PO Q4-6H PRN (Reason: pain) Qty: 20 0RF Referrals: Amparo Browne MD [Primary Care Provider, Internal Medicine] Stand Alone Forms: Patient Portal/API
--- NOTE | 2025-08-10 09:40 | DI.RAD.S_ITS ---
PROCEDURE: XR CHEST 1V INDICATIONS: Short of breath TECHNIQUE: One view of the chest was acquired. COMPARISON: [facility], CR, XR CHEST 1V, 02/17/2025, 10:26. [facility], CR, XR CHEST 1V, 07/15/2025, 4:09. FINDINGS: Surgical changes and devices: Left shoulder arthroplasty hardware is partially seen. There is partial visualization of lumbar fixation hardware. Lungs and pleura: Lungs are clear. No pleural effusions or pneumothorax. Mediastinum: The cardiac contours are within normal limits. The aorta demonstrates calcification and tortuosity. Bones and chest wall: Age-appropriate bony degenerative changes are seen. No suspicious bony lesions. Overlying soft tissues appear unremarkable. IMPRESSION: Clear lungs without infiltrates. Postoperative and degenerative changes are seen. Dictated by: Sushant Peña M.D. on 08/10/2025 at 9:23 Approved by: Sushant Peña M.D. on 08/10/2025 at 9:24
[2025-08-10 10:02] LABS: Add Manual Diff / Slide Review NO; Hematocrit 47.7 % (36-46); Hemoglobin 16.0 g/dL (12.0-16.0); Lymphocytes Absolute Auto 800 /uL (1100-4500); Mean Corpuscular HGB Conc 33.6 % (30-36); Mean Corpuscular Hemoglobin 30.3 PG (26-34); Mean Corpuscular Volume 90.2 fL (80-100); Platelet Count 178 X10^3/uL (150-400)
[2025-08-10 10:23] LABS: Alanine Aminotransferase 18 IU/L (<35); Albumin 4.6 g/dL (3.5-5.0); Albumin Globulin Ratio 1.4 (1.0-2.8); Alkaline Phosphatase 66 U/L (38-126); Blood Urea Nitrogen 12 mg/dL (7-17); Calcium 9.5 mg/dL (8.4-10.2); Carbon Dioxide 22 mmol/L (22-32); Chloride 106 mmol/L (98-107); Estimated Glomerular Filt Rate > 60 mL/min (>60); Globulin 3.2 g/dL (1.7-4.1); Glucose 86 mg/dL (70-99); HEMOLYSIS 37 (0-50); Lipase 33 U/L (23-300); Magnesium 1.8 mg/dL (1.6-2.3); Potassium 3.9 mmol/L (3.4-5.1); Sodium 138 mmol/L (137-145); Total Protein 7.8 g/dL (6.3-8.2)
[2025-08-10 10:35] LABS: NT-proBNP (BNP-Adult 18+) 332 pg/mL (<450); Troponin I < 0.012 ng/mL (0.01-0.034)
[2025-08-10 10:38] LABS: Influenza A - CEPHEID Flu A NEGATIVE (NEGATIVE); Influenza B - CEPHEID Flu B NEGATIVE (NEGATIVE)
[2025-08-10 10:48] LABS: COVID-19 CEPHEID 4-PLEX PCR POSITIVE (Negative)
[2025-08-10 12:09] LABS: Troponin I < 0.012 ng/mL (0.01-0.034)
--- NOTE | 2025-08-10 12:58 | DI.CT.S_ITS ---
PROCEDURE: CT ANGIO HEAD AND NECK INDICATIONS: dizziness TECHNIQUE: After the administration of intravenous contrast, 1 mm thick sections acquired from the aortic arch through the [place] of [place]. 3-dimensional inzfleu-womqalmpj-aqjoiftsyn (MIP) and/or volume rendering reformats were acquired of the central intracranial vasculature and neck separately. For radiation dose reduction, the following was used: automated exposure control, adjustment of mA and/or kV according to patient size. COMPARISON: [facility], CT, CT HEAD/BRAIN WO CON, 08/10/2025, 13:06. [facility], CR, XR CHEST 1V, 08/10/2025, 10:01. [facility], CT, CT ANGIO HEAD AND NECK, 02/17/2025, 10:22. FINDINGS: Image quality: Limited by bolus timing, with venous contamination. There is artifact associated with the metallic hardware. Artifact from the metallic hardware is reduced by metal reconstruction algorithm. There is streak artifact seen through the level of the shoulders. Cerebral CT Angiogram: Internal carotid arteries: No acute findings. Intracranial ICA are patent with no significant stenosis. No occlusion. No aneurysm. Anterior cerebral arteries: Unremarkable. No significant stenosis. No occlusion. No aneurysm. Middle cerebral arteries: Unremarkable. No significant stenosis. No occlusion. No aneurysm. Posterior cerebral arteries: Unremarkable. No significant stenosis. No occlusion. No aneurysm. Basilar artery: Unremarkable. No significant stenosis. No occlusion. No aneurysm. Vertebral arteries: Unremarkable as visualized. Dural venous sinuses: Unremarkable given phase of enhancement. Other: Arterial phase appearance of the brain parenchyma is unremarkable. Neck CT Angiogram: Internal carotid arteries: Unremarkable. No significant stenosis. No dissection or occlusion. Common carotid arteries: Unremarkable. No significant stenosis. No dissection or occlusion. External carotid arteries: Unremarkable. No occlusion. Vertebral arteries: The origins of the vertebral arteries both appear widely patent. The more superior extracranial portions of both vertebral arteries also demonstrate normal courses and calibers. The right vertebral artery is dominant to the left. Aortic Arch and Mediastinum: Partially visualized aortic arch unremarkable without evidence of aneurysm. Origins of the great vessels unremarkable. Other: At least moderate cervical spine degenerative change is seen. A right thyroid nodule is again seen. IMPRESSION: No significant intracranial arterial abnormality is seen. No significant abnormality is seen within the arteries of the neck. Additional findings: Right thyroid nodule again seen, please consider follow-up ultrasound At least moderate cervical spine degenerative change Any quantitative measurements of stenosis were performed using NASCET criteria. Dictated by: Sushant Peña M.D. on 08/10/2025 at 12:53 Approved by: Sushant Peña M.D. on 08/10/2025 at 12:56
--- NOTE | 2025-08-10 12:58 | DI.CT.S_ITS ---
PROCEDURE: CT HEAD/BRAIN WO CON INDICATIONS: dizziness/headache TECHNIQUE: Noncontrast 4.5 mm thick angled axial sections acquired from the foramen magnum to the vertex, with coronal and sagittal reformats. For radiation dose reduction, the following was used: automated exposure control, adjustment of mA and/or kV according to patient size. COMPARISON: [facility], CT, CT ANGIO HEAD AND NECK, 08/10/2025, 13:06. [facility], CR, XR CHEST 1V, 08/10/2025, 10:01. [facility], CT, CT HEAD/BRAIN WO CON, 11/08/2024, 14:18. FINDINGS: Image quality: Diagnostic. CSF spaces: Basal cisterns are patent. No extra-axial fluid collections. The ventricles are symmetric in size and shape. Brain: No intracranial bleeds or mass effect. There is cerebral volume loss, with resultant ventricular and sulcal prominence. There are periventricular and deep white matter chronic small vessel ischemic changes. There is intracranial internal carotid artery atherosclerosis. Skull and face: Calvarium and visualized facial bones appear intact, without suspicious lesions. Incidental note is made of hyperostosis frontalis. This is not considered to be pathologic in a woman of this age. Sinuses: Visualized sinuses and mastoids are clear. IMPRESSION: No imaging explanation is found for this patient's presenting symptoms. Similar to the prior. Dictated by: Sushant Peña M.D. on 08/10/2025 at 12:52 Approved by: Sushant Peña M.D. on 08/10/2025 at 12:53
[2025-08-10 13:17] LABS: Appearance Urine UA CLEAR; Bilirubin Urine UA 1+ (NEGATIVE); Color Urine UA YELLOW; Glucose Urine UA NEGATIVE (Negative); Ketones Urine UA 2+ (NEGATIVE); Leukocyte Esterase Urine UA TRACE (NEGATIVE); Nitrite Urine UA NEGATIVE (Negative); Occult Blood Urine UA NEGATIVE (Negative); Protein Urine UA NEGATIVE (Negative); Specific Gravity Urine UA >=1.030 (1.000-1.035); Urobilinogen Urine UA 0.2 E.U./dL (0.2)
[2025-08-10 13:26] LABS: pH Urine UA 5.5 (4.5-8.0)
[2025-08-10 13:40] LABS: Ictotest Urine Negative (Negative)
[2025-08-10 13:42] LABS: Culture Indicated Urine Cult Not Indicated
== END 2025-08-10 16:04 | disposition home or self-care (01) ==
PROVIDERS: Emergency Provider Family Medicine; PCP Internal Medicine
DX: R42 Dizziness and giddiness (principal)
CPT/HCPCS: 36415; 70450; 70496; 70498; 71045; 80053; 81001; 83690; 83735; 83880; 84484; 85025; 87637; 99283; 99284; Q9967

== ENCOUNTER 2025-08-14 08:02 | Emergency (ER) | payer MEDICARE, SELFPAY ==
[2021-12-14 13:07] VITALS: BMI 30.4
[2025-08-14] VITALS (15 sets, daily range): BP systolic 134–152; BP diastolic 66–92; PULSE 57–73; RESP 16–24; TEMP 36.3; O2SAT 93–99; BMI 27.9
--- OUTSIDE RECORDS SUMMARY | 2025-08-14 08:04 | XMS_ITS | Clinical Summary ---
Author Organization [facility] Address [address] [place] [address] Care Team Providers Care Head Of Science Name Role Phone Pcp, None Selected Primary Care Provider Unavail able Social History Tobacco Use Types Packs/Day Years Used Date Smoking Tobacco: Never Assessed Comments Unknown Sex and Gender Information Value Date Recorded Sex Assigned at Not on file Legal Sex Female 12:41 PM PDT Gender Identity Not on file Sexual Orientation Not on file Plan of Treatment Not on file Care Teams Head Of Science Relationship Specialty Start Date End Date Pcp, None Selected PCP - General 11/29/24
--- NOTE | 2025-08-14 08:12 | ED_ITS ---
HPI - Dizziness General Chief Complaint: Dizziness Stated Complaint: Dizzy this morning Time Seen by Provider: 08/14/25 08:07 History of Present Illness HPI Narrative: 75-year-old female brought in by self today for frontal headache, dizziness, lightheaded, and eye pain. Past medical history significant for abdominal pain, she states she has to take medication for hypertension, diverticulitis. Reports she was in her usual state of health until this morning when she woke up with some pain behind her eyes and forehead. Has mild rhinorrhea. Fevers, chills, nausea, vomiting. No chest pain, dyspnea, diaphoresis. Related Data Home Medications ?Medication ?Instructions ?Recorded ?Confirmed acetaminophen 650 mg 650 mg PO BID prn 04/18/19 0 11/08/24 tablet,extended release Previous Rx's ?Medication ?Instructions ?Recorded nitrofurantoin 100 mg PO BID #10 caps 03/15 monohydrate/macrocrystals 100 mg capsule (Macrobid) polyethylene glycol 3350 17 17 g PO DAILY #119 grams 0 04/30/25 gram/dose oral powder (Miralax) oxycodone-acetaminophen 5 mg-325 1 tab PO Q4-6H PRN pa in #20 tabs 07/16/25 mg tablet (Percocet) Allergies Allergy/AdvReac Type Severity Reaction Status Date / Time hydrocodone AdvReac Mild Jittery, Verified 08/10/25 09:35 nervous, jose jkey Review of Systems Review of Systems ROS Unobtainable: All systems reviewed & are unremarkable except as noted in HPI and below Patient History Medical History Postmenopausal atrophic vaginitis Right lower quadrant pain Former smoker IBS (irritable bowel syndrome) Pelvic fracture HTN (hypertension) Spinal stenosis Depression Arthritis Surgical History History of lumbar fusion (12/17/20) History of laparoscopic appendectomy (02/17/21) History of lumbar fusion (04/26/19) Hx of tonsillectomy History of total left hip arthroplasty History of arthroplasty of right knee H/O: hysterectomy Hx of thyroidectomy Hx of bilateral cataract extraction History of arthroplasty of left shoulder (~2015) Family History Grandmother Cancer Father Hypertension Mother Hypertension Social History marital status: unmarried,single number of children: 0 household members: none lives independently: Yes occupational status: previously employed alcohol intake: never alcohol intake frequency: other Exam Narrative Exam Narrative: Vitals:? Afebrile, tachycardic, all other vitals within normal range. Gen:? Well-developed, well-nourished, no acute distress Cards:? Regular, no murmurs, rubs, gallops Pulm:? No increased work of breathing, and expiratory wheezing in upper lobes Abd:? Soft, nondistended, nontender Ext:? No peripheral edema in bilateral lower extremity Neuro:? A&O x4, cranial nerves intact, in all 4 extremities spontaneously. 5/5 strength with flexion and extension at elbow, knees, plantar and dorsal flexion. Sensation intact throughout. Psych:? Appropriate Initial Vital Signs Initial Vital Signs: Vital Signs Pulse Rate 69 08/14/25 08:13 Blood Pressure 137/78 08/14/25 08:13 Pulse Oximetry 98 08/14/25 08:13 Course Orders Ordered: Discontinued Medications Acetaminophen (Acetaminophen 325 Mg Tablet) 975 mg PO NOW ONE Stop: 08/14/25 08:32 Last Admin: 08/14/25 08:49 Dose: 975 mg Documented By: PRECIOUS Sodium Chloride (Normal Saline 0.9%) 1,000 mls @ 1,000 mls/hr IV BOLUS ONE Stop: 08/14/25 11:37 Last Infusion: 08/14/25 12:26 Dose: Infused Documented By: Admin: 08/14/25 10:44 Dose: 1,000 mls/hr Documented By: PRECIOUS Ibuprofen (Ibuprofen 400 Mg Tablet) 400 mg PO NOW ONE Stop: 08/14/25 10:39 Last Admin: 08/14/25 10:43 Dose: 400 mg Documented By: PRECIOUS Metoclopramide HCl (Metoclopramide 10 Mg/2 Ml Inj) 10 mg IV NOW ONE Stop: 08/14/25 10:39 Last Admin: 08/14/25 10:44 Dose: 10 mg Documented By: PRECIOUS Vital Signs Vital signs: Vital Signs - 8 hr 08/14/25 10:53 08/14/25 10:53 08/14/25 11:00 Pulse Rate 58 L Respiratory Rate 22 Blood Pressure 143/75 H 136/72 Pulse Oximetry 99 08/14/25 11:00 08/14/25 11:30 08/14/25 11:30 Pulse Rate 57 L 58 L Respiratory Rate 24 20 Blood Pressure 148/70 H Pulse Oximetry 98 98 08/14/25 12:00 08/14/25 12:01 08/14/25 12:01 Pulse Rate 60 61 Respiratory Rate Blood Pressure 139/66 Pulse Oximetry 97 97 08/14/25 12:30 08/14/25 12:31 08/14/25 12:31 Pulse Rate 61 62 Respiratory Rate 21 21 Blood Pressure 152/72 H Pulse Oximetry 93 95 08/14/25 12:59 Pulse Rate 64 Respiratory Rate 24 Blood Pressure 152/72 H Pulse Oximetry 98 MDM - Dizziness Lab Data 08/14/25 08:20 08/14/25 08:20 Labs: Lab Results 08/14/25 Range/Units 08:20 WBC 5.1 (4.5-11.0) X10^3/uL RBC 5.05 (4.0-5.2) X10^6/uL Hgb 15.4 (12.0-16.0) g/dL Hct 45.0 (36-46) % MCV 89.1 (80-100) fL MCH 30.5 (26-34) PG MCHC 34.2 (30-36) % RDW 13.7 (11.6-14.8) % Plt Count 161 (150-400) X10^3/uL Neut % (Auto) 67.7 (50-75) % Lymph % (Auto) 23.6 L (25-40) % [place] % (Auto) 7.4 (3-14) % Eos % (Auto) 0.9 L (2-4) % Baso % (Auto) 0.4 (0-2) % Neut # (Auto) 3500 (4288-2754) /uL Lymph # (Auto) 1200 (6348-9350) /uL [place] # (Auto) 400 (0-900) /uL Eos # (Auto) 0 (0-450) /uL Baso # (Auto) 0 (0-100) /uL Sodium 141 (137-145) mmol/L Potassium 3.8 (3.4-5.1) mmol/L Chloride 109 H (98-107) mmol/L Carbon Dioxide 24 (22-32) mmol/L BUN 12 (7-17) mg/dL Creatinine 0.66 (0.52-1.04) mg/dL Estimated GFR > 60 (>60) mL/min BUN/Creatinine Ratio 18.2 (6-22) Glucose 95 (70-99) mg/dL Calcium 9.0 (8.4-10.2) mg/dL Total Bilirubin 0.6 (0.2-1.3) mg/dL AST 28 (14-36) IU/L ALT 21 (<35) IU/L Alkaline Phosphatase 67 (38-126) U/L Troponin I < 0.012 (0.01-0.034) ng/mL Total Protein 6.9 (6.3-8.2) g/dL Albumin 4.3 (3.5-5.0) g/dL Globulin 2.6 (1.7-4.1) g/dL Albumin/Globulin Ratio 1.7 (1.0-2.8) SARS-CoV-2 (PCR) Positive H (Negative) Influenza A (RT-PCR) Flu a negative (NEGATIVE) Influenza B (RT-PCR) Flu b negative (NEGATIVE) RSV (PCR) Negative (Negative) Imaging Data Chest x-ray: Radiologist's Impression: PROCEDURE: XR CHEST 1V INDICATIONS: dizzy TECHNIQUE: One view of the chest was acquired. COMPARISON: [facility], , XR CHEST 1V, 08/10/2025, 10:01. [facility], , XR CHEST 1V, 07/15/2025, 4:09. FINDINGS: Surgical changes and devices: Left shoulder arthroplasty is partially included. Lungs and pleura: Lungs are clear. No pleural effusions or pneumothorax. Mediastinum: Mediastinal contours appear normal. Heart size is normal. Bones and chest wall: No suspicious bony lesions. Overlying soft tissues appear unremarkable. IMPRESSION: No acute cardiopulmonary abnormality is seen. MDM Narrative Medical decision making narrative: 75-year-old female brought in by self today for frontal headache, dizziness, lightheaded, and eye pain consistent with a headache. EMR Review: Right thyroid nodule again seen, please consider follow-up ultrasound Differential diagnosis: ACS, headache, metabolic abnormality, hypoglycemia, other. Labs: CBC without leukocytosis, left shift, anemia, normal platelets. CMP largely normal. Troponin negative. Images: Chest x-ray without any cardiopulmonary processes. EK:53 sinus rhythm with shortened GA, HR 66, GA 102, QT 422, QTC 442, left axis deviation, no ectopy, no evidence of ischemia. This was compared to EKG obtained on 07/15/2025 with acute appears largely unchanged, GA at that time 1:24 a.m.. Consults: None. ED Course: The patient is a 75 year old female presenting with frontal headache, dizziness, lightheadedness, and eye pain consistent with a headache. EMR review notes a previously identified right thyroid nodule; outpatient follow-up ultrasound is recommended. In the ED, the patient?s neurologic exam was nonfocal with no cranial nerve deficits. She was treated initially with Tylenol, which significantly improved her symptoms, followed by a full headache cocktail with further relief. Workup was negative for infectious etiology or acute coronary syndrome. Given her improvement, stable vital signs, and reassuring evaluation, her presentation is most consistent with a benign headache process. Discharge Plan Departure Patient Disposition: Home Clinical Impression: COVID-19, Headache Instructions: DI for COVID-19 (Suspected or Confirmed ), COVID-19_ Can I Get It Again Activity Restrictions/Additional Instructions: You were seen in the emergency department for a headache. In the ER: -- Your COVID test was positive -- Workup to include cardiac enzymes, EKG, chest x-ray was not consistent with a heart attack -- Your blood counts and electrolytes were normal Plan: -- Please read the handouts provided for COVID -- Continue [id number] medications for symptoms -- Return to the ER if you develop any new or worsening symptoms to include chest pain, shortness of breath, fevers, chills or any other concerns. Prescriptions: No Action acetaminophen 650 mg Tablet Extended Release 650 mg PO BID nitrofurantoin monohyd/m-cryst [Macrobid] 100 mg capsule 100 mg PO BID Qty: 10 0RF Rx Instructions: must administer with a meal/food polyethylene glycol 3350 [Miralax] 17 gram/dose powder 17 g PO DAILY Qty: 119 0RF oxycodone-acetaminophen [Percocet] 5-325 mg tablet 1 tab PO Q4-6H PRN (Reason: pain) Qty: 20 0RF Referrals: Amparo Browne MD [Primary Care Provider, Internal Medicine] Stand Alone Forms: Patient Portal/API
--- NOTE | 2025-08-14 08:28 | DI.RAD.S_ITS ---
PROCEDURE: XR CHEST 1V INDICATIONS: dizzy TECHNIQUE: One view of the chest was acquired. COMPARISON: [facility], , XR CHEST 1V, 08/10/2025, 10:01. [facility], CR, XR CHEST 1V, 07/15/2025, 4:09. FINDINGS: Surgical changes and devices: Left shoulder arthroplasty is partially included. Lungs and pleura: Lungs are clear. No pleural effusions or pneumothorax. Mediastinum: Mediastinal contours appear normal. Heart size is normal. Bones and chest wall: No suspicious bony lesions. Overlying soft tissues appear unremarkable. IMPRESSION: No acute cardiopulmonary abnormality is seen. Approved by: Stan Medina M.D. on 08/14/2025 at 9:09
[2025-08-14 08:35] LABS: Add Manual Diff / Slide Review NO; Hematocrit 45.0 % (36-46); Hemoglobin 15.4 g/dL (12.0-16.0); Lymphocytes Absolute Auto 1200 /uL (1100-4500); Mean Corpuscular HGB Conc 34.2 % (30-36); Mean Corpuscular Hemoglobin 30.5 PG (26-34); Mean Corpuscular Volume 89.1 fL (80-100); Platelet Count 161 X10^3/uL (150-400)
[2025-08-14 08:40] LABS: Alanine Aminotransferase 21 IU/L (<35); Albumin 4.3 g/dL (3.5-5.0); Albumin Globulin Ratio 1.7 (1.0-2.8); Alkaline Phosphatase 67 U/L (38-126); Blood Urea Nitrogen 12 mg/dL (7-17); Calcium 9.0 mg/dL (8.4-10.2); Carbon Dioxide 24 mmol/L (22-32); Chloride 109 mmol/L (98-107); Estimated Glomerular Filt Rate > 60 mL/min (>60); Globulin 2.6 g/dL (1.7-4.1); Glucose 95 mg/dL (70-99); Potassium 3.8 mmol/L (3.4-5.1); Sodium 141 mmol/L (137-145); Total Protein 6.9 g/dL (6.3-8.2)
[2025-08-14] MEDS: ACETAMINOPHEN 325 MG TABLET 975 MG PO (08:49)
--- NOTE | 2025-08-14 08:53 | EKG_ITS ---
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
[2025-08-14 09:11] LABS: HEMOLYSIS 15 (0-50); Troponin I < 0.012 ng/mL (0.01-0.034)
[2025-08-14 09:59] LABS: Influenza A - CEPHEID Flu A NEGATIVE (NEGATIVE); Influenza B - CEPHEID Flu B NEGATIVE (NEGATIVE)
[2025-08-14 10:00] LABS: COVID-19 CEPHEID 4-PLEX PCR POSITIVE (Negative)
[2025-08-14] MEDS: IBUPROFEN 400 MG TABLET PO (10:43)
[2025-08-14] MEDS: SODIUM CHLORIDE 0.9% 1,000 ML 1000 ML IV (10:44)
[2025-08-14] MEDS: METOCLOPRAMIDE 10 MG/2 ML INJ IV (10:44)
--- NOTE | 2025-08-14 12:58 | PC.NURSE ---
patient feels better and is ready to go home.
== END 2025-08-14 13:00 | disposition home or self-care (01) ==
PROVIDERS: Emergency Provider Student in an Organized Health Care Education/Training Program; PCP Internal Medicine
DX: U07.1 COVID-19 (principal); R51.9 Headache, unspecified; H57.10 Ocular pain, unspecified eye; R50.9 Fever, unspecified; R11.2 Nausea with vomiting, unspecified; J34.89 Other specified disorders of nose and nasal sinuses; I10 Essential (primary) hypertension
CPT/HCPCS: 36415; 71045; 80053; 84484; 85025; 87637; 93005; 96361; 96374; 99284; J2765; J7030